=== PATIENT | female | born 1965 | race Caucasian/White ===

== ENCOUNTER 2016-09-16 13:03 | Inpatient (IN) | payer BC, OTHER ==
[~2016-09-16] VITALS: Ht 170.2 cm; Wt 108.9 kg
[~2016-09-16 13:03] MED LIST: ATV1 PO; CYCL10TA6 PO; CYM/60 PO; DIAZ2TAB PO; EVENCAP6 PO; GABA800T PO; HYOS1TAB PO; MULT-506 PO; RANI300T2 PO; RXC5 PO
[2016-09-16] MEDS ORDERED: ONDANSETRON 8 MG/54 ML D5W IV STA (13:36)
[2016-09-16] MEDS ORDERED: SODIUM CHLORIDE 0.9% 1000ML 1,000 ML IV STA (13:42)
[2016-09-16] MEDS ORDERED: HYDROmorphone INJ 1 MG/ML SYR IV PRN (13:45)
[2016-09-16 14:01] LABS: BASO % 0.4 %; BASO ABS # 0.07 K/uL (0-0.2); COMPLETE YES; HEMATOCRIT 46.2 % (37-47); IG% 0.8 %; LYMPH % 18.5 %; LYMPH ABS # 3.18 K/uL (1.2-3.4); MEAN CELL VOLUME 95.9 fL (80-100); MEAN CORPUSCULAR HEMOGLOBIN 31.5 pg (25-34); MEAN CORPUSCULAR HGB CONC 32.9 g/dl (32-36); MEAN PLATELET VOLUME 10.8 fL (7.4-10.4); MONO % 7.3 %; PLATELET COUNT 244 K/uL (130-400); RED BLOOD COUNT 4.82 M/uL (4.2-5.4); WHITE BLOOD COUNT 17.21 K/uL (4.8-10.8)
[2016-09-16] MEDS ORDERED: ASPI81TA28 PO (14:14)
[2016-09-16] MEDS ORDERED: PANT40TA PO (14:14)
[2016-09-16] MEDS ORDERED: PREG1CAP28 PO (14:14)
[2016-09-16] MEDS ORDERED: RMRS/15 PO (14:14)
[2016-09-16] MEDS ORDERED: NURSING VERBAL MED ORDER ONE (14:15)
[2016-09-16] MEDS ORDERED: LORAZEPAM 0.5 MG TAB SL STA (14:45)
[2016-09-16] MEDS ORDERED: DIAZEPAM 2MG TAB PO PRN (15:30)
[2016-09-16] MEDS ORDERED: NALOXONE HCL 0.4 MG/1 ML VIAL/CARP IV PRN (15:30)
[2016-09-16] MEDS ORDERED: RANITIDINE HCL 150 MG TAB PO PRN (15:45)
[2016-09-16 16:00] VITALS: BP 112/72; TEMP 36.6; Ht 170.2 cm; Wt 108.9 kg
[2016-09-16 16:15] VITALS: BP 126/83; PULSE 100; TEMP 36.7; O2SAT 90
[2016-09-16 17:00] LABS: CALCIUM 8.1 mg/dl (8.5-10.1); CREATININE 0.88 mg/dl (0.60-1.20); POTASSIUM 4.1 mmol/L (3.5-5.1)
[2016-09-16] MEDS: OXYCODONE HCL IR 5 MG TAB (IMMEDIATE RELEASE) PO PRN (17:05)
--- NOTE | 2016-09-16 17:15 | EMERGENCY ROOM VISIT NOTE ---
History Report prepared by Valarie: Evans Curry Under the Supervision of: Dr. Derek Crain M.D. First contact with patient: 13:21 Chief Complaint: BACK PAIN Stated Complaint: SEVERE LOW BACK PAIN History of Present Illness The patient is a 51 year old female who presents ambulatory to the Emergency Room with complaints of worsening low back pain that started around 8 days ago. She had back surgery in December of last year with Dr. Aleman of orthopedics, and had rods put in. The patient says that her back pain flared up again last week and she also has been having numbness or tingling down her front thigh. She says that she feels a bit of numbness and tingling in her foot and toes as well. However, she states that the numbness and tingling is normal for her. She says that she has been having pain down her left thigh as well, and this is not normal for her. The patient notes that her back pain is starting to wrap around her lower abdomen. She has a terrible headache when the pain flares up, and she gets nauseous. Currently, the patient feels very nauseous. The patient notes that she wakes up in the mornings sometimes and cannot move because she is in so much pain. She was seen by Dr. Aleman 2 days ago, and was put on a tapering steroid pack, and was told to come to the ED if the pain worsened. Even with taking the steroid pack, things are not getting better. The patient has left- over pain medicine from the surgery, and has been taking those for her current pain. She has been taking Hydrocodone and Roxicodone. She denies any recent injury to the back. Pt denies LOC, fevers, chills, diaphoresis, visual changes, neck pain, chest pain, breathing difficulties, vomiting, melena, hematochezia, urinary symptoms, weakness, lymphadenopathy, rash, or other complaints. Source of History: patient Onset: 8 days ago Position: back (lower) Timing: worsening Associated Symptoms: + abdominal pain (lower ), + headache, + nausea Note: Associated symptoms: Pain down left thigh. Numbness and tingling down left leg ( but normal for her). Review of Systems See HPI for pertinent positives and negatives. A total of ten systems were reviewed and were otherwise negative. Past Medical & Surgical Medical Problems: (1) Bowel wall thickening (2) GERD (gastroesophageal reflux disease) (3) Lumbar stenosis with neurogenic claudication (4) TMJ (temporomandibular joint syndrome) (5) Ulcer of abdomen wall Surgical Problems: (1) H/O: hysterectomy (2) Hx of cholecystectomy Family History Cancer Heart disease Hypertension Social History Smoking Status: Never Smoker Alcohol Use: none Marital Status: Housing Status: lives with significant other Current/Historical Medications Scheduled Aspirin (Aspirin Ec), 81 MG PO DAILY Duloxetine HCl (Cymbalta), 90 MG PO QAM Evening [place] Oil (Evening [place] Oil), 1 CAP PO BID Hyoscyamine Sulfate (Levsin), 0.125 MG PO TID Mirtazapine (Mirtazapine), 30 MG PO HS Multivitamin (Multivitamin), 1 TAB PO QAM Pantoprazole (Protonix), 40 MG PO BID Pregabalin (Lyrica), 75 MG PO BID Scheduled PRN Cyclobenzaprine Hcl (Flexeril), 10 MG PO TID PRN for Muscle Spasms Diazepam (Valium), 2 MG PO BID PRN for PRN Lorazepam (Lorazepam), 1 MG PO Q6H PRN for Anxiety Oxycodone HCl (Oxycodone HCl), 5-10 MG PO Q4H PRN for Pain Allergies Coded Allergies: Sulfamethoxazole w/Trimethoprim (Verified Adverse Reaction, Unknown, Yeast infection, 09/16/16) Physical Exam Vital Signs Date Time Temp Pulse Resp B/P Pulse Ox O2 Delivery O2 Flow Rate FiO2 09/16/16 14:03 100 18 113/76 96 Room Air 09/16/16 13:05 36.5 118 20 145/87 97 Room Air Physical Exam GENERAL: Awake, alert, uncomfortable-appearing, in mild distress HENT: Normocephalic, atraumatic. Oropharynx unremarkable. EYES: Normal conjunctiva. Sclera non-icteric. NECK: Supple. No nuchal rigidity. FROM. No JVD. RESPIRATORY: Clear to auscultation. CARDIAC: Regular rate, normal rhythm. Extremities warm and well perfused. Pulses equal. ABDOMEN: Soft, non-distended. No tenderness to palpation. No rebound or guarding. No masses. RECTAL: Deferred. MUSCULOSKELETAL: Chest examination reveals no tenderness. Tenderness over left sciatic notch and into left thigh. There is no CVA tenderness to palpation. No joint edema. LOWER EXTREMITIES: Calves are equal size bilaterally and non-tender. No edema. No discoloration. NEURO: Normal sensorium. Slightly hyperreflexive in left leg. No saddle anesthesia. SKIN: No rash or jaundice noted. Medical Decision & Procedures ER Provider Diagnostic Interpretation: MRI Pending. Laboratory Results 09/16/16 13:50 Red Blood Count 4.82, Mean Corpuscular Volume 95.9, Mean Corpuscular Hemoglobin 31.5, Mean Corpuscular Hemoglobin Concent 32.9, Mean Platelet Volume 10.8, Neutrophils (%) (Auto) 71.0, Lymphocytes (%) (Auto) 18.5, Monocytes (%) (Auto) 7.3, Eosinophils (%) (Auto) 2.0, Basophils (%) (Auto) 0.4, Neutrophils # (Auto) 12.23, Lymphocytes # (Auto) 3.18, Monocytes # (Auto) 1.25, Eosinophils # (Auto) 0.34, Basophils # (Auto) 0.07 Test 09/16/16 13:50 White Blood Count 17.21 K/uL (4.8-10.8) Red Blood Count 4.82 M/uL (4.2-5.4) Hemoglobin 15.2 g/dL (12.0-16.0) Hematocrit 46.2 % (37-47) Mean Corpuscular Volume 95.9 fL (80-100) Mean Corpuscular Hemoglobin 31.5 pg (25-34) Mean Corpuscular Hemoglobin Concent 32.9 g/dl (32-36) Platelet Count 244 K/uL (130-400) Mean Platelet Volume 10.8 fL (7.4-10.4) Neutrophils (%) (Auto) 71.0 % Lymphocytes (%) (Auto) 18.5 % Monocytes (%) (Auto) 7.3 % Eosinophils (%) (Auto) 2.0 % Basophils (%) (Auto) 0.4 % Neutrophils # (Auto) 12.23 K/uL (1.4-6.5) Lymphocytes # (Auto) 3.18 K/uL (1.2-3.4) Monocytes # (Auto) 1.25 K/uL (0.11-0.59) Eosinophils # (Auto) 0.34 K/uL (0-0.5) Basophils # (Auto) 0.07 K/uL (0-0.2) RDW Standard Deviation 44.4 fL (36.4-46.3) RDW Coefficient of Variation 12.8 % (11.5-14.5) Immature Granulocyte % (Auto) 0.8 % Immature Granulocyte # (Auto) 0.14 K/uL (0.00-0.02) Erythrocyte Sedimentation Rate 10 mm/hr (0-21) C-Reactive Protein 0.37 mg/dl (0-0.29) Laboratory results reviewed by me Medications Administered Medications (Trade) Dose Ordered Sig/Ana Laura Route Start Time Stop Time Status Last Admin Dose Admin Hydromorphone HCl (Dilaudid Inj) 1 mg Q15M PRN IV 09/16/16 13:45 09/30/16 13:44 09/16/16 13:58 1 MG Ondansetron HCl 8 mg 8 mg NOW STAT IV 09/16/16 13:36 09/16/16 13:39 DC 09/16/16 13:57 8 MG Sodium Chloride (Nss 1000ml) 1,000 ml @ 999 mls/hr Q1H1M STAT IV 09/16/16 13:42 09/16/16 14:42 DC 09/16/16 13:42 999 MLS/HR ED Course 1335: The patient was evaluated in room A10. A complete history and physical exam was performed. 1336: Ordered Zofran 8mg IV 8 mg IV. 1342: Ordered NSS 1000 ml @ 999 mls/hr IV. 1344: I discussed the patient with Dr. Aleman - [facility] - he will bring the patient into the hospital for further evaluation and treatment. 1345: Ordered Dilaudid Inj 1 mg IV PRN. 1403: Upon reexamination, the patient was lying in bed. I discussed the treatment plan with her. She verbally expressed understanding and agreement with the treatment plan. The patient will be evaluated for further management. 1445: Ordered Ativan Tab 0.5 mg SL. 1507: I reevaluated and updated the patient. Medical Decision Triage Nursing notes reviewed. The patient's presentation and history were concerning for worsening back pain despite outpatient treatment. Etiologies such as lumbago, sciatica, cauda equina, epidural abscess, osteomyelitis, fracture, aortic disease, metastatic disease, infection, renal colic, gastrointestinal, as well as others were entertained. The patient was evaluated. She was quite uncomfortable. She was given Zofran and IV Dilaudid for symptom control. She is currently taking a prednisone taper. Her blood work showed a leukocytosis of 17,000. CRP and ESR were unremarkable. Chemistry panel was unremarkable. The patient had an MRI ordered. She was given sublingual Ativan prior to MRI. Consultation was made with her spine surgeon, Dr. Aleman. He requested the MRI. Given the patient's failure of outpatient management she was brought into the hospital for pain control and further management based upon new Imaging and her response to treatment. The chart was completed utilizing [employer] voice recognition software. Grammatical errors, random word insertions, pronoun errors, and incomplete sentences are an occasional consequence of this system due to software limitations, ambient noise, and hardware issues. Any formal questions or concerns about the content, text, or information contained within the body of this dictation should be directly addressed to the physician for clarification. Consults Time Called: 1343 Consulting Physician: Dr. Aleman - [facility] Returned Call: 1342 I discussed the patient with Dr. Aleman [facility] - he will bring the patient into the hospital for further evaluation and treatment. Impression Primary Impression: Acute low back pain Scribe Attestation The scribe's documentation has been prepared under my direction and personally reviewed by me in its entirety. I confirm that the note above accurately reflects all work, treatment, procedures, and medical decision making performed by me. Departure Information Dispostion Being Evaluated By Surgeon Jonny Lambert M.D. (PCP) Patient Instructions My [facility]
--- NOTE | 2016-09-16 17:19 | DIAGNOSTIC IMAGING REPORT ---
MRI OF THE LUMBAR SPINE WITHOUT IV CONTRAST CLINICAL HISTORY: Low back pain. COMPARISON STUDY: No priors. TECHNIQUE: MRI of the lumbar spine is performed using various T1 and T2-weighted sequences in the axial and sagittal planes. IV contrast was not administered for this examination. FINDINGS: Lumbar spine: Vertebral body height and alignment are maintained throughout the lumbar spine. There are postoperative changes from laminectomy and posterior fusion at L5-S1. Susceptibility artifact from orthopedic hardware degrades evaluation at these levels. There is chronic degenerative endplate change identified at L4-L5 and L5-S1. A small hemangioma is incidentally noted in the body of L3. The remaining spinous processes and the transverse processes appear intact. No destructive bony lesion is seen. Intervertebral discs: There is degenerative disc desiccation seen throughout the lumbar spine. There is loss of height at L5-S1 with evidence of discectomy and spacer placement at this level. Spinal cord: The visualized spinal cord is normal in morphology and signal intensity. The conus medullaris terminates at the L1-L2 interspace. The nerve roots of the cauda equina are normal in morphology. L1-L2: There is minimal posterior disc bulge. The central canal and neural foramina are widely patent. L2-L3: Minimal facet arthropathy is of no consequence. The central canal and neural foramina are widely patent. L3-L4: There is broad-based posterior disc bulge eccentric to the left with annular fissure. This causes mild to moderate acquired compromise of the central canal. The minimum AP canal diameter measures 7.5 mm at this level. This causes left-sided subarticular stenosis, and this may impinge on the exiting left L3 as well as the transiting left-sided nerve roots of this level. Facet arthropathy causes minimal left-sided neural foraminal stenosis. L4-L5: There is posterior disc bulge with annular fissure. The central canal and neural foramina are patent. Facet arthropathy is of no consequence. L5-S1: The central canal and neural foramina appear patent. Sacrum: The visualized sacrum is normal in morphology and signal intensity. Soft tissues: Postoperative change is seen posteriorly at L5-S1. The paraspinous soft tissues are otherwise normal in appearance. The partially imaged retroperitoneal structures are grossly normal but incompletely assessed. A retroaortic left renal vein is incidentally noted. IMPRESSION: 1. There are postoperative changes from L5-S1 with spinal fusion. 2. Mild to moderate acquired compromise of the central canal is seen at L3-L4 secondary to posterior disc bulge. 3. No significant spinal stenosis is seen at the remaining lumbar levels. See discussion for detailed [id number] analysis. Dictated: 09/16/2016 3:45 PM Transcribed: 09/16/2016 5:19 PM [email or web address] Electronically signed by: Aristides Coombs M.D. 09/16/2016 5:26 PM Dictated Date/Time: 09/16/2016 3:45 PM
[2016-09-16] MEDS: HYDROmorphone HCL 0.5MG/ML 50 ML CASSETTE IV PRN ×2 (17:39→23:16)
[2016-09-16] MEDS: SODIUM CHLORIDE 0.9% 1000ML 1,000 ML IV SCH (17:39)
[2016-09-16] MEDS: GABAPENTIN 800 MG TAB PO SCH (20:24)
[2016-09-16] MEDS: HYOSCYAMINE SULFATE 0.125 MG SL TAB PO SCH (20:24)
[2016-09-16 23:27] VITALS: BP 89/56; PULSE 76; TEMP 36.6; O2SAT 90
[2016-09-16 23:28] VITALS: BP 112/72
[2016-09-17] VITALS (8 sets, daily range): BP systolic 94–108; BP diastolic 56–74; PULSE 71–95; TEMP 36.6–37; O2SAT 83–96
[2016-09-17 00:28] LABS: URINE APPEARANCE CLEAR (CLEAR); URINE BILIRUBIN NEG (NEG); URINE COLOR YELLOW; URINE EPITHELIAL CELL AUTO >30 /lpf (0-5); URINE NITRITE NEG (NEG); URINE PH 5.5 (4.5-7.5); URINE SPECIFIC GRAVITY 1.022 (1.000-1.030); UROBILINOGEN NEG (NEG)
[2016-09-17 00:29] LABS: MANUAL MICROSCOPIC REQUIRED? NO; REVIEW REQ? NO
[2016-09-17] MEDS: HYDROmorphone HCL 0.5MG/ML 50 ML CASSETTE IV PRN ×2 (07:13→14:51)
[2016-09-17] MEDS: DULOXETINE (CYMBALTA) 30 MG CAP PO SCH (08:31)
[2016-09-17] MEDS: GABAPENTIN 800 MG TAB PO SCH ×3 (08:31→22:09)
[2016-09-17] MEDS: HYOSCYAMINE SULFATE 0.125 MG SL TAB PO SCH ×3 (08:31→22:09)
--- NOTE | 2016-09-17 13:07 | HISTORY & PHYSICAL EXAMINATION ---
DATE OF ADMISSION: 09/16/2016 HISTORY OF PRESENT ILLNESS: This is a 51-year-old female well known to me having undergone lumbar decompression and fusion L5-S1 approximately a year ago. I was seen her in the office this past week with the acute onset of significant limiting back pain with somewhat leg symptoms. She states this began when lifting her grandson approximately a week ago. We did attempt a trial of oral steroids and narcotics on beginning of last week from the office. Unfortunately, even after 48 hours of oral steroids, her symptoms continued to decline, now with severe back and bilateral leg pain, left greater than right, markedly exacerbated with activity. She subsequently came to the Emergency Room for pain control. She was admitted. She denies any loss of bowel or bladder control. Does note a significant increase of back and leg symptoms with Valsalva maneuvers as well as activity. PAST MEDICAL HISTORY: Significant for the above-mentioned lumbar decompression and fusion L5-S1. She has a history of GERD, TMJ, stomach ulcers and a history of hysterectomy and cholecystectomy. SOCIAL HISTORY: She does not use tobacco or alcohol products. She is . MEDICATIONS: Include aspirin, Levsin, Protonix and Lyrica. PHYSICAL EXAMINATION: She is markedly uncomfortable with any motion in the bed with either sitting up or rotation. She exhibits reasonable strength bilateral plantarflexion, dorsiflexion, but weakness with quadricep activation secondary to pain. She has a well-healed midline lumbar incision. There are no significant appreciable sensory deficits to lower extremities. IMAGING DATA: MRI performed yesterday at [facility] of lumbar spine does demonstrate a massive disk herniation L3-L4, occupying the central left lateral recess of the L3-L4 region of the canal. There is a component of caudal migration. There is some disk desiccation collapse at L4-L5 level and again fusion appreciable at the L5-S1 level with decompression. ASSESSMENT: Acute disk herniation and back pain. PLAN: At this time, we discussed pain intervention versus surgical intervention. We will attempt a trial of epidural injections, hopefully we can have this performed tomorrow, will consult in-house pain management. Pending her response to this ____ able to discharge home with pain management treatment only; however, if she fails to respond, we may have to consider a lumbar decompression and fusion at L3-L4, L4-L5 level. The patient understands and agrees.
[2016-09-17] MEDS: SODIUM CHLORIDE 0.9% 1000ML 1,000 ML IV SCH (15:26)
[2016-09-17] MEDS: OXYCODONE HCL IR 5 MG TAB (IMMEDIATE RELEASE) PO PRN ×2 (15:27→19:28)
[2016-09-17] MEDS: LORAZEPAM 1 MG TAB PO PRN (15:27)
[2016-09-17] MEDS: PREGABALIN 75 MG CAP PO SCH (22:10)
[2016-09-18] VITALS (7 sets, daily range): BP systolic 105–139; BP diastolic 63–80; PULSE 73–90; TEMP 36.6–37.2; O2SAT 91–96
[2016-09-18] MEDS: LORAZEPAM 1 MG TAB PO PRN ×3 (00:14→23:56)
[2016-09-18] MEDS: HYDROmorphone HCL 0.5MG/ML 50 ML CASSETTE IV PRN ×3 (07:11→23:15)
[2016-09-18] MEDS: OXYCODONE HCL IR 5 MG TAB (IMMEDIATE RELEASE) PO PRN (07:47)
[2016-09-18] MEDS: GABAPENTIN 800 MG TAB PO SCH (08:35)
[2016-09-18] MEDS: DULOXETINE (CYMBALTA) 30 MG CAP PO SCH (08:36)
[2016-09-18] MEDS: HYOSCYAMINE SULFATE 0.125 MG SL TAB PO SCH ×3 (08:38→20:42)
[2016-09-18] MEDS: PREGABALIN 75 MG CAP PO SCH ×2 (08:42→20:42)
--- NOTE | 2016-09-18 09:16 | Pain Management Consultation ---
Pain Management Consultation Date of Consultation September 18, 2016. Reason for Consultation Evaluate patient for epidural steroid injection. History Sally Oconnell is a 51-year-old female admitted to [facility] with complaint of experiencing acute onset of low back pain and radiation to the proximal left lower extremity. She reports that approximately days ago, when she attempted to lift her grandson who weighs 13 pounds, she experienced acute onset of left-sided low back pain. Over the next several days , the pain related from the left low back into the left proximal buttock over the left hip area and independently over the posterior lateral aspect of the leg to above the knee. Pain is described as sharp, burning, stabbing, which constant achy component. Pain is present continuously and does not change with any activity. She rates the pain is 8/10 when severe and 4/10 when minimal. Since the occurrence of her symptoms, she has been treated with oral steroids, oxycodone and cyclobenzaprine. Currently as an inpatient, she is receiving IV hydromorphone. She denies any saddle anesthesia, bowel bladder incontinence, or any other neurological symptoms. This morning, although she responds to questions regarding her symptoms, she has poor recall and is unable to provide clear and specific answers. Previously, she has a history of undergoing L5/S1 decompression fusion approximately 1 year ago. She reports experiencing some persistent postoperative pain, but she is vague and is unable to clarify. She does note, however, that these symptoms are new and different from her typical chronic postoperative pain. She does note having some residual left-sided intermittent paresthesias and numbness in the distal leg chronically after her surgery. Pain Location 1 - Past Medical/Surgical History (1) TMJ (temporomandibular joint syndrome) (2) GERD (gastroesophageal reflux disease) (3) Hx of cholecystectomy (4) H/O: hysterectomy Family History Cancer Heart disease Hypertension Family Hx Review: history personally reviewed by me Social / Work History Smoking Status: Never smoker Smokeless Tobacco Use: No Drug Use: none Marital Status: Housing Status: lives with family Allergies Coded Allergies: Sulfamethoxazole w/Trimethoprim (Verified Adverse Reaction, Unknown, Yeast infection, 09/16/16) Medications Current Inpatient Medications Medications (Trade) Dose Ordered Sig/Ana Laura Route Start Time Stop Time Status Last Admin Dose Admin Naloxone HCl (Narcan Inj) 0.1 mg Q5M PRN IV 09/16/16 15:30 09/30/16 15:29 Hydromorphone HCl 25 mg 25 mg PRN PRN IV 09/16/16 15:30 09/30/16 15:29 09/18/16 07:11 25 MG Sodium Chloride (Nss 1000ml) 1,000 ml @ 15 mls/hr Q24H IV 09/16/16 15:30 10/16/16 15:29 09/17/16 15:26 15 MLS/HR Diazepam (Valium Tab) 2 mg BID PRN PO 09/16/16 15:30 10/16/16 15:29 Lorazepam (Ativan Tab) 1 mg Q6H PRN PO 09/16/16 15:30 10/16/16 15:29 09/18/16 00:14 1 MG Duloxetine HCl (Cymbalta Cap) 90 mg QAM PO 09/17/16 09:00 10/17/16 08:59 09/17/16 08:31 90 MG Gabapentin (Neurontin Tab) 800 mg TID PO 09/16/16 21:00 10/16/16 20:59 09/17/16 22:09 800 MG Hyoscyamine Sulfate (Levsin Tab) 0.125 mg TID PO 09/16/16 21:00 10/16/16 20:59 09/17/16 22:09 0.125 MG Ranitidine HCl (zANTac TAB) 300 mg TID PRN PO 09/16/16 15:45 10/16/16 15:44 09/18/16 00:03 300 MG Oxycodone HCl (Roxicodone Immediate Rel Tab) `1-2 tabs for pain 1 tab ... Q4H PRN PO 09/16/16 15:45 09/30/16 15:44 09/18/16 07:47 10 MG Pregabalin (Lyrica Cap) 75 mg BID PO 09/17/16 21:00 10/17/16 20:59 09/17/16 22:10 75 MG Review of Systems Denies any recent history of fever, night sweats, unexplained weight loss, or constitutional symptoms. Otherwise, 8 point review of system has been reported to be negative. Physical Exam Height & Weight: Height 5 feet, 7.00 inches. Weight 108.900 (Kilograms) 240 (Pounds) Last Vital Signs Documentation Date Time Temp Pulse Resp B/P Pulse Ox O2 Delivery O2 Flow Rate FiO2 09/18/16 07:23 36.8 82 19 128/80 94 Room Air 09/18/16 00:00 2.0 Exam: Sally Oconnell is alert and oriented. Mood and affect are appropriate. Her sensation is clear but she is unable to recall specific information regarding her acute pain at times. She has difficulty maintaining focus conversation. Inspection of the lumbar spine demonstrates exaggerated lumbar lordosis with healed surgical scar in the distal lumbar spine. No lesions are noted in the lumbar spine region. Provocative testing of the facet joints is remarkable for producing pain in the left distal lumbar spine that is reproductive of her pain on the left side. Provocative testing of the sacroiliac joints bilaterally including 5 provocative tests is difficult to interpret as she has low back pain with every maneuver. There is moderate myofascial tenderness or trigger points identifiable in the paraspinous musculature over the left distal lumbar spine. Neurologically, straight leg raising is negative bilaterally past 90 and no changes noted Achilles stretch. Sensation and motor strength in the lower extremity are symmetrical without deficit. No pathologic reflexes are noted in the lower extremities. Gait was not tested. Patellar Reflex L +2 R +2 Achilles Reflex L +2 R +2 Laboratory Laboratory Results (Last CBC): 09/16/16 13:50 Red Blood Count 4.82, Mean Corpuscular Volume 95.9, Mean Corpuscular Hemoglobin 31.5, Mean Corpuscular Hemoglobin Concent 32.9, Mean Platelet Volume 10.8 H, Neutrophils (%) (Auto) 71.0, Lymphocytes (%) (Auto) 18.5, Monocytes (%) (Auto) 7.3, Eosinophils (%) (Auto) 2.0, Basophils (%) (Auto) 0.4, Neutrophils # (Auto) 12.23 H, Lymphocytes # (Auto) 3.18, Monocytes # (Auto) 1.25 H, Eosinophils # ( Auto) 0.34, Basophils # (Auto) 0.07 Imaging MRI: non enhanced, reports reviewed, images reviewed MRI Findings IMPRESSION: 1. There are postoperative changes from L5-S1 with spinal fusion. 2. Mild to moderate acquired compromise of the central canal is seen at L3-L4 secondary to posterior disc bulge. 3. No significant spinal stenosis is seen at the remaining lumbar levels. See discussion for detailed [id number] analysis. Past Records Previous Records: EHR form cuurent admission reviewed. [place] Drug Monitoring Program Search Results: patient reviewed within database Drug Monitoring Findings: Patitara on chromic diazepam prescribed by PCP. Assessment 1. Intervertebral disc disorder. Lumbar radiculitis. 2. Left lumbar spine pain, possibly left distal facet joint arthropathy or possibly SI joint related pain. Recommendations 1. Evaluation of fluoroscopy today and possibly either facet joint injection, SI joint injection or lumbar transforaminal injection L3 4 left side dependent findings under fluoroscopic exam.Inherent risks the procedure, expected benefits , alternatives, as well as realistic expectations were discussed with the patient. Her questions were answered to their satisfaction. [employer] Voice Recognition This chart was completed in part utilizing [employer] Voice Recognition Software. Random word insertions, pronoun errors, and incomplete sentences are an occasional consequence of this system due to software limitations and ambient noise. Any questions or concerns about the content, text or information contained within the body of this dictation should be directly addressed to the provider for clarification.
[2016-09-18] MEDS ORDERED: RIZATRIPTAN BENZOATE 10 MG TAB PO PRN (10:30)
--- NOTE | 2016-09-18 10:33 | Discharge Instructions ---
Discharge Instructions Date of Service September 18, 2016. Admission Reason for Admission: Severe Low Back Pain Discharge Discharge Diagnosis / Problem: back pain/hnp L3-4 Discharge Goals Goal(s): Improve function Activity Recommendations Activity Limitations: per Instructions/Follow-up section Lifting Limitations: no more than 5 pounds Shower/Bathe: no limitations . Instructions / Follow-Up Instructions / Follow-Up follow up 2-3 weeks Current Hospital Diet Patient's current hospital diet: Regular Diet Discharge Diet Recommended Diet: Regular Diet Pending Studies Studies pending at discharge: no Medical Emergencies . Who to Call and When: Medical Emergencies: If at any time you feel your situation is an emergency, please call 911 immediately. . Non-Emergent Contact Non-Emergency issues call your: Primary Care Provider . "Provider Documentation" section prepared by Ayo Aleman. . VTE Core Measure Inpt VTE Proph given/why not?: Madiha Moss, [facility]
[2016-09-18] MEDS ORDERED: TRIAMCINOLONE ACET 40 MG/ML VIAL ONE (10:48)
[2016-09-18] MEDS ORDERED: BUPIVACAINE 0.5 % 5 MG/1 ML MPF 30ML VIAL ONE (10:48)
--- NOTE | 2016-09-18 11:16 | Pain Clinic Procedure Note ---
Pain Management Procedure Note Date of Procedure September 18, 2016. Procedure Description Procedure Time Out: side/site verified, patient ID confirmed, correct procedure Consent Obtained: written Performed By: Dr. Gaytan Indications: diagnostic, therapeutic Contraindications: none Pre Procedure Vital Signs Date Time Temp Pulse Resp B/P Pulse Ox O2 Delivery O2 Flow Rate FiO2 09/18/16 07:40 Room Air 09/18/16 07:23 36.8 82 19 128/80 94 Room Air 09/18/16 03:15 36.8 73 14 105/70 93 Room Air ASA Class: 3 Description: LUMBAR TRANSFORAMINAL EPIDURAL STEROID INJECTION Diagnosis: Intervertebral disk disorder. Lumbar radiculitis. Level injected: Left L3/L4. Surgeon: Dr. Gaytan Prior to starting, the Patients diagnosis and the procedure were reviewed with the patient in detail. Possible risks, complications and alternative therapies were also reviewed. Patients questions were answered. Informed consent was obtained. Allergies and medication list was reviewed. The patient was brought to the fluoroscopy room and placed in prone position on the table. Immediately prior to starting the procedure, a time out was conducted with the staff and the patient where the patient was identified, proposed procedure was verified, consent was reviewed and the proper site for the planned procedure was identified. Fluoroscopy was utilized in performing the procedure to assist the placement of the needle, to evaluate the final position of the needle prior to injection and to avoid intravascular injection. Monitors used included intermittent blood pressure with automated device, continuous pulse oximetry and level of consciousness. Patient was not given any intravenous sedation and constant verbal contact was maintained throughout the procedure. Biplanar fluoroscopy was used to assist in placement of the needle as well as to evaluate final needle position prior to the injection. On examination, no signs of skin breakdown or infection were noted at the injection site. Lumbar-sacral area was prepped with DuraPrep followed by Betadine solution. Sterile drapes were applied. The appropriate interspace and disk was identified in a true AP view. The fluoroscope was then rotated to obtain a decubitus view in such a manner so that the superior articular process of the inferior vertebra was bisecting the pars inter-articularis of the vertebra above in two or in the 6 oclock position. A 22 Gauge 3.5 inch curved (15 degrees) spinal needle was inserted through the skin and subcutaneous tissues, after local anesthetic infiltration, and advanced in a co-axial technique. Needle tip was first placed on the infero-lateral margin of the pars inter-articularis. Once the bony margin was contacted, the C-arm was rotated to obtain a lateral view. The needle was slowly walked off the bone and advanced toward the anterior and superior aspect of the foramen. Patient did not experience any pain or paresthesia. Six inch micro bore tubing was attached to the needle and aspiration did not demonstrate CSF or blood. AP view was checked to ensure the needle tip was in close proximity to the nerve root in the proximal neural foramen lateral to the inferior articular process and in the 6 oclock position. 1 cc of Isovue 300 contrast was injected via the needle under live fluoroscopy. Intravascular uptake was seen. Needle position was re-adjusted and this time, no vacular uptake was noted. Spread of the contrast was noted in the epidural space and along the nerve root. Neither subdural or subarachnoid spread nor intravascular uptake was noted on plain fluoroscopy. Approximately 10 second digital subtraction angiogram at 8 f/s rate was done in AP view with additional contrast. No vascular uptake was noted. Next 80 mg of Kenalog was injected at each site followed by 2 cc of 2% Xylocaine-MPF to flush the needle. The patient did not experience pain during the injection. Adequate hemostasis was noted. A sterile Band-Aid was applied to the injection site. Patient was monitored for 30 minutes and discharged with an accompanying adult. Discharge instructions were reviewed with the patient/caregiver. Any specific questions were answered. Patient/caregiver voiced understanding of the instructions. Follow-up appointment has been scheduled. Complications: none Patient Tolerated Procedure: well Post-Procedure Vital Signs: Vital Signs Date Time Temp Pulse Resp B/P Pulse Ox O2 Delivery O2 Flow Rate FiO2 09/18/16 07:40 Room Air 09/18/16 07:23 36.8 82 19 128/80 94 09/18/16 00:00 2.0 Discharge Instructions: reviewed & understood
[2016-09-18] MEDS: SODIUM CHLORIDE 0.9% 1000ML 1,000 ML IV SCH (16:08)
--- NOTE | 2016-09-18 16:44 | PROGRESS NOTE ---
DATE: 09/18/2016 SUBJECTIVE: She did have an epidural injection today, feels comfortable. She has been ambulating about the room relatively well. She still on a TAPE STRINGER. PHYSICAL EXAMINATION: She has good strength to testing. Does have difficulty with motion secondary to axial back pain. ASSESSMENT: Status post epidural. PLAN: At this time, will discontinue the TAPE STRINGER, try to transition her to p.o. medications and discharge tomorrow. The patient understands and agrees.
[2016-09-19 03:15] VITALS: BP 113/77; PULSE 73; TEMP 36.7; O2SAT 97
[2016-09-19] MEDS ORDERED: HYDROmorphone INJ 1 MG/ML SYR IV PRN (06:00)
[2016-09-19] MEDS ORDERED: OXYCODONE HCL IR 5 MG TAB (IMMEDIATE RELEASE) PO PRN (06:00)
[2016-09-19] MEDS ORDERED: DC PCA ONE (06:00)
[2016-09-19 07:17] VITALS: BP 115/75; PULSE 69; TEMP 36.5; O2SAT 95
[2016-09-19] MEDS: LORAZEPAM 1 MG TAB PO PRN (08:55)
[2016-09-19] MEDS: PREGABALIN 75 MG CAP PO SCH (08:56)
[2016-09-19] MEDS: HYOSCYAMINE SULFATE 0.125 MG SL TAB PO SCH (08:56)
[2016-09-19] MEDS: DULOXETINE (CYMBALTA) 30 MG CAP PO SCH (08:56)
--- NOTE | 2016-09-19 09:03 | Pain Management Progress Note ---
Pain Management Progress Note Date of Service September 19, 2016. Subjective Complains of experiencing low back pain this morning. Voices unhappiness due to discontinuation of the IV hydromorphone CSR RETAIL. Pain Location 1 - Objective Vital Signs: Last Vital Signs Documentation Date Time Temp Pulse Resp B/P Pulse Ox O2 Delivery O2 Flow Rate FiO2 09/19/16 07:17 36.5 69 17 115/75 95 Room Air 09/18/16 00:00 2.0 Physical Exam: Awake and alert. Able to easily change position without obvious pain or distress. Straight leg raising negative. Injection site unremarkable. Laboratory Laboratory Findings 09/16/16 13:50 Red Blood Count 4.82, Mean Corpuscular Volume 95.9, Mean Corpuscular Hemoglobin 31.5, Mean Corpuscular Hemoglobin Concent 32.9, Mean Platelet Volume 10.8 H, Neutrophils (%) (Auto) 71.0, Lymphocytes (%) (Auto) 18.5, Monocytes (%) (Auto) 7.3, Eosinophils (%) (Auto) 2.0, Basophils (%) (Auto) 0.4, Neutrophils # (Auto) 12.23 H, Lymphocytes # (Auto) 3.18, Monocytes # (Auto) 1.25 H, Eosinophils # ( Auto) 0.34, Basophils # (Auto) 0.07 Assessment 1. Intervertebral disc disorder. L3/L4 disc herniation. Status post left L3/ L4 transforaminal epidural steroid injection. Recommendations 1. Transition to oral analgesics for discharge. Dragon Voice Recognition This chart was completed in part utilizing [employer] Voice Recognition Software. Random word insertions, pronoun errors, and incomplete sentences are an occasional consequence of this system due to software limitations and ambient noise. Any questions or concerns about the content, text or information contained within the body of this dictation should be directly addressed to the provider for clarification.
[2016-09-19] MEDS ORDERED: RXC5 PO ×2 (10:12)
[2016-09-19 10:45] VITALS: BP 115/75; PULSE 69; TEMP 36.5; O2SAT 95
--- NOTE | 2016-09-19 12:25 | DISCHARGE SUMMARY ---
PRINCIPAL DIAGNOSIS: Herniated nucleus pulposus with incapacitating back pain. HOSPITAL COURSE FOLLOWS: On 09/16/2016 the patient was admitted from the Emergency Room secondary to severe back pain. She was placed on a ROLL TABLE OPERATOR for pain control. The following day she was able to mobilize somewhat better and we had a lengthy discussion regarding treatment options. She elected to undergo epidural injections. This occurred on 09/18/2016; tolerated this well. On 10/20/2016 she was discharged home. Discharge orders and instructions found on the chart for further review.
== END 2016-09-19 11:40 | disposition home or self-care (01) | DRG 552 ==
LOC: ENRESERVTM → ENRESERVDT → C.EDB 13:04 → C.MSW 14:18
PROVIDERS: ADMIT Orthopaedic Surgery Orthopaedic Surgery of the Spine; ATTEND Orthopaedic Surgery Orthopaedic Surgery of the Spine
PROC: 3E0S33Z Introduction of Anti-inflammatory into Epidural Space, Percutaneous Approach (ICD-10-PCS; principal; 2016-09-18)
DX: M51.26 Other intervertebral disc displacement, lumbar region (principal); G89.4 Chronic pain syndrome; Z98.1 Arthrodesis status; M26.629 Arthralgia of temporomandibular joint, unspecified side; K25.9 Gastric ulcer, unspecified as acute or chronic, without hemorrhage or perforation; Z88.2 Allergy status to sulfonamides; M54.16 Radiculopathy, lumbar region

== ENCOUNTER 2016-12-12 22:52 | Emergency (ER) | payer BC, OTHER ==
[~2016-12-12] VITALS: Ht 170.2 cm; Wt 112.3 kg
[~2016-12-12 22:52] MED LIST changes: +ASPI81TA28 PO; -GABA800T PO; +PANT40TA PO; +PREG1CAP28 PO; -RANI300T2 PO; +RMRS/15 PO
[2016-12-12 22:54] VITALS: TEMP 37.4; Ht 170.2 cm; Wt 112.3 kg
[2016-12-12] MEDS ORDERED: SODIUM CHLORIDE 0.9% 1000ML 500 ML IV STA (23:12)
[2016-12-12] MEDS ORDERED: LORAZEPAM 2 MG/ML 1 ML VIAL IV STA (23:12)
[2016-12-12] MEDS ORDERED: KETOROLAC TROMETHAMINE 30 MG/ML VIAL IV STA (23:12)
[2016-12-12] MEDS ORDERED: SODIUM CHLORIDE 0.9% 1000ML 1,000 ML IV STA (23:12)
[2016-12-12] MEDS ORDERED: ONDANSETRON INJ 2 MG/ML 2 ML VIAL IV STA (23:12)
[2016-12-12] MEDS ORDERED: MoRPHine SULFATE 4 MG/ML 1 ML CARP\\VIAL IV PRN (23:15)
--- NOTE | 2016-12-12 23:23 | EMERGENCY ROOM VISIT NOTE ---
History Report prepared by Valarie: Bran Booth Under the Supervision of: Dr. Aristides Sarmiento M.D. First contact with patient: 23:08 Chief Complaint: ABDOMINAL PAIN Stated Complaint: FEVR,VOMITING, LOWER R ABD PAIN History of Present Illness The patient is a 51 year old female who presents to the Emergency Room with complaints of burning right sided abdominal pain that began two days ago. She rates her pain a 10/10 in severity. She has a past medical history of fibromyalgia and anxiety. Initially, she was having a whole body burning sensation and general malaise. The next day, she began running and fever with some chills. She then began to feel nauseated and began to experience episodes of vomiting. She is having an increased thirst and lack of appetite. Today, she also began having diarrhea and a dry cough as well. She denies any abnormal urinary symptoms or vaginal discharge. She has been using Tylenol to control her fever. She has a past surgical history of a cholecystectomy. Source of History: patient Onset: two days ago Position: abdomen (RLQ) Symptom Intensity: 10/10 Quality: burning Timing: constant Associated Symptoms: + fevers, + chills, + cough, + nausea, + vomiting, + diarrhea, No urinary symptoms Review of Systems See HPI for pertinent positives & negatives. A total of 10 systems reviewed and were otherwise negative. Past Medical & Surgical Medical Problems: (1) Bowel wall thickening (2) GERD (gastroesophageal reflux disease) (3) Lumbar stenosis with neurogenic claudication (4) TMJ (temporomandibular joint syndrome) (5) Ulcer of abdomen wall Surgical Problems: (1) H/O: hysterectomy (2) Hx of cholecystectomy Family History Cancer Heart disease Hypertension Social History Smoking Status: Current Every Day Smoker Alcohol Use: none Drug Use: none Marital Status: Housing Status: lives with significant other Current/Historical Medications Scheduled Aspirin (Aspirin Ec), 81 MG PO QAM Duloxetine HCl (Cymbalta), 60 MG PO QAM Evening Happy Oil (Evening Happy Oil), 1 CAP PO BID Mirtazapine (Mirtazapine), 30 MG PO HS Multivitamin (Multivitamin), 1 TAB PO QAM Pantoprazole (Protonix), 40 MG PO BID Pregabalin (Lyrica), 75 MG PO BID Scheduled PRN Cyclobenzaprine Hcl (Flexeril), 10 MG PO TID PRN for Muscle Spasms Diazepam (Valium), 2 MG PO BID PRN for Anxiety Hyoscyamine Sulfate (Levsin), 0.125 MG PO TID PRN for abdominal pain Allergies Coded Allergies: Sulfamethoxazole w/Trimethoprim (Verified Adverse Reaction, Unknown, Yeast infection, 12/13/16) Physical Exam Vital Signs Date Time Temp Pulse Resp B/P (MAP) Pulse Ox O2 Delivery O2 Flow Rate FiO2 12/13/16 00:43 90 18 101/55 93 Room Air 12/12/16 22:54 37.4 102 18 108/61 97 Room Air Physical Exam GENERAL: Patient is in no acute distress. HEENT: No acute trauma, normocephalic atraumatic, mucous membranes moist, no nasal congestion, no scleral icterus. NECK: No stridor, no adenopathy, no meningismus, trachea is midline. LUNGS: Clear to auscultation bilaterally, no wheeze, no rhonchi, breath sounds equal. HEART: Mildly tachycardic with a regular rhythm. No murmurs. ABDOMEN: Soft, moderately tender in the RLQ, bowel sounds positive, no hernias, no peritonitis. EXTREMITIES: No cyanosis or edema, full range of motion of all the joints without pain or difficulty, no signs for acute trauma. NEUROLOGIC: Oriented x 3, no acute motor or sensory deficits, no focal weakness. SKIN: No rash, no jaundice, no diaphoresis. Medical Decision & Procedures ER Provider Diagnostic Interpretation: Radiology results as stated below per my review and radiologist interpretation: CHEST X-RAY 1 VIEW: No mediastinal widening, pneumonia, or pneumothorax. Per me CT ABDOMEN & PELVIS: Impression: Patchy attenuation within the left greater than right kidney which may be phase of contrast; however, pyelonephritis is not excluded. Correlation with urinalysis is advised. The appendix is unremarkable. Cyst within left ovary measured 4.3 cm. Trace free fluid in the pelvis. Additional findings: Dependent atelectasis within the lung bases. The gallbladder is surgically absent. Increased attenuation of the liver suggesting hepatic steatosis. Mild splenomegaly. The pancreas and adrenal glands are unremarkable. The uterus is surgically absent. Stomach, small bowel, and colon are unremarkable. Surgical changes within the spine. Radiologist: Franco Cotter MD Laboratory Results 12/12/16 23:25 Red Blood Count 4.23, Mean Corpuscular Volume 95.5, Mean Corpuscular Hemoglobin 31.2, Mean Corpuscular Hemoglobin Concent 32.7, Mean Platelet Volume 10.5 12/12/16 23:25 Test 12/12/16 23:20 12/12/16 23:25 Urine Color YELLOW Urine Appearance CLEAR (CLEAR) Urine pH 5.5 (4.5-7.5) Urine Specific [place]berry 1.016 (1.000-1.030) Urine Protein TRACE (NEG) Urine Glucose (UA) NEG (NEG) Urine Ketones NEG (NEG) Urine Occult Blood 1+ (NEG) Urine Nitrite NEG (NEG) Urine Bilirubin NEG (NEG) Urine Urobilinogen NEG (NEG) Urine Leukocyte Esterase NEG (NEG) Urine WBC (Auto) 1-5 /hpf (0-5) Urine RBC (Auto) 0-4 /hpf (0-4) Urine Hyaline Casts (Auto) 5-10 /lpf (0-5) Urine Epithelial Cells (Auto) 20-30 /lpf (0-5) Urine Bacteria (Auto) NEG (NEG) White Blood Count 8.33 K/uL (4.8-10.8) Red Blood Count 4.23 M/uL (4.2-5.4) Hemoglobin 13.2 g/dL (12.0-16.0) Hematocrit 40.4 % (37-47) Mean Corpuscular Volume 95.5 fL (80-100) Mean Corpuscular Hemoglobin 31.2 pg (25-34) Mean Corpuscular Hemoglobin Concent 32.7 g/dl (32-36) Platelet Count 167 K/uL (130-400) Mean Platelet Volume 10.5 fL (7.4-10.4) RDW Standard Deviation 49.4 fL (36.4-46.3) RDW Coefficient of Variation 14.3 % (11.5-14.5) Neutrophils % (Manual) 43.0 % Lymphocytes % (Manual) 14.9 % Variant Lymphocytes % (manual) 33.3 % Monocytes % (Manual) 6.1 % Basophils % (Manual) 1.8 % Metamyelocytes % 0.9 % Neutrophils # (Manual) 3.58 K/uL (1.4-6.5) Total Absolute Neutrophils 3.58 K/uL (1.4-6.5) Lymphocytes # (Manual) 1.24 K/uL (1.2-3.4) Absolute Variant Lymphocytes 2.77 K/uL Total Absolute Lymphocytes 4.02 K/uL (1.2-3.4) Monocytes # (Manual) 0.51 K/uL (0.11-0.59) Basophils # (Manual) 0.15 K/uL (0-0.2) Metamyelocytes # 0.07 K/uL (0-0) Large Platelets 1+ Anion Gap 6.0 mmol/L (3-11) Est Creatinine Clear Calc Drug Dose 66.9 ml/min Estimated GFR () 55.4 Estimated GFR (Non- 47.8 BUN/Creatinine Ratio 8.5 (10-20) Calcium Level 8.0 mg/dl (8.5-10.1) Total Bilirubin 0.4 mg/dl (0.2-1) Aspartate Amino Transf (AST/SGOT) 44 U/L (15-37) Alanine Aminotransferase (ALT/SGPT) 48 U/L (12-78) Alkaline Phosphatase 103 U/L (45-117) Total Protein 6.3 gm/dl (6.4-8.2) Albumin 2.7 gm/dl (3.4-5.0) Globulin 3.6 gm/dl (2.5-4.0) Albumin/Globulin Ratio 0.8 (0.9-2) Lipase 159 U/L (73-393) Laboratory results reviewed by me. Medications Administered Medications (Trade) Dose Ordered Sig/Ana Laura Route Start Time Stop Time Status Last Admin Dose Admin Sodium Chloride 500 ml @ 999 mls/hr Q31M STAT IV 12/12/16 23:12 12/12/16 23:42 DC 12/12/16 23:44 999 MLS/HR Ondansetron HCl (Zofran Inj) 4 mg NOW STAT IV 12/12/16 23:12 12/12/16 23:17 DC 12/12/16 23:44 4 MG Sodium Chloride 1,000 ml @ 200 mls/hr Q5H STAT IV 12/12/16 23:12 12/13/16 04:11 12/12/16 23:43 200 MLS/HR Morphine Sulfate (MoRPHine SULFATE INJ) 4 mg Q30M PRN IV 12/12/16 23:15 8/22/17 23:14 12/12/16 23:45 4 MG Ketorolac Tromethamine (Toradol Inj) 30 mg NOW STAT IV 12/12/16 23:12 12/12/16 23:17 DC 12/12/16 23:45 30 MG Lorazepam (Ativan Inj) 0.5 mg NOW STAT IV 12/12/16 23:12 12/12/16 23:17 DC 12/12/16 23:44 0.5 MG ED Course 230: The patient was evaluated in room A12. A complete history and physical exam was performed. 2312: Ordered Ativan Inj 0.5 mg IV, Toradol Inj 30 mg IV, Sodium Chloride 1000 ml @ 200 mls/hr IV, Zofran Inj 4 mg IV, Sodium Chloride 500 ml @ 999 mls/hr IV 2315: Ordered Morphine Sulfate 4 mg IV 0115: Ordered Ondansetron HCl 1 homepack PO, Oxycodone HCl 1 homepack PO 0120: Reevaluated the patient. Discussed results and discharge instructions: She verbalized understanding and agreement. The patient is ready for discharge. Medical Decision Differential diagnosis includes but is not limited to appendicitis, diverticulitis, musculoskeletal pain, UTI, ovarian cyst, hernia, pneumonia, viral illness, dehydration, and electrolyte imbalance. There is no leukocytosis or concerning anemia. No significant electrolyte abnormality, kidney failure, hepatitis or pancreatitis. Urinalysis does not show infection or significant hematuria. Chest film shows no pneumonia, mediastinal widening or free air. Abdominal and pelvis CT does not show appendicitis or diverticulitis. There was some possible contrast issue versus pyelonephritis noted, as above, urinalysis does not suggest infection-I suspect the kidney changes were from the contrast. The patient received IV saline, IV Ativan, IV Zofran and IV morphine. She received IV Toradol, she feels improved. The patient presents with lower abdominal pain, vomiting and some diarrhea. This illness may be viral. She may be suffering from a flare of fibromyalgia. I did discuss the possibility of a missed appendicitis with her. She does feel comfortable with discharge home. She was discharged with a home pack of oxycodone and also of Zofran. She was told to return for worsening symptoms or if not improving. Outpatient family doctor follow-up was suggested. Medication Reconcilliation Current Medication List: was personally reviewed by me Blood Pressure Screening Patient's blood pressure: Normal blood pressure Blood pressure disposition: Did not require urgent referral Impression Primary Impression: Right sided abdominal pain Scribe Attestation The scribe's documentation has been prepared under my direction and personally reviewed by me in its entirety. I confirm that the note above accurately reflects all work, treatment, procedures, and medical decision making performed by me. Departure Information Dispostion Home / Self-Care Referrals Jonny Andino M.D. (PCP) Forms Call Back Authorization, HOME CARE DOCUMENTATION FORM, IMPORTANT VISIT INFORMATION Patient Instructions My [facility] Additional Instructions bland diet--crackers, soup, toast, gatorade heat to the area may help oxy ir 1 tab every 4 hours if needed for severe pain zofran 1 tab every 6 hours for nausea rest return for worsening symptoms, vomiting or lack of improvement as appendicitis is still a possibility as discussed
[2016-12-12] MEDS ORDERED: OPTIRAY 320 IV PRN (23:30)
[2016-12-12 23:37] LABS: HEMATOCRIT 40.4 % (37-47); MEAN CELL VOLUME 95.5 fL (80-100); MEAN CORPUSCULAR HEMOGLOBIN 31.2 pg (25-34); MEAN CORPUSCULAR HGB CONC 32.7 g/dl (32-36); MEAN PLATELET VOLUME 10.5 fL (7.4-10.4); PLATELET COUNT 167 K/uL (130-400); RED BLOOD COUNT 4.23 M/uL (4.2-5.4); WHITE BLOOD COUNT 8.33 K/uL (4.8-10.8)
[2016-12-12 23:45] LABS: URINE APPEARANCE CLEAR (CLEAR); URINE BILIRUBIN NEG (NEG); URINE COLOR YELLOW; URINE EPITHELIAL CELL AUTO 20-30 /lpf (0-5); URINE NITRITE NEG (NEG); URINE PH 5.5 (4.5-7.5); URINE SPECIFIC GRAVITY 1.016 (1.000-1.030); UROBILINOGEN NEG (NEG); ZZUR CULT IF INDIC CLEAN CATCH NO
[2016-12-12 23:46] LABS: MANUAL MICROSCOPIC REQUIRED? NO; REVIEW REQ? NO
[2016-12-12 23:57] LABS: BUN/CREATININE RATIO 8.5 (10-20); CREATININE 1.3 mg/dl (0.60-1.20); POTASSIUM 3.5 mmol/L (3.5-5.1)
[2016-12-13] LABS: ALB/GLOB RATIO 0.8 (0.9-2)
[2016-12-13 00:31] LABS: BASO ABS # 0.15 K/uL (0-0.2); BASOPHIL % 1.8 %; COMPLETE YES; LARGE PLATELETS 1+; LYMPH ABS # 1.24 K/uL (1.2-3.4); LYMPHOCYTE % 14.9 %; META ABS # 0.07 K/uL (0-0); METAMYELOCYTE % 0.9 %; VARIANT LYM ABS # 2.77 K/uL; VARIANT LYMPHOCYTE % 33.3 %
[2016-12-13] MEDS ORDERED: OXYCODONE IR HOME PACK PO ONE (01:15)
[2016-12-13] MEDS ORDERED: ONDANSETRON HOME PACK 4MG OD TAB PO ONE (01:15)
[2016-12-13 01:20] VITALS: BP 99/55; PULSE 91; O2SAT 97
--- NOTE | 2016-12-13 07:03 | DIAGNOSTIC IMAGING REPORT ---
CHEST ONE VIEW PORTABLE CLINICAL HISTORY: Abdominal pain. COMPARISON STUDY: Chest radiograph November 03, 2015. FINDINGS: Lung volumes are normal. No pneumothorax or pleural effusion is present. There is no evidence of pulmonary edema. Minimal bibasilar opacities suggest atelectasis. Cardiomediastinal silhouette is normal. IMPRESSION: No acute cardiopulmonary findings. Electronically signed by: Lorenzo Reagan M.D. 12/13/2016 7:02 AM Dictated Date/Time: 12/13/2016 7:01 AM
--- NOTE | 2016-12-13 07:22 | DIAGNOSTIC IMAGING REPORT ---
ABDOMEN AND PELVIS CT WITH IV CONTRAST CT DOSE: 1256.38 mGy.cm HISTORY: Generalized abdominal PAIN, POSS APPY, IV CONTRAST ONLY TECHNIQUE: Multiaxial CT images of the abdomen and pelvis were performed following the use of intravenous contrast. A dose lowering technique was utilized adhering to the principles of ALARA. COMPARISON STUDY: Chest abdomen and pelvis CT 09/08/2014. FINDINGS: Patchy densities within the lung bases posteriorly favor subsegmental atelectasis. No pneumoperitoneum. No pneumatosis. Posterior decompression and fusion within the lower lumbar spine. Cholecystectomy. Hepatic steatosis. The pancreas and adrenal glands are unremarkable. The spleen is enlarged measuring 16 cm in length. Patchy areas of heterogeneous enhancement seen within the bilateral kidneys. This is new from the prior study concerning for pyelonephritis. No renal stones or hydronephrosis. Left circumaortic renal vein. No retroperitoneal lymphadenopathy. Normal bladder. Hysterectomy. Trace pelvic free fluid. A 4.1 cm cyst within the left ovarian cyst. No bowel wall thickening or obstruction. A few colonic diverticula. Normal appendix. IMPRESSION: 1. Heterogeneous enhancement within the bilateral kidneys. This is nonspecific but favors a pyelonephritis. Recommend correlation with urinalysis. 2. Splenomegaly measuring 16 cm in length. 3. Hepatic steatosis. 4. Cholecystectomy and hysterectomy. 5. A 5.1 cm left ovarian cyst. 6. Trace pelvic free fluid. This is likely physiologic. 7. No bowel wall thickening or obstruction. 8. Normal appendix. Electronically signed by: Kenyon Rogers M.D. 12/13/2016 7:21 AM Dictated Date/Time: 12/13/2016 7:14 AM
== END 2016-12-13 01:20 | disposition home or self-care (01) ==
LOC: C.EDB 22:52 → C.EDA 12-13 01:20
DX: R10.31 Right lower quadrant pain (principal); K21.9 Gastro-esophageal reflux disease without esophagitis; M26.629 Arthralgia of temporomandibular joint, unspecified side; Z82.49 Family history of ischemic heart disease and other diseases of the circulatory system; F17.200 Nicotine dependence, unspecified, uncomplicated; Z79.82 Long term (current) use of aspirin

== ENCOUNTER 2019-10-31 13:37 | Inpatient (IN) ==
[2019-10-31] MEDS ORDERED: SODIUM CHLORIDE 0.9% 1000ML 1,000 ML IV ONE ×2 (14:28→14:29)
--- NOTE | 2019-10-31 14:41 | Emergency Department Note ---
History of Present Illness General Chief complaint: Abdominal Pain Stated complaint: ABD PAIN, REF'D BY Time Seen by Provider: 10/31/19 14:18 Source: patient Mode of arrival: ambulatory Limitations: no limitations History of Present Illness Maximum Pain Intensity: 7 This patient comes in with complaints of fever and a right-sided abdominal pain. She called her doctor who recommend she go to urgent care and at urgent care they sent her here. She says she has had abdominal pain for couple days off and on is most of the right mid to lower abdomen. She still has her appendix her gallbladder has been previously removed. She has had a hysterectomy. She has had no trauma. She is had a temperature off and on up to 101. She has had some dysuria but no hematuria. Mild back pain bilaterally. No headache neck pain or stiffness. No cough or respiratory symptoms. No flulike symptoms. No known exposure to COVID. No vaginal bleeding. No headache. Home Medications Home Medications Medication Instructions Recorded Confirmed Type Depade 3 mg PO DAILY 10/31/19 10/31/19 History aspirin 81 mg PO DAILY 10/31/19 10/31/19 History buspirone 5 mg PO BID 10/31/19 10/31/19 History cyclobenzaprine 10 mg PO TID PRN 10/31/19 10/31/19 History diazepam 2 mg PO HS PRN 10/31/19 10/31/19 History evening primrose oil 500 mg PO BID 10/31/19 10/31/19 History hyoscyamine sulfate 0.125 mg PO TID PRN 10/31/19 10/31/19 History mirtazapine 30 mg PO HS 10/31/19 10/31/19 History multivitamin 1 tab PO DAILY 10/31/19 10/31/19 History pantoprazole 40 mg PO BID 10/31/19 10/31/19 History pregabalin 75 mg PO BID 10/31/19 10/31/19 History Allergies Allergy/AdvReac Type Severity Reaction Status Date / Time Bactrim AdvReac Unknown Yeast Verified 12/13/16 00:18 infection sulfamethoxazole AdvReac Unknown Yeast Verified 10/31/19 14:57 infection trimethoprim AdvReac Unknown Yeast Verified 10/31/19 14:57 infection Past Med/Surg History Social History Preferred Language: Salvadorean Feels Safe at Home: Yes Smoking Status: Former smoker Immunizations: Medical history: Hysterectomy, cholecystectomy. Still has her gallbladder. Fibromyalgia. Denies history of kidney stones. She is not on blood thinners. Social history: She lives locally. She is presently unemployed. She has been staying at home and has not had any COVID exposures that she knows of. She is followed locally by Dr. Duarte Review of Systems A total of 10 systems reviewed and were otherwise negative Physical Exam Vital Signs Vital Signs - 24 hr 10/31/19 13:41 10/31/19 14:45 10/31/19 16:00 Temperature 36.9 C Temperature Source Oral Pulse Rate 87 Pulse Rate [Apical] 85 80 Pulse Rhythm [Apical] Regular Regular Pulse Strength [Apical] Normal Respiratory Rate 16 24 20 Respiratory Effort / Characteristics Non-Labored Non-Labored Spontaneous Respiratory Depth Normal Normal Respiratory Pattern Regular Blood Pressure 106/67 Blood Pressure [Left Arm] 91/62 L 94/62 L Blood Pressure Mean 80 Blood Pressure Mean [Left Arm] 71 72 Blood Pressure Position [Left Arm] Sitting Lying Pulse Oximetry 99 94 93 Oxygen Delivery Method Room Air Room Air Room Air Sepsis Recent Fever Within 48 Hours Yes Sepsis New/Unexplained Change in Mental Status No Sepsis Action Taken by Nursing No Action Required General: Well developed well nourished in no acute distress, breathing comfortably on room air. Normal speech HEENT: Normal cephalic atraumatic. Pupils are equal round and reactive to light. Extraocular movements are intact. Oropharynx is pink with moist mucous membranes. No swelling of the mouth lips or tongue. Neck: Supple with a midline trachea. No meningeal signs or stiffness, no JVD or bruits. No Stridor. Chest: Clear to auscultation bilaterally. No wheezes or rhonchi. No increased work of breathing. Heart: Regular rate and rhythm without murmurs or gallops. Abdomen: Soft, moderately tender in the right mid to lower abdomen., nondistended without rebound guarding or rigidity. Extremities: No cyanosis clubbing or edema. No calf tenderness or assymetry Spine/Back. Non tender to palpation. No CVA tenderness Skin: Good turgor without rashes. Neurologic exam: Cranial nerves two through 12 are intact. Motor and sensation are intact and symmetrical throughout. Course Administered Medications Ioversol (Optiray 320 100ml) 92 ml IV ONCE PRN PRN Reason: Interaction Checking Stop: 11/04/19 15:18 Last Admin: 10/31/19 15:21 Dose: 92 ml Documented by: [id number] Discontinued Medications Sodium Chloride (Nss 1000ml) 1,000 mls @ 999 mls/hr IV .Q1H1M ONE Stop: 10/31/19 15:28 Last Infusion: 10/31/19 17:01 Dose: 0 mls/hr Documented by: [id number] Admin: 10/31/19 14:45 Dose: 999 mls/hr Documented by: [id number] Sodium Chloride (Nss 1000ml) 1,000 mls @ 999 mls/hr IV .Q1H1M ONE Stop: 10/31/19 15:29 Last Infusion: 10/31/19 15:53 Dose: 0 mls/hr Documented by: [id number] Admin: 10/31/19 14:45 Dose: 999 mls/hr Documented by: [id number] Ceftriaxone Sodium (Rocephin) 2,000 mg in 70 mls @ 140 mls/hr IV NOW STA Stop: 10/31/19 16:16 Last Infusion: 10/31/19 17:01 Dose: 0 mls/hr Documented by: [id number] Admin: 10/31/19 16:20 Dose: 140 mls/hr Documented by: [id number] Medical Decision Making Differential Diagnosis Appendicitis, UTI, kidney stone, diverticulitis, colitis, electrolyte or metabolic abnormality, sepsis, trauma Medical Records Attestation: I reviewed the patient's medical records. Laboratory Data Attestation: I reviewed the patient's lab results. Result diagrams: 10/31/19 14:30 10/31/19 14:30 Lab Results 10/31/19 10/31/19 10/31/19 Range/Units 14:20 14:30 14:30 WBC 4.71 L (4.8-10.8) K/uL RBC 5.08 (4.2-5.4) M/uL Hgb 15.7 (12.0-16.0) g/dL Hct 46.8 (37-47) % MCV 92.1 (80-100) fL MCH 30.9 (25-34) pg MCHC 33.5 (32-36) g/dL RDW Std Deviation 42.8 (36.4-46.3) fL RDW Coeff of Randee 12.7 (11.5-14.5) % Plt Count 96 L (130-400) K/uL MPV 11.3 H (7.4-10.4) fL Neutrophils % (Manual) 48.2 % Lymphocytes % (Manual) 23.7 % Reactive Lymphs % (Man) 17.5 % Monocytes % (Manual) 7.9 % Basophils % (Manual) 0.9 % Myelocytes % (Man) 1.8 % Neutrophils # (Manual) 2.27 (1.4-6.5) K/uL Total Absolute Neuts 2.27 (1.4-6.5) K/uL Lymphocytes # (Manual) 1.12 L (1.2-3.4) K/uL Reactive Lymphs # 0.82 K/uL Total Abs Lymphocytes 1.94 (1.2-3.4) K/uL Monocytes # (Manual) 0.37 (0.11-0.59) K/uL Basophils # (Manual) 0.04 (0-0.2) K/uL Myelocytes # (Manual) 0.08 H (0-0) K/uL Giant Platelets 1+ Sodium 134 L (136-145) mmol/L Potassium 3.4 L (3.5-5.1) mmol/L Chloride 101 (98-107) mmol/L Carbon Dioxide 24 (21-32) mmol/L Anion Gap 9.0 (3-11) BUN 15 (7-18) mg/dl Creatinine 1.60 H (0.6-1.2) mg/dl Est Cr Clr Drug Dosing 49.0 ml/min Est GFR ( Amer) 42.2 Est GFR (Non-Af Amer) 36.4 BUN/Creatinine Ratio 9.3 L (10-20) Glucose 104 H (70-99) mg/dl Calcium 8.9 (8.5-10.1) mg/dl Total Bilirubin 0.8 (0.2-1) mg/dl AST 60 H (15-37) U/L ALT 80 H (12-78) U/L Alkaline Phosphatase 112 (45-117) U/L Total Protein 8.5 H (6.4-8.2) gm/dl Albumin 4.0 (3.4-5.0) gm/dl Globulin 4.5 H (2.5-4.0) gm/dl Albumin/Globulin Ratio 0.9 (0.9-2) Lipase 169 (73-393) U/L Urine Color Dark Yellow Urine Appearance Turbid A (Clear) Urine pH 5.0 (4.5-7.5) Ur Specific [place] 1.018 (1.000-1.030) Urine Protein 1+ H (Negative) Urine Glucose (UA) Negative (Negative) Urine Ketones Trace H (Negative) Urine Blood 2+ H (Negative) Urine Nitrite Negative (Negative) Urine Bilirubin Negative (Negative) Urine Urobilinogen Negative (Negative) Ur Leukocyte Esterase 2+ H (Negative) Urine WBC (Auto) >30 H (0-5) /hpf Urine RBC (Auto) 0-4 (0-4) /hpf U Hyaline Cast (Auto) 1-5 (0-5) /lpf U Epithel Cells (Auto) >30 H (0-5) /lpf Urine Bacteria (Auto) 2+ H (Negative) Urine Yeast Not Reportable Imaging Data Radiologist's Impression: CT abd pelvis IV con only CLINICAL HISTORY: Right lower quadrant abdominal pain COMPARISON STUDY: December 2016 TECHNIQUE: Patient was scanned in a dynamic helical fashion during intravenous administration of 92 cc of Optiray 320 A dose lowering technique was utilized adhering to the principles of ALARA. CT DOSE: 1044.36 mGy.cm FINDINGS: Lower chest: There are basilar atelectatic changes. Liver: The contrast-enhanced liver is normal in size, contour, and attenuation. There is no intrahepatic biliary ductal dilatation. The hepatic veins and portal veins are patent. Gallbladder: Surgically absent Spleen: The spleen is enlarged measuring 16.2 cm. Pancreas: Unremarkable. Adrenal glands: Unremarkable. Kidneys: There is symmetric renal cortical enhancement. The kidneys are normal in size without hydronephrosis. Bowel: There are no transition zones indicate bowel obstruction. There is no evidence of acute diverticulitis. The appendix is normal. Peritoneum: There is trace free pelvic fluid. Vasculature: The abdominal aorta is normal in course and caliber. Adenopathy: None. Pelvic viscera: There is a 4.5 cm cystic left ovarian lesion. This remains essentially unchanged from the 2017 study. The uterus is surgically absent. Skeletal structures: Postsurgical changes are present within the lumbar spine IMPRESSION: 1. No acute intra-abdominal or pelvic findings 2. No evidence of bowel obstruction. No evidence of free air 3. Normal appendix. No evidence of acute diverticulitis 4. Stable 4.5 cm cystic left ovarian lesion 5. Splenomegaly Blood Pressure Blood Pressure Findings: Normal blood pressure Blood Pressure Disposition: elevated BP felt to be situational MDM Narrative This patient comes in as described above she is has right lower quad abdominal pain she has had intermittent fevers. Her doctor was worried about appendicitis and sent her here. She has had a previous hysterectomy. IV access was established and she was hydrated with 2 L of IV normal saline normal saline. Multiple blood testing was obtained as well as urinalysis and culture. I did order a CAT scan of the abdomen as well. She was reassessed frequently. He has a normal white count and she is afebrile here. She has no sick of electrolyte or metabolic abnormalities with exception of mildly elevated creatinine of 1.6. I did a CAT scan of the abdomen with IV contrast there is no acute appendicitis or any other acute intra-abdominal process. Her urinalysis does suggest infection. Clinically when I tap on her back she has nothing she has pyelonephritis. She was given Rocephin 2 g IV. She was reassessed. When I go to back to check her she is states she is cold and shaking and a little bit rigorous. She says she has been like this for last couple days. She feels like she is getting fever again. I did recheck her blood pressure was 115 systolic and she looks well otherwise. I am concerned that she does have Reiger's. Her white count is not elevated. Urinalysis does suggest a UTI and she is had urinary symptoms and it may be that she does have a pyleonephritis. She says that she has had no exposure to COVID has been at home and has had no respiratory symptoms or cough. She has had a couple blood pressures that are been low in the 90s at times and with her rigors, I do think would benefit from IV antibiotics and observation. I did add blood cultures as well as lactic acid [facility]. Upon further review the labs with a low platelets and minimally elevated LFTs and flulike symptoms is possible she does have anaplasmosis or Lyme and I did give her doxycycline 100 mg p.o. and order anaplasmosis and Lyme studies as well. Impression & Plan Pyelonephritis, H/O: hysterectomy, Abdominal pain, Anaplasmosis Discharge Plan Visit Data Chief Complaint: Abdominal Pain Stated Complaint: ABD PAIN, REF'D BY ED Provider: Vinnie Pace Discharge Problem: Pyelonephritis, H/O: hysterectomy, Abdominal pain, Anaplasmosis Forms Stand Alone Forms: [facility] Prescriptions Prescriptions: No Action buspirone 5 mg tablet 5 mg PO BID RF: 0 diazepam 2 mg tablet 2 mg PO HS PRN (Reason: Sleep) RF: 0 hyoscyamine sulfate 0.125 mg tablet 0.125 mg PO TID PRN (Reason: Abdominal Discomfort) RF: 0 multivitamin Tablet 1 tab PO DAILY RF: 0 cyclobenzaprine 10 mg tablet 10 mg PO TID PRN (Reason: Muscle Spasm) RF: 0 evening primrose oil 500 mg Capsule 500 mg PO BID RF: 0 aspirin 81 mg Tablet,Delayed Release (Dr/Ec) 81 mg PO DAILY RF: 0 pantoprazole 40 mg tablet,delayed release (DR/EC) 40 mg PO BID RF: 0 mirtazapine 15 mg tablet 30 mg PO HS RF: 0 pregabalin 75 mg capsule 75 mg PO BID RF: 0 Depade 3 mg PO DAILY RF: 0 Discharge Problem: Abdominal pain Qualifiers: Abdominal location: right lower quadrant Qualified Code(s): R10.31 - Right lower quadrant pain
[2019-10-31 14:59] LABS: Appearance Urine Turbid (Clear); Bacteria Urine Automated 2+ (Negative); Blood Urine 2+ (Negative); Color Urine Dark Yellow; Epithelial Cell Urine Auto >30 /lpf (0-5); Glucose Urine UA Negative (Negative); Ketones Urine Trace (Negative); Leukocyte Esterase Urine 2+ (Negative); Nitrite Urine Negative (Negative); Protein Urine 1+ (Negative); Specific Gravity Urine 1.018 (1.000-1.030); Urobilinogen Urine Negative (Negative); WBC Urine Automated >30 /hpf (0-5)
[2019-10-31 14:59] LABS: BUN Creatinine Ratio 9.3 (10-20); Calcium 8.9 mg/dl (8.5-10.1); Est GFR (African American) 42.2; Est GFR (Non-African American) 36.4; Potassium 3.4 mmol/L (3.5-5.1)
[2019-10-31 15:02] LABS: Albumin Globulin Ratio 0.9 (0.9-2); Bilirubin,Total 0.8 mg/dl (0.2-1); Globulin 4.5 gm/dl (2.5-4.0); Total Protein 8.5 gm/dl (6.4-8.2)
[2019-10-31 15:15] LABS: Bilirubin Urine Negative (Negative); Ictotest Urine Negative (Negative)
[2019-10-31] MEDS ORDERED: IOVERSOL 100ml IV PRN (15:19)
--- NOTE | 2019-10-31 15:32 | CT Scan Report ---
CT abd pelvis IV con only CLINICAL HISTORY: Right lower quadrant abdominal pain COMPARISON STUDY: December 2016 TECHNIQUE: Patient was scanned in a dynamic helical fashion during intravenous administration of 92 c c of Optiray 320 A dose lowering technique was utilized adhering to the principles of ALARA. CT DOSE: 1044.36 mGy.cm FINDINGS: Lower chest: There are basilar atelectatic changes. Liver: The contrast-enhanced liver is normal in size, contour, and attenuation. There is no intrahepa tic biliary ductal dilatation. The hepatic veins and portal veins are patent. Gallbladder: Surgically absent Spleen: The spleen is enlarged measuring 16.2 cm. Pancreas: Unremarkable. Adrenal glands: Unremarkable. Kidneys: There is symmetric renal cortical enhancement. The kidneys are normal in size without hydron ephrosis. Bowel: There are no transition zones indicate bowel obstruction. There is no evidence of acute divert iculitis. The appendix is normal. Peritoneum: There is trace free pelvic fluid. Vasculature: The abdominal aorta is normal in course and caliber. Adenopathy: None. Pelvic viscera: There is a 4.5 cm cystic left ovarian lesion. This remains essentially unchanged from the 2017 study. The uterus is surgically absent. Skeletal structures: Postsurgical changes are present within the lumbar spine IMPRESSION: 1. No acute intra-abdominal or pelvic findings 2. No evidence of bowel obstruction. No evidence of free air 3. Normal appendix. No evidence of acute diverticulitis 4. Stable 4.5 cm cystic left ovarian lesion 5. Splenomegaly ACT 112: Negative or not required by law. Electronically signed by: Charles Escobedo M.D. 10/31/2019 3:31 PM
[2019-10-31] MEDS ORDERED: cefTRIAXone SODIUM 2,000 MG/70 ML BAG IV STA (15:47)
[2019-10-31 15:48] LABS: Hematocrit (blood only) 46.8 % (37-47); Hemoglobin 15.7 g/dL (12.0-16.0); Mean Corpuscular Hemoglobin 30.9 pg (25-34); Mean Corpuscular Hgb Conc 33.5 g/dL (32-36); Mean Corpuscular Volume 92.1 fL (80-100); Mean Platelet Volume 11.3 fL (7.4-10.4); Platelet Count 96 K/uL (130-400); RDW Coefficient of Variation 12.7 % (11.5-14.5); RDW Standard Deviation 42.8 fL (36.4-46.3); Red Blood Count 5.08 M/uL (4.2-5.4); White Blood Count 4.71 K/uL (4.8-10.8)
[2019-10-31 15:50] LABS: RBC Urine Automated 0-4 /hpf (0-4)
[2019-10-31 16:19] LABS: ALC (manual) 1.94 K/uL (1.2-3.4); ANC (manual) 2.27 K/uL (1.4-6.5); Basophils # (manual) 0.04 K/uL (0-0.2); Basophils % (manual) 0.9 %; Giant Platelets 1+; Lymphocytes # (manual) 1.12 K/uL (1.2-3.4); Lymphocytes % (manual) 23.7 %; Monocytes # (manual) 0.37 K/uL (0.11-0.59); Monocytes % (manual) 7.9 %; Myelocytes # (manual) 0.08 K/uL (0-0); Myelocytes % (manual) 1.8 %; Neutrophils # (manual) 2.27 K/uL (1.4-6.5); Neutrophils % (manual) 48.2 %; Reactive Lymphocytes # (manual) 0.82 K/uL; Reactive Lymphocytes % (manual) 17.5 %
[2019-10-31] MEDS ORDERED: ACETAMINOPHEN 500 MG TAB PO STA (17:37)
[2019-10-31] MEDS ORDERED: DOXYCYCLINE HYCLATE 100 MG CAP PO STA (18:11)
[2019-10-31] MEDS ORDERED: ONDANSETRON INJ 2 MG/ML 2 ML VIAL IV PRN (18:30)
[2019-10-31] MEDS ORDERED: POLYETHYLENE (MIRALAX) 17 GM PACK PO PRN (18:30)
[2019-10-31] MEDS ORDERED: ACETAMINOPHEN 325 MG TAB PO PRN (18:30)
[2019-10-31] MEDS ORDERED: POTASSIUM CHLORIDE 20 MEQ TABCR PO STA (18:36)
[2019-10-31] MEDS ORDERED: SODIUM CHLORIDE 0.9% 500 ML IV ONE (18:37)
[2019-10-31 18:53] LABS: Magnesium 2.3 mg/dl (1.8-2.4)
--- NOTE | 2019-10-31 18:59 | History & Physical Report ---
Date of Service October 31, 2019 Assessment & Plan (1) Fever: DDX: anaplasmosis, UTI, pyelonephritis, lyme disease Pt is 54 y/o F with PMH fibromyalgia, DDD, IBS, anxiety, obesity presented to ER with c/o fever x 3 days. Fever up to 101.1F. C/O chills, rigors, arthralgias, right sided abdominal pain. No cough, SOB, vomiting or diarrhea In ER pt afebrile, P: 87, R: 16, BP: 106/67, 94/62, 99% on RA. No leukocytosis. Plt: 96, K: 3.4, AST: 60, ALT: 80, T bili and Alk phos WNL (Outpatient records reviewed any pt without h/o thrombocytopenia or elevated LFTs) UA: 2+ blood, 2+ leuk esterase, >30 WBC, >30 epithelial, 2+bacteria CT ABD/PELVIS: 1. No acute intra-abdominal or pelvic findings. 2. No evidence of bowel obstruction. No evidence of free air. 3. Normal appendix. No evidence of acute diverticulitis. 4. Stable 4.5 cm cystic left ovarian lesion. 5. Splenomegaly -Lactate, procalcitonin pending -Urine culture, blood cultures pending -Initial smear without inclusions to suggest anaplasmosis however Anaplasmosis PCR pending. Lyme pending -In ER given 2L NSS, Rocephin 2GM IV, Tylenol 1000mg po -IVF -Rocephin, Doxycycline -CBC, CMP in am (2) IRA (acute kidney injury): BUN: 15, Cr: 1.6, GFR: 36 -IVF -Monitor renal functions -Avoid nephrotoxic agents when possible (3) Anxiety: -Continue buspirone, trazodone (4) Fibromyalgia: -Continue Lyrica, muscle relaxer prn DVT Prophylaxis -SCDs Full Code Follows with Dr Andino for routine care Pt was seen and care coordinated with Dr Barrett. See addendum History of Present Illness Chief Complaint: Fever Primary Care Provider: Jonny Andino MD Pt is 54 y/o F with PMH fibromyalgia, DDD, IBS, anxiety, obesity presented to ER with c/o fever x 3 days. Fever up to 101.1F. C/O chills, rigors. Pt reports joint pains but reports has fibromyalgia so its hard for her to determine. States drinking fluids but urine has been dark and having some dysuria. Today right sided abdominal discomfort. Has chronic back pain and denies any other new back pain. Pt states h/o chronic constipation and uses laxative and sometimes needs to use cleanse and did that 3 days ago. Denies other diarrhea, vomiting. Denies cough, SOB, CP, MILLER. [place] No known personal tick bite, states spouse did have tick bite. Denies dizziness, syncope, vision changes, neck pain, orthopnea, palpitations, sore throat, choking, otalgia, rhinorrhea, paresthesias, weakness, extremity weakness, extremity edema, rashes, hematuria, urinary frequency. Allergies Allergy/AdvReac Type Severity Reaction Status Date / Time Bactrim AdvReac Unknown Yeast Verified 12/13/16 00:18 infection sulfamethoxazole AdvReac Unknown Yeast Verified 10/31/19 14:57 infection trimethoprim AdvReac Unknown Yeast Verified 10/31/19 14:57 infection Home Medications Home Medications Medication Instructions Recorded Confirmed Type Depade 3 mg PO DAILY 10/31/19 10/31/19 History aspirin 81 mg PO DAILY 10/31/19 10/31/19 History baclofen 10 mg PO BID PRN 10/31/19 10/31/19 History buspirone 5 mg PO BID 10/31/19 10/31/19 History diazepam 2 mg PO HS PRN 10/31/19 10/31/19 History evening primrose oil 500 mg PO BID 10/31/19 10/31/19 History hyoscyamine sulfate 0.125 mg PO TID PRN 10/31/19 10/31/19 History multivitamin 1 tab PO DAILY 10/31/19 10/31/19 History pantoprazole 40 mg PO BID 10/31/19 10/31/19 History pregabalin 75 mg PO BID 10/31/19 10/31/19 History trazodone 100 mg PO HS PRN 10/31/19 10/31/19 History Past Med/Surg History Medical History Anxiety DDD (degenerative disc disease) Fibromyalgia IBS (irritable bowel syndrome) Obesity Surgical History H/O: hysterectomy (Resolved) Hx of cholecystectomy (Resolved) Family History Other Cancer Diabetes Stroke Social History Preferred Language: Malay Feels Safe at Home: Yes Smoking Status: Former smoker Hx Alcohol Use: No Hx Substance Use: No Review of Systems Review of Systems: All systems reviewed & are unremarkable except as noted in HPI & below Physical Exam Physical Exam: General: +mild distress with chills, rigors, obese Head: normocephalic, atraumatic Eyes: PERRL, EOM's intact, conjunctiva non-injected, anicteric ENT: normal inspection external ears, nose, mucous membranes dry Neck: supple, trachea midline Lungs: clear, no respiratory distress, no wheezing/rhonchi/rales CV: RRR, no murmur, no pretibial edema Abd: normal BS, soft, mild tenderness to palpation right lower abdomen; no CVA tenderness Ext: no cyanosis, no calf tenderness Neuro: A&O x 3, no focal deficits noted, normal affect Skin: warm, dry, +tanned skin face, neck chest and back Results & Data Results & Data ([facility]) Vital Signs (Past 12 Hours) Vital Signs Temp Pulse Pulse Resp BP BP Pulse Ox 10/31/19 18:39 94 H 20 106/72 98 10/31/19 16:00 80 20 94/62 L 93 10/31/19 14:45 85 24 91/62 L 94 10/31/19 13:41 36.9 C 87 16 106/67 99 Laboratory Results Short CBC 10/31/19 Range/Units 14:30 WBC 4.71 L (4.8-10.8) K/uL Hgb 15.7 (12.0-16.0) g/dL Hct 46.8 (37-47) % Plt Count 96 L (130-400) K/uL BMP 10/31/19 14:30 Sodium 134 L Potassium 3.4 L Chloride 101 Carbon Dioxide 24 BUN 15 Creatinine 1.60 H Glucose 104 H Calcium 8.9 Liver Function 10/31/19 Range/Units 14:30 Total Bilirubin 0.8 (0.2-1) mg/dl AST 60 H (15-37) U/L ALT 80 H (12-78) U/L Alkaline Phosphatase 112 (45-117) U/L Albumin 4.0 (3.4-5.0) gm/dl Urine 10/31/19 Range/Units 14:20 Urine Color Dark Yellow Urine Appearance Turbid A (Clear) Urine pH 5.0 (4.5-7.5) Ur Specific [place] 1.018 (1.000-1.030) Urine Protein 1+ H (Negative) Urine Glucose (UA) Negative (Negative) Diagnostic Findings CT ABD/PELVIS: IMPRESSION: 1. No acute intra-abdominal or pelvic findings 2. No evidence of bowel obstruction. No evidence of free air 3. Normal appendix. No evidence of acute diverticulitis 4. Stable 4.5 cm cystic left ovarian lesion 5. Splenomegaly Code Status & VTE Plan VTE Prophylaxis Plan VTE Prophylaxis will be ordered: Yes Supervising Physician Co-Signing Physician Notes ATTENDING ADDENDUM : Patient seen and examined, care coordinated with Elizabeth Russ PA-C This is a 54-year-old female presents to ER with complaint of fever chills rigor , generalized body ache joint pain for past 3 days Patient reports working in the yard a lot not aware of tick bite , her had several tick bites -does not have any symptoms Patient was initially hypotensive in ER blood pressure improved after IV fluid bolus, borderline , leukopenia, thrombocytopenia, mild elevation of LFTs noted, Sepsis: Patient meets criteria for sepsis, admitted with fever, hypotension, tachycardia, lactic acid elevated more than 2 Possible tick bite borne disease/anaplasmosis/Lyme disease: Anaplasmosis smear, negative for intra-cytoplasmic inclusion, Serology for Anaplasma pending, Lyme titer pending Patient started empirically with IV Rocephin, added doxycycline/IV fluids , repeat lactic acid level in 4 hrs hypotension : due to above given IV fluid 2.5 L bolus in ER will cont IVF @ 150 ml /hr low Na/low K : due to dehydration no report of vomiting or diarrhea iv fluid replacement with NSS , and IV k follow labs Acute renal failure /ATN : due to sepsis , dehydration , hypotension cont IV fluids repeat labs avoid NSAID' / pt received contrast for CT abdoemn /pelvis if cr continued to increase may need Nephrology eval Please refer to further documentation by Elizabeth Russ PA-C for discussion of other chronic issues Gloria Barrett MD
[2019-10-31 19:15] LABS: Lyme Ab IgG w/WB Rflx Negative (Negative); Lyme Ab IgM w/WB Rflx Negative (Negative)
[2019-10-31 19:29] LABS: Procalcitonin 0.31 ng/ml (0-0.5)
[2019-10-31] MEDS ORDERED: HYOSCYAMINE SULFATE 0.125 MG TAB PO PRN (19:49)
[2019-10-31] MEDS ORDERED: TRAZODONE HCL 50 MG TAB PO PRN (19:59)
[2019-10-31] MEDS: NSS + 20MEQ KCL 20 MEQ/1,000 ML BAG IV SCH (20:44)
[2019-10-31] MEDS ORDERED: EVENING PRIMROSE OIL 500 MG PO SCH (21:00)
[2019-10-31] MEDS: PANTOprazole 40 MG TAB PO SCH (21:22)
[2019-10-31] MEDS: PREGABALIN 75 MG CAP PO SCH (21:22)
[2019-10-31] MEDS: diazePAM 2 MG TABLET PO PRN (21:30)
[2019-10-31] MEDS: DOXYCYCLINE HYCLATE 100 MG CAP PO SCH (21:30)
[2019-11-01] MEDS: NSS + 20MEQ KCL 20 MEQ/1,000 ML BAG IV SCH ×2 (04:38→12:07)
[2019-11-01 06:14] LABS: Hemoglobin 12.7 g/dL (12.0-16.0); Mean Corpuscular Hemoglobin 30.5 pg (25-34); Mean Corpuscular Hgb Conc 33.4 g/dL (32-36); Mean Corpuscular Volume 91.3 fL (80-100); Mean Platelet Volume 11.4 fL (7.4-10.4); Platelet Count 73 K/uL (130-400); RDW Coefficient of Variation 12.8 % (11.5-14.5); RDW Standard Deviation 42.9 fL (36.4-46.3); Red Blood Count 4.16 M/uL (4.2-5.4); White Blood Count 3.26 K/uL (4.8-10.8)
[2019-11-01 06:54] LABS: Albumin Globulin Ratio 0.8 (0.9-2); Albumin Level 2.9 gm/dl (3.4-5.0); BUN Creatinine Ratio 13.3 (10-20); Bilirubin,Total 0.6 mg/dl (0.2-1); Calcium 8.2 mg/dl (8.5-10.1); Creatinine Clr Calc Pharmacy 92.8 ml/min; Est GFR (African American) 90.7; Est GFR (Non-African American) 78.2; Globulin 3.6 gm/dl (2.5-4.0); Magnesium 1.9 mg/dl (1.8-2.4); Potassium 4.6 mmol/L (3.5-5.1); Total Protein 6.5 gm/dl (6.4-8.2)
[2019-11-01 07:27] LABS: ALC (manual) 2.01 K/uL (1.2-3.4); Basophils % (manual) 0.9 %; Monocytes % (manual) 7.8 %; Neutrophils # (manual) 0.96 K/uL (1.4-6.5); Neutrophils % (manual) 29.6 %; Reactive Lymphocytes % (manual) 21.7 %
[2019-11-01 07:28] LABS: Basophils # (manual) 0.03 K/uL (0-0.2); Monocytes # (manual) 0.26 K/uL (0.11-0.59); Reactive Lymphocytes # (manual) 0.71 K/uL
[2019-11-01 07:30] LABS: ANC (manual) 0.96 K/uL (1.4-6.5)
[2019-11-01] MEDS: PREGABALIN 75 MG CAP PO SCH ×2 (09:16→20:15)
[2019-11-01] MEDS: PANTOprazole 40 MG TAB PO SCH ×2 (09:16→20:15)
[2019-11-01] MEDS: DOXYCYCLINE HYCLATE 100 MG CAP PO SCH ×2 (09:16→20:15)
[2019-11-01] MEDS: MULTIVITAMIN TAB PO SCH (09:17)
--- NOTE | 2019-11-01 10:58 | Electrocardiogram Report ---
Test Reason : Blood Pressure : / mmHG Vent. Rate : 096 BPM Atrial Rate : 096 BPM P-R Int : 132 ms QRS Dur : 078 ms QT Int : 326 ms P-R-T Axes : -01 000 018 degrees QTc Int : 411 ms Normal sinus rhythm When compared with ECG of 03-NOV-2015 14:08, Borderline criteria for Inferior infarct are now Present Confirmed by Rusty Moss ([id number]) on 11/01/2019 10:58:03 AM Referred By: Jonny Andino Confirmed By:Carlos Alberto oMss
--- NOTE | 2019-11-01 10:59 | Electrocardiogram Report ---
Test Reason : Blood Pressure : / mmHG Vent. Rate : 076 BPM Atrial Rate : 076 BPM P-R Int : 140 ms QRS Dur : 080 ms QT Int : 356 ms P-R-T Axes : -04 029 044 degrees QTc Int : 400 ms Normal sinus rhythm Normal ECG When compared with ECG of 31-OCT-2019 19:01, (unconfirmed) Borderline criteria for Inferior infarct are no longer Present Confirmed by Rusty Moss ([id number] on 11/01/2019 10:58:19 AM Referred By: Jonny Andino Confirmed By:Carlos Alberto Moss
[2019-11-01] MEDS ORDERED: PIPERACILL/TAZOBAC CONSULT ACTIVE PRN (12:06)
--- NOTE | 2019-11-01 12:08 | Hospitalist Progress Note ---
Date of Service November 01, 2019 Assessment & Plan (1) Fever: Sepsis with hypotension on admission Neutropenia -54 y/o F with PMH fibromyalgia, DDD, IBS, anxiety, obesity presented to ER with c/o fever x 3 days and reportedly the Fever up to 101.1F at home. afebrile on arrival but with elevated lactic acid level and hypotension, tachycardia and admitting physician concerning for sepsis -admission CT abdomen 1. No acute intra-abdominal or pelvic findings 2. No evidence of bowel obstruction. No evidence of free air 3. Normal appendix. No evidence of acute diverticulitis 4. Stable 4.5 cm cystic left ovarian lesion 5. Splenomegaly -patient had right sided abdomen pain at home but no imaging evidence of pyelonephritis -was started on ceftriaxone and Doxycycline for possible tick borne infection [place] dogs -11/01/2019: No fevers recorded during hospital stay to date. The blood counts did return with Neutropenia with total neutrophils. patient placed on contact precautions. antibiotics switch from ceftriaxone to Zosyn for expanded antibiotic coverage. Continue the Doxycycline . Follow the admission blood cultures (2) IRA (acute kidney injury): -admission creatinine 1.6 -renal function returned to baseline by 11/01/2019 after IV fluids Mild Hypokalemia -serum potassium 3.4 on admission and patient given potassium supplements with IV fluids -11/01/2019: serum potassium 4.6. no further needs for IV fluids with potassium (3) Anxiety: on buspirone, trazodone benzodiazepine prn for anxiety (4) Fibromyalgia: -on pregabalin, prn baclofen Admission and Anticipated Discharge Date Admission Date: October 31, 2019 Subjective No fevers recorded during hospital stay to date. The blood counts did return with Neutropenia with total neutrophils. patient placed on contact precautions. antibiotics switch from ceftriaxone to Zosyn for expanded antibiotic coverage. Continue the Doxycycline no shortness of breath. on room air. no abdomen pain. no dizziness. no vomiting. no chest pain. no palpitations. Review of Systems Review of Systems: All systems reviewed & are unremarkable except as noted in Subjective Physical Exam Constitutional: WD/WN, vitals as above Eyes: PERRL, conjunctivae normal, anicteric sclerae EOM intact bilaterally ENMT: external ear and nose normal, oropharynx normal Neck: trachea midline, no thyromegaly normal visual inspection Respiratory: normal respiratory effort, lungs clear to auscultation normal respiratory effort Cardiovascular: Rate/Rhythm: regular rate Gastrointestinal (Abdomen): normal bowel sounds, soft, nontender, no hepatosplenomegaly Musculoskeletal: no cyanosis or clubbing, extremities motor strength 5/5 Neurologic: PERRL, EOMI, accommodation nl, no face palsy, no dysarthria CN's II-XI intact bilaterally Results & Data Results & Data ([facility]) Vital Signs (Past 12 Hours) Vital Signs Temp Pulse Pulse Resp BP Pulse Ox 11/01/19 11:51 36.5 C 74 18 108/74 94 11/01/19 09:05 85 11/01/19 07:37 74 11/01/19 07:19 37 C 68 18 105/72 93 11/01/19 03:40 36.7 C 80 15 110/69 93
[2019-11-01] MEDS ORDERED: PIPERACILLIN/TAZOBACTAM 3.375 GM in DEXTROSE 5% 100 ML IV ONE (12:15)
[2019-11-01] MEDS ORDERED: PIPERACILLIN/TAZOBACTAM 3.375 GM in DEXTROSE 5% 100 ML IV SCH (12:15)
[2019-11-01] MEDS ORDERED: cefTRIAXone SODIUM 2,000 MG in DEXTROSE 5% 50 ML IV SCH (16:00)
[2019-11-01] MEDS: PIPERACILLIN/TAZOBACTAM 3.375 GM in DEXTROSE 5% 100 ML IV SCH (19:29)
[2019-11-01] MEDS: diazePAM 2 MG TABLET PO PRN (20:15)
[2019-11-01] MEDS: BACLOFEN 10 MG TAB PO PRN (20:15)
[2019-11-02] MEDS: PIPERACILLIN/TAZOBACTAM 3.375 GM in DEXTROSE 5% 100 ML IV SCH ×3 (02:44→18:44)
[2019-11-02 08:08] LABS: Hematocrit (blood only) 41.6 % (37-47); Hemoglobin 13.6 g/dL (12.0-16.0); Mean Corpuscular Hemoglobin 30.2 pg (25-34); Mean Corpuscular Hgb Conc 32.7 g/dL (32-36); Mean Corpuscular Volume 92.4 fL (80-100); Mean Platelet Volume 11.6 fL (7.4-10.4); Platelet Count 106 K/uL (130-400); RDW Coefficient of Variation 12.7 % (11.5-14.5); RDW Standard Deviation 42.8 fL (36.4-46.3); White Blood Count 5.66 K/uL (4.8-10.8)
[2019-11-02 08:25] LABS: Albumin Level 3.1 gm/dl (3.4-5.0); Basophils # (auto) 0.11 K/uL (0-0.2); Basophils % (auto) 1.9 %; Creatinine Clr Calc Pharmacy 81.3 ml/min; Eosinophils # (auto) 0.06 K/uL (0-0.5); Eosinophils % (auto) 1.1 %; Est GFR (African American) 78.3; Est GFR (Non-African American) 67.5; Immature Granulocytes # (auto) 0.01 K/uL (0.00-0.02); Immature Granulocytes % (auto) 0.2 %; Lymphocytes # (auto) 3.17 K/uL (1.2-3.4); Monocytes # (auto) 0.98 K/uL (0.11-0.59); Monocytes % (auto) 17.3 %; Neutrophils # (auto) 1.33 K/uL (1.4-6.5); Neutrophils % (auto) 23.5 %; Potassium 4.2 mmol/L (3.5-5.1); RBC Morphology Unremarkable
[2019-11-02 08:28] LABS: Albumin Globulin Ratio 0.7 (0.9-2); Bilirubin,Total 0.7 mg/dl (0.2-1); Globulin 4.2 gm/dl (2.5-4.0); Total Protein 7.3 gm/dl (6.4-8.2)
[2019-11-02] MEDS: PANTOprazole 40 MG TAB PO SCH ×2 (08:39→20:55)
[2019-11-02] MEDS: DOXYCYCLINE HYCLATE 100 MG CAP PO SCH ×2 (08:39→20:58)
[2019-11-02] MEDS: MULTIVITAMIN TAB PO SCH (08:40)
--- NOTE | 2019-11-02 08:41 | Hospitalist Progress Note ---
Date of Service November 02, 2019 Assessment & Plan (1) Fever: Sepsis with hypotension on admission Neutropenia -54 y/o F with PMH fibromyalgia, DDD, IBS, anxiety, obesity presented to ER with c/o fever x 3 days and reportedly the Fever up to 101.1F at home. afebrile on arrival but with elevated lactic acid level and hypotension, tachycardia and admitting physician concerning for sepsis -admission CT abdomen 1. No acute intra-abdominal or pelvic findings 2. No evidence of bowel obstruction. No evidence of free air 3. Normal appendix. No evidence of acute diverticulitis 4. Stable 4.5 cm cystic left ovarian lesion 5. Splenomegaly -patient had right sided abdomen pain at home but no imaging evidence of pyelonephritis -was started on ceftriaxone and Doxycycline for possible tick borne infection as [place] and sle[place] with the dogs -11/01/2019: No fevers recorded during hospital stay to date. The blood counts did return with Neutropenia with total neutrophils. patient placed on contact precautions. antibiotics switch from ceftriaxone to Zosyn for expanded antibiotic coverage. Continue the Doxycycline . Follow the admission blood cultures -11/02/2019: no fevers inpatient date, admission blood cultures not yet finalized, anaplasmosis DNA labs still pending (2) IRA (acute kidney injury): -admission creatinine 1.6 -renal function returned to baseline by 11/01/2019 after IV fluids Mild Hypokalemia -serum potassium 3.4 on admission and patient given potassium supplements with IV fluids -11/01/2019: serum potassium 4.6. no further needs for IV fluids with potassium -11/02/2019: serum potassium 4.2 (3) Anxiety: -on buspirone, trazodone benzodiazepine prn for anxiety (4) Fibromyalgia: -on pregabalin, prn baclofen Admission and Anticipated Discharge Date Admission Date: October 31, 2019 Subjective no fevers inpatient date, admission blood cultures not yet finalized, anaplasmosis DNA labs still pending. no chest pain. no shortness of breath. no chest pain. no headache. no dizziness. no nausea. no vomiting Review of Systems Review of Systems: All systems reviewed & are unremarkable except as noted in Subjective Physical Exam Constitutional: WD/WN, vitals as above Eyes: PERRL, conjunctivae normal, anicteric sclerae EOM intact bilaterally ENMT: external ear and nose normal, oropharynx normal Neck: trachea midline, no thyromegaly normal visual inspection Respiratory: normal respiratory effort, lungs clear to auscultation normal respiratory effort Cardiovascular: Rate/Rhythm: regular rate Gastrointestinal (Abdomen): normal bowel sounds, soft, nontender, no hepatosplenomegaly Musculoskeletal: no cyanosis or clubbing, extremities motor strength 5/5 Neurologic: PERRL, EOMI, accommodation nl, no face palsy, no dysarthria CN's II-XI intact bilaterally Results & Data Results & Data ([facility]) Vital Signs (Past 12 Hours) Vital Signs Temp Pulse Pulse Resp BP BP Pulse Ox 11/02/19 07:53 36.5 C 63 18 109/72 95 11/02/19 07:19 66 11/02/19 03:12 36.5 C 71 18 107/73 93 11/01/19 23:04 75 11/01/19 22:49 36.9 C 73 20 115/79 95
[2019-11-02] MEDS: BACLOFEN 10 MG TAB PO PRN (08:47)
[2019-11-02] MEDS: PREGABALIN 75 MG CAP PO SCH ×2 (08:47→20:55)
[2019-11-03] MEDS ORDERED: FLUCONAZOLE 50 MG TAB PO ONE (00:04)
[2019-11-03] MEDS: PIPERACILLIN/TAZOBACTAM 3.375 GM in DEXTROSE 5% 100 ML IV SCH (02:06)
[2019-11-03 06:55] LABS: Hematocrit (blood only) 40.4 % (37-47); Hemoglobin 13.4 g/dL (12.0-16.0); Mean Corpuscular Hemoglobin 30.2 pg (25-34); Mean Corpuscular Hgb Conc 33.2 g/dL (32-36); Mean Corpuscular Volume 91.2 fL (80-100); Mean Platelet Volume 11.3 fL (7.4-10.4); Platelet Count 127 K/uL (130-400); RDW Coefficient of Variation 12.7 % (11.5-14.5); RDW Standard Deviation 42.9 fL (36.4-46.3); Red Blood Count 4.43 M/uL (4.2-5.4); White Blood Count 7.25 K/uL (4.8-10.8)
[2019-11-03 07:31] LABS: ALC (manual) 4.67 K/uL (1.2-3.4); ANC (manual) 2.27 K/uL (1.4-6.5); Lymphocytes # (manual) 3.03 K/uL (1.2-3.4); Lymphocytes % (manual) 41.8 %; Monocytes # (manual) 0.31 K/uL (0.11-0.59); Monocytes % (manual) 4.3 %; Neutrophils # (manual) 2.27 K/uL (1.4-6.5); Neutrophils % (manual) 31.3 %; Reactive Lymphocytes # (manual) 1.64 K/uL; Reactive Lymphocytes % (manual) 22.6 %
[2019-11-03 07:35] LABS: Albumin Level 3.1 gm/dl (3.4-5.0); BUN Creatinine Ratio 14.8 (10-20); Calcium 8.7 mg/dl (8.5-10.1); Creatinine Clr Calc Pharmacy 82.8 ml/min; Est GFR (African American) 80.3; Est GFR (Non-African American) 69.3; Potassium 4.6 mmol/L (3.5-5.1)
[2019-11-03 07:38] LABS: Albumin Globulin Ratio 0.8 (0.9-2); Bilirubin,Total 0.7 mg/dl (0.2-1); Globulin 4.1 gm/dl (2.5-4.0); Total Protein 7.2 gm/dl (6.4-8.2)
[2019-11-03] MEDS: DOXYCYCLINE HYCLATE 100 MG CAP PO SCH (08:40)
[2019-11-03] MEDS: MULTIVITAMIN TAB PO SCH (08:40)
[2019-11-03] MEDS: PANTOprazole 40 MG TAB PO SCH (08:40)
[2019-11-03] MEDS: PREGABALIN 75 MG CAP PO SCH (08:44)
--- NOTE | 2019-11-03 11:42 | Hospitalist Progress Note ---
Date of Service November 03, 2019 Assessment & Plan (1) Fever: Fever as outpatient with concern for Sepsis with hypotension on admission on admission and possible tickborne infection (normal peripheral blood smear on 10/31/2019, Lyme disease ruled out, anaplasmosis DNA test from 10/31/2019 pending) subsequent Neutropenia (resolved) -54 y/o F with PMH fibromyalgia, DDD, IBS, anxiety, obesity presented to ER with c/o fever x 3 days and reportedly the Fever up to 101.1F at home. afebrile on arrival but with elevated lactic acid level and hypotension, tachycardia and admitting physician concerning for sepsis -admission CT abdomen 1. No acute intra-abdominal or pelvic findings 2. No evidence of bowel obstruction. No evidence of free air 3. Normal appendix. No evidence of acute diverticulitis 4. Stable 4.5 cm cystic left ovarian lesion 5. Splenomegaly -patient had right sided abdomen pain at home but no imaging evidence of pyelonephritis -was started on ceftriaxone and Doxycycline for possible tick borne infection as [place] and sle[place] with the dogs -11/01/2019: No fevers recorded during hospital stay to date. The blood counts did return with Neutropenia with total neutrophils. patient placed on contact precautions. antibiotics switch from ceftriaxone to Zosyn for expanded antibiotic coverage. Continue the Doxycycline . Follow the admission blood cultures -11/02/2019: no fevers inpatient date, admission blood cultures not yet finalized, anaplasmosis DNA labs still pending 11/03/2019: continues to have no fevers to date and finalized admission blood cultures as negative and so IV Zosyn is stopped; patient wants to be discharged from [facility] without awaiting anaplasmosis DNA labs to return, discussed of empirically continuing her doxycycline for next 11 days and have primary care appointments follow ups - we also discussed that patient's appears wanting to take her to [facility] in [place] either for further hospital evaluation versus second opinion. hospitalist discussed with patient that further hospitalization may not be needed but it is patient's right to seek second opinion if she chooses. she does have outpatient clinic follow ups discharge doxycycline 100 mg twice a day medication for 11 days sent electronically pharmacy [facility] [address] [place] [address] to complete a total 14 day course for possible tick born infection upcoming appointments 11/06/2019 9:00 AM Provider Jonny Andino MD Department [facility] 11/20/2019 10:40 AM Provider Suni Sanders PA-C Department [facility] 12/17/2019 9:10 AM Provider [address] [place] [address] [facility] 1st Floor, [place] 01/21/2020 2:40 PM Provider Jonny Andino MD Department [facility] (2) IRA (acute kidney injury): -admission creatinine 1.6 -renal function returned to baseline by 11/01/2019 after IV fluids Mild Hypokalemia -serum potassium 3.4 on admission and patient given potassium supplements with IV fluids -11/01/2019: serum potassium 4.6. no further needs for IV fluids with potassium -11/02/2019: serum potassium 4.2 (3) Anxiety: -on buspirone, trazodone benzodiazepine prn for anxiety (4) Fibromyalgia: -on pregabalin, prn baclofen Admission and Anticipated Discharge Date Admission Date: October 31, 2019 Subjective continues to have no fevers to date and finalized admission blood cultures as negative and so IV Zosyn is stopped; patient wants to be discharged from [facility] without awaiting anaplasmosis DNA labs to return, discussed of empirically continuing her doxycycline for next 11 days and have primary care appointments follow ups - we also discussed that patient's appears wanting to take her to [facility] in [place] either for further hospital evaluation versus second opinion. hospitalist discussed with patient that further hospitalization may not be needed but it is patient's right to seek second opinion if she chooses. no chest pain, breathing on room air, no shortness of breath, no vomiting, no dizziness, no headache, no distress, no fevers Review of Systems Review of Systems: All systems reviewed & are unremarkable except as noted in Subjective Physical Exam Constitutional: comfortable Eyes: PERRL, conjunctivae normal, anicteric sclerae EOM intact bilaterally ENMT: external ear and nose normal, oropharynx normal Neck: trachea midline, no thyromegaly normal visual inspection Respiratory: normal respiratory effort, lungs clear to auscultation normal respiratory effort Cardiovascular: Rate/Rhythm: regular rate Gastrointestinal (Abdomen): normal bowel sounds, soft, nontender, no hepatosplenomegaly Musculoskeletal: no cyanosis or clubbing, extremities motor strength 5/5 Neurologic: PERRL, EOMI, accommodation nl, no face palsy, no dysarthria CN's II-XI intact bilaterally Results & Data Results & Data ([facility]) Vital Signs (Past 12 Hours) Vital Signs Temp Pulse Pulse Resp BP BP Pulse Ox 11/03/19 07:42 36.6 C 66 18 94/61 L 94 11/03/19 07:08 64 11/03/19 04:10 36.7 C 74 18 94/57 L 96 11/03/19 00:27 74
--- NOTE | 2019-11-03 11:44 | Discharge Summary ---
Date of Service November 03, 2019 Admission HPI Per Admitting Provider Pt is 54 y/o F with PMH fibromyalgia, DDD, IBS, anxiety, obesity presented to ER with c/o fever x 3 days. Fever up to 101.1F. C/O chills, rigors. Pt reports joint pains but reports has fibromyalgia so its hard for her to determine. States drinking fluids but urine has been dark and having some dysuria. Today right sided abdominal discomfort. Has chronic back pain and denies any other new back pain. Pt states h/o chronic constipation and uses laxative and sometimes needs to use cleanse and did that 3 days ago. Denies other diarrhea, vomiting. Denies cough, SOB, CP, MILLER. [place] No known personal tick bite, states spouse did have tick bite. Denies dizziness, syncope, vision changes, neck pain, orthopnea, palpitations, sore throat, choking, otalgia, rhinorrhea, paresthesias, weakness, extremity weakness, extremity edema, rashes, hematuria, urinary frequency. Principal Diagnosis Fever as outpatient with concern for Sepsis on admission and possible tickborne infection (normal peripheral blood smear on 10/31/2019, Lyme disease ruled out, anaplasmosis DNA test from 10/31/2019 pending) ; Neutropenia (resolved), acute kidney injury (resolved), anxiety, Fibromyalgia Discharge Exam Constitutional WD/WN, vitals as above comfortable Eyes PERRL, conjunctivae normal, anicteric sclerae EOM intact bilaterally ENMT external ear and nose normal, oropharynx normal Neck trachea midline, no thyromegaly normal visual inspection Respiratory normal respiratory effort, lungs clear to auscultation normal respiratory effort Cardiovascular Rate/Rhythm: regular rate Gastrointestinal (Abdomen) normal bowel sounds, soft, nontender, no hepatosplenomegaly Musculoskeletal no cyanosis or clubbing, extremities motor strength 5/5 Neurologic PERRL, EOMI, accommodation nl, no face palsy, no dysarthria CN's II-XI intact bilaterally Discharge Data Allergies Allergy/AdvReac Type Severity Reaction Status Date / Time Bactrim AdvReac Unknown Yeast Verified 12/13/16 00:18 infection sulfamethoxazole AdvReac Unknown Yeast Verified 10/31/19 14:57 infection trimethoprim AdvReac Unknown Yeast Verified 10/31/19 14:57 infection Consultations 10/31/19 17:52 ED Decision to Admit Stat 10/31/19 18:31 Consult Case Management - Discharge Planning Routine Ordered Studies 10/31/19 14:28 CT abd pelvis IV con only Stat Hospital Course (1) Fever: Fever as outpatient with concern for Sepsis with hypotension on admission on admission and possible tickborne infection (normal peripheral blood smear on 10/31/2019, Lyme disease ruled out, anaplasmosis DNA test from 10/31/2019 pending) subsequent Neutropenia (resolved) -54 y/o F with PMH fibromyalgia, DDD, IBS, anxiety, obesity presented to ER with c/o fever x 3 days and reportedly the Fever up to 101.1F at home. afebrile on arrival but with elevated lactic acid level and hypotension, tachycardia and admitting physician concerning for sepsis -admission CT abdomen 1. No acute intra-abdominal or pelvic findings 2. No evidence of bowel obstruction. No evidence of free air 3. Normal appendix. No evidence of acute diverticulitis 4. Stable 4.5 cm cystic left ovarian lesion 5. Splenomegaly -patient had right sided abdomen pain at home but no imaging evidence of pyelonephritis -was started on ceftriaxone and Doxycycline for possible tick borne infection [place] and sle[place] with [place] dogs -11/01/2019: No fevers recorded during hospital stay to date. The blood counts did return with Neutropenia with total neutrophils. patient placed on contact precautions. antibiotics switch from ceftriaxone to Zosyn for expanded antibiotic coverage. Continue the Doxycycline . Follow the admission blood cultures -11/02/2019: no fevers inpatient date, admission blood cultures not yet finalized, anaplasmosis DNA labs still pending 11/03/2019: continues to have no fevers to date and finalized admission blood cultures as negative and so IV Zosyn is stopped; patient wants to be discharged from [facility] without awaiting anaplasmosis DNA labs to return, discussed of empirically continuing her doxycycline for next 11 days and have primary care appointments follow ups - we also discussed that patient's appears wanting to take her to [facility] [address] in [place] either for further hospital evaluation versus second opinion. hospitalist discussed with patient that further hospitalization may not be needed but it is patient's right to seek second opinion if she chooses. she does have outpatient clinic follow ups discharge doxycycline 100 mg twice a day medication for 11 days sent electronically pharmacy [facility] [employer] [address] [place] [address] to complete a total 14 day course for possible tick born infection upcoming appointments 11/06/2019 9:00 AM Provider Jonny Andino MD [facility] 11/20/2019 10:40 AM Provider Suni Sanders PA-C Department [facility] 12/17/2019 9:10 AM Provider [address] Department Radiology [address] 01/21/2020 2:40 PM Provider Jonny Andino MD [facility] (2) IRA (acute kidney injury): -admission creatinine 1.6 -renal function returned to baseline by 11/01/2019 after IV fluids Mild Hypokalemia -serum potassium 3.4 on admission and patient given potassium supplements with IV fluids -11/01/2019: serum potassium 4.6. no further needs for IV fluids with potassium -11/02/2019: serum potassium 4.2 (3) Anxiety: -on buspirone, trazodone benzodiazepine prn for anxiety (4) Fibromyalgia: -on pregabalin, prn baclofen Total Time Total Time Spent Total Time Spent (In Minutes): 40 minutes Total Time Includes: Examination of the Patient, Discharge Planning, Medication Reconciliation and Communication With Other Providers Discharge Plan Discharge Items Patient Disposition: Home - Self-Care Reason For Visit: FEVER,CHILLS Discharge Diagnosis: Fever as outpatient with concern for Sepsis on admission and possible tickborne infection (normal peripheral blood smear on 10/31/2019, Lyme disease ruled out, anaplasmosis DNA test from 10/31/2019 pending) ; Neutropenia (resolved), acute kidney injury (resolved), anxiety, Fibromyalgia Activity: Resume your previous activity Non-emergency contact: Primary Care Provider Call non-emergency contact if: you have any medication questions Follow-up/Referrals: Jonny Andino MD [Primary Care Provider] - Diet: Regular Addtl Attending Provider Instructions: discharge doxycycline 100 mg twice a day medication for 11 days sent electronically pharmacy [facility] [address] [place] [address] to complete a total 14 day course for possible tick born infection upcoming appointments 11/06/2019 9:00 AM Provider Jonny Andino MD Department [facility] 11/20/2019 10:40 AM Provider Suni Sanders PA-C Department [facility] 12/17/2019 9:10 AM [address] [id number] Department Radiology [address] 01/21/2020 2:40 PM Provider Jonny Andino MD Department [facility] Pending Studies at Discharge: Yes Stand-Alone Forms: My [facility], Smoking Cessation Medications and DC Order Prescriptions: New doxycycline hyclate 100 mg Capsule 100 mg PO BID 11 Days Qty: 22 RF: 0 Continued buspirone 5 mg tablet 5 mg PO BID RF: 0 diazepam 2 mg tablet 2 mg PO HS PRN (Reason: Sleep) RF: 0 hyoscyamine sulfate 0.125 mg tablet 0.125 mg PO TID PRN (Reason: Abdominal Discomfort) RF: 0 multivitamin Tablet 1 tab PO DAILY RF: 0 evening primrose oil 500 mg Capsule 500 mg PO BID RF: 0 aspirin 81 mg Tablet,Delayed Release (Dr/Ec) 81 mg PO DAILY RF: 0 pantoprazole 40 mg tablet,delayed release (DR/EC) 40 mg PO BID RF: 0 pregabalin 75 mg capsule 75 mg PO BID RF: 0 Depade 3 mg PO DAILY RF: 0 baclofen 10 mg tablet 10 mg PO BID PRN (Reason: Muscle Spasm) RF: 0 trazodone 50 mg tablet 100 mg PO HS PRN (Reason: Insomnia) RF: 0 Discharge Orders: Discharge Order (Routine); Ordered 11/03/19 Ordered By: Roverto Martel Admission Data Admit Date/Time: 10/31/19 18:30 Attending Provider: Roverto Martel Admit Provider: Gloria Barrett Primary Care Provider: Jonny Andino Other Providers: Gloria Barrett Other Interventions: Discharge Summary Assessment (RN) Last Done: 11/03/19 11:38 Supervising Physician Co-Signing Physician Notes ATTENDING ADDENDUM : Patient seen and examined, care coordinated with Elizabeth Russ PA-C This is a 54-year-old female presents to ER with complaint of fever chills rigor , generalized body ache joint pain for past 3 days Patient reports working in the yard a lot not aware of tick bite , her had several tick bites -does not have any symptoms Patient was initially hypotensive in ER blood pressure improved after IV fluid bolus, borderline , leukopenia, thrombocytopenia, mild elevation of LFTs noted, Sepsis: Patient meets criteria for sepsis, admitted with fever, hypotension, tachycardia, lactic acid elevated more than 2 Possible tick bite borne disease/anaplasmosis/Lyme disease: Anaplasmosis smear, negative for intra-cytoplasmic inclusion, Serology for Anaplasma pending, Lyme titer pending Patient started empirically with IV Rocephin, added doxycycline/IV fluids , repeat lactic acid level in 4 hrs hypotension : due to above given IV fluid 2.5 L bolus in ER will cont IVF @ 150 ml /hr low Na/low K : due to dehydration no report of vomiting or diarrhea iv fluid replacement with NSS , and IV k follow labs Acute renal failure /ATN : due to sepsis , dehydration , hypotension cont IV fluids repeat labs avoid NSAID' / pt received contrast for CT abdoemn /pelvis if cr continued to increase may need Nephrology eval Please refer to further documentation by Elizabeth Russ PA-C for discussion of other chronic issues Gloria Barrett MD
== END 2019-11-03 13:17 | disposition home or self-care (01) | DRG 872 ==
LOC: ED 13:37 → 2N 18:30 → SUATTDRO 18:30 → 2N 19:26 → 2W 11-01 08:02

== ENCOUNTER 2020-02-06 07:16 | Observation (INO) ==
--- NOTE | 2020-01-27 15:57 | PAT Medication Instructions ---
Medication Instructions Date of Service January 27, 2020 Home Medications baclofen 10 mg PO BID PRN buspirone 5 mg PO BID diazepam 2 mg PO HS PRN evening primrose oil 500 mg PO BID hyoscyamine sulfate 0.125 mg PO TID multivitamin 1 tab PO QAM pantoprazole 40 mg PO BID pregabalin 75 mg PO BID trazodone 100 mg PO HS PRN Estroven 1 mg PO QAM Naltrexone 3 mg PO QAM lactobacillus combination no.4 [Probiotic] 3,000 mmu cells PO BID methocarbamol 750 mg PO QID STOP taking 2 weeks before surgery evening primrose oil 500 mg PO BID Estroven 1 mg PO QAM DO NOT take the morning of surgery baclofen 10 mg PO BID PRN multivitamin 1 tab PO QAM lactobacillus combination no.4 [Probiotic] 3,000 mmu cells PO BID methocarbamol 750 mg PO QID hyoscyamine sulfate 0.125 mg PO TID Take morning of surgery With a small sip of water, OTHERWISE NOTHING TO EAT OR DRINK AFTER MIDNIGHT: buspirone 5 mg PO BID pantoprazole 40 mg PO BID pregabalin 75 mg PO BID Naltrexone 3 mg PO QAM Take evening before surgery baclofen 10 mg PO BID PRN (if needed) buspirone 5 mg PO BID diazepam 2 mg PO HS PRN (if needed) hyoscyamine sulfate 0.125 mg PO TID pantoprazole 40 mg PO BID pregabalin 75 mg PO BID trazodone 100 mg PO HS PRN (if needed) lactobacillus combination no.4 [Probiotic] 3,000 mmu cells PO BID methocarbamol 750 mg PO QID Other Notes If you have any questions please call us at [phone] or [phone] or [phone] or [phone]
--- NOTE | 2020-01-28 12:55 | Anesthesiology Consultation ---
Date of Service January 28, 2020 Assessment & Plan (1) Encounter for pre-operative examination: COVID Status: As of 01/27 assessment, patient denies travel to endemic area, known exposure/sick contacts, or symptoms of COVID19. Patient instructed that they and their household members must follow strict social distancing guidelines, wear a mask in public and avoid travel for 14 days prior to surgery. Preoperative COVID19 testing to be completed prior to surgery per surgeon's a rrangements. Patient made aware to self-isolate as much as possible between COVID testing and surgery. Patient is going to [facility] on 01/30 for grandson's birthday green party; will be ~ 10 people present. Patient advised to wear a mask at all times and be extra conscientious about hand hygiene. To have COVID testing on Friday 02/02 (three days after returning). As she will be < 5 days out from travel, consider rule AM DOS. Currently, [facility] is more concerning for COVID exposure than [place]. Chart Review Chart Review: Acceptable Risk for Surgery and Patient seen in Pre Admission Testing Teaching & Discussion Instructed NPO after midnight before surgery, except medications with 15 cc of water. Medication instructions provided according to the PAT guidelines. History Surgery Operation Date: 02/06/20 08:40 Proposed Procedures p Laparoscopic Bilateral Salpingo-Oophorectomy - Delia Omer Height/Weight Height: 5 ft 7 in Weight: 100.9 kg Allergies Allergy/AdvReac Type Severity Reaction Status Date / Time Bactrim AdvReac Unknown Yeast Verified 12/13/16 00:18 infection sulfamethoxazole AdvReac Unknown Yeast Verified 01/14/20 15:50 infection trimethoprim AdvReac Unknown Yeast Verified 01/14/20 15:50 infection Medications Home Medications Medication Instructions Recorded Confirmed Last Taken baclofen 10 mg PO BID PRN 10/31/19 01/14/20 Unknown buspirone 5 mg PO BID 10/31/19 01/14/20 10/31/19 09:00 diazepam 2 mg PO HS PRN 10/31/19 01/14/20 Unknown evening primrose oil 500 mg PO BID 10/31/19 01/14/20 10/31/19 09:00 hyoscyamine sulfate 0.125 mg PO TID 10/31/19 01/14/20 Unknown multivitamin 1 tab PO QAM 10/31/19 01/14/20 10/31/19 pantoprazole 40 mg PO BID 10/31/19 01/14/20 10/31/19 09:00 pregabalin 75 mg PO BID 10/31/19 01/14/20 10/31/19 09:00 trazodone 100 mg PO HS PRN 10/31/19 01/14/20 Unknown Estroven 1 mg PO QAM 01/14/20 01/14/20 Unknown Naltrexone 3 mg PO QAM 01/14/20 01/14/20 Unknown lactobacillus combination no.4 3,000 mmu cells PO BID 01/14/20 01/14/20 Unknown [Probiotic] methocarbamol 750 mg PO QID 01/14/20 01/14/20 Unknown Past Medical History Medical History (Updated 01/28/20 @ 16:34 by Alex Maier) Anaplasmosis [facility] ADMISSION 10/2019. Has had persistent fatigue since discharge and is seeing a specialist in [place]. Anxiety DDD (degenerative disc disease) LOWER BACK Fibromyalgia On Naltrexone for this GERD (gastroesophageal reflux disease) IBS (irritable bowel syndrome) Migraine UNDER CONTROL Obesity Peptic ulcer 2019 Urinary tract infection FREQUENT Exercise / Class Metabolic Activity II 4-5 Yardwork/Stairs/Walk up hill (+SOB with 1 FOS, denies chest pain) Past Family History Family History Other Cancer Diabetes Stroke Past Surgical History Surgical History (Updated 01/14/20 @ 16:04 by Dianne Wade RN) H/O: hysterectomy History of colonoscopy MULTIPLE History of esophagogastroduodenoscopy (EGD) History of TMJ disorder S/P X 2 SURGERIES Hx of cholecystectomy Past Anesthesia History No Hx of Anesthesia Complications and No Family Hx of Anesthesia Complications History of PONV No Hx of PONV and Hx of Motion Sickness Social History Smoking Status: Former smoker Do You Dip or Chew Tobacco: No Smoking End Date: QUIT 2017 Hx Alcohol Use: No Hx Substance Use: No Review of Systems +fatigue, persistent since 10/2019. Pt denies any recent chest pain, shortness of breath, palpitations, cough, fever , URI, or uncontrolled acid reflux. Physical Exam Vital Signs BP: 124/85 P: 81bpm SPO2: 96% RA T: 98.7 F R: 16 ENMT Mouth: no dental restorations, no chipped teeth and no loose teeth Thyromental Distance: > or= 3.5 Finger Breadths Mallampati Class: II Neck normal visual inspection; neck extension not limited Respiratory normal respiratory effort Auscultation: lungs clear to auscultation bilaterally Cardiovascular Rate/Rhythm: regular rate and regular rhythm Heart Sounds: no murmur Extremities: no edema Testing Laboratory Results 01/28/20 12:45 01/28/20 12:45 Blood Type O Positive 01/28/20 12:45 Antibody Screen NEGATIVE 01/28/20 12:45 Electrocardiogram Date: 11/01/19 Findings: + NSR @ (76bpm)
[2020-01-28 14:06] LABS: Basophils # (auto) 0.05 K/uL (0-0.2); Basophils % (auto) 0.6 %; Eosinophils # (auto) 0.09 K/uL (0-0.5); Eosinophils % (auto) 1.2 %; Hematocrit (blood only) 43.8 % (37-47); Hemoglobin 14.4 g/dL (12.0-16.0); Immature Granulocytes # (auto) 0.01 K/uL (0.00-0.02); Immature Granulocytes % (auto) 0.1 %; Lymphocytes # (auto) 3.18 K/uL (1.2-3.4); Lymphocytes % (auto) 40.8 %; Mean Corpuscular Hemoglobin 30.3 pg (25-34); Mean Corpuscular Hgb Conc 32.9 g/dL (32-36); Mean Platelet Volume 10.7 fL (7.4-10.4); Monocytes # (auto) 0.73 K/uL (0.11-0.59); Monocytes % (auto) 9.4 %; Neutrophils # (auto) 3.74 K/uL (1.4-6.5); Neutrophils % (auto) 47.9 %; Platelet Count 210 K/uL (130-400); RDW Coefficient of Variation 12.4 % (11.5-14.5); RDW Standard Deviation 41.8 fL (36.4-46.3); Red Blood Count 4.76 M/uL (4.2-5.4)
[2020-01-28 14:15] LABS: BUN Creatinine Ratio 14.4 (10-20); Creatinine Clr Calc Pharmacy 74.2 ml/min; Est GFR (African American) 68.6; Est GFR (Non-African American) 59.2; Potassium 4.2 mmol/L (3.5-5.1)
[~2020-02-06 07:16] MED LIST changes: +ACETAMINOPHEN 1000 MG/100 ML IV IV ONE; -ASPI81TA28 PO; -ATV1 PO; -CYCL10TA6 PO; -CYM/60 PO; -DIAZ2TAB PO; -EVENCAP6 PO; -HYOS1TAB PO; +LACTATED RINGER'S 1,000 ML IV SCH; +LR 15ML/HR IV SCH; -MULT-506 PO; -PANT40TA PO; -PREG1CAP28 PO; -RMRS/15 PO; -RXC5 PO
[2020-02-06] MEDS ORDERED: DEXAMETHASONE SOD INJ 4 MG/ML VIAL ONE (08:00)
[2020-02-06] MEDS ORDERED: LARYING-O-JET KIT (LTA) ONE (08:00)
[2020-02-06] MEDS ORDERED: PROPOFOL IV EMULSION 10 MG/ML 20 ML VIAL IV ONE (08:00)
[2020-02-06] MEDS ORDERED: MIDAZOLAM HCL 1 MG/ML 2ML VIAL ONE (08:00)
[2020-02-06] MEDS ORDERED: LIDOCAINE HCL 2% 2 ML VIAL/AMP(20MG/ML) INFIL ONE (08:00)
[2020-02-06] MEDS ORDERED: ONDANSETRON INJ 2 MG/ML 2 ML VIAL ONE (08:00)
[2020-02-06] MEDS ORDERED: fentaNYL citrate 100 MCG/2 ML VIAL ONE ×3 (08:00→12:44)
--- NOTE | 2020-02-06 10:30 | History & Physical Bridge Note ---
Date of Service February 06, 2020 History & Physical Bridge Note I have examined the patient, reviewed the History & Physical and in the interval since the performance of the History & Physical I have noted the following changes of clinical significance: no changes noted
[2020-02-06] MEDS ORDERED: BUPIVACAINE 0.5 % 5 MG/1 ML MPF 30ML VIAL ONE (10:33)
[2020-02-06] MEDS ORDERED: PROMETHAZINE HCL 12.5 MG in SODIUM CHLORIDE 0.9% 50 ML IV PRN (11:04)
[2020-02-06] MEDS ORDERED: ePHEDrine sulfate 50 MG/ML AMP IV PRN (11:04)
[2020-02-06] MEDS ORDERED: ONDANSETRON INJ 2 MG/ML 2 ML VIAL IV PRN (11:04)
[2020-02-06] MEDS ORDERED: METOCLOPRAMIDE HCL INJ 5 MG/ML 2 ML VIAL IV PRN (11:04)
[2020-02-06] MEDS ORDERED: fentaNYL citrate 100 MCG/2 ML VIAL IV PRN (11:04)
[2020-02-06] MEDS ORDERED: HYDROmorphone INJ 2 MG/ML SYR/VIAL IV PRN (11:04)
[2020-02-06] MEDS ORDERED: ATROPINE SULFATE 0.1 MG/ML 10ML SYR IV PRN (11:04)
[2020-02-06] MEDS ORDERED: TISSEEL FIBRIN SEALANT 4ML TOP ONE (11:52)
[2020-02-06] MEDS ORDERED: FLOSEAL HEMOSTATIC MATRIX 10ML TOP ONE (12:00)
[2020-02-06] MEDS ORDERED: ROCURONIUM BROMIDE 10 MG/ML 5 ML VIAL IV ONE ×6 (12:53→13:48)
[2020-02-06] MEDS ORDERED: CEFAZOLIN 250 MG/ML 1 GM VIAL ONE (12:53)
[2020-02-06] MEDS ORDERED: HYDROmorphone INJ 2 MG/ML SYR/VIAL ONE (12:57)
[2020-02-06] MEDS ORDERED: CEFAZOLIN 2000MG 2,000 MG/15 ML SYR IV STA (12:57)
[2020-02-06] MEDS ORDERED: BUPIVACAINE LIPOSOME 1.3% 266 MG/20 ML VIAL ONE (13:21)
[2020-02-06] MEDS ORDERED: GLYCOPYRROLATE 0.2 MG/ML VIAL ONE (13:48)
[2020-02-06] MEDS ORDERED: NEOSTIGMINE METHYLSULFATE 5 MG/5 ML SYR ONE (13:48)
--- NOTE | 2020-02-06 14:47 | Post Operative Brief Note ---
Immediate Post Op Note v1 Date of Surgery February 06, 2020 Pre & Post Diagnosis Operation Date: 02/06/20 08:40 Pre-Op Diagnosis: Left Ovarian Cyst Post-Op Diagnosis: Left Ovarian Cyst I identified the patient and participated in the time-out.: Yes Procedure Operation Date: 02/06/20 08:40 Actual Procedures p Laparoscopic Bilateral Oophorectomy, Lysis of Extensive Adhesions, Appendectomy, Mini Abdominal Laparotomy(Bilateral) - Delia Omer Surgeon Delia Omer Public Health Inspector Juhi Quintana PA-C Estimated Blood Loss 100 Findings Consistent with Post-Op Diagnosis Drains Sidhu Catheter
--- NOTE | 2020-02-06 15:07 | Operative Report ---
Post Operative Report Pre & Post Diagnosis Operation Date: 02/06/20 08:40 Pre-Op Diagnosis: Left Ovarian Cyst Post-Op Diagnosis: Left Ovarian Cyst I identified the patient and participated in the time-out.: Yes Procedure Operation Date: 02/06/20 08:40 Actual Procedures p Laparoscopic Bilateral Oophorectomy, Lysis of Extensive Adhesions, Appendectomy, Mini Abdominal Laparotomy(Bilateral) - Delai Omer Surgeon Delia Omer Diet Clerk Juhi Quintana PA-C Estimated Blood Loss 100 Findings See Below 1. Uterus surgically absent 2. Colon adhered to the left pelvic sidewall and vaginal cuff. 3. Left ovary was not initially visualized secondary to bowel adhesions. After lysis of adhesions the left ovary was visualized and noted to be adhered to the left pelvic sidewall and contained a cyst 4. Left fallopian tube not visualized 5. Right ovary was adhered to the small bowel and the appendix 6. Right fallopian tube not visualized 7. Obliterated anterior and posterior cul-de-sacs 8. Normal appearing liver edge Fluids See Anesthesia Report Specimens Bilateral ovaries, suspected bilateral fallopian tubes, and appendix Drains Berry catheter: 300 ml Anesthesia Type General Complications none Indications 54 yo with a left complex ovarian cyst desiring surgical management. Description of Procedure Under GA in the dorsal lithotomy position, the patient was prepped and draped in the usual sterile fashion. Beginning at the vagina, a berry catheter was inserted under sterile conditions and left in situ for the remainder of the case. A sponge stick was inserted into the vagina. Attention was then turned to the abdomen. 0.5% marcaine solution was used for infiltration of all port sites. Beginning in the subumbilical area, the skin was first infiltrated with ~ 2 cc of the marcaine solution, then a 5 mm incision was made through the skin with a #11 blade. Direct entry with a 5 mm trocar, sleeve, and laparoscope was made into the peritoneal cavity. The opening pressure was < 8 mmHg. The peritoneal cavity was insufflated with CO2 gas to a maximum pressure of 20 mmHg. Examination of the peritoneal cavity revealed no signs of injury from entry and the above noted anatomical structures. The patient was then placed in steep Trendelenburg and three more 5 mm trocars were placed, one on the right and two on the left, in the standard technique, taking care to avoid the epigastric vessels. All trocars were placed under direct visualization with no inadvertent damage to underlying structures. The uterus was surgically absent. The colon was adhered to the left pelvic sidewall and vaginal cuff. The left ovary was not initially visualized secondary to bowel adhesions. After lysis of adhesions the left ovary was visualized and noted to be adhered to the left pelvic sidewall and contained a cyst. Left fallopian tube not visualized. Right ovary was adhered to the small bowel and the appendix. Right fallopian tube not visualized. Obliterated anterior and posterior cul-de-sacs. Normal appearing liver edge. Due to severe bowel adhesions throughout the entire pelvic cavity, an intraoperative General Surgery consult was made. Attention was turned to the left side, and the filmy adhesions of the colon to the left pelvic sidewall was cut with laparoscopic scissors which allowed the large bowel to free from the sidewall however, the left ovary was still not visualized. Attention was turned to the right adnexal region and the right ovary was noted to be adhered to the small bowel and the appendix. Filmy adhesions were excised from the right ovary with laparoscopic scissors. After careful dissection, Dr. Carvalho scrubbed into the case and continued lysis of adhesions. He was able to dissect the large bowel completely from the left pelvic side wall allowing visualization of the left ovary. Dr. Carvalho then turned to the right side and was able to dissect the small bowel and appendix from the right ovary (please see Dr. Carvalho's operative report). Attention was returned to the left side, the left infundibular ligament was identified by lifting the tube towards the anterior wall of the abdomen. The ureter was confirmed along the pelvic side wall and peristalsis was noted. The BALAJI Harmonic device was then used to clamp and ligate the IP ligament in three sequential bites with ligation. The IP was then cut mid-distance, again being sure to be clear of the ureter. The remaining portion of the left ovary adhered to the left pelvic sidewall was excised with the BALAJI Harmonic and placed posteriorly. The same procedure was performed on the contralateral side. Hemostasis was noted. After removal of both ovaries, decision was made to perform a mini-laparotomy to remove the appendix and ensure bowel integrity following extensive dissection. All laparoscopic trocars were removed under direct visualization. A Pfannenstiel skin incision was made with the scalpel and carried through to the underlying layer of fascia using the Bovie. The fascia was incised in the midline and extended laterally using Felton scissors. Isa clamps were used to elevate the superior aspect of the fascial incision, which was elevated, and the underlying rectus muscles were dissected off bluntly and using Felton scissors. Attention was then turned to the inferior aspect of the fascial incision, which in similar fashion was grasped with Isa clamps, elevated, and the underlying rectus muscles were dissected off bluntly and using Felton scissors. The rectus muscles were dissected in the midline. The peritoneum was bluntly dissected, entered, and extended superiorly and inferiorly with good visualization of the bladder. The vesicouterine peritoneum was identified with pickups and entered sharply using Metzenbaum scissors. This incision was extended laterally and the bladder flap was created digitally. The ovaries were removed and sent for pathological evaluation. The appendectomy and oversewing of small bowel mucosa was then performed by Dr. Carvalho (please see General surgery operative report). After completion of the General surgery portion of the procedure, the pelvis was evaluated. Oozing was noted along the right infundibular ligament. Hemostasis achieved with 2-0 Vicryl in a running fashion. Floseal was then applied to the adnexal regions. Hemostasis was again appreciated. The fascia was closed with 0 Vicryl, the subcutaneous layer was closed with 2-0 Vicryl, exaperal was injected into the subcanteous tissue, and the skin was closed with 4-0 monocryl in a subscuticular fashion and dermabond. All laparoscopic incision sites were then closed with 4-0 monocryl sutures in a subcuticular fashion and dermabond. The berry catheter was left in situ. At the end of the procedure, all sponges, instruments, and sharps were counted and correct. Estimated blood loss was 100 ml. The patient was taken to recovery in stable condition. My Diet Clerk was necessary throughout the procedure for uterine manipulation, retraction, handling of the laparoscope and laparoscopic instruments to ensure adequate visualization, gentle tissue manipulation, and hemostasis. I attest to the content of the Intraoperative Record and any orders documented therein. Any exceptions are noted below.
--- NOTE | 2020-02-06 15:57 | Anesthesiology Progress Note ---
Date of Service February 06, 2020 Anesthesia Post Procedure Vital Signs Vital Signs: Temp Pulse Pulse Resp BP BP Pulse Ox 02/06/20 15:45 36.5 C 75 14 110/75 96 02/06/20 15:35 82 14 115/78 95 02/06/20 15:25 83 14 126/81 95 02/06/20 15:15 76 12 119/81 93 02/06/20 15:05 74 16 115/77 93 02/06/20 14:55 78 12 107/72 95 02/06/20 14:46 36.7 C 86 16 119/76 96 02/06/20 08:00 36.8 C 78 20 117/83 96 Pain Intensity Abdomen: Pain Intensity: 3 Transfer of Care Handoff Completed per policy Notes Mental Status: alert / awake / arousable and participated in evaluation Patient Amnestic to Procedure: Yes Nausea / Vomiting: adequately controlled Pain: adequately controlled Airway Patency, RR, SpO2: stable & adequate BP & HR: stable & adequate Hydration State: stable & adequate Anesthetic Complications: no major complications apparent
[2020-02-06] MEDS ORDERED: PROMETHAZINE HCL 25 MG in SODIUM CHLORIDE 0.9% 50 ML IV ONE (17:30)
[2020-02-06] MEDS: LACTATED RINGER'S 1,000 ML IV SCH (17:50)
[2020-02-06] MEDS: OXYCODONE HCL IR 5 MG TAB (IMMEDIATE RELEASE) PO PRN (18:14)
[2020-02-06] MEDS: METHOCARBAMOL 750 MG TABLET PO SCH ×2 (18:14→21:31)
[2020-02-06] MEDS: IBUPROFEN 600 MG TAB PO SCH ×2 (18:14→23:43)
[2020-02-06] MEDS: ONDANSETRON INJ 2 MG/ML 2 ML VIAL IV PRN (19:43)
[2020-02-06] MEDS: HYDROmorphone INJ 1 MG/ML SYRINGE IV PRN ×2 (19:43→23:44)
[2020-02-06] MEDS: PANTOprazole 40 MG TAB PO SCH (21:30)
[2020-02-06] MEDS: DOCUSATE SODIUM 100 MG CAP PO SCH (21:30)
[2020-02-06] MEDS: PREGABALIN 75 MG CAP PO SCH (21:31)
[2020-02-06] MEDS: ACETAMINOPHEN 500 MG TAB PO SCH (21:31)
[2020-02-06] MEDS: HYOSCYAMINE SULFATE 0.125 MG TAB PO SCH (21:31)
[2020-02-06] MEDS: SIMETHICONE 80 MG CHEW PO SCH ×2 (21:32→23:43)
--- NOTE | 2020-02-07 00:15 | Operative Report (OR) ---
DATE OF OPERATION: 02/06/2020 PREOPERATIVE DIAGNOSIS: Intra-abdominal adhesions. POSTOPERATIVE DIAGNOSIS: Intra-abdominal adhesions. PROCEDURE: Lysis of adhesions. SURGEON: Chidi Carvalho MD. MOBILE SERVICE RV TECHNICIAN: Dr. Omer. FINDINGS: The patient was to have a bilateral oophorectomy and was found to have multiple adhesions within the pelvis to the ovaries. I was asked to attend the case for lysis of adhesions. There were multiple adhesions mostly of the mesentery of the colon to the left ovary. There was dense adhesion of the portion of the terminal ileum to the right ovary. The appendix was also densely adherent to the right ovary. TECHNIQUE: The entrance to the abdomen, insufflation and placement of the ports was performed by Dr. Omer and she will dictate that portion of the case and was asked to attend the case. I began on the left side first. There were some flimsy adhesions of the sigmoid colon to the anterior abdominal wall that were taken down with ease. I then identified the wall of the left ovary. I was able to bluntly dissect adhesions of the mesentery of the sigmoid colon away and then establish a plane posteriorly that was free. The additional adhesions were then taken down using blunt cautery and sharp dissection where appropriate until the sigmoid colon and the mesentery of the sigmoid colon were completely freed. I then mobilized the proximal sigmoid colon away from the lateral abdominal wall to allow for better visualization of the pelvic vascular structures. I then attended the right side. There was adhesion of the small bowel. These adhesions were dense and I was able to establish a plane using cautery and hydrodissection as well as mostly sharp dissection. I then was able to completely free the small bowel; however, a length of approximately 3 cm of the serosa was opened. The mucosa was never penetrated. I then worked to free the appendix away from the ovary. That was done using mostly blunt dissection and was able to be accomplished without difficulty. I also mobilized the appendix away from the posterolateral abdominal wall. Because of her adhesion burden, we decided to perform an appendectomy to avoid a future need for appendectomy should appendicitis arise. We needed to perform a mini laparotomy in order to repair the serosal opening and remove the appendix. Dr. Omer then did an ovarian removal and she performed the minilaparotomy using a low transverse incision. The abdomen was entered. I extended the ___ peritoneal opening. That allowed me to identify the cecum and bringing it out through the incision. That allowed me to identify the appendix. The mesoappendix was sequentially doubly clamped, divided and ligated using 2-0 silk ties until I got down to the base of the appendix, which was freed. The base of the appendix was clamped and then ligated with 2 separate 2-0 silk suture ligatures and then amputated. The exposed mucosa was cauterized. That was placed back into its anatomic position. The terminal ileum was followed and we were able to identify the serosal opening. This was closed with 3-0 silk Lembert interrupted sutures. The entire serosal opening was closed. There were no other serosal areas identified. The remainder of the procedure will be dictated by Dr. Omer. I attest to the content of the Intraoperative Record and any orders documented therein. Any exception s are noted below.
[2020-02-07] MEDS: LACTATED RINGER'S 1,000 ML IV SCH ×2 (03:03→11:00)
[2020-02-07] MEDS: ACETAMINOPHEN 500 MG TAB PO SCH ×3 (05:50→22:05)
[2020-02-07] MEDS: SIMETHICONE 80 MG CHEW PO SCH ×4 (05:50→23:49)
[2020-02-07] MEDS: IBUPROFEN 600 MG TAB PO SCH ×4 (05:50→23:49)
[2020-02-07 06:44] LABS: Basophils # (auto) 0.02 K/uL (0-0.2); Basophils % (auto) 0.1 %; Hematocrit (blood only) 38.1 % (37-47); Hemoglobin 11.8 g/dL (12.0-16.0); Immature Granulocytes # (auto) 0.04 K/uL (0.00-0.02); Immature Granulocytes % (auto) 0.3 %; Lymphocytes # (auto) 3.08 K/uL (1.2-3.4); Lymphocytes % (auto) 19.5 %; Mean Corpuscular Hemoglobin 28.9 pg (25-34); Mean Corpuscular Volume 93.2 fL (80-100); Mean Platelet Volume 10.5 fL (7.4-10.4); Monocytes % (auto) 13.3 %; Neutrophils # (auto) 10.58 K/uL (1.4-6.5); Neutrophils % (auto) 66.8 %; Platelet Count 177 K/uL (130-400); RDW Coefficient of Variation 12.5 % (11.5-14.5); RDW Standard Deviation 42.5 fL (36.4-46.3); Red Blood Count 4.09 M/uL (4.2-5.4); White Blood Count 15.82 K/uL (4.8-10.8)
[2020-02-07 07:13] LABS: Albumin Level 2.9 gm/dl (3.4-5.0); BUN Creatinine Ratio 15.1 (10-20); Calcium 8.5 mg/dl (8.5-10.1); Creatinine Clr Calc Pharmacy 86.3 ml/min; Est GFR (African American) 81.3; Est GFR (Non-African American) 70.2; Potassium 4.1 mmol/L (3.5-5.1)
[2020-02-07 07:16] LABS: Albumin Globulin Ratio 0.9 (0.9-2); Bilirubin,Total 0.4 mg/dl (0.2-1); Globulin 3.3 gm/dl (2.5-4.0); Total Protein 6.2 gm/dl (6.4-8.2)
[2020-02-07] MEDS: PREGABALIN 75 MG CAP PO SCH ×2 (08:19→20:42)
[2020-02-07] MEDS: HYOSCYAMINE SULFATE 0.125 MG TAB PO SCH ×3 (08:19→20:41)
[2020-02-07] MEDS: METHOCARBAMOL 750 MG TABLET PO SCH ×4 (08:19→20:41)
[2020-02-07] MEDS: PANTOprazole 40 MG TAB PO SCH ×2 (08:20→20:41)
[2020-02-07] MEDS: OXYCODONE HCL IR 5 MG TAB (IMMEDIATE RELEASE) PO PRN ×4 (08:20→22:06)
[2020-02-07] MEDS: DOCUSATE SODIUM 100 MG CAP PO SCH ×2 (09:22→20:41)
--- NOTE | 2020-02-07 10:41 | Surgery Progress Note ---
Date of Service February 07, 2020 Assessment & Plan Admission and Anticipated Discharge Date Admission Date: February 06, 2020 Subjective not ambulating well POD#1 Exploratory lap with lysis of adhesions oophorectomy, appendectomy and bowel repair. still has pain rating it 8/10 passing gas minimal urine output having some nausea no vomiting tolerating small amount of her diet Physical Exam Constitutional: WD/WN, vitals as above comfortable abdomen soft non- tender incisions are clean, dry and intact no edema neg Yakov's will continue observation discharge if OK with Dr. Carvalho and patient ambulating and voiding better Results & Data ([facility]) Vital Signs (Past 12 Hours) Vital Signs Temp Pulse Resp BP Pulse Ox 02/07/20 08:00 36.7 C 74 18 118/74 96 02/07/20 03:05 36.4 C L 87 14 94/62 L 94 02/07/20 00:00 36.9 C 76 16 119/76 95
[2020-02-07] MEDS: ONDANSETRON INJ 2 MG/ML 2 ML VIAL IV PRN (12:07)
--- NOTE | 2020-02-07 15:01 | Surgery Progress Note ---
Date of Service February 07, 2020 Assessment & Plan (1) History of appendectomy: Dr. Carvalho performed appendectomy and also pelvic lysis of adhesions Patient does have a transverse lower abdominal incision which is continue to be somewhat sore She said when she got up to walk the bunch she was a little bit lightheaded Her incisions look very good her abdomen is soft I do feel she would benefit from 1 more night in the hospital for observation and supportive care Admission and Anticipated Discharge Date Admission Date: February 06, 2020 Results & Data ([facility]) Vital Signs (Past 12 Hours) Vital Signs Temp Pulse Resp BP Pulse Ox 02/07/20 12:05 37 C 77 20 111/71 96 02/07/20 08:00 36.7 C 74 18 118/74 96 02/07/20 03:05 36.4 C L 87 14 94/62 L 94 PG Care Time/CCT Total # of Minutes Spent Total Time Spent with Patient: Total time spent is greater than 50% in coordination of care (as documented) at patient's floor/unit and/or counseling patient: Coding Level of Care Code None Diagnoses History of appendectomy Z90.49
[2020-02-08] MEDS: ACETAMINOPHEN 500 MG TAB PO SCH (05:57)
[2020-02-08] MEDS: SIMETHICONE 80 MG CHEW PO SCH (05:57)
[2020-02-08] MEDS: IBUPROFEN 600 MG TAB PO SCH (05:57)
[2020-02-08 06:29] LABS: Basophils # (auto) 0.02 K/uL (0-0.2); Basophils % (auto) 0.2 %; Eosinophils # (auto) 0.19 K/uL (0-0.5); Eosinophils % (auto) 2.1 %; Immature Granulocytes # (auto) 0.03 K/uL (0.00-0.02); Immature Granulocytes % (auto) 0.3 %; Lymphocytes # (auto) 3.28 K/uL (1.2-3.4); Lymphocytes % (auto) 36.6 %; Mean Corpuscular Hemoglobin 30.6 pg (25-34); Mean Corpuscular Hgb Conc 32.4 g/dL (32-36); Mean Corpuscular Volume 94.7 fL (80-100); Mean Platelet Volume 10.4 fL (7.4-10.4); Monocytes # (auto) 1.35 K/uL (0.11-0.59); Monocytes % (auto) 15.1 %; Neutrophils # (auto) 4.09 K/uL (1.4-6.5); Neutrophils % (auto) 45.7 %; Platelet Count 129 K/uL (130-400); RDW Coefficient of Variation 12.8 % (11.5-14.5); RDW Standard Deviation 44.6 fL (36.4-46.3); Red Blood Count 3.59 M/uL (4.2-5.4); White Blood Count 8.96 K/uL (4.8-10.8)
[2020-02-08] MEDS: ONDANSETRON INJ 2 MG/ML 2 ML VIAL IV PRN (06:31)
--- NOTE | 2020-02-08 06:45 | Surgery Progress Note ---
Date of Service February 08, 2020 Assessment & Plan (1) History of appendectomy: Also lysis of adhesions Patient doing much better, tolerating her liquids Pain better controlled She wishes to go home-okay from surgical standpoint We will give her Dr. Carvalho's phone number in case she has questions Follow-up with him as needed Admission and Anticipated Discharge Date Admission Date: February 06, 2020 Results & Data ([facility]) Vital Signs (Past 12 Hours) Vital Signs Temp Pulse Resp BP Pulse Ox 02/07/20 23:50 36.9 C 85 16 117/72 92 02/07/20 19:30 37.2 C 76 18 112/75 94 PG Care Time/CCT Total # of Minutes Spent Total Time Spent with Patient: Total time spent is greater than 50% in coordination of care (as documented) at patient's floor/unit and/or counseling patient: Coding Level of Care Code None Diagnoses History of appendectomy Z90.49
--- NOTE | 2020-02-08 07:48 | Surgery Progress Note ---
Date of Service February 08, 2020 Assessment & Plan Admission and Anticipated Discharge Date Admission Date: February 06, 2020 Subjective POD#2 stable passing gas ambulating better tolerating diet Physical Exam Constitutional: WD/WN, vitals as above comfortable abdomen much improved today soft non-tender incisions c/d/i no edema neg Yakov's for d/c today follow up next week in office Results & Data ([facility]) Vital Signs (Past 12 Hours) Vital Signs Temp Pulse Resp BP Pulse Ox 02/07/20 23:50 36.9 C 85 16 117/72 92 Laboratory Results 01/28/20 01/28/20 01/28/20 12:45 12:45 12:45 WBC 7.80 RBC 4.76 Hgb 14.4 Hct 43.8 MCV 92.0 MCH 30.3 MCHC 32.9 RDW Std Deviation 41.8 RDW Coeff of Randee 12.4 Plt Count 210 MPV 10.7 H Immature Gran % (Auto) 0.1 Neut % (Auto) 47.9 Lymph % (Auto) 40.8 [place] % (Auto) 9.4 Eos % (Auto) 1.2 Baso % (Auto) 0.6 Neut # (Auto) 3.74 Lymph # (Auto) 3.18 [place] # (Auto) 0.73 H Eos # (Auto) 0.09 Baso # (Auto) 0.05 Immature Gran # (Auto) 0.01 Sodium 144 Potassium 4.2 Chloride 110 H Carbon Dioxide 28 Anion Gap 6.0 BUN 15 Creatinine 1.07 Est Cr Clr Drug Dosing 74.2 Est GFR ( Amer) 68.6 Est GFR (Non-Af Amer) 59.2 BUN/Creatinine Ratio 14.4 Glucose 87 Calcium 9.0 Total Bilirubin AST ALT Alkaline Phosphatase Total Protein Albumin Globulin Albumin/Globulin Ratio CA 125 Antigen 12 Blood Type Antibody Screen 01/28/20 02/07/20 02/07/20 12:45 06:26 06:26 WBC 15.82 H RBC 4.09 L Hgb 11.8 L Hct 38.1 MCV 93.2 MCH 28.9 MCHC 31.0 L RDW Std Deviation 42.5 RDW Coeff of [place] 12.5 Plt Count 177 MPV 10.5 H Immature Gran % (Auto) 0.3 Neut % (Auto) 66.8 Lymph % (Auto) 19.5 [place] % (Auto) 13.3 Eos % (Auto) 0.0 Baso % (Auto) 0.1 Neut # (Auto) 10.58 H Lymph # (Auto) 3.08 [place] # (Auto) 2.10 H Eos # (Auto) 0.00 Baso # (Auto) 0.02 Immature Gran # (Auto) 0.04 H Sodium 140 Potassium 4.1 Chloride 105 Carbon Dioxide 29 Anion Gap 6.0 BUN 14 Creatinine 0.93 Est Cr Clr Drug Dosing 86.3 Est GFR ( Amer) 81.3 Est GFR (Non-Af Amer) 70.2 BUN/Creatinine Ratio 15.1 Glucose 111 H Calcium 8.5 Total Bilirubin 0.4 AST 64 H ALT 87 H Alkaline Phosphatase 59 Total Protein 6.2 L Albumin 2.9 L Globulin 3.3 Albumin/Globulin Ratio 0.9 CA 125 Antigen Blood Type O Positive Antibody Screen NEGATIVE 02/08/20 06:18 WBC 8.96 RBC 3.59 L Hgb 11.0 L Hct 34.0 L MCV 94.7 MCH 30.6 MCHC 32.4 RDW Std Deviation 44.6 RDW Coeff of [place] 12.8 Plt Count 129 L MPV 10.4 Immature Gran % (Auto) 0.3 Neut % (Auto) 45.7 Lymph % (Auto) 36.6 [place] % (Auto) 15.1 Eos % (Auto) 2.1 Baso % (Auto) 0.2 Neut # (Auto) 4.09 Lymph # (Auto) 3.28 [place] # (Auto) 1.35 H Eos # (Auto) 0.19 Baso # (Auto) 0.02 Immature Gran # (Auto) 0.03 H Sodium Potassium Chloride Carbon Dioxide Anion Gap BUN Creatinine Est Cr Clr Drug Dosing Est GFR ( Amer) Est GFR (Non-Af Amer) BUN/Creatinine Ratio Glucose Calcium Total Bilirubin AST ALT Alkaline Phosphatase Total Protein Albumin Globulin Albumin/Globulin Ratio CA 125 Antigen Blood Type Antibody Screen
[2020-02-08] MEDS: METHOCARBAMOL 750 MG TABLET PO SCH (08:45)
[2020-02-08] MEDS: HYOSCYAMINE SULFATE 0.125 MG TAB PO SCH (08:45)
[2020-02-08] MEDS: PANTOprazole 40 MG TAB PO SCH (08:45)
[2020-02-08] MEDS: PREGABALIN 75 MG CAP PO SCH (08:46)
[2020-02-08] MEDS: OXYCODONE HCL IR 5 MG TAB (IMMEDIATE RELEASE) PO PRN (08:46)
[2020-02-08] MEDS: DOCUSATE SODIUM 100 MG CAP PO SCH (08:49)
--- NOTE | 2020-02-13 07:06 | Discharge Summary ---
Date of Service February 13, 2020 Admission HPI Per Admitting Provider 54 year oldPMP with left ovarian cyst. Patient presented to [facility] ED on 10/31/2019 with c/o fever and abdominal pain. CT abd/pelvis did not reveal any etiology for Patient's pain. There was noted a 4.5 cm stable left ovarian cyst when compared to a prior study in 2017. Pelvic pain did subside. Repeat TVUS in Dec 2019 revealed a 3.7 x 3.5 x 3.2 cm complex left ovarian cystic lesion, new since ultrasound 05/11/2017. Hemorrhagic ovarian cyst is a consideration. Patient with a hysterectomy in 2010 for precancerous cells, ovaries remain in place. Denies post-menopausal bleeding or abnormal vaginal discharge. Denies urinary or bowel symptoms. Patient desired surgical removal of both ovaries. Admission Exam (Per Admitting) Constitutional WD/WN, vitals as above Respiratory normal respiratory effort, lungs clear to auscultation Cardiovascular RRR, no murmur, no edema Gastrointestinal (Abdomen) normal bowel sounds, soft, nontender, no hepatosplenomegaly Discharge Data Procedures Performed Operation Date: 02/06/20 08:40 Actual Procedures p Laparoscopic Bilateral Oophorectomy, Lysis of Extensive Adhesions, Appendectomy, Mini Abdominal Laparotomy(Bilateral) - [facility] Course (1) Left ovarian cyst: s/p Diagnostic laparoscopy, Lysis of adhesions, bilateral salpingo-oophorectomy, mini-laparotomy, appendectomy, and over sew of small bowel mucosa on 02/06/2020. Uncomplicated post-operative course. Patient was discharged on POD#2. Discharge Instructions POST OPERATIVE: BOWEL FUNCTION/MEDICATIONS: 1. Constipation pain and discomfort are the most common complaints 5-7 days after surgery. Points 2-6 address the things that can help. 2. Chewing gum can help stimulate the gut and help improve digestion and motility. 3. Milk of Magnesia 1-2 times per day until return of bowel function. 4. Colace is a stool softener that helps. Taking this 2-3 times per day until bowel function returns to normal is highly recommended. 5. Dulcolax is a laxative that may be used if several days have passed without a bowel movement. Alternatively Miralax may be used daily instead. 6. Drink plenty of fluids as this will also reduce constipation. 7. Narcotic pain medications will be prescribed by your physician. They are safe to use and we encourage you to use them. If you are not allergic, ibuprofen will also be prescribed. Many patients will be able to transition off of the narcotic medications to ibuprofen by postoperative day 3. ACTIVITY RECOMMENDATIONS: 1. Get plenty of rest and listen to your body. If you are tired, take a nap. 2. You may shower, but do not take a tub bath until you see your doctor at the 2 week post operative visit. 3. Absolutely NO intercourse and nothing in the vagina until you are examined by your doctor at the 6 week visit. At that visit it will be determined when such activities can be resumed. This can range from 6-12 weeks after your hines rgery depending on healing time. 4. The main physical activity in the first week should be walking. By the second week you can slowly increase activity. There are no limits on walking up and down stairs. 5. Do not lift more than 5-10 lbs for 4 weeks. Remember the "one-handed rule", i.e. if you can lift something with only one hand it's likely okay. 6. 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 "Overdoing it" can lead to incisions not healing, pain and vaginal bleeding, so again, listen to your body. 7. Driving can be resumed when you feel able. Do not drive within 24 hours of taking a narcotic medication. EXPECTATIONS: 1. Vaginal spotting, bleeding and discharge are common after surgery. There may even be an odor to the discharge which is often related to sutures used in the vagina. If you experience heavy vaginal bleeding, call the office number day or night [phone] 2. Bladder discomfort is common after surgery from the catheter. This usually resolves in 1-2 weeks. 3. By the end of the 3rd or 4th week you should be feeling much better. It may take up to 6 weeks for your energy levels to return to normal. 4. Narcotic medications have side effects such as: dizziness, headache, nausea and/or vomiting. If you suspect your pain medication is causing problems, call our office and we may be able to prescribe an alternate medication. 5. The skin incisions are often covered with a liquid bandage. This will gradually peel off over time. CALL THE OFFICE IF YOU HAVE ANY OF THE FOLLOWIN. Temperature of 101 degrees or higher. 2. Severe abdominal or pelvic pain not relieved by pain medication. 3. Persistent nausea or vomiting. 4. Increased pain with urination or difficulty urinating. 5. Bright red bleeding that soaks more than 1 pad per hour. CONTACT PHONE NUMBERS: Main Office: [phone] Avoid all tobacco products. If you need help to stop smoking, call [place]'s FREE QUITLINE at . This is a free call.
== END 2020-02-08 11:10 | disposition home or self-care (01) ==
LOC: 4N 07:16 → ASU 07:16 → 4S2 02-07 18:11

== ENCOUNTER 2020-08-27 10:02 | Inpatient (IN) ==
--- NOTE | 2020-08-09 14:51 | PAT Medication Instructions ---
Medication Instructions Date of Service August 09, 2020 Home Medications Medication Instructions Recorded docusate sodium 100 mg PO BID #100 cap 02/06/20 baclofen 10 mg PO BID PRN diazepam 2 mg PO HS PRN evening primrose oil 500 mg PO BID hyoscyamine sulfate 0.125 mg PO BID multivitamin 1 tab PO QAM pantoprazole 40 mg PO BID pregabalin 75 mg PO BID trazodone 100 mg PO HS Estroven 1 mg PO QAM Probiotic 3,000 mmu cells PO BID methocarbamol 750 mg PO QID docusate sodium 100 mg PO BID citalopram 20 mg PO QAM Continue as directed Estroven 1 mg PO QAM (unless surgeon directs otherwise) STOP taking 2 weeks before surgery evening primrose oil 500 mg PO BID DO NOT take the morning of surgery baclofen 10 mg PO BID PRN multivitamin 1 tab PO QAM Probiotic 3,000 mmu cells PO BID methocarbamol 750 mg PO QID docusate sodium 100 mg PO BID hyoscyamine sulfate 0.125 mg PO BID Take morning of surgery With a small sip of water, OTHERWISE NOTHING TO EAT OR DRINK AFTER MIDNIGHT: pantoprazole 40 mg PO BID pregabalin 75 mg PO BID citalopram 20 mg PO QAM Take evening before surgery baclofen 10 mg PO BID PRN (if needed) diazepam 2 mg PO HS PRN (if needed) hyoscyamine sulfate 0.125 mg PO BID pantoprazole 40 mg PO BID pregabalin 75 mg PO BID trazodone 100 mg PO HS Probiotic 3,000 mmu cells PO BID methocarbamol 750 mg PO QID docusate sodium 100 mg PO BID Other Notes If you have any questions please call us at [phone] or [phone] or [phone] or [phone]
--- NOTE | 2020-08-12 12:00 | Anesthesiology Consultation ---
Date of Service August 12, 2020 Assessment & Plan (1) Encounter for pre-operative examination: - Chronic urticarial rash: Unclear etiology. Planning allergy testing. Regular antihistamine suppression therapy recommended. 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 Awaiting office visit note. - PCP office visit (07/26/20): "good MET tolerance limited by back pain. Medically optimized for surgery." - COVID screening: Per assessment on 08/12: Travel screen negative, no known COVID-19 positive contacts or current COVID-19 related symptoms. Patient scheduled to have second vaccine 08/12. Surgeon arranging preop COVID testing (scheduled 08/20; [facility]). Awaiting results. - S/P B/L salpingectomy, oophorectomy with convert to mini laparotomy, IVELISSE, appendectomy (02/06/20): Grade 2 view, MAC#3, ETT 7.0 at [facility] Chart Review Chart Review: Patient seen in Pre Admission Testing History Surgery Operation Date: 08/27/20 07:45 Proposed Procedures p L4-L5 Decompression Fusion, L5-S1 Hardware Removal, Spinal Cord Monitoring - Jennifer Aleman, Height/Weight Height: 5 ft 7 in Weight: 102.4 kg Allergies Allergy/AdvReac Type Severity Reaction Status Date / Time Bactrim AdvReac Unknown Yeast Verified 12/13/16 00:18 infection sulfamethoxazole AdvReac Unknown Yeast Verified 07/30/20 09:50 infection trimethoprim AdvReac Unknown Yeast Verified 07/30/20 09:50 infection Medications Home Medications Medication Instructions Recorded Confirmed Last Taken baclofen 10 mg PO BID PRN 10/31/19 07/30/20 02/05/20 20:00 diazepam 2 mg PO HS PRN 10/31/19 07/30/20 Unknown evening primrose oil 500 mg PO BID 10/31/19 07/30/20 3 Days Ago ~02/03/20 hyoscyamine sulfate 0.125 mg PO BID 10/31/19 07/30/20 02/06/20 06:30 multivitamin 1 tab PO QAM 10/31/19 07/30/20 1 Week Ago ~01/30/20 pantoprazole 40 mg PO BID 10/31/19 07/30/20 02/05/20 22:00 pregabalin 75 mg PO BID 06/07/30/20 02/05/20 22:00 trazodone 100 mg PO HS 10/31/19 07/30/20 1 Week Ago ~01/30/20 Estroven 1 mg PO QAM 01/14/20 07/30/20 3 Days Ago ~02/03/20 Probiotic 3,000 mmu cells PO BID 01/14/20 07/30/20 1 Week Ago ~01/30/20 methocarbamol 750 mg PO QID 01/14/20 07/30/20 02/05/20 22:00 docusate sodium 100 mg PO BID #100 cap 02/06/20 07/30/20 Unknown citalopram 20 mg PO QAM 07/30/20 07/30/20 Unknown cetirizine 10 mg PO BID 08/12/20 08/12/20 Unknown hydroxyzine HCl 25 mg PO QID PRN 08/12/20 08/12/20 Unknown Past Medical History Medical History Anaplasmosis [facility] admission 10/2019 > discharged from [place] specialist care, chronic fatigue Anxiety DDD (degenerative disc disease) Lower back Diverticular disease Fibromyalgia On Naltrexone for this GERD (gastroesophageal reflux disease) controlled Hiatal hernia IBS (irritable bowel syndrome) Migraine controlled Obesity Peptic ulcer 2018 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 01/2020 > per patient, not found on f/u imaging Urinary tract infection Frequent Exercise / Class Metabolic Activity III < 4 Walking/Shop/Light housework Past Family History Family History Other Cancer Diabetes Stroke Past Surgical History Surgical History H/O: hysterectomy Partial (2003) History of back surgery 2016 History of cardiac cath 2014 ([facility]) > normal coronary anatomy History of colonoscopy Multiple History of esophagogastroduodenoscopy (EGD) History of TMJ disorder x2 Hx of cholecystectomy Hx of oophorectomy B/L salpingectomy, oophorectomy with convert to mini laparotomy, IVELISSE, appendectomy (02/06/20): Grade 2 view, MAC#3, ETT 7.0 at [facility] Past Anesthesia History No Family Hx of Anesthesia Complications and Other (post-op itchiness x1 episode) History of PONV No Hx of PONV and Hx of Motion Sickness Social History Smoking Status: Former smoker Do You Dip or Chew Tobacco: No Smoking End Date: Quit age 51 Hx Alcohol Use: No Hx Substance Use: No Review of Systems Patient has chronic issues with allergies (1+ years) resulting in chronic headaches, congestion > no recent changes. Chronic, diffuse hives > prescribed hydroxyzine. Patient denies chest pain, shortness of breath, dyspnea on exertion, fever, chills, cough, wheezing, palpitations. Physical Exam Vital Signs VITALS BP 112/64 P 60 TEMP 98.0 SP02 96%RA RESP 16 PHYSICAL Full cervical extension range of motion. Full TMJ range of motion. TMD 3 finger breaths Mallampati Score 2 Dentition: missing molars Lungs: clear throughout to auscultation Cardiac: regular rate and rhythm, no murmurs noted Spine: normal Carotid arteries: negative bruit Extremities: no edema Testing Laboratory Results 08/12/20 12:18 08/12/20 12:37 PT 10.2 Seconds (9.0-12.0) 08/12/20 12:18 INR 1.0 (0.9-1.1) 08/12/20 12:18 APTT 25.0 Seconds (21.0-31.0) 08/12/20 12:18 Urine Color Dark Yellow 08/12/20 12:18 Urine Appearance Cloudy (Clear) A 08/12/20 12:18 Urine pH 5.0 (4.5-7.5) 08/12/20 12:18 Ur Specific Cope 1.028 (1.000-1.030) 08/12/20 12:18 Urine Protein Negative (Negative) 08/12/20 12:18 Urine Glucose (UA) Negative (Negative) 08/12/20 12:18 Urine Ketones Trace (Negative) H 08/12/20 12:18 Urine Nitrite Negative (Negative) 08/12/20 12:18 Ur Leukocyte Esterase 2+ (Negative) H 08/12/20 12:18 Urine WBC (Auto) >30 /hpf (0-5) H 08/12/20 12:18 Urine RBC (Auto) 5-10 /hpf (0-4) H 08/12/20 12:18 U Hyaline Cast (Auto) 1-5 /lpf (0-5) 08/12/20 12:18 U Epithel Cells (Auto) >30 /lpf (0-5) H 08/12/20 12:18 Urine Bacteria (Auto) 1+ (Negative) H 08/12/20 12:18 Blood Type O Positive 08/12/20 12:18 Antibody Screen NEGATIVE 08/12/20 12:18 Surgeon's office made aware of abnormal UA* Electrocardiogram Date: 11/01/19 Findings: + NSR @ (76) Chest X-Ray Date: 08/12/20 FINDINGS: Cardiac mediastinal and hilar silhouettes are within normal limits. There is no pneumothorax, pleural effusion, airspace consolidation or overt pulmonary edema. Mild right hemidiaphragmatic elevation. Cholecystectomy. IMPRESSION: No acute process. Stress Test Date: 02/19/19 Type: DSE Stress echo was negative for inducible ischemia. LVEF 55 to 59%. Grade 1 diastolic dysfunction. No significant valvular disease. 101% MPHR. Cardiac Catheterization Date: 09/08/14 Normal coronary anatomy.
--- NOTE | 2020-08-12 12:57 | XRay Report ---
XR chest Pre-admission PA/Lat HISTORY: 55 years-old Female pat preoperative exam. No acute chest complaints. Chronic back pain COMPARISON: Chest radiograph 12/12/2016 TECHNIQUE: PA and lateral views of the chest FINDINGS: Cardiac mediastinal and hilar silhouettes are within normal limits. There is no pneumothorax, pleural effusion, airspace consolidation or overt pulmonary edema. Mild right hemidiaphragmatic elevation. C holecystectomy. IMPRESSION: No acute process. ACT 112: Negative or not required by law. The above report was generated using voice recognition software. It may contain grammatical, syntax o r spelling errors. Electronically signed by: Mik Romero M.D. 08/12/2020 12:56 PM
[2020-08-12 13:05] LABS: Basophils # (auto) 0.04 K/uL (0-0.2); Basophils % (auto) 0.5 %; Eosinophils # (auto) 0.09 K/uL (0-0.5); Hematocrit (blood only) 44.4 % (37-47); Hemoglobin 15.1 g/dL (12.0-16.0); Immature Granulocytes # (auto) 0.01 K/uL (0.00-0.02); Immature Granulocytes % (auto) 0.1 %; Lymphocytes # (auto) 3.15 K/uL (1.2-3.4); Lymphocytes % (auto) 36.5 %; Mean Corpuscular Hemoglobin 31.6 pg (25-34); Mean Corpuscular Volume 92.9 fL (80-100); Monocytes # (auto) 0.66 K/uL (0.11-0.59); Monocytes % (auto) 7.7 %; Neutrophils # (auto) 4.67 K/uL (1.4-6.5); Neutrophils % (auto) 54.2 %; Platelet Count 208 K/uL (130-400); RDW Coefficient of Variation 12.6 % (11.5-14.5); RDW Standard Deviation 43.1 fL (36.4-46.3); Red Blood Count 4.78 M/uL (4.2-5.4); White Blood Count 8.62 K/uL (4.8-10.8)
[2020-08-12 13:12] LABS: Appearance Urine Cloudy (Clear); Bacteria Urine Automated 1+ (Negative); Bilirubin Urine Negative (Negative); Blood Urine Negative (Negative); Color Urine Dark Yellow; Epithelial Cell Urine Auto >30 /lpf (0-5); Glucose Urine UA Negative (Negative); Ketones Urine Trace (Negative); Leukocyte Esterase Urine 2+ (Negative); Nitrite Urine Negative (Negative); Protein Urine Negative (Negative); Specific Gravity Urine 1.028 (1.000-1.030); Urobilinogen Urine Negative (Negative); WBC Urine Automated >30 /hpf (0-5)
[2020-08-12 13:21] LABS: BUN Creatinine Ratio 21.5 (10-20); Calcium 8.8 mg/dl (8.5-10.1); Creatinine Clr Calc Pharmacy 77.6 ml/min; Est GFR (African American) 72.2; Est GFR (Non-African American) 62.3; Potassium 4.3 mmol/L (3.5-5.1)
[2020-08-12 13:25] LABS: Prothrombin Time 10.2 Seconds (9.0-12.0)
[~2020-08-27 10:02] MED LIST changes: -ACETAMINOPHEN 1000 MG/100 ML IV IV ONE; +ACETAMINOPHEN 500 MG TAB PO SCH; +CeleBREX 200 MG CAP PO SCH; +DEXAMETHASONE SOD INJ 4 MG/ML VIAL ONE; +GABAPENTIN 900 MG DOSE PO SCH; +GLYCOPYRROLATE 0.2 MG/ML VIAL ONE; +HYDROmorphone INJ 2 MG/ML SYR/VIAL ONE; -LACTATED RINGER'S 1,000 ML IV SCH; +LARYING-O-JET KIT (LTA) ONE; +LIDOCAINE HCL 2% 2 ML VIAL/AMP(20MG/ML) INFIL ONE; +MIDAZOLAM HCL 1 MG/ML 2ML VIAL ONE; +NEOSTIGMINE METHYLSULFATE 1 MG/ML 10ML VIAL ONE; +ONDANSETRON INJ 2 MG/ML 2 ML VIAL ONE; +PROPOFOL IV EMULSION 10 MG/ML 20 ML VIAL IV ONE; +ROCURONIUM BROMIDE 10 MG/ML 5 ML VIAL IV ONE; +SODIUM CHLORIDE 0.9% INJ 10 ML VIAL ONE; +ceFAZolin 2000MG 2,000 MG/15 ML SYR IV SCH; +fentaNYL citrate 100 MCG/2 ML VIAL ONE
--- NOTE | 2020-08-27 11:25 | History & Physical Bridge Note ---
Date of Service August 27, 2020 History & Physical Bridge Note I have examined the patient, reviewed the History & Physical and in the interval since the performance of the History & Physical I have noted the following changes of clinical significance: no changes noted
--- NOTE | 2020-08-27 11:26 | History & Physical Report ---
Date of Service August 27, 2020 Assessment & Plan (1) Lumbar stenosis with neurogenic claudication: Admission and Anticipated Discharge Date Admission Date: L4-L5 decompression fusion, hardware removal L5-S1 History of Present Illness Chief Complaint: Back and left leg pain Primary Care Provider: Jonny Andino MD This is a 55-year-old female well-known to me the presents with worsening back and left leg pain. After failing course of nonoperative care she is here for surgical invention. Allergies Allergy/AdvReac Type Severity Reaction Status Date / Time Bactrim AdvReac Unknown Yeast Verified 12/13/16 00:18 infection sulfamethoxazole AdvReac Unknown Yeast Verified 08/27/20 10:26 infection trimethoprim AdvReac Unknown Yeast Verified 08/27/20 10:26 infection Home Medications Medication Instructions Recorded Confirmed Type baclofen 10 mg PO BID PRN 10/31/19 08/27/20 History diazepam 2 mg PO HS PRN 10/31/19 08/27/20 History evening primrose oil 500 mg PO BID 10/31/19 08/27/20 History hyoscyamine sulfate 0.125 mg PO BID 10/31/19 08/27/20 History multivitamin 1 tab PO QAM 10/31/19 08/27/20 History pantoprazole 40 mg PO BID 10/31/19 08/27/20 History pregabalin 75 mg PO BID 10/31/19 08/27/20 History trazodone 100 mg PO HS 10/31/19 08/27/20 History Estroven 1 mg PO QAM 01/14/20 08/27/20 History Probiotic 3,000 mmu cells PO BID 01/14/20 08/27/20 History methocarbamol 750 mg PO QID 01/14/20 08/27/20 History docusate sodium 100 mg PO BID #100 cap 02/06/20 08/27/20 Rx citalopram 20 mg PO QAM 07/30/20 08/27/20 History cetirizine 10 mg PO BID 08/12/20 08/27/20 History hydroxyzine HCl 25 mg PO QID PRN 08/12/20 08/27/20 History Past Med/Surg History Medical History Anaplasmosis [facility] admission 10/2019 > discharged from [place] specialist care, chronic fatigue Anxiety DDD (degenerative disc disease) Lower back Diverticular disease Fibromyalgia On Naltrexone for this GERD (gastroesophageal reflux disease) controlled Hiatal hernia IBS (irritable bowel syndrome) Migraine controlled Obesity Peptic ulcer 2018 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 01/2020 > per patient, not found on f/u imaging Urinary tract infection Frequent Surgical History H/O: hysterectomy Partial (2003) History of back surgery 2016 History of cardiac cath 2014 ([facility]) > normal coronary anatomy History of colonoscopy Multiple History of esophagogastroduodenoscopy (EGD) History of TMJ disorder x2 Hx of cholecystectomy Hx of oophorectomy B/L salpingectomy, oophorectomy with convert to mini laparotomy, IVELISSE, appendectomy (02/06/20): Grade 2 view, MAC#3, ETT 7.0 at [facility] Family History Other Cancer Diabetes Stroke Social History Smoking Status: Former smoker Smoking End Date: Quit age 51; Second Hand Exposure: Yes (FATHER SMOKED); Do You Dip or Chew Tobacco: No; Hx Alcohol Use: No Hx Substance Use: No Preferred Language: Turkish Communication Ability: Effective 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
[2020-08-27 11:27] LABS: Appearance Urine Clear (Clear); Bilirubin Urine Negative (Negative); Blood Urine Negative (Negative); Color Urine Yellow; Glucose Urine UA Negative (Negative); Ketones Urine Negative (Negative); Leukocyte Esterase Urine Negative (Negative); Nitrite Urine Negative (Negative); Protein Urine Negative (Negative); Specific Gravity Urine 1.012 (1.000-1.030); Urobilinogen Urine Negative (Negative)
[2020-08-27] MEDS ORDERED: BUPIVACAINE/EPINEPHRINE 0.5% MPF 1:200,000 30 ML VIAL ONE (11:43)
[2020-08-27] MEDS ORDERED: BACITRACIN INJ 50,000 UNIT VIAL ONE (11:43)
[2020-08-27] MEDS ORDERED: HYDROmorphone INJ 2 MG/ML SYR/VIAL IV PRN (11:47)
[2020-08-27] MEDS ORDERED: ATROPINE SULFATE 0.1 MG/ML 10ML SYR IV PRN (11:47)
[2020-08-27] MEDS ORDERED: PROMETHAZINE HCL 6.25 MG in SODIUM CHLORIDE 0.9% 50 ML IV PRN (11:47)
[2020-08-27] MEDS ORDERED: ePHEDrine sulfate 50 MG/ML AMP IV PRN (11:47)
[2020-08-27] MEDS ORDERED: ONDANSETRON INJ 2 MG/ML 2 ML VIAL IV PRN ×2 (11:47→15:14)
[2020-08-27] MEDS ORDERED: ePHEDrine sulfate 50 MG/ML SYR ONE (12:21)
[2020-08-27] MEDS ORDERED: ONDANSETRON INJ 2 MG/ML 2 ML VIAL ONE (12:24)
[2020-08-27] MEDS ORDERED: GLYCOPYRROLATE 0.2 MG/ML VIAL ONE (12:24)
[2020-08-27] MEDS ORDERED: FLOSEAL HEMOSTATIC MATRIX 10ML TOP ONE (12:38)
[2020-08-27] MEDS ORDERED: SUGAMMADEX SODIUM 200 MG/2 ML VIAL IV ONE (13:12)
[2020-08-27] MEDS ORDERED: ALBUMIN HUMAN 5% 12.5 GM/250 ML VIAL IV ONE (13:13)
--- NOTE | 2020-08-27 13:43 | Operative Report ---
Post Operative Report Pre & Post Diagnosis Operation Date: 08/27/20 11:25 Pre-Op Diagnosis: Lumbar stenosis with neurogenic claudication Post-Op Diagnosis: Lumbar stenosis with neurogenic claudication I identified the patient and participated in the time-out.: Yes Procedure Operation Date: 08/27/20 11:25 Actual Procedures #1 Removal of posterior instrumentation L5-S1. #2 exploration of fusion L5-S1. #3 lumbar decompression with bilateral medial facetectomies and foraminotomies L4-L5. #4 posterior spinal fusion L4-5. #5 placement of posterior instrumentation L for L5. #6 interbody fusion L4-5. #7 placement peek cage 12 x 22 mm at L4-5. #8 placement locally harvested morselized autograft in the posterior gutters. #9 placement of I factor interbody space and posterior gutters. Surgeon Ayo Aleman, DO Electric Motor Repairing Supervisor Randal Cuello Estimated Blood Loss 250 Findings See Below The patient is 5 foot 7 weighing over 105 kg with a BMI in excess of 36. The patient's body habitus did contribute to significant technical difficulty requiring her deepest retractors and longest instruments in order to perform her procedure. This had at least 50% increase to the operative time. Specimens None Indications This is a 55-year-old female who presents with above-mentioned diagnosis after failing course of nonoperative care she is here for the above-mentioned seizure. Description of Procedure Patient was met with identified informed consent obtained. Patient was then taken to the operative suite underwent a patient placed in a prone position the [place] table top Rick frame. All bony prominences well-padded eyes inspected to ensure no external pressure placed upon the. This point the lumbar spine was prepped and draped in a sterile fashion. Sharp dissection with the assistance of Bovie cautery performed down to and exposing the lamina and transverse processes of L4 and instrumentation at L5 and S1 levels bilaterally. Then proceeded move the hardware at L5 and S1 bilaterally explored the fusion mass noting it to be in mature and intact. Then performed a complete laminectomy of L4 including bilateral medial facetectomies and foraminotomies addressing severe spinal stenosis. Pedicle screws were then placed in L4 and L5 bilaterally with assistance of fluoroscopy the purposes briseyda placed. By way of a transforaminal approach and left complete discectomy of L4-L5 was performed endplates curetted to subcortical being bone and a 12 x 22 mm peek cage filled with I factor bone tapped in position. The rods were then locked in final position bilaterally. The transverse processes of L4 and L5 burred to subcortical bleeding bone. I factor with locally harvested morselized autograft was then placed in the posterior gutters. 15 round WILI drain inserted. The incision was then closed with 1 Vicryl in the fascia 2-0 Vicryl subcutaneously and 4 Monocryl for final skin closure. Steri-Strip sterile dressings placed. Patient will continue PACU stable condition. Please note spinal cord monitoring was utilized throughout t he procedure no changes noted. Lastly Randal Cuello was present at the entire surgery and while the patient positioning complex portions of the surgery and final skin closure. I attest to the content of the Intraoperative Record and any orders documented therein. Any exceptions are noted below.
--- NOTE | 2020-08-27 14:07 | Fluoroscopy Report ---
FL lumbar spine 2-3V CLINICAL HISTORY: L4-L5 DECOMP/FUSION, L5-S1 HARDWARE REMOVAL COMPARISON STUDY: Lumbar spine by MRI September 16, 2016. FLUOROSCOPY TIME: 8 seconds. FLUOROSCOPIC IMAGES: 2 FINDINGS: Fluoroscopy was provided during removal of the L5 and S1 pedicle screws. Previous L5-S1 dis cectomy is noted. Interval L4-L5 discectomy with interbody spacer placement is noted. L4-L5 posterior decompression and bilateral pedicle screw fusion is noted. IMPRESSION: Fluoroscopy provided during hardware removal and L4-L5 discectomy, posterior decompressi on and bilateral pedicle screw fusion. ACT 112: Negative or not required by law. Electronically signed by: Lorenzo Reagan M.D. 08/27/2020 2:06 PM
[2020-08-27] MEDS: fentaNYL citrate 100 MCG/2 ML VIAL IV PRN ×2 (14:15→14:25)
--- NOTE | 2020-08-27 14:38 | Anesthesiology Progress Note ---
Date of Service August 27, 2020 Anesthesia Post Procedure Vital Signs Vital Signs: Temp Pulse Pulse Resp BP Pulse Ox 08/27/20 14:30 93 H 12 122/92 98 08/27/20 14:20 85 14 119/60 96 08/27/20 14:10 87 12 105/52 L 93 08/27/20 14:03 36.5 C 105 H 17 102/85 96 08/27/20 10:32 37.1 C 76 18 101/71 95 Pain Intensity Medial Back: Pain Intensity: 10 Back: Pain Intensity: 8 Transfer of Care Handoff Completed per policy Notes Mental Status: alert / awake / arousable Patient Amnestic to Procedure: Yes Nausea / Vomiting: adequately controlled Pain: adequately controlled Airway Patency, RR, SpO2: stable & adequate BP & HR: stable & adequate Hydration State: stable & adequate Anesthetic Complications: no major complications apparent
[2020-08-27] MEDS ORDERED: HYDROmorphone INJ 1 MG/ML SYRINGE IV PRN (15:14)
[2020-08-27] MEDS ORDERED: METOCLOPRAMIDE HCL INJ 5 MG/ML 2 ML VIAL IV PRN (15:14)
[2020-08-27] MEDS ORDERED: NALOXONE HCL 0.4 MG/1 ML VIAL/CARP IV PRN (15:14)
[2020-08-27] MEDS ORDERED: DO NOT ADMINISTER FLU VACCINE PRN (15:14)
[2020-08-27] MEDS ORDERED: FAMOTIDINE 20 MG TAB PO PRN (15:14)
[2020-08-27] MEDS ORDERED: diazePAM 2 MG TABLET PO PRN (15:14)
[2020-08-27] MEDS ORDERED: BACLOFEN 10 MG TAB PO PRN (15:14)
[2020-08-27] MEDS ORDERED: LORazepam 0.5 MG TAB PO PRN (15:14)
[2020-08-27] MEDS ORDERED: MAGNESIUM HYDROXIDE SUSP 30 ML UDC PO PRN (15:14)
[2020-08-27] MEDS ORDERED: ALUMINUM/MAGNESIUM SUSP 30 ML UDC PO PRN (15:14)
[2020-08-27] MEDS ORDERED: SOD PHOSPHATE/SOD BIPHOSPHATE ENEMA 132 ML BTL PR PRN (15:14)
[2020-08-27] MEDS ORDERED: PROMETHAZINE HCL 12.5 MG in SODIUM CHLORIDE 0.9% 50 ML IV PRN (15:14)
[2020-08-27] MEDS ORDERED: LORazepam 0.5 MG/1 ML VIAL IV PRN (15:14)
[2020-08-27] MEDS ORDERED: DO NOT ADMINISTER PNEUMOCOCCAL VACCINE PRN (15:14)
[2020-08-27] MEDS ORDERED: diphenhydrAMINE Capsule 25 MG CAP PO PRN (15:14)
[2020-08-27] MEDS ORDERED: ACETAMINOPHEN 1,000 MG/100 ML VIAL IV PRN (15:14)
[2020-08-27] MEDS ORDERED: bisacodyL 10 MG SUPP PR PRN (15:14)
[2020-08-27] MEDS ORDERED: hydrOXYzine HCl 25 MG TAB PO PRN ×2 (15:14)
[2020-08-27] MEDS ORDERED: ONDANSETRON 4 MG OD TAB PO PRN (15:14)
[2020-08-27] MEDS: LACTATED RINGER'S 1,000 ML IV SCH (15:48)
[2020-08-27] MEDS: KETOROLAC TROMETHAMINE 15 MG/ML VIAL IV SCH ×2 (15:49→21:08)
[2020-08-27] MEDS: HYDROmorphone INJ 0.5 MG/0.5 ML SYR IV PRN ×2 (15:53→22:51)
--- NOTE | 2020-08-27 15:54 | Consultation ---
Date of Consultation August 27, 2020 Assessment & Plan (1) S/P spinal surgery: Post op day# 0 S/P instrument removal, decompression and fusion L4-L5 by Dr Aleman EBL#250ml -pain management per ortho -wound management per ortho -PT/OT as appropriate -DVT prophylaxis per ortho -incentive spirometry -monitor H&H for acute blood loss anemia; pre-op Hgb: 15 (2) Anxiety: Depression -Continue citalopram (3) Chronic idiopathic urticaria: Follows with Bicycle Messenger -Continue cetirizine (4) IBS (irritable bowel syndrome): IBS-C -Continue bowel regimen, Levsin (5) GERD (gastroesophageal reflux disease): -Continue PPI DVT Prophylaxis -SCDs per ortho Disposition per primary service Follows with Dr Andino for routine care Pt was seen and care coordinated with Dr De La Cruz. See addendum Thank you for this consultation. We will follow the patient with you during their hospital stay. You can reach a [facility] via [place] text Supervising Physician Co-Signing Physician Notes Care coordinated with Siomara Russ PA-C. Agree with above note. Patient seen and examined. Please refer to her notes for full details. Vital signs reviewed. Physical exam: General exam: Alert and oriented. Not in acute distress. CVS: S1 and S2 heard, regular rate and rhythm, no murmurs. RS: Clear to auscultation, no wheezing or crackles. ABD: Soft, bowel sounds present, nontender, no distention. PROCESS DESIGNER: Nonfocal. Musculoskeletal s/p back surgery Dressing and drain intact EXT: No edema, no erythema. Labs: Reviewed. Assessment and plan: s/p back surgery tolerated procedure fine further management as per ortho Anxiety depression fibromyalgia citalopram diazepam prn Other diagnosis and plan of care as per GREGG Raymundo MD. History of Present Illness Requesting Physician: Dr Aleman Reason for Consultation: Post op consult Attending Physician: Ayo Aleman DO History of Present Illness Pt is 55 y/o F with PMH anxiety, depression, prediabetes, obesity, IBS, fibromyalgia, chronic pruritus, chronic hives seen in medical consultation s/p Removal of instrumentation and decompression and fusion L4-L5 today by Dr Aleman. Post op pt reports low back pain. Surgery: Had chronic left lower extremity paresthesias and feels those have decreased postop. Complains of dry scratchy throat. Denies headache, dizziness, shortness of breath, chest pain, extremity pain. Reports had BM this morning. Has chronic constipation and uses Miralax and Colace daily. Denies fever/chills,choking, abdominal pain, extremity edema, urinary symptoms. Allergies Allergy/AdvReac Type Severity Reaction Status Date / Time Bactrim AdvReac Unknown Yeast Verified 12/13/16 00:18 infection sulfamethoxazole AdvReac Unknown Yeast Verified 08/27/20 10:26 infection trimethoprim AdvReac Unknown Yeast Verified 08/27/20 10:26 infection Home Medications Medication Instructions Recorded Confirmed Type baclofen 10 mg PO BID PRN 10/31/19 08/27/20 History diazepam 2 mg PO HS PRN 10/31/19 08/27/20 History evening primrose oil 500 mg PO BID 10/31/19 08/27/20 History hyoscyamine sulfate 0.125 mg PO BID 10/31/19 08/27/20 History multivitamin 1 tab PO QAM 10/31/19 08/27/20 History pantoprazole 40 mg PO BID 10/31/19 08/27/20 History pregabalin 75 mg PO BID 10/31/19 08/27/20 History trazodone 100 mg PO HS 10/31/19 08/27/20 History Estroven 1 mg PO QAM 01/14/20 08/27/20 History Probiotic 3,000 mmu cells PO BID 01/14/20 08/27/20 History methocarbamol 750 mg PO QID 01/14/20 08/27/20 History docusate sodium 100 mg PO BID #100 cap 02/06/20 08/27/20 Rx citalopram 20 mg PO QAM 07/30/20 08/27/20 History cetirizine 10 mg PO BID 08/12/20 08/27/20 History hydroxyzine HCl 25 mg PO QID PRN 08/12/20 08/27/20 History polyethylene glycol 3350 [Miralax] 17 g PO BID 08/27/20 08/27/20 History Patient History Medical History (Updated 08/27/20 @ 16:01 by Siomara Russ PA-C) Anaplasmosis [facility] admission 10/2019 > discharged from [facility] care, chronic fatigue Anxiety Chronic idiopathic urticaria DDD (degenerative disc disease) Lower back Diverticular disease Fibromyalgia On Naltrexone for this GERD (gastroesophageal reflux disease) controlled Hiatal hernia IBS (irritable bowel syndrome) Migraine controlled Obesity Peptic ulcer 2019 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 01/2020 > per patient, not found on f/u imaging Urinary tract infection Frequent Surgical History (Updated 08/27/20 @ 16:01 by Siomara Russ PA-C) H/O: hysterectomy Partial (2003) History of back surgery 2016 History of cardiac cath 2014 ([facility]) > normal coronary anatomy History of colonoscopy Multiple History of esophagogastroduodenoscopy (EGD) History of TMJ disorder x2 Hx of cholecystectomy Hx of oophorectomy B/L salpingectomy, oophorectomy with convert to mini laparotomy, IVELISSE, appendectomy (02/06/20): Grade 2 view, MAC#3, ETT 7.0 at [facility] Family History Other Cancer Diabetes Stroke Social History Smoking Status: Former smoker Smoking End Date: Quit age 51; Second Hand Exposure: Yes (FATHER SMOKED); Do You Dip or Chew Tobacco: No; Hx Alcohol Use: No Hx Substance Use: No Preferred Language: New Zealander Communication Ability: Effective Hand Miter Operator Required: No Beliefs That Will Affect Care: None marital status: Current Living Situation: Spouse and Parent Other Information That Helps Us Care for You: No Feels Safe at Home: Yes Safety Concerns: Feels Safe At This Time Assistive Devices: Glasses Review of Systems Review of Systems: All systems reviewed & are unremarkable except as noted in HPI & below Physical Exam Physical Exam: General: no distress, obese Head: normocephalic, atraumatic Eyes:conjunctiva non-injected, anicteric ENT: normal inspection external ears, nose, mucous membranes moist Neck: supple, trachea midline Lungs: clear, no respiratory distress, no wheezing/rhonchi/rales CV: RRR, no murmur, no pretibial edema Abd: normal BS, soft, non-tender Ext: no cyanosis, no calf tenderness; pedal pushes and pulls intact bilaterally Neuro: A&O x 3, no focal deficits noted, normal affect Skin: warm, dry Results & Data ([facility]) Vital Signs (Past 12 Hours) Vital Signs Temp Pulse Pulse Resp BP Pulse Ox 08/27/20 15:20 77 16 113/74 97 08/27/20 14:50 37.2 C 91 H 16 117/76 95 08/27/20 14:40 37.1 C 90 12 126/71 97 08/27/20 14:30 93 H 12 122/92 98 08/27/20 14:20 85 14 119/60 96 08/27/20 14:10 87 12 105/52 L 93 08/27/20 14:03 36.5 C 105 H 17 102/85 96 08/27/20 10:32 37.1 C 76 18 101/71 95
[2020-08-27] MEDS: METHOCARBAMOL 750 MG TABLET PO SCH ×2 (17:33→21:14)
[2020-08-27] MEDS: DOCUSATE SODIUM/SENNA 50/8.6MG TAB PO SCH (21:05)
[2020-08-27] MEDS: CETIRIZINE HCL 10 MG TABLET PO SCH (21:05)
[2020-08-27] MEDS: HYOSCYAMINE SULFATE 0.125 MG TAB PO SCH (21:06)
[2020-08-27] MEDS: DOCUSATE SODIUM 100 MG CAP PO SCH (21:06)
[2020-08-27] MEDS: PANTOprazole 40 MG TAB PO SCH (21:07)
[2020-08-27] MEDS: PREGABALIN 75 MG CAP PO SCH (21:07)
[2020-08-27] MEDS: ceFAZolin 2000MG 2,000 MG/15 ML SYR IV SCH (21:07)
[2020-08-27] MEDS: traZODone HCL 100 MG TAB PO SCH (21:09)
[2020-08-27] MEDS ORDERED: COUGH DROP (SUGAR FREE) LOZ 24 LOZ/1 BOX BUCCAL PRN (21:41)
[2020-08-27] MEDS ORDERED: Nursing to Pharmacy Communication SCH (21:45)
[2020-08-28] MEDS: ceFAZolin 2000MG 2,000 MG/15 ML SYR IV SCH (03:08)
[2020-08-28] MEDS: KETOROLAC TROMETHAMINE 15 MG/ML VIAL IV SCH ×2 (03:08→08:23)
[2020-08-28] MEDS: POLYETHYLENE (MIRALAX) 17 GM PACK PO SCH ×3 (05:15→16:50)
[2020-08-28] MEDS: LACTATED RINGER'S 1,000 ML IV SCH (05:22)
[2020-08-28 06:51] LABS: Basophils # (auto) 0.02 K/uL (0-0.2); Basophils % (auto) 0.1 %; Hematocrit (blood only) 35.5 % (37-47); Hemoglobin 11.7 g/dL (12.0-16.0); Immature Granulocytes # (auto) 0.04 K/uL (0.00-0.02); Immature Granulocytes % (auto) 0.2 %; Lymphocytes # (auto) 1.99 K/uL (1.2-3.4); Lymphocytes % (auto) 11.8 %; Mean Corpuscular Hemoglobin 30.9 pg (25-34); Mean Corpuscular Volume 93.7 fL (80-100); Mean Platelet Volume 10.6 fL (7.4-10.4); Monocytes # (auto) 1.46 K/uL (0.11-0.59); Monocytes % (auto) 8.6 %; Neutrophils # (auto) 13.42 K/uL (1.4-6.5); Neutrophils % (auto) 79.3 %; Platelet Count 192 K/uL (130-400); RDW Coefficient of Variation 12.5 % (11.5-14.5); RDW Standard Deviation 42.5 fL (36.4-46.3); Red Blood Count 3.79 M/uL (4.2-5.4); White Blood Count 16.93 K/uL (4.8-10.8)
[2020-08-28 07:37] LABS: BUN Creatinine Ratio 19.2 (10-20); Calcium 8.3 mg/dl (8.5-10.1); Creatinine Clr Calc Pharmacy 84.7 ml/min; Est GFR (African American) 78.7; Est GFR (Non-African American) 67.9; Potassium 4.3 mmol/L (3.5-5.1)
[2020-08-28] MEDS: METHOCARBAMOL 750 MG TABLET PO SCH ×4 (08:22→21:15)
[2020-08-28] MEDS: CITALOPRAM 20 MG TAB PO SCH (08:23)
[2020-08-28] MEDS: HYOSCYAMINE SULFATE 0.125 MG TAB PO SCH ×2 (08:23→21:15)
[2020-08-28] MEDS: MULTIVITAMIN TAB PO SCH (08:23)
[2020-08-28] MEDS: DOCUSATE SODIUM 100 MG CAP PO SCH ×2 (08:23→21:14)
[2020-08-28] MEDS: PANTOprazole 40 MG TAB PO SCH ×2 (08:23→21:16)
[2020-08-28] MEDS: ADVANCED PROBIOTIC 1250 MG CAPSULE PO SCH (08:23)
[2020-08-28] MEDS: CETIRIZINE HCL 10 MG TABLET PO SCH ×2 (08:23→21:11)
[2020-08-28] MEDS: PREGABALIN 75 MG CAP PO SCH ×2 (08:28→21:25)
[2020-08-28] MEDS ORDERED: ESTROVEN PO SCH (09:00)
--- NOTE | 2020-08-28 10:09 | Orthopedic Progress Note ---
Date of Service August 28, 2020 Assessment & Plan (1) Lumbar stenosis with neurogenic claudication: Admission and Anticipated Discharge Date Admission Date: August 27, 2020 This time continue physical therapy monitor her WILI output hopefully discharge home in the next few days. Subjective Back pain is controlled leg pain markedly improved. Physical Exam Physical Exam: Patient is in the chair at the bedside. Is good strength testing. Appears comfortable. Results & Data ([facility]) Vital Signs (Past 12 Hours) Vital Signs Temp Pulse Resp BP Pulse Ox 08/28/20 07:05 36.7 C 62 16 109/67 94 08/28/20 03:15 36.6 C 65 14 101/64 92 08/27/20 22:56 36.8 C 67 16 104/63 92
[2020-08-28] MEDS ORDERED: SODIUM CHLORIDE 0.9% 1000ML 1,000 ML IV SCH (10:15)
--- NOTE | 2020-08-28 10:44 | Hospitalist Progress Note ---
Date of Service August 28, 2020 Assessment & Plan (1) S/P spinal surgery: Post op day# 1 S/P instrument removal, decompression and fusion L4-L5 by Dr Aleman EBL#250ml; WILI drain 330 mL -pain management per ortho -wound management per ortho -PT/OT as appropriate -DVT prophylaxis per ortho -incentive spirometry -monitor H&H for acute blood loss anemia; pre-op Hgb: 15 Acute blood loss anemia H&H 11.7 and 35.5, preop hemoglobin 15 Likely dilutional component as well Cough/Feeling unwell obtain CXR - likely atelectasis given crackles at bases, O2 sats 92% room air encourage to continue to use incentive spirometry will give gentle IVF x 1 L due to poor appetite this morning repeat urinalysis when cath removed 2/2 to suprapubic pain/dysuria - yesterday UA negative Leukocytosis likely reactive in setting of post op state no fever, monitor closely for s/sx cxr and Ua ordered (2) Anxiety: Depression -Continue citalopram (3) Chronic idiopathic urticaria: Follows with Consulting Sales Executive -Continue cetirizine (4) IBS (irritable bowel syndrome): IBS-C -Continue bowel regimen, Levsin (5) GERD (gastroesophageal reflux disease): -Continue PPI DVT Prophylaxis -SCDs per ortho Disposition per primary service Follows with Dr Andino for routine care Pt was seen and care coordinated with Dr Jane. See addendum Thank you for this consultation. We will follow the patient with you during their hospital stay. You can reach a [facility] via [place] text Admission and Anticipated Discharge Date Admission Date: August 27, 2020 Supervising Physician Co-Signing Physician Notes Patient is seen and examined at bedside. She complained of dizziness earlier but improved later. Back pain at surgical site is controlled. Also states having dry nonexpectorant cough. Denies any chest pain, shortness of breath, abdominal pain. Chest x-ray showed no acute disease. On exam patient is obese, no apparent distress, normocephalic atraumatic, lungs are clear to auscultation, S1-S2, no murmur, no pedal edema, abdomen soft, nontender, normal bowel sounds, back--surgical site in dressing,+ drain, alert, awake, oriented, grossly no focal deficits. Patient is consulted for postop medical management. Back pain is controlled. Continue PT OT. Continue incentive spirometry. Wound care, activity, DVT prophylaxis per orthopedics. Monitor CBC. Continue bowel regimen to prevent constipation. Mild leukocytosis noted. No indication for antibiotics currently. I personally reviewed the record. Patient is interviewed and examined at bedside. Patient's care is coordinated with Lizabeth Bee. Please refer to the documentation above for details of patient's presentation and for discussion of other issues. Subjective Patient was seen and examined in room 314. Follow-up lumbar surgery. "I just do not feel well this morning." When she was up and walking with therapy she complained of dizziness, "like things were spinning," and just feeling unwell. Overall feels nauseated and poor appetite this morning. She also complains of dysuria which was present preoperatively yesterday. Urinalysis was obtained which was negative. She denies any fever, chills, sweats, lightheadedness, dizziness, chest pain, shortness of breath, abdominal pain. She is passing gas. Initially she denied cough but after physical exam she did exhibit mild dry cough with deep breathing. She did tolerate her full liquid diet yesterday but only a piece of toast for breakfast today. Review of Systems Review of Systems: All systems reviewed & are unremarkable except as noted in HPI & below Physical Exam Physical Exam: Gen: WD/WN, female, sitting up in bedside chair, NAD, A&O x3 HEENT: Normocephalic, atraumatic, conjunctivae moist, sclerae anicteric, mucous membranes moist. Lung: Clear to Auscultation bilaterally, bibasilar crackles, no wheezes or rhonchi Heart: Regular rate, regular rhythm, no murmurs, rubs, or gallops Abdomen: Soft, NT, ND +BS x 4 Extremities: No edema Skin: Warm, no rash, negative turgor. Results & Data Results & Data ([facility]) Vital Signs (Past 12 Hours) Vital Signs Temp Pulse Resp BP Pulse Ox 08/28/20 07:05 36.7 C 62 16 109/67 94 08/28/20 03:15 36.6 C 65 14 101/64 92 08/27/20 22:56 36.8 C 67 16 104/63 92 Diagnostic Findings Chest X-Ray 08/12/20 08:19 XR chest Pre-admission PA/Lat HISTORY: 55 years-old Female pat preoperative exam. No acute chest complaints. Chronic back pain COMPARISON: Chest radiograph 12/12/2016 TECHNIQUE: PA and lateral views of the chest FINDINGS: Cardiac mediastinal and hilar silhouettes are within normal limits. There is no pneumothorax, pleural effusion, airspace consolidation or overt pulmonary edema. Mild right hemidiaphragmatic elevation. Cholecystectomy. IMPRESSION: No acute process. ACT 112: Negative or not required by law. The above report was generated using voice recognition software. It may contain grammatical, syntax or spelling errors. Electronically signed by: Mik Romero M.D. 08/12/2020 12:56 PM Lumbar Spine X-Ray 08/27/20 11:25 FL lumbar spine 2-3V CLINICAL HISTORY: L4-L5 DECOMP/FUSION, L5-S1 HARDWARE REMOVAL COMPARISON STUDY: Lumbar spine by MRI September 16, 2016. FLUOROSCOPY TIME: 8 seconds. FLUOROSCOPIC IMAGES: 2 FINDINGS: Fluoroscopy was provided during removal of the L5 and S1 pedicle screws. Previous L5-S1 discectomy is noted. Interval L4-L5 discectomy with in terbody spacer placement is noted. L4-L5 posterior decompression and bilateral pedicle screw fusion is noted. IMPRESSION: Fluoroscopy provided during hardware removal and L4-L5 discectomy, posterior decompression and bilateral pedicle screw fusion. ACT 112: Negative or not required by law. Electronically signed by: Lorenzo Reagan M.D. 08/27/2020 2:06 PM Medications Administered Cetirizine HCl (Cetirizine Hcl 10 Mg Tablet) 10 mg PO BID TARAH Stop: 09/26/20 20:59 Last Admin: 08/28/20 08:23 Dose: 10 mg Documented by: [id number] Admin: 08/27/20 21:05 Dose: 10 mg Documented by: [id number] Citalopram Hydrobromide (Citalopram 20 Mg Tab) 20 mg PO QAM TARAH Stop: 09/27/20 08:59 Last Admin: 08/28/20 08:23 Dose: 20 mg Documented by: [id number] Docusate Sodium (Docusate Sodium 100 Mg Cap) 100 mg PO BID TARAH Stop: 09/26/20 20:59 Last Admin: 08/28/20 08:23 Dose: 100 mg Documented by: [id number] Admin: 08/27/20 21:06 Dose: 100 mg Documented by: [id number] Hydromorphone HCl (Hydromorphone Inj 0.5 Mg/0.5 Ml Syr) 0.5 mg IV Q3H PRN PRN Reason: MOD pain (scale 4-6) & Pre PT Stop: 09/10/20 15:13 Last Admin: 08/27/20 22:51 Dose: 0.5 mg Documented by: [id number] Admin: 08/27/20 15:53 Dose: 0.5 mg Documented by: [id number] Hyoscyamine (Hyoscyamine Sulfate 0.125 Mg Tab) 0.125 mg PO BID [facility] Stop: 09/26/20 20:59 Last Admin: 08/28/20 08:23 Dose: 0.125 mg Documented by: [id number] Admin: 08/27/20 21:06 Dose: 0.125 mg Documented by: [id number] Sodium Chloride (Nss 1000ml) 1,000 mls @ 125 mls/hr IV .Q8H TARAH Stop: 08/28/20 18:14 Last Admin: 08/28/20 10:35 Dose: 125 mls/hr Documented by: [id number] Lactobacillus Acidoph/Casei/Rhamnos (Advanced Probiotic 1250 Mg Capsule) 2 cap PO DAILY [facility] Stop: 09/27/20 08:59 Last Admin: 08/28/20 08:23 Dose: 2 cap Documented by: [id number] Menthol (Cough Drop (Sugar Free) Maricruz 24 Maricruz/1 Box) 1 maricruz BUCCAL PRN PRN PRN Reason: Cough Stop: 09/26/20 21:40 Last Admin: 08/27/20 21:48 Dose: 1 maricruz Documented by: [id number] Methocarbamol (Methocarbamol 750 Mg Tablet) 750 mg PO QID [facility] Stop: 09/26/20 16:59 Last Admin: 08/28/20 08:22 Dose: 750 mg Documented by: [id number] Admin: 08/27/20 21:14 Dose: 750 mg Documented by: [id number] Admin: 08/27/20 17:33 Dose: 750 mg Documented by: [id number] Multivitamins (Multivitamin Tab) 1 tab PO QAM TARAH Stop: 09/27/20 08:59 Last Admin: 08/28/20 08:23 Dose: 1 tab Documented by: [id number] Pantoprazole Sodium (Pantoprazole 40 Mg Tab) 40 mg PO BID TARAH Stop: 09/26/20 20:59 Last Admin: 08/28/20 08:23 Dose: 40 mg Documented by: [id number] Admin: 08/27/20 21:07 Dose: 40 mg Documented by: [id number] Polyethylene Glycol (Polyethylene (Miralax) 17 Gm Pack) 17 gm PO Q6 TARAH Stop: 09/27/20 05:59 Last Admin: 08/28/20 05:15 Dose: 17 gm Documented by: [id number] Pregabalin (Pregabalin 75 Mg Cap) 75 mg PO BID TARAH Stop: 09/26/20 20:59 Last Admin: 08/28/20 08:28 Dose: 75 mg Documented by: [id number] Admin: 08/27/20 21:07 Dose: 75 mg Documented by: [id number] Senna/Docusate Sodium (Docusate Sodium/Senna 50/8.6mg Tab) 2 tab PO HS [facility] Stop: 09/26/20 20:59 Last Admin: 08/27/20 21:05 Dose: 2 tab Documented by: [id number] Trazodone HCl (Trazodone Hcl 100 Mg Tab) 100 mg PO HS [facility] Stop: 09/26/20 20:59 Last Admin: 08/27/20 21:09 Dose: 100 mg Documented by: [id number] Discontinued Medications Acetaminophen (Acetaminophen 500 Mg Tab) 1,000 mg PO PREOP TARAH Stop: 08/27/20 18:00 Last Admin: 08/27/20 11:04 Dose: 1,000 mg Documented by: [id number] Bacitracin (Bacitracin Inj 50,000 Unit Vial) Confirm Administered Dose 50,000 units .ROUTE .STK-MED ONE Stop: 08/27/20 11:44 Last Admin: 08/27/20 12:38 Dose: 50,000 units Documented by: [id number] Bupivacaine HCl/Epinephrine Bitart (Bupivacaine/Epinephrine 0.5% Mpf 1:200,000 30 Ml Vial) Confirm Administered Dose 30 ml .ROUTE .STK-MED ONE Stop: 08/27/20 11:44 Last Admin: 08/27/20 12:38 Dose: 20 ml Documented by: [id number] Celecoxib (Celebrex 200 Mg Cap) 200 mg PO PREOP TARAH Stop: 08/27/20 18:00 Last Admin: 08/27/20 11:04 Dose: 200 mg Documented by: [id number] Fentanyl Citrate (Fentanyl Citrate 100 Mcg/2 Ml Vial) 50 mcg IV Q5M PRN PRN Reason: PACU Use Only-Pain Stop: 08/27/20 19:47 Last Admin: 08/27/20 14:25 Dose: 50 mcg Documented by: [id number] Admin: 08/27/20 14:15 Dose: 50 mcg Documented by: [id number] Gabapentin (Gabapentin 900 Mg Dose) 900 mg PO PREOP TARAH Stop: 08/27/20 18:00 Last Admin: 08/27/20 11:03 Dose: 900 mg Documented by: [id number] Lactated Ringer's (Lr) 1,000 mls @ 15 mls/hr IV .Q24H TARAH Stop: 08/28/20 05:59 Last Infusion: 08/27/20 11:50 Dose: 0 mls/hr Documented by: [id number] Admin: 08/27/20 11:11 Dose: 15 mls/hr Documented by: [id number] Cefazolin Sodium (Ancef 2000mg) 2,000 mg in 15 mls @ 3.75 mls/min IV PREOP TARAH; Protocol Stop: 08/27/20 18:00 Last Admin: 08/27/20 11:50 Dose: 3.75 mls/min Documented by: [id number] Lactated Ringer's (Lr) 1,000 mls @ 75 mls/hr IV .[id number] TARAH Stop: 09/26/20 15:13 Last Admin: 08/28/20 05:22 Dose: Not Given Documented by: [id number] Infusion: 08/28/20 05:17 Dose: 0 mls/hr Documented by: [id number] Admin: 08/27/20 15:48 Dose: 75 mls/hr Documented by: [id number] Cefazolin Sodium (Ancef 2000mg) 2,000 mg in 15 mls @ 3.75 mls/min IV Q8H TARAH; Protocol Stop: 08/28/20 04:03 Last Admin: 08/28/20 03:08 Dose: 3.75 mls/min Documented by: [id number] Admin: 08/27/20 21:07 Dose: 3.75 mls/min Documented by: [id number] Ketorolac Tromethamine (Ketorolac Tromethamine 15 Mg/Ml Vial) 15 mg IV Q6H TARAH Stop: 08/28/20 10:01 Last Admin: 08/28/20 08:23 Dose: 15 mg Documented by: [id number] Admin: 08/28/20 03:08 Dose: 15 mg Documented by: [id number] Admin: 08/27/20 21:08 Dose: 15 mg Documented by: [id number] Admin: 08/27/20 15:49 Dose: 15 mg Documented by: [id number] Miscellaneous ( Floseal Hemostatic Matrix 10ml) 10 ml TOP ONCE ONE Stop: 08/27/20 12:39 Last Admin: 08/27/20 13:39 Dose: 20 ml Documented by: [id number] COVID-19 Results Results COVID-19 Adm Lab Results: RBC 3.79 M/uL (4.2-5.4) L 08/28/20 WBC 16.93 K/uL (4.8-10.8) H 08/28/20 Hgb 11.7 g/dL (12.0-16.0) L 08/28/20 Hct 35.5 % (37-47) L 08/28/20 Plt Count 192 K/uL (130-400) 08/28/20 Neutrophils (%) (Auto) 79.3 % 08/28/20 Lymphocytes (%) (Auto) 11.8 % 08/28/20 Monocytes # (Auto) 1.46 K/uL (0.11-0.59) H 08/28/20 Eosinophils # (Auto) 0.00 K/uL (0-0.5) 08/28/20 Immature Granulocyte % (Auto) 0.2 % 08/28/20 Neutrophils # (Auto) 13.42 K/uL (1.4-6.5) H 08/28/20 Lymphocytes # (Auto) 1.99 K/uL (1.2-3.4) 08/28/20 Monocytes # (Auto) 1.46 K/uL (0.11-0.59) H 08/28/20 Eosinophils # (Auto) 0.00 K/uL (0-0.5) 08/28/20 Basophils # (Auto) 0.02 K/uL (0-0.2) 08/28/20 Immature Granulocyte # (Auto) 0.04 K/uL (0.00-0.02) H 08/28/20 Na 141 mmol/L (136-145) 08/28/20 K 4.3 mmol/L (3.5-5.1) 08/28/20 Cl 109 mmol/L (98-107) H 08/28/20 CO2 25 mmol/L (21-32) 08/28/20 Anion Gap 7.0 (3-11) 08/28/20 BUN 18 mg/dl (7-18) 08/28/20 Creatinine 0.95 mg/dl (0.6-1.2) 08/28/20 BUN/Creatinine Ratio 19.2 (10-20) 08/28/20 Glucose Level 109 mg/dl (70-99) H 08/28/20 Ca 8.3 mg/dl (8.5-10.1) L 08/28/20 PTT 25.0 Seconds (21.0-31.0) 08/12/20 INR 1.0 (0.9-1.1) 08/12/20 SARS-CoV-2, RNA, NAAT NEGATIVE (NEGATIVE) 08/27/20 Chest X-Ray 08/28/20
--- NOTE | 2020-08-28 10:58 | XRay Report ---
SINGLE VIEW CHEST CLINICAL HISTORY: Cough. FINDINGS: An AP, portable, upright chest radiograph is compared to study dated 08/12/2020. The cardiome diastinal silhouette is unremarkable. There is mild elevation of the right hemidiaphragm. The lungs a nd pleural spaces are clear. No pneumothorax is seen. The bony thorax is grossly intact. IMPRESSION: No active disease in the chest. ACT 112: Negative or not required by law. Electronically signed by: Aristides Coombs M.D. 08/28/2020 10:57 AM
[2020-08-28 11:09] LABS: Appearance Urine Clear (Clear); Bacteria Urine Automated Negative (Negative); Bilirubin Urine Negative (Negative); Blood Urine Trace (Negative); Cast Urine Automated 0 /lpf (0-5); Color Urine Yellow; Epithelial Cell Urine Auto 0-5 /lpf (0-5); Glucose Urine UA Negative (Negative); Ketones Urine Negative (Negative); Leukocyte Esterase Urine Negative (Negative); Nitrite Urine Negative (Negative); Protein Urine Negative (Negative); RBC Urine Automated 0-4 /hpf (0-4); Specific Gravity Urine 1.011 (1.000-1.030); Urobilinogen Urine Negative (Negative); WBC Urine Automated 0 /hpf (0-5)
[2020-08-28] MEDS: traMADol HCL 50 MG TABLET PO PRN (12:17)
[2020-08-28] MEDS: oxyCODONE HCL IR 5 MG TAB (IMMEDIATE RELEASE) PO PRN ×2 (15:38→21:25)
[2020-08-28] MEDS: ACETAMINOPHEN 500 MG TAB PO PRN (19:45)
[2020-08-28] MEDS: DOCUSATE SODIUM/SENNA 50/8.6MG TAB PO SCH (21:13)
[2020-08-28] MEDS: traZODone HCL 100 MG TAB PO SCH (21:16)
[2020-08-29] MEDS: POLYETHYLENE (MIRALAX) 17 GM PACK PO SCH ×5 (00:18→21:10)
[2020-08-29 05:43] LABS: Hematocrit (blood only) 32.8 % (37-47); Hemoglobin 10.7 g/dL (12.0-16.0); Mean Corpuscular Hgb Conc 32.6 g/dL (32-36); Mean Corpuscular Volume 95.1 fL (80-100); Mean Platelet Volume 10.4 fL (7.4-10.4); Platelet Count 143 K/uL (130-400); RDW Coefficient of Variation 12.9 % (11.5-14.5); RDW Standard Deviation 44.4 fL (36.4-46.3); Red Blood Count 3.45 M/uL (4.2-5.4); White Blood Count 9.08 K/uL (4.8-10.8)
[2020-08-29 06:15] LABS: BUN Creatinine Ratio 22.4 (10-20); Creatinine Clr Calc Pharmacy 82.9 ml/min; Est GFR (African American) 76.7; Est GFR (Non-African American) 66.2; Magnesium 2.1 mg/dl (1.8-2.4); Potassium 4.4 mmol/L (3.5-5.1)
[2020-08-29] MEDS: oxyCODONE HCL IR 5 MG TAB (IMMEDIATE RELEASE) PO PRN ×2 (08:28→19:41)
[2020-08-29] MEDS: dexAMETHasone 8 MG in SYRINGE 0 ML IV SCH (08:29)
[2020-08-29] MEDS: MULTIVITAMIN TAB PO SCH (08:29)
[2020-08-29] MEDS: CITALOPRAM 20 MG TAB PO SCH (08:29)
[2020-08-29] MEDS: ADVANCED PROBIOTIC 1250 MG CAPSULE PO SCH (08:29)
[2020-08-29] MEDS: CETIRIZINE HCL 10 MG TABLET PO SCH ×2 (08:30→21:09)
[2020-08-29] MEDS: HYOSCYAMINE SULFATE 0.125 MG TAB PO SCH ×2 (08:30→21:10)
[2020-08-29] MEDS: PANTOprazole 40 MG TAB PO SCH ×2 (08:30→21:10)
[2020-08-29] MEDS: DOCUSATE SODIUM 100 MG CAP PO SCH ×2 (08:30→21:09)
[2020-08-29] MEDS: METHOCARBAMOL 750 MG TABLET PO SCH ×4 (08:30→21:10)
[2020-08-29] MEDS: PREGABALIN 75 MG CAP PO SCH ×2 (08:39→21:10)
--- NOTE | 2020-08-29 10:44 | Orthopedic Progress Note ---
Date of Service August 29, 2020 Assessment & Plan (1) Lumbar stenosis with neurogenic claudication: Admission and Anticipated Discharge Date Admission Date: August 27, 2020 At this time we will continue physical therapy monitor WILI output anticipate discharge home tomorrow. Subjective Back pain controlled leg symptoms markedly improved. Physical Exam Physical Exam: On exam patient is ambulating halls has good strength testing. Results & Data ([facility]) Vital Signs (Past 12 Hours) Vital Signs Temp Pulse Resp BP Pulse Ox 08/29/20 07:14 36.6 C 60 16 105/66 95 08/28/20 23:25 37.0 C 64 16 108/70 93
[2020-08-29] MEDS: ACETAMINOPHEN 500 MG TAB PO PRN (11:42)
[2020-08-29] MEDS ORDERED: FLUCONAZOLE 50 MG TAB PO ONE (16:15)
--- NOTE | 2020-08-29 19:24 | Hospitalist Progress Note ---
Date of Service August 29, 2020 Assessment & Plan (1) S/P spinal surgery: S/P instrument removal, decompression and fusion L4-L5 by Dr Aleman POD#2 Pain control, activity, wound care as per ortho Continue PT/OT Incentive spirometry Monitor CBC Monitor drain output Acute blood loss anemia Partly dilutional Hb 10.7 Monitor CBC Candidiasis Will give a dose of Diflucan Leukocytosis likely reactive in setting of post op state Resolved (2) Anxiety: Depression Continue citalopram (3) Chronic idiopathic urticaria: Follows with Credit Risk Analyst Continue cetirizine (4) IBS (irritable bowel syndrome): IBS-C Continue bowel regimen, Levsin (5) GERD (gastroesophageal reflux disease): Continue PPI DVT Px As per Ortho Thank you for this consultation. We will follow the patient with you during their hospital stay. You can reach a member of the [facility] Hospitalist Team 27/11 via [place] text Admission and Anticipated Discharge Date Admission Date: August 27, 2020 Subjective Patient is seen and examined at bedside Reports having whitish vaginal discharge Back pain is controlled Has some dizziness with ambulation but improving Denies chest pain, shortness of breath, abdominal pain Offers no other complaints Review of Systems Review of Systems: All systems reviewed & are unremarkable except as noted in HPI & below Physical Exam Physical Exam: Physical Exam: Vitals signs as noted above General Appearance:Morbidly Obese, no apparent distress Head: normocephalic, Atraumatic Eyes: normal inspection, EOMI Neck: supple, Trachea midline Respiratory/Chest: Normal breath sounds, CTA Cardiovascular: S1, S2, No murmur Abdomen/GI:Soft, Non tender, Bowel sounds present Back: Surgical site in dressing, +Drain Extremities/Musculoskeletal:normal inspection, no edema Neurologic/Psych:AAOX3, grossly no focal neurological deficits Skin: normal color, warm Results & Data Results & Data ([facility]) Vital Signs (Past 12 Hours) Vital Signs Temp Pulse Resp BP Pulse Ox 08/29/20 14:51 37.2 C 58 L 16 116/75 91 Laboratory Results Short CBC 08/29/20 Range/Units 05:23 WBC 9.08 (4.8-10.8) K/uL Hgb 10.7 L (12.0-16.0) g/dL Hct 32.8 L (37-47) % Plt Count 143 (130-400) K/uL BMP 08/29/20 05:23 Sodium 143 Potassium 4.4 Chloride 111 H Carbon Dioxide 33 H BUN 22 H Creatinine 0.97 Glucose 87 Calcium 8.0 L
[2020-08-29] MEDS: DOCUSATE SODIUM/SENNA 50/8.6MG TAB PO SCH (21:09)
[2020-08-29] MEDS: traZODone HCL 100 MG TAB PO SCH (21:10)
[2020-08-30] MEDS: traMADol HCL 50 MG TABLET PO PRN ×2 (04:33→11:20)
[2020-08-30] MEDS: POLYETHYLENE (MIRALAX) 17 GM PACK PO SCH ×2 (05:33→11:55)
[2020-08-30 06:20] LABS: Hematocrit (blood only) 36.2 % (37-47); Hemoglobin 12.3 g/dL (12.0-16.0); Mean Corpuscular Hemoglobin 31.5 pg (25-34); Mean Corpuscular Volume 92.8 fL (80-100); Mean Platelet Volume 10.6 fL (7.4-10.4); Platelet Count 198 K/uL (130-400); RDW Coefficient of Variation 12.5 % (11.5-14.5); RDW Standard Deviation 42.4 fL (36.4-46.3); White Blood Count 13.79 K/uL (4.8-10.8)
[2020-08-30 06:53] LABS: BUN Creatinine Ratio 20.4 (10-20); Calcium 8.8 mg/dl (8.5-10.1); Creatinine Clr Calc Pharmacy 108.7 ml/min; Est GFR (African American) 106.5; Est GFR (Non-African American) 91.8; Potassium 4.1 mmol/L (3.5-5.1)
[2020-08-30] MEDS: oxyCODONE HCL IR 5 MG TAB (IMMEDIATE RELEASE) PO PRN (08:40)
[2020-08-30] MEDS: CETIRIZINE HCL 10 MG TABLET PO SCH (08:41)
[2020-08-30] MEDS: DOCUSATE SODIUM 100 MG CAP PO SCH (08:41)
[2020-08-30] MEDS: METHOCARBAMOL 750 MG TABLET PO SCH ×2 (08:41→11:58)
[2020-08-30] MEDS: CITALOPRAM 20 MG TAB PO SCH (08:41)
[2020-08-30] MEDS: dexAMETHasone 8 MG in SYRINGE 0 ML IV SCH ×2 (08:41→12:09)
[2020-08-30] MEDS: HYOSCYAMINE SULFATE 0.125 MG TAB PO SCH (08:42)
[2020-08-30] MEDS: PANTOprazole 40 MG TAB PO SCH (08:42)
[2020-08-30] MEDS: ADVANCED PROBIOTIC 1250 MG CAPSULE PO SCH (08:42)
[2020-08-30] MEDS: MULTIVITAMIN TAB PO SCH (08:42)
[2020-08-30] MEDS: PREGABALIN 75 MG CAP PO SCH (08:46)
--- NOTE | 2020-08-30 10:10 | Discharge Summary ---
Date of Service August 30, 2020 Admission HPI Per Admitting Provider This is a 55-year-old female well-known to me the presents with worsening back and left leg pain. After failing course of nonoperative care she is here for surgical invention. Principal Diagnosis Lumbar spinal stenosis with neurogenic claudication Discharge Data Allergies Allergy/AdvReac Type Severity Reaction Status Date / Time Bactrim AdvReac Unknown Yeast Verified 12/13/16 00:18 infection sulfamethoxazole AdvReac Unknown Yeast Verified 08/27/20 10:26 infection trimethoprim AdvReac Unknown Yeast Verified 08/27/20 10:26 infection Consultations 08/27/20 15:14 Consult Hospitalist Routine Procedures Performed Operation Date: 08/27/20 11:25 Actual Procedures p L4-L5 Decompression Fusion, L5-S1 Hardware Removal, Spinal Cord Monitoring(Not Applicable) - Ayo Aleman DO Ordered Studies 08/27/20 11:25 FL lumbar spine 2-3V Routine Hospital Course (1) Lumbar stenosis with neurogenic claudication: Patient went lumbar decompression fusion tolerated so was taken to orthopedic for postoperative. Postop day 1 is up and ambulating progressed she progressed to postop day #2 on postop day #3 pain was well controlled WILI drain decreased properly. Subsequent discharge home. Discharge orders instructions found the chart for further review. Total Time Total Time Spent Total Time Spent (In Minutes): 20 minutes Discharge Plan Discharge Items Patient Disposition: Home - Self-Care Reason For Visit: Low Back Pain Discharge Diagnosis: Lumbar spinal stenosis with neurogenic claudication Activity: As commented below Non-emergency contact: Primary Care Provider Call non-emergency contact if: you have any medication questions Follow-up/Referrals: Jonny Andino MD [Primary Care Provider] - Diet: Regular Addtl Attending Provider Instructions: ACTIVITY RECOMMENDATIONS: SELF CARE INSTRUCTIONS AFTER THORACIC/LUMBAR FUSIONS 1. You may walk to your tolerance. It is good exercise for your legs and back. Expect some back and intermittent leg aches and pains. 2. You may perform "counter-top" level activities (make a sandwich, ben with a project, etc.). 3. No bending or lifting of more than 10 pounds or back twisting of any nature (roll like a log when turning in bed). 4. You may ride in a car for 20-30 minutes at a time. No driving until after your first visit with your doctor. 5. Frequent changes of position and restricting sitting to 30 minutes at a time will help limit the amount of back spasms and stiffness you may experience. 6. You may discontinue the use of ambulatory aids (cane, crutches, etc.) once your strength and confidence allow. 7. 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 Do not take a tub bath, sit in a hot tub or go into a swimming pool until after your first recheck in the office. SPECIAL CARE INSTRUCTIONS: VERY IMPORTANT TO READ AND REVIEW A. Your surgical incision has been closed with a cosmetic suture under the skin that will dissolve in about 6 weeks. In 14 days, you can use a pair of clean scissors and cut the suture that is left outside of the skin at the ends of your incision. 1. The small skin tapes can be removed 7 days after surgery if they have not fallen off by that point. 2. You may keep the wound open to air as much as possible to promote healing after post-op day number 5 unless told otherwise by your doctor. 3. If you think the wound looks like it is becoming infected (redness or worsening drainage) and/or you are experiencing fever, chill or worsening back pain and muscle spasms, contact the office so that we may evaluate you as soon as possible. B. Complications are uncommon, but please contact us if you have any signs or symptoms of: 1. wound infection (fever higher than 102.5 degrees F, redness, separation of wound, drainage, or increasing pain from the incision) 2. blood clots in legs (pain, swelling, redness and warmth in legs) 3. urinary tract infection (fever higher than 102.5 degrees F, burning upon urination or increased frequency of urination) 4. nerve problems (inability to walk on your toes or heels, numbness, loss of bowel or bladder control) 5. any other symptoms that concern you C. Please call the office at if you have any concerns or questions about your operation or recovery. D. No smoking! Smoking drastically decreases the chance of a solid fusion. E. Do not take any anti-inflammatory medications (Indocin, Advil, Motrin, Aspirin, Naprosyn, etc.) as these may inhibit the chance of a solid fusion. Tylenol is okay to take for pain. MANAGING PAIN AFTER SPINAL SURGERY 1. Narcotic medication is intended for short-term use and will be provided for surgical pain. Surgical pain usually lasts for a period of 4-6 weeks. Narcotic medication includes Percocet, Vicodin, Darvocet, Tylenol #3 or Lortab. 2. Longer-term pain is more appropriately treated with non-narcotic medication such as Tylenol ES. 3. Muscle spasm is not appropriately treated with narcotics. Muscle relaxers such as Soma, Flexeril or Skelaxin can be used along with Tylenol ES. 4. Remember that we all live with some "aches and pains". This is not unusual or uncommon after an injury or as we get older. a. Back pain is expected and may include muscle spasms for 4 to 6 weeks after surgery. The pain should gradually improve. If the pain worsens for no apparent reason, please contact the office. b. Intermittent leg pain may also be experienced and should not be concerned about unless it worsens for no apparent reason. If so, please contact the office. 5. We will provide appropriate medication within the normal guidelines of their prescribed use. We will also be very cautious and aware of potential abuse and extended duration of patients' medication needs. a. Pain medications are for your comfort and to assist with sleep and rest so that the tissue can heal. They are not provided in order to return to normal activity and should not be used through the day. To do so or worsening pain at night can result from ongoing tissue damage and development of tolerance to the prescribed medicine. 6. Please allow 2-3 days to process refills. Prescriptions will not be mailed but must be picked up at the office. FOLLOW UP VISIT: Keep your scheduled follow-up appointment. Any questions, please call the office at . Pending Studies at Discharge: No Stand-Alone Forms: My [facility], Smoking Cessation Medications and DC Order Prescriptions: New oxycodone 5 mg tablet 5 mg PO Q6H PRN (Reason: pain, severe) Qty: 30 RF: 0 tramadol 50 mg tablet 50 mg PO Q6H PRN (Reason: pain, moderate) Qty: 30 RF: 0 Continued methocarbamol 750 mg Tablet 750 mg PO QID RF: 0 Probiotic 3 billion cell Capsule 3,000 mmu cells PO BID RF: 0 Estroven 1 mg PO QAM RF: 0 docusate sodium 100 mg Capsule 100 mg PO BID Qty: 100 RF: 0 diazepam 2 mg tablet 2 mg PO HS PRN (Reason: Sleep) RF: 0 hyoscyamine sulfate 0.125 mg tablet 0.125 mg PO BID RF: 0 multivitamin Tablet 1 tab PO QAM RF: 0 evening primrose oil 500 mg Capsule 500 mg PO BID RF: 0 pantoprazole 40 mg tablet,delayed release (DR/EC) 40 mg PO BID RF: 0 pregabalin 75 mg capsule 75 mg PO BID RF: 0 baclofen 10 mg tablet 10 mg PO BID PRN (Reason: Muscle Spasm) RF: 0 trazodone 50 mg tablet 100 mg PO HS RF: 0 citalopram 20 mg Tablet 20 mg PO QAM RF: 0 cetirizine 10 mg Tablet 10 mg PO BID RF: 0 hydroxyzine HCl 25 mg Tablet 25 mg PO QID PRN (Reason: Itching) RF: 0 polyethylene glycol 3350 [Miralax] 17 gram Powder In Packet 17 g PO BID RF: 0 Discharge Orders: Discharge Order (Routine); Ordered 08/30/20 Ordered By: Ayo Aleman Admission Data Admit Date/Time: 08/27/20 14:07 Attending Provider: Ayo Aleman Admit Provider: Ayo Aleman Primary Care Provider: Jonny Andino Other Providers: Marcos Jane
[2020-08-30] MEDS ORDERED: FLUCONAZOLE 50 MG TAB PO ONE (10:11)
--- NOTE | 2020-08-30 12:59 | Communication Note ---
Date of Service: August 30, 2020 Patient got discharged. Not seen today.
== END 2020-08-30 12:47 | disposition home or self-care (01) | DRG 454 ==
LOC: ASU 10:02 → 3E 14:07

== ENCOUNTER 2021-07-18 06:14 | Inpatient (IN) ==
--- NOTE | 2021-07-13 14:45 | Anesthesiology Consultation ---
Date of Service July 13, 2021 Assessment & Plan (1) Encounter for pre-operative examination: - Neuropsychology Medical Consultant 12/22/2020 [facility]: "...chronic urticaria and dermatographism...doing fairly well...not having hives all the time. When she does she uses hydroxyzine which is a couple times a week and they resolved. She does feel like her tongue is swollen more days than not. It does not feel like it fits into her mouth like it used to. A recent course of prednisone for her back did nothing for the tongue swelling. She does not have any swelling of her lips her eyes...unable to take the Pepcid on a regular basis. She feels like when she takes it with her muscle relaxer she will get dizzy...chronic pruritus associated with an itchy urticarial rash for the last year. Cell phone pictures are consistent with chronic urticaria...now feels like her tongue is swollen and does not fit into the bottom of her mouth like it should. There is no obvious angioedema on exam today. She does not describe any other episodes of angioedema. We will continue to observe. She is still having some hives so we will change the Zyrtec to Xyzal 5 mg twice daily. She will take Pepcid 40 mg in the morning so that she can then take her muscle relaxer later in the day seemed the 2 of them together seem to cause dizziness. She can continue hydroxyzine every 6 hours as needed...will also avoid nonsteroidal anti-inflammatory agents and aspirin which can aggravate the urticaria. She may wish to use Tylenol for pain until her hives are better controlled. The natural history of chronic urticaria is resolution over time..." - PCP reviewed this result with neurology to see how often it needed to be monitored and what modality to use. Neuro (Dr. Heydi Garcia) recommended one-time evaluation with neurosurgery "to develop a plan as to frequency and modality for imaging." - COVID screening: Per sliver cutter on 07/13/2021: Travel screen negative, no known COVID-19 positive contacts or current COVID-19 related symptoms in past 2 weeks. Patient vaccinated. Surgeon arranging preop COVID testing, scheduled 07/14/2021. Awaiting results. Chart Review Chart Review: Acceptable Risk for Surgery and Patient NOT seen in Pre Admission Testing History Surgery Operation Date: 07/18/21 07:45 Proposed Procedures p L3-L4 Decompression and Fusion, L4-L5 Hardware Removal, Spinal Cord Monitoring - Ayo Aleman DO Height/Weight Height: 5 ft 7 in Weight: 107.048 kg Allergies Allergy/AdvReac Type Severity Reaction Status Date / Time Bactrim AdvReac Unknown Yeast Verified 12/13/16 00:18 infection sulfamethoxazole AdvReac Unknown Yeast Verified 07/18/21 06:39 infection trimethoprim AdvReac Unknown Yeast Verified 07/18/21 06:39 infection Medications Home Medications Medication Instructions Recorded Confirmed Last Taken baclofen 10 mg tablet 10 mg PO BID PRN 10/31/19 07/18/21 07/17/21 19:00 diazepam 2 mg tablet 2 mg PO HS PRN 10/31/19 07/18/21 07/15/21 22:00 evening primrose oil 500 mg capsule 500 mg PO BID 10/31/19 07/18/21 07/17/21 09:00 hyoscyamine sulfate 0.125 mg tablet 0.125 mg PO BID 10/31/19 07/18/21 07/17/21 19:00 multivitamin 1 tab PO QAM 10/31/19 07/18/21 07/17/21 09:00 pantoprazole 40 mg tablet,delayed 40 mg PO BID 10/31/19 07/18/21 07/17/21 19:00 release pregabalin 75 mg capsule 75 mg PO BID 10/31/19 07/18/21 07/17/21 19:00 trazodone 50 mg tablet 100 mg PO HS 10/31/19 07/18/21 07/17/21 19:00 Estroven 1 mg PO QAM 01/14/20 07/18/21 07/17/21 15:00 lactobacillus combination no.4 3 3,000 mmu cells PO BID 01/14/20 07/18/21 07/17/21 19:00 billion cell capsule (Probiotic) methocarbamol 750 mg tablet 750 mg PO QID 01/14/20 07/18/21 07/17/21 19:00 docusate sodium 100 mg capsule 100 mg PO BID #100 cap 02/06/20 07/18/21 07/17/21 19:00 citalopram 20 mg tablet 20 mg PO QAM 07/30/20 07/18/21 07/17/21 09:00 cetirizine 10 mg tablet 10 mg PO BID 08/12/20 07/18/21 07/17/21 19:00 hydroxyzine HCl 25 mg tablet 25 mg PO QID PRN 08/12/20 07/18/21 07/17/21 19:00 polyethylene glycol 3350 17 gram 17 g PO BID 08/27/20 07/18/21 07/17/21 08:00 oral powder packet (Miralax) montelukast 10 mg tablet 10 mg PO QAM 07/13/21 07/18/21 07/17/21 10:00 (Singulair) ondansetron 4 mg disintegrating 4 mg PO TID PRN 07/13/21 07/18/21 07/16/21 19:00 tablet Active Medications Generic Name Dose Route Start Last Admin Trade Name Freq PRN Reason Stop Dose Admin Acetaminophen 1,000 mg 07/18/21 06:00 07/18/21 07:26 Acetaminophen 500 Mg Tab PO 07/18/21 18:00 1,000 mg PREOP TARAH Administration Celecoxib 200 mg 07/18/21 06:00 07/18/21 07:26 Celebrex 200 Mg Cap PO 07/18/21 18:00 200 mg PREOP TARAH Administration Gabapentin 600 mg 07/18/21 06:00 07/18/21 07:25 Gabapentin 600 Mg Dose PO 07/18/21 18:00 600 mg PREOP TARAH Administration Cefazolin Sodium 2,000 mg in 15 mls @ 3.75 mls/min 07/18/21 06:00 07/18/21 07:44 Ancef 2000mg IV 07/18/21 18:00 3.75 mls/min PREOP TARAH Administration Protocol Past Medical History Medical History (Updated 07/15/21 @ 13:01 by Serena Lundberg PA-C) 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 > discharged from [place] specialist care, chronic fatigue Anxiety Chronic idiopathic urticaria DDD (degenerative disc disease) Lower back Diverticular disease Fibromyalgia GERD (gastroesophageal reflux disease) controlled Hiatal hernia History of COVID-19 04/01/2021 IBS (irritable bowel syndrome) Migraine controlled Obesity Peptic ulcer 2018 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 01/2020 > per patient, not found on f/u imaging >[facility] cerebral angiogram report 03/2020 unremarkable cerebral angiogram, 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 2016. 08/27/2020 L4-L5 decompression and fusion, hardware removal L5-S1: Grade 2 view, MAC#3, ETT#7.0 atraumatic x 1. History of cardiac cath 2014 ([facility]) > normal coronary anatomy History of colonoscopy Multiple History of esophagogastroduodenoscopy (EGD) History of TMJ disorder x2 Hx of cholecystectomy Hx of oophorectomy B/L salpingectomy, oophorectomy with convert to mini laparotomy, IVELISSE, appendectomy (02/06/20): Grade 2 view, MAC#3, ETT 7.0 at [facility] Social History Smoking Status: Former smoker Do You Dip or Chew Tobacco: No Smoking End Date: 2015 Hx Alcohol Use: No Hx Substance Use: No substance use type: does not use Physical Exam Vital Signs Last Vital Signs Temp 36.6 C 07/18/21 06:35 Pulse 70 07/18/21 06:35 Resp 18 07/18/21 06:35 BP 146/89 H 07/18/21 06:35 Pulse Ox 94 07/18/21 06:35 Lab Results Anesthesia Preop Results Results Anesthesia Widget: WBC 9.45 K/uL (4.8-10.8) 07/12/21 Hgb 15.0 g/dL (12.0-16.0) 07/12/21 Hct 43.7 % (37-47) 07/12/21 Plt 240 K/uL (130-400) 07/12/21 Na 140 mmol/L (136-145) 07/12/21 K 3.5 mmol/L (3.5-5.1) 07/12/21 Cl 105 mmol/L (98-107) 07/12/21 CO2 27 mmol/L (21-32) 07/12/21 BUN 18 mg/dl (6-23) 07/12/21 Creat 0.97 mg/dl (0.6-1.2) 07/12/21 Glucose Level 99 mg/dl (70-99(Fasting)) 07/12/21 PT 10.4 Seconds (9.0-12.0) 07/12/21 PTT 26.7 Seconds (21.0-31.0) 07/12/21 INR 1.0 (0.9-1.1) 07/12/21 Urine Color Dark Yellow 07/12/21 Urine Appearance Clear (Clear) 07/12/21 Urine pH 5.0 (4.5-7.5) 07/12/21 Urine Specific [place] 1.016 (1.000-1.030) 07/12/21 Urine Protein Negative (Negative) 07/12/21 Urine Glucose (UA) Negative (Negative) 07/12/21 Urine Ketones Negative (Negative) 07/12/21 Urine Blood Negative (Negative) 07/12/21 Urine Nitrite Negative (Negative) 07/12/21 Urine Bilirubin Negative (Negative) 07/12/21 Urine Urobilinogen Negative (Negative) 07/12/21 Urine Leukocyte Esterase Negative (Negative) 07/12/21 Testing Electrocardiogram Date: 07/12/21 NSR, rate 73 bpm Chest X-Ray Date: 07/12/21 FINDINGS: The cardiac mediastinal and hilar silhouettes are within normal limits. No pneumothorax, pleural effusion, airspace consolidation or overt pulmonary edema. Cholecystectomy. The bones appear grossly intact. IMPRESSION: No acute process. Stress Test Date: 02/19/19 Dobutamine Negative for inducible ischemia EF 55-59% Grade I diastolic dysfunction No significant valvular disease MPHR 101% Other Testing CTA Head and neck 01/30/2019 Four Vessel morphology of aortic arch. Patency of the imaged bilateral subclavian and common carotid arteries. Mild to moderate mixed plaque formation about the bilateral carotid bulbs results in less than 50% luminal narrowing bilaterally. Patent bilateral internal carotid arteries. Tiny 1 mm saccular aneurysms are noted involving the bilateral ophthalmic branches of the internal carotid arteries projecting laterally (image 83 series 3 and image 81 series 3). There may be an additional 1 mm saccular aneurysm projecting inferomedially from the ophthalmic branch right ICA on image 80 series 3. No large aneurysm or evidence of aneurysm rupture. The bilateral middle and anterior cerebral arteries are patent and unremarkable. The left vertebral artery originates directly from the aortic arch and is developmentally diminutive. Dominant right vertebral artery. Patent bilateral vertebral arteries. The majority of the left vertebral artery terminates into the left PICA. Diminutive basilar artery with origin of the bilateral posterior cerebral arteries which are widely patent. No dissection, high-grade stenosis or proximal branch occlusion. Cerebral venous sinuses appear patent. Lung apices are clear without pneumothorax. Unremarkable thyroid. No adenopathy. 7 mm indeterminate subcutaneous nodule about the left upper back. Mastoid air cells are clear. No significant paranasal sinus disease. No acute fracture. IMPRESSION: 1. Tiny saccular aneurysms are noted involving the bilateral ophthalmic branches of the internal carotid arteries measuring up to 1 mm as above. 2. Otherwise unremarkable CTA of the head and neck with incidental findings as above. 3. Mild to moderate mixed plaque about the bilateral carotid bulbs results in less than 50% luminal narrowing bilaterally.
[~2021-07-18 06:14] MED LIST changes: -DEXAMETHASONE SOD INJ 4 MG/ML VIAL ONE; +GABAPENTIN 600 MG DOSE PO SCH; -GABAPENTIN 900 MG DOSE PO SCH; -GLYCOPYRROLATE 0.2 MG/ML VIAL ONE; -HYDROmorphone INJ 2 MG/ML SYR/VIAL ONE; -LARYING-O-JET KIT (LTA) ONE; -LIDOCAINE HCL 2% 2 ML VIAL/AMP(20MG/ML) INFIL ONE; -LR 15ML/HR IV SCH; -MIDAZOLAM HCL 1 MG/ML 2ML VIAL ONE; -NEOSTIGMINE METHYLSULFATE 1 MG/ML 10ML VIAL ONE; -ONDANSETRON INJ 2 MG/ML 2 ML VIAL ONE; -PROPOFOL IV EMULSION 10 MG/ML 20 ML VIAL IV ONE; -ROCURONIUM BROMIDE 10 MG/ML 5 ML VIAL IV ONE; -SODIUM CHLORIDE 0.9% INJ 10 ML VIAL ONE; -fentaNYL citrate 100 MCG/2 ML VIAL ONE
[2021-07-18] MEDS ORDERED: PROPOFOL IV EMULSION 10 MG/ML 20 ML VIAL IV ONE (07:04)
[2021-07-18] MEDS ORDERED: fentaNYL citrate 100 MCG/2 ML VIAL ONE ×2 (07:04→09:13)
[2021-07-18] MEDS ORDERED: LIDOCAINE 2% 2 ML VIAL/AMP(20MG/ML) INFIL ONE (07:04)
[2021-07-18] MEDS ORDERED: MIDAZOLAM HCL 1 MG/ML 2ML VIAL ONE (07:04)
[2021-07-18] MEDS ORDERED: ONDANSETRON INJ 2 MG/ML 2 ML VIAL ONE ×2 (07:23→07:58)
--- NOTE | 2021-07-18 07:35 | History & Physical Bridge Note ---
Date of Service July 18, 2021 History & Physical Bridge Note I have examined the patient, reviewed the History & Physical and in the interval since the performance of the History & Physical I have noted the following changes of clinical significance: no changes noted
--- NOTE | 2021-07-18 07:36 | History & Physical Report ---
Date of Service July 18, 2021 Assessment & Plan (1) Lumbar stenosis with neurogenic claudication: Plan: L3-L4 decompression and fusion, L4-L5 hardware removal History of Present Illness Chief Complaint: Back and leg pain Primary Care Provider: Jonny Andino MD This is a 55-year-old female known to me the presents with worsening back and leg pain. Failing course of nonoperative care is here for surgical invention. Allergies Allergy/AdvReac Type Severity Reaction Status Date / Time Bactrim AdvReac Unknown Yeast Verified 12/13/16 00:18 infection sulfamethoxazole AdvReac Unknown Yeast Verified 07/18/21 06:39 infection trimethoprim AdvReac Unknown Yeast Verified 07/18/21 06:39 infection Home Medications Medication Instructions Recorded Confirmed Type baclofen 10 mg tablet 10 mg PO BID PRN 10/31/19 07/18/21 History diazepam 2 mg tablet 2 mg PO HS PRN 10/31/19 07/18/21 History evening primrose oil 500 mg capsule 500 mg PO BID 10/31/19 07/18/21 History hyoscyamine sulfate 0.125 mg tablet 0.125 mg PO BID 10/31/19 07/18/21 History multivitamin 1 tab PO QAM 10/31/19 07/18/21 History pantoprazole 40 mg tablet,delayed 40 mg PO BID 10/31/19 07/18/21 History release pregabalin 75 mg capsule 75 mg PO BID 10/31/19 07/18/21 History trazodone 50 mg tablet 100 mg PO HS 10/31/19 07/18/21 History Estroven 1 mg PO QAM 01/14/20 07/18/21 History lactobacillus combination no.4 3 3,000 mmu cells PO BID 01/14/20 07/18/21 History billion cell capsule (Probiotic) methocarbamol 750 mg tablet 750 mg PO QID 01/14/20 07/18/21 History docusate sodium 100 mg capsule 100 mg PO BID #100 cap 02/06/20 07/18/21 Rx citalopram 20 mg tablet 20 mg PO QAM 07/30/20 07/18/21 History cetirizine 10 mg tablet 10 mg PO BID 08/12/20 07/18/21 History hydroxyzine HCl 25 mg tablet 25 mg PO QID PRN 08/12/20 07/18/21 History polyethylene glycol 3350 17 gram 17 g PO BID 08/27/20 07/18/21 History oral powder packet (Miralax) montelukast 10 mg tablet 10 mg PO QAM 07/13/21 07/18/21 History (Singulair) ondansetron 4 mg disintegrating 4 mg PO TID PRN 07/13/21 07/18/21 History tablet Past Med/Surg History Medical History (Updated 07/15/21 @ 13:01 by Serena Lundberg PA-C) 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 > discharged from [place] specialist care, chronic fatigue Anxiety Chronic idiopathic urticaria DDD (degenerative disc disease) Lower back Diverticular disease Fibromyalgia GERD (gastroesophageal reflux disease) controlled Hiatal hernia History of COVID-19 04/01/2021 IBS (irritable bowel syndrome) Migraine controlled Obesity Peptic ulcer 2019 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 01/2020 > per patient, not found on f/u imaging >[facility] cerebral angiogram report 03/2020 unremarkable cerebral angiogram, 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 2016. 08/27/2020 L4-L5 decompression and fusion, hardware removal L5-S1: Grade 2 view, MAC#3, ETT#7.0 atraumatic x 1. History of cardiac cath 2015 ([facility]) > normal coronary anatomy History of colonoscopy Multiple History of esophagogastroduodenoscopy (EGD) History of TMJ disorder x2 Hx of cholecystectomy Hx of oophorectomy B/L salpingectomy, oophorectomy with convert to mini laparotomy, IVELISSE, appendectomy (02/06/20): Grade 2 view, MAC#3, ETT 7.0 at [facility] Family History Other Cancer Diabetes Stroke Social History Smoking Status: Former smoker Smoking End Date: 2015; Second Hand Exposure: No; Do You Dip or Chew Tobacco: No; Tobacco Cessation Education Requested by Patient: No Hx Alcohol Use: No Hx Substance Use: No Preferred Language: Turkmen Communication Ability: Effective 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
[2021-07-18] MEDS ORDERED: ceFAZolin 330 MG/ML 1 GM VIAL ONE (07:41)
[2021-07-18] MEDS ORDERED: BUPIVACAINE/EPINEPHRINE 0.25% 1:200,000 30 ML VIAL ONE (07:41)
[2021-07-18] MEDS ORDERED: ATROPINE SULFATE 0.1 MG/ML 10ML SYR IV PRN (07:48)
[2021-07-18] MEDS ORDERED: ePHEDrine sulfate 50 MG/ML AMP IV PRN (07:48)
[2021-07-18] MEDS ORDERED: ONDANSETRON INJ 2 MG/ML 2 ML VIAL IV PRN ×2 (07:48→11:02)
[2021-07-18] MEDS ORDERED: PROMETHAZINE HCL 6.25 MG in SODIUM CHLORIDE 0.9% 50 ML IV PRN (07:48)
[2021-07-18] MEDS ORDERED: SUCCINYLCHOLINE CHLORIDE 20 MG/ML 10 ML VIAL IV ONE (07:59)
[2021-07-18] MEDS ORDERED: ROCURONIUM BROMIDE 10 MG/ML 5 ML VIAL IV ONE (07:59)
[2021-07-18] MEDS ORDERED: FLOSEAL HEMOSTATIC MATRIX 10ML TOP ONE (08:27)
[2021-07-18] MEDS ORDERED: ePHEDrine sulfate 50 MG/ML SYR ONE (08:33)
--- NOTE | 2021-07-18 09:30 | Operative Report ---
Post Operative Report Pre & Post Diagnosis Operation Date: 07/18/21 07:45 Pre-Op Diagnosis: Radiculopathy, Lumbar Region Post-Op Diagnosis: Radiculopathy, Lumbar Region I identified the patient and participated in the time-out.: Yes Procedure Operation Date: 07/18/21 07:45 Actual Procedures 1 removal of posterior instrumentation L4-5. #2 exploration of fusion L4-5 #3 lumbar decompression with bilateral medial facetectomies and foraminotomies L2- L3 L3-L4. #4 posterior spinal fusion L3-L4. #5 placement posterior instrumentation L3 3 L4-L5. #6 interbody fusion L3-L4. #7 placement of titanium cage 13 x 26 mm at L3-L4. #8 placement of locally harvested morselized autograft in the posterior lateral gutters. #9 placement of I factor combined with V toss in the interbody space and posterior lateral gutters. Surgeon Ayo Aleman, DO Management Architect Joy Luna Estimated Blood Loss 200 Findings See Below The patient is 5 foot 7 inches tall weighing over 110 kg with a BMI in excess of 38. The patient's body habitus did create significant technical difficulty requiring her deepest retractors longus instruments in order to perform her procedure. This had at least 50% increased operative time. Specimens None Indications This is a 56-year-old female presents with severe lumbar radiculopathy after failing course of nonoperative care is here for the above-mentioned procedure. Description of Procedure Patient was met with identified informed consent obtained. Patient was then taken to the operative suite underwent ablation placed in a prone position the Dong table top of the Rick frame. All bony prominences well-padded eyes inspected to ensure no external pressure placed upon the. This point lumbar spine was prepped and draped in a sterile fashion. Sharp dissection with the assistance of Bovie cautery was performed down to and exposing the lamina and transverse processes of L3 and instrumentation at L4-L5 bilaterally. I then proceeded to move the hardware bilaterally explore the fusion mass noting it to be maturing. Then performed a complete laminectomy of L3 partial laminectomy L2 including bilateral medial facetectomies and foraminotomies addressing severe spinal stenosis. Pedicle screws were then placed in L3-L4-L5 bilaterally with assistance of fluoroscopy and appropriate sized briseyda placed. By way of a transforaminal portion left pleat discectomy of L3-L4 was performed endplates curetted to subcortically bone and the 13 x 26 mm titanium cage filled I factor tapped in position. The rods then compressed locked in final position bilaterally. The transverse processes of L3 L4 burred to subcortically bone. I factor combined with Vitoss and locally harvested morselized autograft was placed in the posterior gutters. 15 round WILI drain inserted. The incision was then closed with 1 Vicryl in the fascia 2-0 Vicryl subcutaneously and 4 Monocryl for final skin closure. Steri-Strip sterile dressing was placed. Patient will continue PACU stable condition. Please note spinal cord monitoring was last that the procedure no changes noted. Lastly Joy Luna was present at the entire surgery involved in patient positioning complex portions of the surgery and fascial closure. I attest to the content of the Intraoperative Record and any orders documented therein. Any exceptions are noted below.
--- NOTE | 2021-07-18 09:31 | Fluoroscopy Report ---
FL lumbar spine 2-3V CLINICAL HISTORY: L4-5 HR/ L3-4 DFI COMPARISON STUDY: None. FLUOROSCOPY TIME: 11.8 seconds. FINDINGS: 2 fluoroscopic spot images of the lumbar spine demonstrate posterior decompression fusion f rom L3 through L5 with pedicle screws and rods. Hardware appears intact. There are L3-L4, L4-L5, and L5-S1 disc spacers in place. IMPRESSION: Fluoroscopic assistance provided for posterior decompression and fusion within the lower lumbar spine. ACT 112: Negative or not required by law. Electronically signed by: Kenyon Rogers M.D. 07/18/2021 9:30 AM
[2021-07-18] MEDS ORDERED: GLYCOPYRROLATE 0.2 MG/ML VIAL ONE (09:50)
[2021-07-18] MEDS ORDERED: NEOSTIGMINE METHYLSULFATE 1 MG/ML 10ML VIAL ONE (09:50)
[2021-07-18] MEDS: fentaNYL citrate 100 MCG/2 ML VIAL IV PRN ×3 (09:53→10:14)
[2021-07-18] MEDS ORDERED: hydrOXYzine HCl 25 MG TAB PO PRN (11:02)
[2021-07-18] MEDS ORDERED: SOD PHOSPHATE/SOD BIPHOSPHATE ENEMA 132 ML BTL PR PRN (11:02)
[2021-07-18] MEDS ORDERED: MAGNESIUM HYDROXIDE SUSP 30 ML UDC PO PRN (11:02)
[2021-07-18] MEDS ORDERED: HYDROmorphone INJ 1 MG/ML SYRINGE IV PRN (11:02)
[2021-07-18] MEDS ORDERED: LORazepam 0.5 MG TAB PO PRN (11:02)
[2021-07-18] MEDS ORDERED: ACETAMINOPHEN 500 MG TAB PO PRN (11:02)
[2021-07-18] MEDS ORDERED: ONDANSETRON 4 MG OD TAB PO PRN (11:02)
[2021-07-18] MEDS ORDERED: diazePAM 2 MG TABLET PO PRN (11:02)
[2021-07-18] MEDS ORDERED: METOCLOPRAMIDE HCL INJ 5 MG/ML 2 ML VIAL IV PRN (11:02)
[2021-07-18] MEDS ORDERED: HYDROmorphone INJ 0.5 MG/0.5 ML SYR IV PRN (11:02)
[2021-07-18] MEDS ORDERED: FAMOTIDINE 20 MG TAB PO PRN (11:02)
[2021-07-18] MEDS ORDERED: DO NOT ADMINISTER PNEUMOCOCCAL VACCINE PRN (11:02)
[2021-07-18] MEDS ORDERED: NALOXONE HCL 0.4 MG/1 ML VIAL/CARP IV PRN (11:02)
[2021-07-18] MEDS ORDERED: bisacodyL 10 MG SUPP PR PRN (11:02)
[2021-07-18] MEDS ORDERED: PROMETHAZINE HCL 12.5 MG in SODIUM CHLORIDE 0.9% 50 ML IV PRN (11:02)
[2021-07-18] MEDS ORDERED: DO NOT ADMINISTER FLU VACCINE PRN (11:02)
[2021-07-18] MEDS ORDERED: diphenhydrAMINE Capsule 25 MG CAP PO PRN (11:02)
[2021-07-18] MEDS ORDERED: LORazepam 2 MG/1 ML VIAL IV PRN (11:02)
[2021-07-18] MEDS ORDERED: ALUMINUM/MAGNESIUM SUSP 30 ML UDC PO PRN (11:02)
[2021-07-18] MEDS: LACTATED RINGER'S 1,000 ML IV SCH ×2 (11:09→17:53)
--- NOTE | 2021-07-18 11:27 | Hospitalist Consultation ---
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 (7) IBS (irritable bowel syndrome): - Hx of such, chronic DVT ppx: - teds, scds CODE: Full Dispo: From home, likely to remain in hospital x 1 more day. Thank you for involving us in the care of Ms. Oconnell. Please do not hesitate to call with questions or concerns. At this time medicine service will follow along. Supervising Physician Co-Signing Physician Notes Pt was seen and examined. Agreed with Imelda ESCOBEDO exam, assessment and plan. S/P lumbar decompression and fusion of L3-L5 by performed by Dr. Aleman today. No postop complication. Continue incentive spirometry. Check hgb in am. Continue PT/OT eval. Continue pain control MD Kristie History of Present Illness Reason for Consultation: Med management Requesting Physician: Dr. Aleman Attending Physician: Ayo Alemna, DO History of Present Illness This is a 56 yo F with PMhx of Saccular aneurysm, obesity, anxiety, chronic idiopathic urticaria, DDD, fibromyalgia, GERD, IBS and migraine who underwent a lumbar decompression fusion from L3-L5 by Dr. Aleman on 07/18/21. She was seen and examined in hospital room, her is present with her at bedside. She is doing well, reports that her pain is moderate but that she is able to move her feet wiggle her toes, and bend her knees without difficulty. She has been drinking water without any issues, patient has not yet trialed lunch. She repo rts having a history of fibromyalgia and that her pain has been difficult to control in the past. She also notes that she has not had a bowel movement since last and traditionally uses MiraLAX at home on a daily basis. Allergies Allergy/AdvReac Type Severity Reaction Status Date / Time Bactrim AdvReac Unknown Yeast Verified 12/13/16 00:18 infection sulfamethoxazole AdvReac Unknown Yeast Verified 07/18/21 06:39 infection trimethoprim AdvReac Unknown Yeast Verified 07/18/21 06:39 infection Home Medications Medication Instructions Recorded Confirmed Type baclofen 10 mg tablet 10 mg PO BID PRN 10/31/19 07/18/21 History diazepam 2 mg tablet 2 mg PO HS PRN 10/31/19 07/18/21 History hyoscyamine sulfate 0.125 mg tablet 0.125 mg PO BID 10/31/19 07/18/21 History multivitamin 1 tab PO QAM 10/31/19 07/18/21 History pantoprazole 40 mg tablet,delayed 40 mg PO BID 10/31/19 07/18/21 History release pregabalin 75 mg capsule 75 mg PO TID 10/31/19 07/18/21 History trazodone 50 mg tablet 100 mg PO HS 10/31/19 07/18/21 History lactobacillus combination no.4 3 3,000 mmu cells PO BID 01/14/20 07/18/21 History billion cell capsule (Probiotic) methocarbamol 750 mg tablet 750 mg PO QID 01/14/20 07/18/21 History docusate sodium 100 mg capsule 100 mg PO BID #100 cap 02/06/20 07/18/21 Rx citalopram 20 mg tablet 20 mg PO QAM 07/30/20 07/18/21 History cetirizine 10 mg tablet 10 mg PO BID 08/12/20 07/18/21 History hydroxyzine HCl 25 mg tablet 25 mg PO QID PRN 08/12/20 07/18/21 History polyethylene glycol 3350 17 gram 17 g PO BID 08/27/20 07/18/21 History oral powder packet (Miralax) ondansetron 4 mg disintegrating 4 mg PO TID PRN 07/13/21 07/18/21 History tablet benzonatate 100 mg capsule 100 mg PO TID PRN 07/18/21 07/18/21 History cyanocobalamin (vitamin B-12) 1,000 mcg PO DAILY 07/18/21 07/18/21 History 1,000 mcg tablet (Vitamin B-12) estradiol 0.1 mg/24 hr semiweekly 0.1 mg TRANSDERMAL UD 07/18/21 07/18/21 History transdermal patch evening primrose oil 500 mg capsule 1,000 mg PO BID 07/18/21 07/18/21 History famotidine 20 mg tablet 20 mg PO DAILY 07/18/21 07/18/21 History magnesium 100 mg tablet 100 mg PO DAILY 07/18/21 07/18/21 History metoclopramide HCl 5 mg tablet 5 mg PO BID PRN 07/18/21 07/18/21 History rizatriptan 10 mg disintegrating 10 mg PO UD 07/18/21 07/18/21 History tablet (Maxalt-SUSPENDER CUTTER) oxycodone 5 mg tablet 5 mg PO Q6H PRN #30 tab 07/19/21 Rx tramadol 50 mg tablet 50 mg PO Q6H PRN #30 tab 07/19/21 Rx lactulose 10 gram/15 mL (15 mL) 20 g PO DAILY PRN #600 ml 07/21/21 Rx oral solution Patient History Medical History (Updated 07/15/21 @ 13:01 by Serena Lundberg PA-C) Anaplasmosis [facility] admission 10/2019 > discharged from [place] specialist care, chronic fatigue Anxiety Chronic idiopathic urticaria DDD (degenerative disc disease) Lower back Diverticular disease Fibromyalgia GERD (gastroesophageal reflux disease) controlled Hiatal hernia History of COVID-19 04/01/2021 IBS (irritable bowel syndrome) Migraine controlled Obesity Peptic ulcer 2018 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 01/2020 > per patient, not found on f/u imaging >[facility] cerebral angiogram report 03/2020 unremarkable cerebral angiogram, 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 2016. 08/27/2020 L4-L5 decompression and fusion, hardware removal L5-S1: Grade 2 view, MAC#3, ETT#7.0 atraumatic x 1. History of cardiac cath 2014 ([facility]) > normal coronary anatomy History of colonoscopy Multiple History of esophagogastroduodenoscopy (EGD) History of TMJ disorder x2 Hx of cholecystectomy Hx of oophorectomy B/L salpingectomy, oophorectomy with convert to mini laparotomy, IVELISSE, appendectomy (02/06/20): Grade 2 view, MAC#3, ETT 7.0 at [facility] Family History Other Cancer Diabetes Stroke Social History Smoking Status: Former smoker Second Hand Exposure: No; Hx Alcohol Use: No Hx Substance Use: No Preferred Language: Dominican Communication Ability: Effective Site Specialist Required: No Beliefs That Will Affect Care: None marital status: Current Living Situation: Spouse and Other Current Living Situation Comment: lives with spouse and her mother- takes care of her mother Feels Safe at Home: Yes Assistive Devices: Walker Review of Systems Review of Systems: Constitutional: No fever, sweats or chills, +generalized back pain as per HPI. Eyes: No diplopia, no worsening or blurred vision ENT: normal hearing, no trouble swallowing Respiratory: No cough, sputum, dyspnea at rest or on exertion Cardiovascular: No chest pain, tightness or palpitations Abdomen: No pain, nausea, vomiting, diarrhea or constipation Musculoskeletal: No joint pain, calf pain, swelling Neurologic: No weakness, numbness/tingling, or balance problems Psychiatric: hx of anxiety and fibromyalgia Skin: No rash or itch Physical Exam Physical Exam: General: awake, alert, no apparent distress, morbidly obese Head: Normocephalic, atraumatic ENT: PERRL, EOMI, no pharyngeal exudate, mucous membranes moist Chest: Clear to auscultation, on room air, no adventitious breath sounds Cardiac: Regular rate and rhythm, no murmur, no JVD, normal peripheral pulses, good capillary refill Abdominal: NABS x 4 quadrants, soft, nondistended, nontender to palpation, no rebound or guarding : berry cath in place draining clear yellow urine Back: dressing c/d/i, WILI drain in place draining serosanginous bloody outs. Extremities: Normal inspection, no peripheral edema or erythema, calfs nontender to palpation Psych: Normal mood and affect Neuro: AAO x 3, strength intact bilaterally and rated 5/5, no motor deficits, speech is clear, no peripheral sensory deficits Results & Data Results & Data ([facility]) Vital Signs (Past 12 Hours) Vital Signs Temp Pulse Pulse Pulse Resp BP Pulse Ox 07/18/21 10:50 36.4 C L 93 H 16 113/67 92 07/18/21 10:45 85 15 136/70 96 07/18/21 10:35 36.8 C 91 H 18 127/70 98 07/18/21 10:25 81 12 134/73 98 07/18/21 10:15 75 20 129/75 98 07/18/21 10:05 84 14 131/75 99 07/18/21 09:55 79 12 132/72 94 07/18/21 09:46 36.8 C 98 H 18 115/64 97 07/18/21 06:35 36.6 C 70 18 146/89 H 94 Laboratory Results 07/18/21 07/18/21 07:07 06:55 SARS-CoV-2, RNA, NAAT NEGATIVE Blood Type O Positive Antibody Screen NEGATIVE
[2021-07-18] MEDS: oxyCODONE HCL IR 5 MG TAB (IMMEDIATE RELEASE) PO PRN ×2 (11:33→17:09)
[2021-07-18] MEDS ORDERED: METOCLOPRAMIDE HCL 5 MG TABLET PO PRN (12:22)
[2021-07-18] MEDS ORDERED: BENZONATATE 100 MG CAPSULE PO PRN (12:22)
[2021-07-18] MEDS: KETOROLAC TROMETHAMINE 15 MG/ML VIAL IV SCH ×2 (13:16→19:43)
[2021-07-18] MEDS: POLYETHYLENE (MIRALAX) 17 GM PACK PO SCH ×2 (13:16→20:00)
--- NOTE | 2021-07-18 13:31 | Anesthesiology Progress Note ---
Date of Service July 18, 2021 Anesthesia Post Procedure Vital Signs Vital Signs: Temp Pulse Pulse Pulse Resp BP BP 07/18/21 12:50 36.3 C L 79 16 110/66 07/18/21 12:24 36.4 C L 86 16 105/69 07/18/21 11:20 36.4 C L 86 16 116/76 07/18/21 10:50 36.4 C L 93 H 16 113/67 07/18/21 10:45 85 15 136/70 07/18/21 10:35 36.8 C 91 H 18 127/70 07/18/21 10:25 81 12 134/73 07/18/21 10:15 75 20 129/75 07/18/21 10:05 84 14 131/75 07/18/21 09:55 79 12 132/72 07/18/21 09:46 36.8 C 98 H 18 115/64 07/18/21 06:35 36.6 C 70 18 146/89 H Pulse Ox 07/18/21 12:50 90 07/18/21 12:24 94 07/18/21 11:20 96 07/18/21 10:50 92 07/18/21 10:45 96 07/18/21 10:35 98 07/18/21 10:25 98 07/18/21 10:15 98 07/18/21 10:05 99 07/18/21 09:55 94 07/18/21 09:46 97 07/18/21 06:35 94 Pain Intensity Medial Back: Pain Intensity: 8 Transfer of Care Handoff Completed per policy Notes Mental Status: alert / awake / arousable Patient Amnestic to Procedure: Yes Nausea / Vomiting: adequately controlled Pain: adequately controlled Airway Patency, RR, SpO2: stable & adequate BP & HR: stable & adequate Hydration State: stable & adequate Anesthetic Complications: no major complications apparent
[2021-07-18] MEDS: traMADol HCL 50 MG TABLET PO PRN ×2 (14:38→19:50)
[2021-07-18] MEDS: METHOCARBAMOL 750 MG TABLET PO SCH ×3 (14:40→20:04)
[2021-07-18] MEDS: ceFAZolin 2000MG 2,000 MG/15 ML SYR IV SCH ×2 (15:43→23:22)
[2021-07-18] MEDS: BACLOFEN 10 MG TAB PO PRN (15:43)
[2021-07-18] MEDS ORDERED: FLUCONAZOLE 50 MG TAB PO ONE (16:00)
[2021-07-18] MEDS: HYOSCYAMINE SULFATE 0.125 MG TAB PO SCH (20:00)
[2021-07-18] MEDS: DOCUSATE SODIUM 100 MG CAP PO SCH (20:01)
[2021-07-18] MEDS: PANTOprazole 40 MG TAB PO SCH (20:02)
[2021-07-18] MEDS: DOCUSATE SODIUM/SENNA 50/8.6MG TAB PO SCH (20:02)
[2021-07-18] MEDS: traZODone HCL 100 MG TAB PO SCH (20:04)
[2021-07-18] MEDS: CETIRIZINE HCL 10 MG TABLET PO SCH (20:04)
[2021-07-18] MEDS: PREGABALIN 75 MG CAP PO SCH (20:06)
[2021-07-18] MEDS: hydrOXYzine HCl 25 MG TAB PO PRN (21:15)
[2021-07-19] MEDS: LACTATED RINGER'S 1,000 ML IV SCH (00:23)
[2021-07-19] MEDS: KETOROLAC TROMETHAMINE 15 MG/ML VIAL IV SCH ×2 (02:22→07:35)
[2021-07-19] MEDS: ACETAMINOPHEN 1,000 MG/100 ML VIAL IV PRN ×2 (04:26→16:50)
[2021-07-19] MEDS: POLYETHYLENE (MIRALAX) 17 GM PACK PO SCH ×6 (05:59→23:49)
[2021-07-19] MEDS: oxyCODONE HCL IR 5 MG TAB (IMMEDIATE RELEASE) PO PRN ×3 (06:00→22:47)
[2021-07-19 06:10] LABS: Basophils # (auto) 0.01 K/uL (0-0.2); Basophils % (auto) 0.1 %; Eosinophils # (auto) 0.24 K/uL (0-0.5); Eosinophils % (auto) 2.8 %; Hematocrit (blood only) 35.4 % (37-47); Hemoglobin 11.4 g/dL (12.0-16.0); Immature Granulocytes # (auto) 0.03 K/uL (0.00-0.02); Immature Granulocytes % (auto) 0.4 %; Lymphocytes # (auto) 1.93 K/uL (1.2-3.4); Lymphocytes % (auto) 22.8 %; Mean Corpuscular Hemoglobin 30.4 pg (25-34); Mean Corpuscular Hgb Conc 32.2 g/dL (32-36); Mean Corpuscular Volume 94.4 fL (80-100); Mean Platelet Volume 10.6 fL (7.4-10.4); Monocytes # (auto) 1.28 K/uL (0.11-0.59); Monocytes % (auto) 15.1 %; Neutrophils # (auto) 4.98 K/uL (1.4-6.5); Neutrophils % (auto) 58.8 %; Platelet Count 152 K/uL (130-400); RDW Coefficient of Variation 12.9 % (11.5-14.5); RDW Standard Deviation 44.7 fL (36.4-46.3); Red Blood Count 3.75 M/uL (4.2-5.4); White Blood Count 8.47 K/uL (4.8-10.8)
[2021-07-19 06:32] LABS: BUN Creatinine Ratio 16.2 (10-20); Calcium 7.7 mg/dl (8.5-10.1); Creatinine Clr Calc Pharmacy 71.1 ml/min; Est GFR (African American) 64.7 ml/min; Est GFR (Non-African American) 55.9 ml/min; Potassium 3.9 mmol/L (3.5-5.1)
[2021-07-19] MEDS: PREGABALIN 75 MG CAP PO SCH ×2 (08:27→20:39)
[2021-07-19] MEDS: HYOSCYAMINE SULFATE 0.125 MG TAB PO SCH ×2 (08:27→20:40)
[2021-07-19] MEDS: MONTELUKAST SODIUM 10 MG TABLET PO SCH (08:27)
[2021-07-19] MEDS: METHOCARBAMOL 750 MG TABLET PO SCH ×4 (08:27→20:40)
[2021-07-19] MEDS: dexAMETHasone 6 MG in SYRINGE 0 ML IV SCH (08:28)
[2021-07-19] MEDS: DOCUSATE SODIUM 100 MG CAP PO SCH ×2 (08:28→20:40)
[2021-07-19] MEDS: CITALOPRAM 20 MG TAB PO SCH (08:28)
[2021-07-19] MEDS: CYANOCOBALAMIN (B-12) 500 MCG TABLET PO SCH (08:28)
[2021-07-19] MEDS: PANTOprazole 40 MG TAB PO SCH ×2 (08:28→20:39)
[2021-07-19] MEDS: CETIRIZINE HCL 10 MG TABLET PO SCH ×2 (08:28→20:40)
[2021-07-19] MEDS: ADVANCED PROBIOTIC 1250 MG CAPSULE PO SCH (08:28)
[2021-07-19] MEDS: MULTIVITAMIN TAB PO SCH (08:28)
[2021-07-19] MEDS: FAMOTIDINE 20 MG TAB PO SCH (08:28)
[2021-07-19] MEDS ORDERED: NON-FORMULARY MEDICATION (Magnesium 100 mg Tablet) PO SCH (09:00)
[2021-07-19] MEDS ORDERED: ESTROVEN PO SCH (09:00)
[2021-07-19] MEDS: hydrOXYzine HCl 25 MG TAB PO PRN (10:15)
--- NOTE | 2021-07-19 10:57 | Hospitalist Progress Note ---
Date of Service July 19, 2021 Assessment & Plan (1) Lumbar stenosis with neurogenic claudication: (2) DDD (degenerative disc disease): Plan: Actual Procedures 1 removal of posterior instrumentation L4-5. #2 exploration of fusion L4-5 #3 lumbar decompression with bilateral medial facetectomies and foraminotomies L2- L3 L3-L4. #4 posterior spinal fusion L3-L4. #5 placement posterior instrumentation L3 3 L4-L5. #6 interbody fusion L3-L4. #7 placement of titanium cage 13 x 26 mm at L3-L4. #8 placement of locally harvested morselized autograft in the posterior lateral gutters. #9 placement of I factor combined with V toss in the interbody space and posterior lateral gutters. POD # [address] Aleman EBL 200ml; GREGORY drain 270 Pain management, bowel regimen and DVT ppx per the primary team PT/OT consults Follow am CBC to monitor for acute blood loss Hgb of 15 from 07/12/21 Anemia secondary to expected postsurgical blood loss and hemodilution Preop hemoglobin 15, hemoglobin today 11.4 Need to monitor GREGORY output follow cbc Chest Pain pt reports substernal chest discomfort sx are reproducible EKG ordered for completeness revealed per my interpretation 65 bpm, nsr, unchanged from EKG on 07/12 will order trop x 2 for completeness encouraged heat, pt declined due to always feeling hot (3) Obesity: Plan: BMI of 36.0, encourage diet and weight loss (4) GERD (gastroesophageal reflux disease): Plan: Cont famotidine (5) Fibromyalgia: (6) Anxiety: 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 (7) IBS (irritable bowel syndrome): Plan: Hx of such, chronic continue bowel regimen DVT ppx: teds, scds CODE: Full Dispo: per primary Patient was seen and examined in collaboration with, Dr. Flowers, please see addendum Thank you for this consultation. We will follow the patient with you during their hospital stay. You can reach a member of the [facility] Hospitalist Team 27/11 via hospitalist role on tiger text. Admission and Anticipated Discharge Date Admission Date: July 18, 2021 Supervising Physician Co-Signing Physician Notes Pt was seen and examined. Agreed with Imelda ESCOBEDO exam, assessment and plan. S/P day #2 lumbar decompression and fusion of L3-L5 by performed by Dr. Aleman. No postop complication. Continue incentive spirometry. Check hgb in am. Continue PT/OT eval. Continue pain control MD Kristie Subjective Patient was seen and examined in room 315. Follow-up lumbar surgery. She complains of substernal chest pressure. Has experienced in the past in relation to her fibromyalgia. She further complains of being lightheaded and dizzy but denies feeling like she is going to pass out. She complains of intermittent hot flashes which is normal for her but no diaphoresis. She denies f/c/s, sob, cough, uri sx, hemoptysis, n/v/d. Last BM on . Typically she admits to having difficult time moving bowels. Review of Systems Review of Systems: All systems reviewed & are unremarkable except as noted in HPI & below Physical Exam Physical Exam: Gen: WD/WN, NAD, A&O x3 HEENT: Normocephalic, atraumatic, conjunctivae moist, sclerae anicteric, mucous membranes moist. Lung: Clear to Auscultation bilaterally, no wheezes/rales/rhonchi Heart: Regular rate, regular rhythm, no murmurs, rubs, or gallops, + pain to palpation to L sided anterior chest wall and sternal area Abdomen: Soft, NT, ND +BS x 4 Extremities: No edema, lumbar dressing CDI gregory drain with serosang drainage Skin: Warm, no rash, negative turgor. Results & Data Results & Data ([facility]) Vital Signs (Past 12 Hours) Vital Signs Temp Pulse Resp BP BP Pulse Ox 07/19/21 08:44 67 16 90/58 L 93 07/19/21 07:45 36.7 C 69 18 91/60 L 95 07/19/21 05:55 101/66 07/19/21 04:10 93 07/19/21 04:05 36.6 C 74 18 90/57 L 77 L Laboratory Results Short CBC 07/19/21 Range/Units 05:48 WBC 8.47 (4.8-10.8) K/uL Hgb 11.4 L (12.0-16.0) g/dL Hct 35.4 L (37-47) % Plt Count 152 (130-400) K/uL BMP 07/19/21 05:48 Sodium 136 Potassium 3.9 Chloride 105 Carbon Dioxide 26 BUN 18 Creatinine 1.11 Glucose 96 Calcium 7.7 L Medications Administered Current Inpatient Medications Acetaminophen (Acetaminophen 500 Mg Tab) 1,000 mg PO Q8H PRN PRN Reason: MILD Pain Scale 1,2,3 & Pre PT Stop: 08/17/21 11:01 Al Hydrox/Mg Hydrox/Simethicone (Aluminum/Magnesium Susp 30 Ml Udc) 30 ml PO Q6H PRN PRN Reason: Dyspepsia Stop: 08/17/21 11:01 Baclofen (Baclofen 10 Mg Tab) 10 mg PO BID PRN PRN Reason: Muscle Spasm Stop: 08/17/21 11:01 Last Admin: 07/18/21 15:43 Dose: 10 mg Documented by: Benzonatate (Benzonatate 100 Mg Capsule) 100 mg PO TID PRN PRN Reason: Cough Stop: 08/17/21 12:21 Bisacodyl (Bisacodyl 10 Mg Supp) 10 mg [place] DAILY PRN PRN Reason: Constipation Stop: 08/17/21 11:01 Cetirizine HCl (Cetirizine Hcl 10 Mg Tablet) 10 mg PO BID [facility] Stop: 08/17/21 20:59 Last Admin: 07/19/21 08:28 Dose: Not Given Documented by: Citalopram Hydrobromide (Citalopram 20 Mg Tab) 20 mg PO QAM [facility] Stop: 08/18/21 08:59 Last Admin: 07/19/21 08:28 Dose: 20 mg Documented by: Cyanocobalamin (Cyanocobalamin (B-12) 500 Mcg Tablet) 1,000 mcg PO DAILY [facility] Stop: 08/18/21 08:59 Last Admin: 07/19/21 08:28 Dose: 1,000 mcg Documented by: Diazepam (Diazepam 2 Mg Tablet) 2 mg PO HS PRN PRN Reason: Sleep Stop: 08/17/21 11:01 Diphenhydramine HCl (Diphenhydramine Capsule 25 Mg Cap) 25 mg PO Q6H PRN PRN Reason: Allergic Rhinitis/Insomnia Stop: 08/17/21 11:01 Docusate Sodium (Docusate Sodium 100 Mg Cap) 100 mg PO BID [facility] Stop: 08/17/21 20:59 Last Admin: 07/19/21 08:28 Dose: 100 mg Documented by: Famotidine (Famotidine 20 Mg Tab) 20 mg PO Q12H PRN PRN Reason: Dyspepsia Stop: 08/17/21 11:01 Famotidine (Famotidine 20 Mg Tab) 20 mg PO DAILY [facility] Stop: 08/18/21 08:59 Last Admin: 07/19/21 08:28 Dose: 20 mg Documented by: Hydromorphone HCl (Hydromorphone Inj 0.5 Mg/0.5 Ml Syr) 0.5 mg IV Q3H PRN PRN Reason: MODERATE Pain (Scale 4,5,6) & Pre PT Stop: 08/01/21 11:01 Hydromorphone HCl (Hydromorphone Inj 1 Mg/Ml Syringe) 1 mg IV Q3H PRN PRN Reason: SEVERE Pain (Scale 7,8,9,10) Stop: 08/01/21 11:01 Hydroxyzine HCl (Hydroxyzine Hcl 25 Mg Tab) 25 mg PO QID PRN PRN Reason: Itching Stop: 08/17/21 11:01 Last Admin: 07/19/21 10:15 Dose: 25 mg Documented by: Hyoscyamine (Hyoscyamine Sulfate 0.125 Mg Tab) 0.125 mg PO BID [facility] Stop: 08/17/21 20:59 Last Admin: 07/19/21 08:27 Dose: 0.125 mg Documented by: Promethazine HCl 12.5 mg/ (Sodium Chloride) 50.5 mls @ 202 mls/hr IV Q6H PRN PRN Reason: Nausea &/or Vomiting Stop: 08/17/21 11:01 Acetaminophen (Ofirmev) 1,000 mg in 100 mls @ 400 mls/hr IV Q8H PRN PRN Reason: Pain Rating 1-3 & Pre PT Stop: 07/21/21 11:01 Last Infusion: 07/19/21 05:10 Dose: Infused Documented by: Dexamethasone 6 mg/ Syringe 1.5 mls @ 1 mls/min IV DAILY [facility] Stop: 07/21/21 09:02 Last Admin: 07/19/21 08:28 Dose: 1 mls/min Documented by: Influenza Virus Vaccine Quadrival (Do Not Administer Flu Vaccine) 1 ea N/A PRN PRN PRN Reason: Notification Stop: 08/17/21 11:01 Lactobacillus Acidophilus (Advanced Probiotic 1250 Mg Capsule) 2 cap PO DAILY [facility] Stop: 08/18/21 08:59 Last Admin: 07/19/21 08:28 Dose: 2 cap Documented by: Lorazepam (Lorazepam 0.5 Mg Tab) 0.5 mg PO Q8H PRN PRN Reason: Sedation/Anxiety Stop: 08/17/21 11:01 Lorazepam (Lorazepam 2 Mg/1 Ml Vial) 0.5 mg IV Q8H PRN PRN Reason: Sedation/Anxiety Stop: 08/17/21 11:01 Magnesium Hydroxide (Magnesium Hydroxide Susp 30 Ml Udc) 30 ml PO Q24H PRN PRN Reason: Constipation Stop: 08/17/21 11:01 Methocarbamol (Methocarbamol 750 Mg Tablet) 750 mg PO QID [facility] Stop: 08/17/21 13:29 Last Admin: 07/19/21 08:27 Dose: 750 mg Documented by: Metoclopramide HCl (Metoclopramide Hcl Inj 5 Mg/Ml 2 Ml Vial) 10 mg IV Q6H PRN PRN Reason: Nausea &/or Vomiting Stop: 08/17/21 11:01 Miscellaneous (Estradiol Patch-Order Awaiting Action) 1 ea N/A QS [facility] Stop: 08/17/21 13:14 Last Admin: 07/19/21 07:38 Dose: Not Given Documented by: Montelukast Sodium (Montelukast Sodium 10 Mg Tablet) 10 mg PO QAM [facility] Stop: 08/18/21 08:59 Last Admin: 07/19/21 08:27 Dose: 10 mg Documented by: Multivitamins (Multivitamin Tab) 1 tab PO QAM [facility] Stop: 08/18/21 08:59 Last Admin: 07/19/21 08:28 Dose: 1 tab Documented by: Naloxone HCl (Naloxone Hcl 0.4 Mg/1 Ml Vial/Carp) 0.1 mg IV Q5M PRN PRN Reason: Oversedation/Resp depression Stop: 08/17/21 11:01 Ondansetron HCl (Ondansetron Inj 2 Mg/Ml 2 Ml Vial) 4 mg IV Q6H PRN PRN Reason: Nausea &/or Vomiting Stop: 08/17/21 11:01 Last Admin: 07/18/21 15:15 Dose: 4 mg Documented by: Ondansetron HCl (Ondansetron 4 Mg Od Tab) 4 mg PO Q6H PRN PRN Reason: Nausea Stop: 08/17/21 11:01 Oxycodone HCl (Oxycodone Hcl Ir 5 Mg Tab (Immediate Release)) 5 - 10 mg PO Q4H PRN PRN Reason: Pain & Pre PT Stop: 08/01/21 11:01 Last Admin: 07/19/21 10:18 Dose: 10 mg Documented by: Pantoprazole Sodium (Pantoprazole 40 Mg Tab) 40 mg PO BID [facility] Stop: 08/17/21 20:59 Last Admin: 07/19/21 08:28 Dose: 40 mg Documented by: Pneumococcal Polyvalent Vaccine (Do Not Administer Pneumococcal Vaccine) 1 ea N/A PRN PRN PRN Reason: Notification Stop: 08/17/21 11:01 Polyethylene Glycol (Polyethylene (Miralax) 17 Gm Pack) 17 gm PO Q6 [facility] Stop: 08/18/21 05:59 Last Admin: 07/19/21 05:59 Dose: 17 gm Documented by: Polyethylene Glycol (Polyethylene (Miralax) 17 Gm Pack) 17 gm PO BID [facility] Stop: 08/17/21 13:29 Last Admin: 07/19/21 08:25 Dose: 17 gm Documented by: Pregabalin (Pregabalin 75 Mg Cap) 75 mg PO BID [facility] Stop: 08/17/21 20:59 Last Admin: 07/19/21 08:27 Dose: 75 mg Documented by: Senna/Docusate Sodium (Docusate Sodium/Senna 50/8.6mg Tab) 2 tab PO HS [facility] Stop: 08/17/21 20:59 Last Admin: 07/18/21 20:02 Dose: 2 tab Documented by: Sodium Biphosphate/Sodium Phosphate (Sod Phosphate/Sod Biphosphate Enema 132 Ml Btl) 132 ml [place] ONE PRN PRN Reason: Constipation Stop: 08/17/21 11:01 Tramadol HCl (Tramadol Hcl 50 Mg Tablet) 50 - 100 mg PO Q4H PRN PRN Reason: Moderate-Severe pain & Pre PT Stop: 08/17/21 11:01 Last Admin: 07/18/21 19:50 Dose: 100 mg Documented by: Trazodone HCl (Trazodone Hcl 100 Mg Tab) 100 mg PO HS [facility] Stop: 08/17/21 20:59 Last Admin: 07/18/21 20:04 Dose: 100 mg Documented by:
--- NOTE | 2021-07-19 14:14 | Orthopedic Progress Note ---
Date of Service July 19, 2021 Assessment & Plan (1) Lumbar stenosis with neurogenic claudication: Plan: At this time we will continue physical therapy monitor WILI output hopefully discharge home later after this week. Admission and Anticipated Discharge Date Admission Date: July 18, 2021 Subjective Back pain controlled left leg pain improved she has some left buttock pain. Physical Exam Physical Exam: On exam she appears comfortable. Is good strength testing. Results & Data ([facility]) Vital Signs (Past 12 Hours) Vital Signs Temp Pulse Resp BP BP Pulse Ox 07/19/21 13:48 36.7 C 81 16 136/75 92 07/19/21 11:45 94 07/19/21 11:38 36.8 C 66 18 99/74 L 84 L 07/19/21 08:44 67 16 90/58 L 93 07/19/21 07:45 36.7 C 69 18 91/60 L 95 07/19/21 05:55 101/66 07/19/21 04:10 93 07/19/21 04:05 36.6 C 74 18 90/57 L 77 L
[2021-07-19] MEDS: bisacodyL 5 MG TABEC PO PRN (15:05)
[2021-07-19] MEDS: traZODone HCL 100 MG TAB PO SCH (20:40)
[2021-07-19] MEDS: DOCUSATE SODIUM/SENNA 50/8.6MG TAB PO SCH (20:40)
[2021-07-19] MEDS: traMADol HCL 50 MG TABLET PO PRN (20:50)
[2021-07-20] MEDS: POLYETHYLENE (MIRALAX) 17 GM PACK PO SCH ×5 (06:04→21:14)
--- NOTE | 2021-07-20 06:20 | Electrocardiogram Report ---
Test Reason : Blood Pressure : / mmHG Vent. Rate : 065 BPM Atrial Rate : 065 BPM P-R Int : 152 ms QRS Dur : 084 ms QT Int : 414 ms P-R-T Axes : 022 000 007 degrees QTc Int : 430 ms Normal sinus rhythm Possible Inferior infarct , age undetermined Abnormal ECG When compared with ECG of 12-JUL-2021 15:37, Borderline criteria for Inferior infarct are now Present Confirmed by Tez Covarrubias ([id number]) on 07/20/2021 6:20:18 AM Referred By: Ayo Aleman Confirmed By:Tez Covarrubias
[2021-07-20 07:18] LABS: Hemoglobin 11.6 g/dL (12.0-16.0); Mean Corpuscular Hemoglobin 30.4 pg (25-34); Mean Corpuscular Hgb Conc 32.2 g/dL (32-36); Mean Corpuscular Volume 94.2 fL (80-100); Mean Platelet Volume 11.1 fL (7.4-10.4); Platelet Count 182 K/uL (130-400); RDW Coefficient of Variation 13.1 % (11.5-14.5); RDW Standard Deviation 44.7 fL (36.4-46.3); Red Blood Count 3.82 M/uL (4.2-5.4)
[2021-07-20] MEDS: oxyCODONE HCL IR 5 MG TAB (IMMEDIATE RELEASE) PO PRN ×3 (07:38→22:14)
[2021-07-20 07:42] LABS: BUN Creatinine Ratio 18.5 (10-20); Calcium 8.7 mg/dl (8.5-10.1); Creatinine Clr Calc Pharmacy 85.8 ml/min; Est GFR (African American) 81.2 ml/min; Est GFR (Non-African American) 70.1 ml/min; Potassium 4.6 mmol/L (3.5-5.1)
[2021-07-20] MEDS: ADVANCED PROBIOTIC 1250 MG CAPSULE PO SCH (08:39)
[2021-07-20] MEDS: CYANOCOBALAMIN (B-12) 500 MCG TABLET PO SCH (08:39)
[2021-07-20] MEDS: PREGABALIN 75 MG CAP PO SCH ×2 (08:39→21:13)
[2021-07-20] MEDS: DOCUSATE SODIUM 100 MG CAP PO SCH ×2 (08:39→21:15)
[2021-07-20] MEDS: METHOCARBAMOL 750 MG TABLET PO SCH ×4 (08:39→21:15)
[2021-07-20] MEDS: MONTELUKAST SODIUM 10 MG TABLET PO SCH (08:39)
[2021-07-20] MEDS: hydrOXYzine HCl 25 MG TAB PO PRN ×2 (08:39→12:05)
[2021-07-20] MEDS: FAMOTIDINE 20 MG TAB PO SCH (08:39)
[2021-07-20] MEDS: CITALOPRAM 20 MG TAB PO SCH (08:40)
[2021-07-20] MEDS: MULTIVITAMIN TAB PO SCH (08:40)
[2021-07-20] MEDS: PANTOprazole 40 MG TAB PO SCH ×2 (08:40→21:15)
[2021-07-20] MEDS: CETIRIZINE HCL 10 MG TABLET PO SCH ×2 (08:40→21:14)
[2021-07-20] MEDS: bisacodyL 5 MG TABEC PO PRN (08:40)
[2021-07-20] MEDS: HYOSCYAMINE SULFATE 0.125 MG TAB PO SCH ×2 (08:40→21:15)
[2021-07-20] MEDS: dexAMETHasone 6 MG in SYRINGE 0 ML IV SCH (08:41)
--- NOTE | 2021-07-20 10:07 | Hospitalist Progress Note ---
Date of Service July 20, 2021 Assessment & Plan (1) Lumbar stenosis with neurogenic claudication: (2) DDD (degenerative disc disease): Plan: Actual Procedures 1 removal of posterior instrumentation L4-5. #2 exploration of fusion L4-5 #3 lumbar decompression with bilateral medial facetectomies and foraminotomies L2- L3 L3-L4. #4 posterior spinal fusion L3-L4. #5 placement posterior instrumentation L3 3 L4-L5. #6 interbody fusion L3-L4. #7 placement of titanium cage 13 x 26 mm at L3-L4. #8 placement of locally harvested morselized autograft in the posterior lateral gutters. #9 placement of I factor combined with V toss in the interbody space and posterior lateral gutters. POD # [address] Aleman EBL 200ml; Pain management, bowel regimen and DVT ppx per the primary team PT/OT consults Follow am CBC to monitor for acute blood loss Hgb of 15 from 07/12/21 Anemia secondary to expected postsurgical blood loss and hemodilution Preop hemoglobin 15, hemoglobin improving to 11.6 Need to monitor GREGORY output follow cbc Chest Pain pt reports substernal chest discomfort sx are reproducible EKG ordered for completeness revealed per my interpretation 65 bpm, nsr, unchanged from EKG on 07/12 trop negative x1, echo ordered and obtained, unremarkable still having, again feel its likely MSK as its entirely reproducible, may even be assoc with fibro pt requesting CXR so will obtain add muscle rub, ice (3) Obesity: Plan: BMI of 36.0, encourage diet and weight loss (4) GERD (gastroesophageal reflux disease): Plan: Cont famotidine (5) Fibromyalgia: (6) Anxiety: Plan: 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 EMR meds. (7) IBS (irritable bowel syndrome): Plan: Hx of such, chronic continue bowel regimen DVT ppx: teds, scds CODE: Full Dispo: per primary Patient was seen and examined in collaboration with, Dr. Cohen, please see addendum Thank you for this consultation. We will follow the patient with you during their hospital stay. You can reach a member of the [facility] Hospitalist Team 27/11 via hospitalist role on tiger text. Admission and Anticipated Discharge Date Admission Date: July 18, 2021 Supervising Physician Co-Signing Physician Notes Attending Addendum: care coordinated with LAURA Braun's notes please refer to her notes for full details, I agree with her notes patient seen and examined, records reviewed by myself as well on exam, patient seen resting in bed, comfortable reports left hip pain radiating to the left leg mild chest pain- reproduced with palpation no other symptoms VS noted and reviewed oriented x 3, not in distress, speaks in sentences with no effort nor accessory muscle use normal rate, regular rhythm, no murmurs (+) tenderness to palpation of mid parasternal border clear breath sounds bilaterally non distended, soft, nontender no bipedal edema, erythema, warmth no neuro deficits all labs noted and reviewed ASSESSMENT AND PLAN S/P BACK SURGERY reporting L hip pain radiating to the left leg already on Cymbalta and Robaxin will discuss with Dr. Aleman CHEST PAIN, LIKELY COSTOCHONDRITIS cardiac work up negative PRN analgesics CONSTIPATION Lactulose ordered other diagnoses and plan of care as per LAURA Braun's notes Alex Cohen MD Subjective Patient was seen and examined in room 315. Follow-up lumbar surgery. She continues to have left-sided substernal chest pressure. She described as a, "elephant sitting on my chest." She is able to reproduce it herself. She is asking for a chest x-ray and Biofreeze. Denies any fever, chills, sweats, shortness of breath, lightheadedness, cough, hemoptysis, nausea, vomiting. Overall has decreased appetite. She has not moved her bowels. Review of Systems Review of Systems: All systems reviewed & are unremarkable except as noted in HPI & below Physical Exam Physical Exam: Gen: WD/WN, NAD, A&O x3 HEENT: Normocephalic, atraumatic, conjunctivae moist, sclerae anicteric, mucous membranes moist. Lung: Clear to Auscultation bilaterally, no wheezes/rales/rhonchi Heart: Regular rate, regular rhythm, no murmurs, rubs, or gallops, + pain to palpation to L sided anterior chest wall and sternal area Abdomen: Soft, NT, ND +BS x 4 Extremities: No edema, lumbar dressing CDI gregory drain with serosang drainage Skin: Warm, no rash, negative turgor. Results & Data Results & Data ([facility]) Vital Signs (Past 12 Hours) Vital Signs Temp Pulse Resp BP BP Pulse Ox 07/20/21 07:26 36.7 C 66 16 99/67 L 93 07/19/21 22:59 36.8 C 72 22 105/65 92 Laboratory Results Short CBC 07/20/21 Range/Units 06:40 WBC 14.00 H (4.8-10.8) K/uL Hgb 11.6 L (12.0-16.0) g/dL Hct 36.0 L (37-47) % Plt Count 182 (130-400) K/uL BMP 07/20/21 06:40 Sodium 138 Potassium 4.6 Chloride 107 Carbon Dioxide 27 BUN 17 Creatinine 0.92 Glucose 139 H Calcium 8.7 Cardiac Enzymes 07/19/21 07/19/21 Range/Units 11:26 15:47 Troponin I < 0.03 < 0.03 (0-0.04) ng/ml Diagnostic Findings ECHO: EF 55-60%, reviewed and unremarkable Medications Administered Current Inpatient Medications Acetaminophen (Acetaminophen 500 Mg Tab) 1,000 mg PO Q8H PRN PRN Reason: MILD Pain Scale 1,2,3 & Pre PT Stop: 08/17/21 11:01 Last Admin: 07/20/21 06:04 Dose: 1,000 mg Documented by: Al Hydrox/Mg Hydrox/Simethicone (Aluminum/Magnesium Susp 30 Ml Udc) 30 ml PO Q6H PRN PRN Reason: Dyspepsia Stop: 08/17/21 11:01 Baclofen (Baclofen 10 Mg Tab) 10 mg PO BID PRN PRN Reason: Muscle Spasm Stop: 08/17/21 11:01 Last Admin: 07/18/21 15:43 Dose: 10 mg Documented by: Benzonatate (Benzonatate 100 Mg Capsule) 100 mg PO TID PRN PRN Reason: Cough Stop: 08/17/21 12:21 Bisacodyl (Bisacodyl 10 Mg Supp) 10 mg [place] DAILY PRN PRN Reason: Constipation Stop: 08/17/21 11:01 Bisacodyl (Bisacodyl 5 Mg Tabec) 5 mg PO DAILY PRN PRN Reason: Constipation Stop: 08/18/21 12:31 Last Admin: 07/20/21 08:40 Dose: 5 mg Documented by: Cetirizine HCl (Cetirizine Hcl 10 Mg Tablet) 10 mg PO BID [facility] Stop: 08/17/21 20:59 Last Admin: 07/20/21 08:40 Dose: Not Given Documented by: Citalopram Hydrobromide (Citalopram 20 Mg Tab) 20 mg PO QAM [facility] Stop: 08/18/21 08:59 Last Admin: 07/20/21 08:40 Dose: 20 mg Documented by: Cyanocobalamin (Cyanocobalamin (B-12) 500 Mcg Tablet) 1,000 mcg PO DAILY [facility] Stop: 08/18/21 08:59 Last Admin: 07/20/21 08:39 Dose: 1,000 mcg Documented by: Diazepam (Diazepam 2 Mg Tablet) 2 mg PO HS PRN PRN Reason: Sleep Stop: 08/17/21 11:01 Diphenhydramine HCl (Diphenhydramine Capsule 25 Mg Cap) 25 mg PO Q6H PRN PRN Reason: Allergic Rhinitis/Insomnia Stop: 08/17/21 11:01 Docusate Sodium (Docusate Sodium 100 Mg Cap) 100 mg PO BID [facility] Stop: 08/17/21 20:59 Last Admin: 07/20/21 08:39 Dose: 100 mg Documented by: Famotidine (Famotidine 20 Mg Tab) 20 mg PO Q12H PRN PRN Reason: Dyspepsia Stop: 08/17/21 11:01 Famotidine (Famotidine 20 Mg Tab) 20 mg PO DAILY [facility] Stop: 08/18/21 08:59 Last Admin: 07/20/21 08:39 Dose: 20 mg Documented by: Hydromorphone HCl (Hydromorphone Inj 0.5 Mg/0.5 Ml Syr) 0.5 mg IV Q3H PRN PRN Reason: MODERATE Pain (Scale 4,5,6) & Pre PT Stop: 08/01/21 11:01 Hydromorphone HCl (Hydromorphone Inj 1 Mg/Ml Syringe) 1 mg IV Q3H PRN PRN Reason: SEVERE Pain (Scale 7,8,9,10) Stop: 08/01/21 11:01 Hydroxyzine HCl (Hydroxyzine Hcl 25 Mg Tab) 25 mg PO QID PRN PRN Reason: Itching Stop: 08/17/21 11:01 Last Admin: 07/20/21 08:39 Dose: 25 mg Documented by: Hyoscyamine (Hyoscyamine Sulfate 0.125 Mg Tab) 0.125 mg PO BID [facility] Stop: 08/17/21 20:59 Last Admin: 07/20/21 08:40 Dose: 0.125 mg Documented by: Promethazine HCl 12.5 mg/ (Sodium Chloride) 50.5 mls @ 202 mls/hr IV Q6H PRN PRN Reason: Nausea &/or Vomiting Stop: 08/17/21 11:01 Acetaminophen (Ofirmev) 1,000 mg in 100 mls @ 400 mls/hr IV Q8H PRN PRN Reason: Pain Rating 1-3 & Pre PT Stop: 07/21/21 11:01 Last Infusion: 07/19/21 17:15 Dose: Infused Documented by: Dexamethasone 6 mg/ Syringe 1.5 mls @ 1 mls/min IV DAILY [facility] Stop: 07/21/21 09:02 Last Admin: 07/20/21 08:41 Dose: 1 mls/min Documented by: Influenza Virus Vaccine Quadrival (Do Not Administer Flu Vaccine) 1 ea N/A PRN PRN PRN Reason: Notification Stop: 08/17/21 11:01 Lactobacillus Acidophilus (Advanced Probiotic 1250 Mg Capsule) 2 cap PO DAILY [facility] Stop: 08/18/21 08:59 Last Admin: 07/20/21 08:39 Dose: 2 cap Documented by: Lorazepam (Lorazepam 0.5 Mg Tab) 0.5 mg PO Q8H PRN PRN Reason: Sedation/Anxiety Stop: 08/17/21 11:01 Lorazepam (Lorazepam 2 Mg/1 Ml Vial) 0.5 mg IV Q8H PRN PRN Reason: Sedation/Anxiety Stop: 08/17/21 11:01 Magnesium Hydroxide (Magnesium Hydroxide Susp 30 Ml Udc) 30 ml PO Q24H PRN PRN Reason: Constipation Stop: 08/17/21 11:01 Last Admin: 07/19/21 12:31 Dose: 30 ml Documented by: Methocarbamol (Methocarbamol 750 Mg Tablet) 750 mg PO QID [facility] Stop: 08/17/21 13:29 Last Admin: 07/20/21 08:39 Dose: 750 mg Documented by: Metoclopramide HCl (Metoclopramide Hcl Inj 5 Mg/Ml 2 Ml Vial) 10 mg IV Q6H PRN PRN Reason: Nausea &/or Vomiting Stop: 08/17/21 11:01 Miscellaneous (Estradiol Patch-Order Awaiting Action) 1 ea N/A QS [facility] Stop: 08/17/21 13:14 Last Admin: 07/20/21 08:32 Dose: Not Given Documented by: Montelukast Sodium (Montelukast Sodium 10 Mg Tablet) 10 mg PO QAM [facility] Stop: 08/18/21 08:59 Last Admin: 07/20/21 08:39 Dose: 10 mg Documented by: Multivitamins (Multivitamin Tab) 1 tab PO [facility] Stop: 08/18/21 08:59 Last Admin: 07/20/21 08:40 Dose: 1 tab Documented by: Naloxone HCl (Naloxone Hcl 0.4 Mg/1 Ml Vial/Carp) 0.1 mg IV Q5M PRN PRN Reason: Oversedation/Resp depression Stop: 08/17/21 11:01 Ondansetron HCl (Ondansetron Inj 2 Mg/Ml 2 Ml Vial) 4 mg IV Q6H PRN PRN Reason: Nausea &/or Vomiting Stop: 08/17/21 11:01 Last Admin: 07/18/21 15:15 Dose: 4 mg Documented by: Ondansetron HCl (Ondansetron 4 Mg Od Tab) 4 mg PO Q6H PRN PRN Reason: Nausea Stop: 08/17/21 11:01 Oxycodone HCl (Oxycodone Hcl Ir 5 Mg Tab (Immediate Release)) 5 - 10 mg PO Q4H PRN PRN Reason: Pain & Pre PT Stop: 08/01/21 11:01 Last Admin: 07/20/21 07:38 Dose: 10 mg Documented by: Pantoprazole Sodium (Pantoprazole 40 Mg Tab) 40 mg PO BID [facility] Stop: 08/17/21 20:59 Last Admin: 07/20/21 08:40 Dose: 40 mg Documented by: Pneumococcal Polyvalent Vaccine (Do Not Administer Pneumococcal Vaccine) 1 ea N/A PRN PRN PRN Reason: Notification Stop: 08/17/21 11:01 Polyethylene Glycol (Polyethylene (Miralax) 17 Gm Pack) 17 gm PO Q6 [facility] Stop: 08/18/21 05:59 Last Admin: 07/20/21 06:04 Dose: 17 gm Documented by: Polyethylene Glycol (Polyethylene (Miralax) 17 Gm Pack) 17 gm PO BID [facility] Stop: 08/17/21 13:29 Last Admin: 07/20/21 08:32 Dose: 17 gm Documented by: Pregabalin (Pregabalin 75 Mg Cap) 75 mg PO BID [facility] Stop: 08/17/21 20:59 Last Admin: 07/20/21 08:39 Dose: 75 mg Documented by: Senna/Docusate Sodium (Docusate Sodium/Senna 50/8.6mg Tab) 2 tab PO HS [facility] Stop: 08/17/21 20:59 Last Admin: 07/19/21 20:40 Dose: 2 tab Documented by: Sodium Biphosphate/Sodium Phosphate (Sod Phosphate/Sod Biphosphate Enema 132 Ml Btl) 132 ml [place] ONE PRN PRN Reason: Constipation Stop: 08/17/21 11:01 Tramadol HCl (Tramadol Hcl 50 Mg Tablet) 50 - 100 mg PO Q4H PRN PRN Reason: Moderate-Severe pain & Pre PT Stop: 08/17/21 11:01 Last Admin: 07/19/21 20:50 Dose: 100 mg Documented by: Trazodone HCl (Trazodone Hcl 100 Mg Tab) 100 mg PO HS [facility] Stop: 08/17/21 20:59 Last Admin: 07/19/21 20:40 Dose: 100 mg Documented by:
[2021-07-20] MEDS ORDERED: DICLOFENAC SOD 1% GEL 100 GM TUBE EXT PRN (10:21)
--- NOTE | 2021-07-20 10:55 | Orthopedic Progress Note ---
Date of Service July 20, 2021 Assessment & Plan (1) Lumbar stenosis with neurogenic claudication: Plan: At this time we will continue physical therapy monitor WILI output hopefully discharge home tomorrow. Admission and Anticipated Discharge Date Admission Date: July 18, 2021 Subjective Back pain controlled leg pain improving Physical Exam Physical Exam: To walkOn exam she is good strength testing appears comfortable.. Results & Data ([facility]) Vital Signs (Past 12 Hours) Vital Signs Temp Pulse Resp BP BP Pulse Ox 07/20/21 07:26 36.7 C 66 16 99/67 L 93 07/19/21 22:59 36.8 C 72 22 105/65 92
--- NOTE | 2021-07-20 11:06 | XRay Report ---
XR chest 1V portable CLINICAL HISTORY: Atypical chest pain. COMPARISON STUDY: Chest radiograph July 12, 2021. FINDINGS: Lung volumes are normal. No pneumothorax or pleural effusion. Cardiomediastinal silhouette is stable. There is possible right basilar opacity. There is pulmonary vascular congestion without ov ert pulmonary edema. IMPRESSION: 1. Pulmonary vascular congestion without overt pulmonary edema. 2. Possible right basilar opacity. ACT 112: Negative or not required by law. Electronically signed by: Lorenzo Reagan M.D. 07/20/2021 11:05 AM
--- NOTE | 2021-07-20 13:14 | XRay Report ---
XR hip LT 2V w pelvis CLINICAL HISTORY: Left hip pain. Recent lumbar spine surgery. COMPARISON: CT of the abdomen and pelvis October 31, 2019. FINDINGS: Postoperative findings within the lumbosacral spine are partially imaged, including a surg ical drain. The sacroiliac joints and symphysis pubis are intact. Alignment of the hips is anatomic. Hip joint spaces are preserved. Minimal osteophytosis of both hips is present. Pelvic calcifications favor phleboliths. IMPRESSION: 1. No acute fracture within the pelvis or hips. 2. Postoperative findings within the lumbosacral spine, partially imaged. 3. Minimal degenerative changes of the hips. Preserved joint spaces. ACT 112: Negative or not required by law. Electronically signed by: Lorenzo Reagan M.D. 07/20/2021 1:12 PM
[2021-07-20] MEDS ORDERED: LACTULOSE SYRUP 10 GM/15 ML BTL 960 ML PO STA (14:26)
[2021-07-20] MEDS: traZODone HCL 100 MG TAB PO SCH (21:14)
[2021-07-20] MEDS: DOCUSATE SODIUM/SENNA 50/8.6MG TAB PO SCH (21:14)
[2021-07-21] MEDS: POLYETHYLENE (MIRALAX) 17 GM PACK PO SCH ×2 (00:24→08:38)
[2021-07-21] MEDS: oxyCODONE HCL IR 5 MG TAB (IMMEDIATE RELEASE) PO PRN ×2 (07:20→11:57)
[2021-07-21] MEDS: dexAMETHasone 6 MG in SYRINGE 0 ML IV SCH (08:36)
[2021-07-21] MEDS: MONTELUKAST SODIUM 10 MG TABLET PO SCH (08:36)
[2021-07-21] MEDS: DOCUSATE SODIUM 100 MG CAP PO SCH (08:36)
[2021-07-21] MEDS: MULTIVITAMIN TAB PO SCH (08:37)
[2021-07-21] MEDS: FAMOTIDINE 20 MG TAB PO SCH (08:37)
[2021-07-21] MEDS: ADVANCED PROBIOTIC 1250 MG CAPSULE PO SCH (08:37)
[2021-07-21] MEDS: CETIRIZINE HCL 10 MG TABLET PO SCH (08:37)
[2021-07-21] MEDS: CITALOPRAM 20 MG TAB PO SCH (08:37)
[2021-07-21] MEDS: CYANOCOBALAMIN (B-12) 500 MCG TABLET PO SCH (08:37)
[2021-07-21] MEDS: METHOCARBAMOL 750 MG TABLET PO SCH (08:37)
[2021-07-21] MEDS: HYOSCYAMINE SULFATE 0.125 MG TAB PO SCH (08:38)
[2021-07-21] MEDS: PANTOprazole 40 MG TAB PO SCH (08:38)
[2021-07-21] MEDS: PREGABALIN 75 MG CAP PO SCH (08:39)
[2021-07-21] MEDS: BACLOFEN 10 MG TAB PO PRN (08:46)
[2021-07-21] MEDS: ACETAMINOPHEN 1,000 MG/100 ML VIAL IV PRN (10:52)
--- NOTE | 2021-07-21 13:05 | Discharge Summary ---
Date of Service July 21, 2021 Admission HPI Per Admitting Provider This is a 55-year-old female known to me the presents with worsening back and leg pain. Failing course of nonoperative care is here for surgical invention. Principal Diagnosis Lumbar spinal stenosis with radiculopathy Discharge Data Allergies Allergy/AdvReac Type Severity Reaction Status Date / Time Bactrim AdvReac Unknown Yeast Verified 12/13/16 00:18 infection sulfamethoxazole AdvReac Unknown Yeast Verified 07/18/21 06:39 infection trimethoprim AdvReac Unknown Yeast Verified 07/18/21 06:39 infection Consultations 07/18/21 11:02 Consult Hospitalist Routine Procedures Performed Operation Date: 07/18/21 07:45 Actual Procedures p L3-L4 Decompression and Fusion, Spinal Cord Monitoring(Not Applicable) - Ayo Aleman DO s L4-L5 Hardware Removal,(Not Applicable) - Ayo Aleman DO Ordered Studies 07/18/21 07:45 FL lumbar spine 2-3V Routine Hospital Course (1) Lumbar stenosis with neurogenic claudication: Patient went lumbar decompression fusion [facility] orthopedic for postoperative. Postop day 1 she was up and ambulating progressed to postop day #2 on postop day #3 WILI drain decreased probably. Pain well controlled. Struggling with some left-sided sacroiliitis which is well-established. At this point she did feel comfortable would like to go home. Discharge orders instructions found in chart for further view. Total Time Total Time Spent Total Time Spent (In Minutes): 20 minutes Discharge Plan Discharge Items Patient Disposition: Home - Self-Care Reason For Visit: Radiculopathy, Lumbar Region Discharge Diagnosis: Lumbar spinal stenosis with radiculopathy Activity: As commented below Non-emergency contact: Primary Care Provider Call non-emergency contact if: you have any medication questions Follow-up/Referrals: Ayo Aleman DO [Surgeon] - 08/02/21 11:15 am (with Facundo Harman PA-C; [place] office) Jonny Andino MD [Primary Care Provider] - Diet: Regular Addtl Attending Provider Instructions: ACTIVITY RECOMMENDATIONS: SELF CARE INSTRUCTIONS AFTER THORACIC/LUMBAR FUSIONS 1. You may walk to your tolerance. It is good exercise for your legs and back. Expect some back and intermittent leg aches and pains. 2. You may perform "counter-top" level activities (make a sandwich, ben with a project, etc.). 3. No bending or lifting of more than 10 pounds or back twisting of any nature (roll like a log when turning in bed). 4. You may ride in a car for 20-30 minutes at a time. No driving until after your first visit with your doctor. 5. Frequent changes of position and restricting sitting to 30 minutes at a time will help limit the amount of back spasms and stiffness you may experience. 6. You may discontinue the use of ambulatory aids (cane, crutches, etc.) once your strength and confidence allow. 7. You may order administrator the shower and let water strike your incision when you arrive home at least once daily. Do not take a tub bath, sit in a hot tub or go into a swimming pool until after your first recheck in the office. SPECIAL CARE INSTRUCTIONS: VERY IMPORTANT TO READ AND REVIEW A. Your surgical incision has been closed with a cosmetic suture under the skin that will dissolve in about 6 weeks. In 14 days, you can use a pair of clean scissors and cut the suture that is left outside of the skin at the ends of your incision. 1. The small skin tapes can be removed 7 days after surgery if they have not fallen off by that point. 2. You may keep the wound open to air as much as possible to promote healing after post-op day number 5 unless told otherwise by your doctor. 3. If you think the wound looks like it is becoming infected (redness or worsening drainage) and/or you are experiencing fever, chill or worsening back pain and muscle spasms, contact the office so that we may evaluate you as soon as possible. B. Complications are uncommon, but please contact us if you have any signs or symptoms of: 1. wound infection (fever higher than 102.5 degrees F, redness, separation of wound, drainage, or increasing pain from the incision) 2. blood clots in legs (pain, swelling, redness and warmth in legs) 3. urinary tract infection (fever higher than 102.5 degrees F, burning upon urination or increased frequency of urination) 4. nerve problems (inability to walk on your toes or heels, numbness, loss of bowel or bladder control) 5. any other symptoms that concern you C. Please call the office at if you have any concerns or questions about your operation or recovery. D. No smoking! Smoking drastically decreases the chance of a solid fusion. E. Do not take any anti-inflammatory medications (Indocin, Advil, Motrin, Aspirin, Naprosyn, etc.) as these may inhibit the chance of a solid fusion. Tylenol is okay to take for pain. MANAGING PAIN AFTER SPINAL SURGERY 1. Narcotic medication is intended for short-term use and will be provided for surgical pain. Surgical pain usually lasts for a period of 4-6 weeks. Narcotic medication includes Percocet, Vicodin, Darvocet, Tylenol #3 or Lortab. 2. Longer-term pain is more appropriately treated with non-narcotic medication such as Tylenol ES. 3. Muscle spasm is not appropriately treated with narcotics. Muscle relaxers such as Soma, Flexeril or Skelaxin can be used along with Tylenol ES. 4. Remember that we all live with some "aches and pains". This is not unusual or uncommon after an injury or as we get older. a. Back pain is expected and may include muscle spasms for 4 to 6 weeks after surgery. The pain should gradually improve. If the pain worsens for no apparent reason, please contact the office. b. Intermittent leg pain may also be experienced and should not be concerned about unless it worsens for no apparent reason. If so, please contact the office. 5. We will provide appropriate medication within the normal guidelines of their prescribed use. We will also be very cautious and aware of potential abuse and extended duration of patients' medication needs. a. Pain medications are for your comfort and to assist with sleep and rest so that the tissue can heal. They are not provided in order to return to normal activity and should not be used through the day. To do so or worsening pain at night can result from ongoing tissue damage and development of tolerance to the prescribed medicine. 6. Please allow 2-3 days to process refills. Prescriptions will not be mailed but must be picked up at the office. FOLLOW UP VISIT: Keep your scheduled follow-up appointment. Any questions, please call the office at . Pending Studies at Discharge: No Stand-Alone Forms: [employer], Smoking Cessation Medications and ND Order Prescriptions: New oxycodone 5 mg tablet 5 mg PO Q6H PRN (Reason: pain, severe) Qty: 30 RF: 0 tramadol 50 mg tablet 50 mg PO Q6H PRN (Reason: pain, moderate) Qty: 30 RF: 0 lactulose 10 gram/15 mL (15 mL) solution 20 g PO DAILY PRN (Reason: constipation) Qty: 600 RF: 1 Continued methocarbamol 750 mg Tablet 750 mg PO QID RF: 0 Probiotic 3 billion cell Capsule 3,000 mmu cells PO BID RF: 0 docusate sodium 100 mg Capsule 100 mg PO BID Qty: 100 RF: 0 diazepam 2 mg tablet 2 mg PO HS PRN (Reason: Sleep) RF: 0 hyoscyamine sulfate 0.125 mg tablet 0.125 mg PO BID RF: 0 multivitamin Tablet 1 tab PO QAM RF: 0 pantoprazole 40 mg tablet,delayed release (DR/EC) 40 mg PO BID RF: 0 pregabalin 75 mg capsule 75 mg PO TID RF: 0 baclofen 10 mg tablet 10 mg PO BID PRN (Reason: Muscle Spasm) RF: 0 trazodone 50 mg tablet 100 mg PO HS RF: 0 citalopram 20 mg Tablet 20 mg PO QAM RF: 0 cetirizine 10 mg Tablet 10 mg PO BID RF: 0 hydroxyzine HCl 25 mg Tablet 25 mg PO QID PRN (Reason: Itching) RF: 0 polyethylene glycol 3350 [Miralax] 17 gram Powder In Packet 17 g PO BID RF: 0 ondansetron 4 mg Tablet,Disintegrating 4 mg PO TID PRN (Reason: Nausea) RF: 0 evening primrose oil 500 mg Capsule 1,000 mg PO BID RF: 0 estradiol 0.1 mg/24 hr patch semiweekly 0.1 mg transdermal UD RF: 0 cyanocobalamin (vitamin B-12) [Vitamin B-12] 1,000 mcg Tablet 1,000 mcg PO DAILY RF: 0 famotidine 20 mg tablet 20 mg PO DAILY RF: 0 benzonatate 100 mg capsule 100 mg PO TID PRN (Reason: Cough) RF: 0 rizatriptan [Maxalt-[employer] ASSISTANT] 10 mg Tablet,Disintegrating 10 mg PO UD RF: 0 magnesium 100 mg Tablet 100 mg PO DAILY RF: 0 metoclopramide HCl 5 mg tablet 5 mg PO BID PRN (Reason: Nausea) RF: 0 Discharge Orders: Discharge Order (Routine); Ordered 07/21/21 Ordered By: Ayo Aleman Admission Data Admit Date/Time: 07/18/21 09:34 Attending Provider: Ayo Aleman Admit Provider: Ayo Aleman Primary Care Provider: Jonny Andino Other Providers: Delia Perez ; Lizabeth Braun ; Alex Cohen Other Interventions: Discharge Summary Assessment (RN) Last Done: 07/21/21 11:49
--- NOTE | 2021-07-21 16:23 | Hospitalist Progress Note ---
Date of Service July 21, 2021 Assessment & Plan (1) Lumbar stenosis with neurogenic claudication: (2) DDD (degenerative disc disease): Plan: per LAURA Lizabeth Braun's notes with addendum: Actual Procedures 1 removal of posterior instrumentation L4-5. #2 exploration of fusion L4-5 #3 lumbar decompression with bilateral medial facetectomies and foraminotomies L2- L3 L3-L4. #4 posterior spinal fusion L3-L4. #5 placement posterior instr umentation L3 3 L4-L5. #6 interbody fusion L3-L4. #7 placement of titanium cage 13 x 26 mm at L3-L4. #8 placement of locally harvested morselized autograft in the posterior lateral gutters. #9 placement of I factor combined with V toss in the interbody space and posterior lateral gutters. POD # [address] Aleman EBL 200ml; stable overall Anemia secondary to expected postsurgical blood loss and hemodilution Preop hemoglobin 15, hemoglobin 11 Chest Pain acute coronary syndrome ruled out cardiac work up negative likely costochondritis outpatient ff up (3) Obesity: Plan: BMI of 36.0, encourage diet and weight loss (4) GERD (gastroesophageal reflux disease): Plan: Cont famotidine (5) Fibromyalgia: (6) Anxiety: Plan: Can continue [employer] medications including citalopram, diazepam, hydroxyzine, pregabalin, trazodone (7) IBS (irritable bowel syndrome): Plan: Hx of such, chronic Lactulose PRN prescribed Admission and Anticipated Discharge Date Admission Date: July 18, 2021 Subjective Follow-up status post back surgery, chest pain, constipation, etc. Seen resting in bed, sitting up, in good spirits States she feels better overall Back pain well controlled Positive BMs Chest pain improving No shortness of breath, palpitations, dizziness Ambulating better No other symptoms States that she is ready and would like to be discharged today by Dr. Aleman Review of Systems Review of Systems: all noted and negative except for above Physical Exam Physical Exam: General- oriented x 3, not in distress, speaks in sentences with no effort or accessory muscle use Eyes- anicteric Neck- no JVD Lungs- clear breath sounds bilaterally, no rales/wheezes Heart- normal rate, regular rhythm; no murmurs Abdomen- normal bowel sounds, nondistended, soft, nontender Extremities- no pretibial edema, no calf tenderness Neuro- alert, oriented x 3; no gross focal neurologic deficits Skin- warm & dry Results & Data Results & Data ([facility]) Vital Signs (Past 12 Hours) Vital Signs Temp Pulse Pulse Resp BP BP Pulse Ox 07/21/21 11:49 36.5 C 85 61 20 104/64 108/72 95 07/21/21 07:09 36.5 C 61 20 108/72 95 all noted and reviewed including below
== END 2021-07-21 12:20 | disposition home or self-care (01) | DRG 454 ==
LOC: ASU 06:14 → 3E 09:34
DX: M48.062 Spinal stenosis, lumbar region with neurogenic claudication; Z87.440 Personal history of urinary (tract) infections; M79.7 Fibromyalgia; Z86.16 Personal history of COVID-19; Z88.8 Allergy status to other drugs, medicaments and biological substances; F41.9 Anxiety disorder, unspecified; K21.9 Gastro-esophageal reflux disease without esophagitis; D62 Acute posthemorrhagic anemia; Z68.36 Body mass index [BMI] 36.0-36.9, adult; M54.16 Radiculopathy, lumbar region; I67.1 Cerebral aneurysm, nonruptured; E66.9 Obesity, unspecified; K58.9 Irritable bowel syndrome, unspecified; Z87.891 Personal history of nicotine dependence; Z88.2 Allergy status to sulfonamides; Z98.1 Arthrodesis status

== ENCOUNTER 2022-09-26 11:24 | Inpatient (IN) ==
[2022-09-26] MEDS ORDERED: SODIUM CHLORIDE 0.9% 1000ML 1,000 ML IV ONE (12:02)
[2022-09-26] MEDS ORDERED: ONDANSETRON INJ 2 MG/ML 2 ML VIAL IV STA ×2 (12:02→17:31)
[2022-09-26] MEDS ORDERED: KETOROLAC TROMETHAMINE 15 MG/ML VIAL IV STA (12:02)
--- NOTE | 2022-09-26 12:07 | Emergency Department Note ---
Impression & Plan Right sided abdominal pain, Diverticulitis, Constipation, Nausea ED Provider Note NAME: LUCI MEI AGE: 57 SEX: F : 1965 ARRIVES VIA: Walk-In INFORMANT: [Patient][family] ED PROVIDER(S): [Aristides Sarmiento MD] CHIEF COMPLAINT: Constipation HISTORY OF PRESENT ILLNESS: The patient is a 57-year-old female who presents with what she thinks may be severe constipation. She has not had a decent bowel movement in 10 days. She has had some "connie" over the last several days but nothing significant. She states the stool is brown. She has pain along the entire right side of the abdomen. She has nausea but no vomiting, no fever. She has noticed some difficulty with urination as she has to push her urine out. The patient did try lactulose without any benefit. She has been using stool softeners as well as Dulcolax. She also took 6 heaping capfuls of MiraLAX. The patient states that 6 weeks ago, she had back surgery. She was on narcotics for 1 week. She is not currently on any narcotics. She has had constipation issues her whole life and she states that she was told that she has a stricture in her colon. She has had her gallbladder and appendix removed. PMHx/PSHx: See Below SOCIAL HISTORY: See Below. PHYSICAL EXAM: GENERAL: Patient is in no acute distress. HEENT: No acute trauma, normocephalic atraumatic, mucous membranes moist, no nasal congestion. NECK: No stridor, no adenopathy, no meningismus, trachea is midline. LUNGS: Clear to auscultation bilaterally, no wheeze, no rhonchi, breath sounds equal. HEART: Without murmurs gallops or rubs, regular rate and rhythm. ABDOMEN: Soft, moderately tender along the entire right side of the abdomen, bowel sounds are positive. No peritonitis. No abdominal distention. EXTREMITIES: No cyanosis or edema, full range of motion of all the joints without pain or difficulty, no signs for acute trauma. NEUROLOGIC: Oriented x 3, no acute motor or sensory deficits, no focal weakness. SKIN: No rash, no jaundice, no diaphoresis. DIFFERENTIAL DIAGNOSIS: Constipation, large bowel obstruction, colonic stricture, small bowel obstruction, dehydration, electrolyte imbalance, urinary infection, urinary re tention, among others. EMERGENCY DEPARTMENT COURSE/PROCEDURES: Prior/Outside records reviewed: Previous orthopedic discharge summary. MEDICAL DECISION MAKING: There is no leukocytosis or concerning anemia. There is a normal platelet count. No renal failure or significant electrolyte abnormality. No concerning liver enzyme elevation. No pancreatitis. COVID test returned negative. Abdominal and pelvis CT showed a sigmoid diverticulitis as well as constipation. No bowel obstruction. On exam, patient was not toxic or febrile. She was tender along the right side of the abdomen. Patient received IV saline, she was given IV Zofran. She received IV Toradol. She was eventually given a dose of IV morphine. She was given a second dose of IV Zofran. She received IV Unasyn as antibiotic coverage. I did speak with GI, Dr. Ascencio. He suggested an enema. If the patient had relief, she could likely go home, if not, she might require a hospital stay for a bowel regimen and cleanout. Patient was given a milk and molasses enema without any relief. She had persistent right sided abdominal pain. Given her presentation, given her findings of diverticulitis coupled with constipation. Given the lack of improvement in her constipation despite her excessive laxative use at home, hospitalization was felt warranted. I spoke with the patient and case management, the on-call hospitalist was consulted. DISPOSITION: Patient's presentation and findings warrant a hospital stay. Past Med/Surg History Medical History Anaplasmosis [facility] admission 10/2019 > discharged from [facility] care, chronic fatigue Anxiety Chronic idiopathic urticaria DDD (degenerative disc disease) Lower back Diverticular disease Fibromyalgia GERD (gastroesophageal reflux disease) controlled Hiatal hernia History of COVID-19 04/01/2021 IBS (irritable bowel syndrome) Migraine controlled Obesity Peptic ulcer 2018 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 01/2020 > per patient, not found on f/u imaging >S cerebral angiogram report 03/2020 unremarkable cerebral angiogram, bilat tool grinder normal variant, no signs of intracranial aneurysms and pt to RTC PRN TMJ (temporomandibular joint syndrome) Urinary tract infection Frequent Surgical History H/O: hysterectomy Partial (2003) History of back surgery x 2. 2016. 08/27/2020 L4-L5 decompression and fusion, hardware removal L5-S1: Grade 2 view, MAC#3, ETT#7.0 atraumatic x 1. History of cardiac cath 2014 ([facility]) > normal coronary anatomy History of colonoscopy Multiple History of esophagogastroduodenoscopy (EGD) History of TMJ disorder x2 Hx of cholecystectomy Hx of oophorectomy B/L salpingectomy, oophorectomy with convert to mini laparotomy, IVELISSE, appe ndectomy (02/06/20): Grade 2 view, MAC#3, ETT 7.0 at [facility] Family History Other Cancer Diabetes Stroke Social History Smoking Status: Never smoker Second Hand Exposure: No; Do You Dip or Chew Tobacco: No; Hx Alcohol Use: No Hx Substance Use: No Preferred Language: Romanian Communication Ability: Effective Aircraft Part Assembler Required: No Beliefs That Will Affect Care: None marital status: Current Living Situation: Spouse and Other Current Living Situation Comment: lives with spouse and her mother- takes care of her mother Feels Safe at Home: Yes Assistive Devices: Walker Allergies Allergies Allergy/AdvReac Type Severity Reaction Status Date / Time Bactrim AdvReac Unknown Yeast Verified 12/13/16 00:18 infection sulfamethoxazole AdvReac Unknown Yeast Verified 07/18/21 06:39 infection trimethoprim AdvReac Unknown Yeast Verified 07/18/21 06:39 infection Home Meds Home Medications Medication Instructions Recorded Confirmed baclofen 10 mg tablet 10 mg PO BID PRN Muscle Spasm 10/31/19 07/18/21 diazepam 2 mg tablet 2 mg PO HS PRN Sleep 10/31/19 07/18/21 hyoscyamine sulfate 0.125 mg tablet 0.125 mg PO BID 10/31/19 07/18/21 multivitamin 1 tab PO QAM 10/31/19 07/18/21 pantoprazole 40 mg tablet,delayed 40 mg PO BID 10/31/19 07/18/21 release pregabalin 75 mg capsule 75 mg PO TID 10/31/19 07/18/21 trazodone 50 mg tablet 100 mg PO HS 10/31/19 07/18/21 lactobacillus combination no.4 3 3,000 mmu cells PO BID 01/14/20 07/18/21 billion cell capsule (Probiotic) methocarbamol 750 mg tablet 750 mg PO QID 01/14/20 07/18/21 citalopram 20 mg tablet 20 mg PO QAM 07/30/20 07/18/21 cetirizine 10 mg tablet 10 mg PO BID 08/12/20 07/18/21 hydroxyzine HCl 25 mg tablet 25 mg PO QID PRN Itching 08/12/20 07/18/21 polyethylene glycol 3350 17 gram 17 g PO BID 08/27/20 07/18/21 oral powder packet (Miralax) ondansetron 4 mg disintegrating 4 mg PO TID PRN Nausea 07/13/21 07/18/21 tablet benzonatate 100 mg capsule 100 mg PO TID PRN Cough 07/18/21 07/18/21 cyanocobalamin (vitamin B-12) 1,000 mcg PO DAILY 07/18/21 07/18/21 1,000 mcg tablet (Vitamin B-12) estradiol 0.1 mg/24 hr semiweekly 0.1 mg transdermal UD 07/18/21 07/18/21 transdermal patch evening primrose oil 500 mg capsule 1,000 mg PO BID 07/18/21 07/18/21 famotidine 20 mg tablet 20 mg PO DAILY 07/18/21 07/18/21 magnesium 100 mg tablet 100 mg PO DAILY 07/18/21 07/18/21 metoclopramide HCl 5 mg tablet 5 mg PO BID PRN Nausea 07/18/21 07/18/21 rizatriptan 10 mg disintegrating 10 mg PO UD 07/18/21 07/18/21 tablet (Maxalt-ART TEACHER) Previous Rx's Medication Instructions Recorded docusate sodium 100 mg capsule 100 mg PO BID #100 caps 02/06/20 oxycodone 5 mg tablet 5 mg PO Q6H PRN pain, severe #30 07/19/21 tabs tramadol 50 mg tablet 50 mg PO Q6H PRN pain, moderate 07/19/21 #30 tabs lactulose 10 gram/15 mL (15 mL) 20 g (30 mL) PO DAILY PRN 07/21/21 oral solution constipation #600 mL diazepam 5 mg tablet (Valium) 5 mg PO Q8H PRN muscle spasm #6 12/03/21 tabs oxycodone 5 mg tablet 5 - 10 mg PO Q6H PRN pain #20 tabs 12/03/21 Results & Data (ED) Vital Signs Vital Signs - 24 hr 09/26/22 11:25 09/26/22 12:12 09/26/22 12:34 Temperature 36.4 C L Temperature Source Temporal Artery Scan Pulse Rate 104 H 84 Pulse Rate [Right Apical] 91 H Pulse Rate from SpO2 Sensor Respiratory Rate 19 16 Respiratory Effort / Characteristics Non-Labored Spontaneous Non-Labored Spontaneous Respiratory Depth Normal Normal Respiratory Pattern Regular Blood Pressure 118/72 Blood Pressure [Left Arm] 124/82 Blood Pressure Mean 87 Blood Pressure Mean [Left Arm] 96 Pulse Oximetry 96 95 Oxygen Delivery Method Room Air Room Air Sepsis Recent Fever Within 48 Hours No Sepsis New/Unexplained Change in Mental Status No Sepsis Action Taken by Nursing No Action Required 09/26/22 14:11 09/26/22 12:33 09/26/22 12:40 Temperature Temperature Source Pulse Rate 85 86 Pulse Rate [Right Apical] 90 Pulse Rate from SpO2 Sensor 85 85 Respiratory Rate 16 23 19 Respiratory Effort / Characteristics Non-Labored Respiratory Depth Respiratory Pattern Blood Pressure Blood Pressure [Left Arm] 127/85 Blood Pressure Mean Blood Pressure Mean [Left Arm] 99 Pulse Oximetry 91 94 93 Oxygen Delivery Method Room Air Sepsis Recent Fever Within 48 Hours Sepsis New/Unexplained Change in Mental Status Sepsis Action Taken by Nursing 09/26/22 12:50 09/26/22 13:00 09/26/22 13:10 Temperature Temperature Source Pulse Rate 80 85 83 Pulse Rate [Right Apical] Pulse Rate from SpO2 Sensor 81 84 83 Respiratory Rate 23 24 19 Respiratory Effort / Characteristics Respiratory Depth Respiratory Pattern Blood Pressure Blood Pressure [Left Arm] Blood Pressure Mean Blood Pressure Mean [Left Arm] Pulse Oximetry 93 92 92 Oxygen Delivery Method Sepsis Recent Fever Within 48 Hours Sepsis New/Unexplained Change in Mental Status Sepsis Action Taken by Nursing 09/26/22 13:20 09/26/22 13:33 09/26/22 13:40 Temperature Temperature Source Pulse Rate 81 76 85 Pulse Rate [Right Apical] Pulse Rate from SpO2 Sensor 81 76 85 Respiratory Rate 15 15 15 Respiratory Effort / Characteristics Respiratory Depth Respiratory Pattern Blood Pressure Blood Pressure [Left Arm] Blood Pressure Mean Blood Pressure Mean [Left Arm] Pulse Oximetry 94 92 92 Oxygen Delivery Method Sepsis Recent Fever Within 48 Hours Sepsis New/Unexplained Change in Mental Status Sepsis Action Taken by Nursing 09/26/22 13:50 09/26/22 14:00 09/26/22 14:10 Temperature Temperature Source Pulse Rate 87 91 H 90 Pulse Rate [Right Apical] Pulse Rate from SpO2 Sensor 87 91 H 90 Respiratory Rate 20 21 20 Respiratory Effort / Characteristics Respiratory Depth Respiratory Pattern Blood Pressure Blood Pressure [Left Arm] Blood Pressure Mean Blood Pressure Mean [Left Arm] Pulse Oximetry 93 93 91 Oxygen Delivery Method Sepsis Recent Fever Within 48 Hours Sepsis New/Unexplained Change in Mental Status Sepsis Action Taken by Nursing 09/26/22 14:20 09/26/22 14:30 09/26/22 14:40 Temperature Temperature Source Pulse Rate 88 85 81 Pulse Rate [Right Apical] Pulse Rate from SpO2 Sensor 88 86 81 Respiratory Rate 21 15 18 Respiratory Effort / Characteristics Respiratory Depth Respiratory Pattern Blood Pressure Blood Pressure [Left Arm] Blood Pressure Mean Blood Pressure Mean [Left Arm] Pulse Oximetry 91 92 92 Oxygen Delivery Method Sepsis Recent Fever Within 48 Hours Sepsis New/Unexplained Change in Mental Status Sepsis Action Taken by Nursing 09/26/22 14:50 09/26/22 15:14 09/26/22 15:20 Temperature Temperature Source Pulse Rate 82 90 91 H Pulse Rate [Right Apical] Pulse Rate from SpO2 Sensor 82 Respiratory Rate 16 20 21 Respiratory Effort / Characteristics Respiratory Depth Respiratory Pattern Blood Pressure Blood Pressure [Left Arm] Blood Pressure Mean Blood Pressure Mean [Left Arm] Pulse Oximetry 90 Oxygen Delivery Method Sepsis Recent Fever Within 48 Hours Sepsis New/Unexplained Change in Mental Status Sepsis Action Taken by Nursing 09/26/22 15:30 09/26/22 15:40 09/26/22 15:50 Temperature Temperature Source Pulse Rate 89 90 90 Pulse Rate [Right Apical] Pulse Rate from SpO2 Sensor 90 89 Respiratory Rate 18 19 13 Respiratory Effort / Characteristics Respiratory Depth Respiratory Pattern Blood Pressure Blood Pressure [Left Arm] Blood Pressure Mean Blood Pressure Mean [Left Arm] Pulse Oximetry 91 90 Oxygen Delivery Method Sepsis Recent Fever Within 48 Hours Sepsis New/Unexplained Change in Mental Status Sepsis Action Taken by Nursing 09/26/22 16:00 09/26/22 16:10 09/26/22 16:21 Temperature Temperature Source Pulse Rate 91 H 96 H 95 H Pulse Rate [Right Apical] Pulse Rate from SpO2 Sensor 91 H 96 H 94 H Respiratory Rate 19 19 18 Respiratory Effort / Characteristics Respiratory Depth Respiratory Pattern Blood Pressure Blood Pressure [Left Arm] Blood Pressure Mean Blood Pressure Mean [Left Arm] Pulse Oximetry 92 93 92 Oxygen Delivery Method Sepsis Recent Fever Within 48 Hours Sepsis New/Unexplained Change in Mental Status Sepsis Action Taken by Nursing 09/26/22 16:30 09/26/22 16:40 09/26/22 17:55 Temperature Temperature Source Pulse Rate 97 H 97 H Pulse Rate [Right Apical] Pulse Rate from SpO2 Sensor 97 H 97 H 98 H Respiratory Rate 19 21 Respiratory Effort / Characteristics Respiratory Depth Respiratory Pattern Blood Pressure Blood Pressure [Left Arm] Blood Pressure Mean Blood Pressure Mean [Left Arm] Pulse Oximetry 92 90 93 Oxygen Delivery Method Sepsis Recent Fever Within 48 Hours Sepsis New/Unexplained Change in Mental Status Sepsis Action Taken by Nursing 09/26/22 18:00 09/26/22 18:00 09/26/22 18:10 Temperature Temperature Source Pulse Rate 93 H 96 H Pulse Rate [Right Apical] Pulse Rate from SpO2 Sensor 94 H 96 H Respiratory Rate 24 17 Respiratory Effort / Characteristics Respiratory Depth Respiratory Pattern Blood Pressure 132/81 Blood Pressure [Left Arm] Blood Pressure Mean 98 Blood Pressure Mean [Left Arm] Pulse Oximetry 93 92 Oxygen Delivery Method Sepsis Recent Fever Within 48 Hours Sepsis New/Unexplained Change in Mental Status Sepsis Action Taken by Intermediate Medications Current Medication List: was personally reviewed by me Laboratory Data Attestation: I reviewed the patient's lab results. 09/26/22 11:57 09/26/22 11:57 Lab Results 09/26/22 09/26/22 09/26/22 Range/Units 11:57 11:57 12:17 WBC 8.82 (4.8-10.8) K/ul RBC 4.50 (4.20-5.40) M/uL Hgb 13.5 (12.0-16.0) g/dl Hct 41.5 (37.0-47.0) % MCV 92.2 (80.0-100.0) fL MCH 30.0 (25.0-34.0) pg MCHC 32.5 (32.0-36.0) g/dL RDW Std Deviation 41.5 (36.4-46.3) fL RDW Coeff of [place] 12.4 (11.5-14.5) % Plt Count 258 (130-400) K/uL MPV 10.7 (9.4-12.4) fL Immature Gran % (Auto) 0.3 % Neut % (Auto) 54.6 % Lymph % (Auto) 33.8 % [place] % (Auto) 8.7 % Eos % (Auto) 1.9 % Baso % (Auto) 0.7 % Neut # (Auto) 4.81 (1.40-6.50) K/uL Lymph # (Auto) 2.98 (1.2-3.4) K/uL [place] # (Auto) 0.77 H (0.11-0.59) K/uL Eos # (Auto) 0.17 (0-0.50) K/uL Baso # (Auto) 0.06 (0-0.2) K/uL Immature Gran # (Auto) 0.03 (0.01-0.20) K/uL Sodium 140 (136-145) mmol/L Potassium 4.1 (3.5-5.1) mmol/L Chloride 106 (98-107) mmol/L Carbon Dioxide 26 (21-32) mmol/L Anion Gap 8 (3-11) BUN 16 (6-23) mg/dl Creatinine 1.06 (0.6-1.2) mg/dl Est Cr Clr Drug Dosing 74.2 ml/min Est GFR ( Amer) 68.0 ml/min Est GFR (Non-Af Amer) 58.7 ml/min BUN/Creatinine Ratio 15.1 (10-20) Glucose 83 (70-99(Fasting)) mg/dl Calcium 9.8 (8.6-10.3) mg/dl Total Bilirubin 0.6 (0.2-1.0) mg/dl AST 44 H (13-39) U/L ALT 31 (7-52) U/L Alkaline Phosphatase 93 (34-104) U/L Total Protein 8.4 H (6.0-8.3) gm/dl Albumin 4.7 (3.4-5.0) gm/dl Globulin 3.7 (2.5-4.0) gm/dl Albumin/Globulin Ratio 1.3 (0.9-2) Lipase 35 (11-82) U/L SARS-CoV-2, RNA, NAAT NEGATIVE (NEGATIVE) Administered Medications Discontinued Medications Sodium Chloride (Nss 1000ml) 1,000 mls @ 999 mls/hr IV .Q1H1M ONE Stop: 09/26/22 13:02 Last Infusion: 09/26/22 13:16 Dose: 0 mls/hr Documented By: Admin: 09/26/22 12:15 Dose: 999 mls/hr Documented By: LISSY Ioversol (Optiray 320 100ml) 90 ml IV ONCE ONE Stop: 09/26/22 15:13 Last Admin: 09/26/22 15:12 Dose: 90 ml Documented By: ZACHARY Ketorolac Tromethamine (Ketorolac Tromethamine 15 Mg/Ml Vial) 15 mg IV NOW STA Stop: 09/26/22 12:03 Last Admin: 09/26/22 12:16 Dose: 15 mg Documented By: LISSY Morphine Sulfate (Morphine Sulfate 4 Mg/Ml 1 Ml Carp\\Vial) 4 mg IV NOW STA Stop: 09/26/22 17:32 Last Admin: 09/26/22 17:41 Dose: 4 mg Documented By: JAN Ondansetron HCl (Ondansetron Inj 2 Mg/Ml 2 Ml Vial) 4 mg IV NOW STA Stop: 09/26/22 12:03 Last Admin: 09/26/22 12:15 Dose: 4 mg Documented By: LISSY Ondansetron HCl (Ondansetron Inj 2 Mg/Ml 2 Ml Vial) 4 mg IV NOW STA Stop: 09/26/22 17:32 Last Admin: 09/26/22 17:41 Dose: 4 mg Documented By: JAN Imaging Data Radiologist's Impression: Abdomen/Pelvis CT 09/26/22 12:02 CT abd pelvis IV con only CLINICAL HISTORY: r abd pain, no bm for over week TECHNIQUE: Helical axial images of the abdomen and pelvis were obtained and displayed. Automated dose lowering techniques and/or adjustment according to patient size were utilized for this exam. This exam was performed with intravenous contrast. CT DOSE: 1241.28 mGy.cm COMPARISON: Comparison is made to CT abdomen pelvis 10/31/2019 FINDINGS: Lower chest: Bibasilar atelectasis versus scarring is seen. Liver: Hepatic steatosis is noted. Gallbladder and biliary tree: Patient is status post cholecystectomy. No intra- or extrahepatic biliary ductal dilation. Pancreas: Unremarkable, no focal lesions. Spleen: Mild prominence of the spleen is seen. Adrenals: Unremarkable. Kidneys and ureters: Unremarkable. Bladder: Unremarkable. Reproductive organs: Patient is status post hysterectomy. Previous seen noted left ovarian lesion is no longer seen. Bowel: Diverticulosis is seen with a prominent focus of stool in a sigmoid diverticulum (series 3 image 346). No inspissated stool is seen. Lymph nodes Retroperitoneal: Unremarkable. Pelvic: Unremarkable. Mesenteric: Unremarkable. Peritoneum: Trace fat stranding is seen about a distal loop of sigmoid colon. There is trace pelvic free fluid. No pneumoperitoneum or drainable fluid collection is seen. Vessels: Unremarkable. Abdominal wall: Unremarkable. Bones: Posterior fixation hardware spans L2-L5. IMPRESSION: 1. No evidence of inspissated stool. There is a prominent distal sigmoid diverticulum the small amount of surrounding fat stranding, clinical correlation for symptoms of diverticulitis is recommended. 2. Hepatic steatosis. 3. Splenomegaly. ACT 112: Negative or not required by law. Electronically signed by: Maury Orozco M.D. 09/26/2022 3:42 PM Discharge Plan Visit Data Chief Complaint: Constipation Stated Complaint: CONSTIPATION ED Provider: Aristides Sarmiento Discharge Problem: Right sided abdominal pain, Diverticulitis, Constipation, Nausea Patient Disposition: Admitted As Inpatient Condition: Fair Forms Stand Alone Forms: My [facility] [employer] Prescriptions Prescriptions: No Action methocarbamol 750 mg Tablet 750 mg PO QID Probiotic 3 billion cell Capsule 3,000 mmu cells PO BID docusate sodium 100 mg Capsule 100 mg PO BID Qty: 100 0RF diazepam 2 mg tablet 2 mg PO HS PRN (Reason: Sleep) hyoscyamine sulfate 0.125 mg tablet 0.125 mg PO BID multivitamin Tablet 1 tab PO QAM pantoprazole 40 mg tablet,delayed release (DR/EC) 40 mg PO BID pregabalin 75 mg capsule 75 mg PO TID baclofen 10 mg tablet 10 mg PO BID PRN (Reason: Muscle Spasm) trazodone 50 mg tablet 100 mg PO HS oxycodone 5 mg tablet 5 - 10 mg PO Q6H PRN (Reason: pain) Qty: 20 0RF Rx Instructions: Initial Treatment diazepam [Valium] 5 mg tablet 5 mg PO Q8H PRN (Reason: muscle spasm) Qty: 6 0RF Rx Instructions: INITIAL THERAPY citalopram 20 mg Tablet 20 mg PO QAM cetirizine 10 mg Tablet 10 mg PO BID hydroxyzine HCl 25 mg Tablet 25 mg PO QID PRN (Reason: Itching) polyethylene glycol 3350 [Miralax] 17 gram Powder In Packet 17 g PO BID ondansetron 4 mg Tablet,Disintegrating 4 mg PO TID PRN (Reason: Nausea) evening primrose oil 500 mg Capsule 1,000 mg PO BID estradiol 0.1 mg/24 hr patch semiweekly 0.1 mg transdermal UD Rx Instructions: Twice weekly cyanocobalamin (vitamin B-12) [Vitamin B-12] 1,000 mcg Tablet 1,000 mcg PO DAILY famotidine 20 mg tablet 20 mg PO DAILY benzonatate 100 mg capsule 100 mg PO TID PRN (Reason: Cough) rizatriptan [Maxalt-ART TEACHER] 10 mg Tablet,Disintegrating 10 mg PO UD Rx Instructions: Take 1 tab by mouth as needed for migraine. May repeat every 2 hours. No more than 3 pills in 24 hours. magnesium 100 mg Tablet 100 mg PO DAILY metoclopramide HCl 5 mg tablet 5 mg PO BID PRN (Reason: Nausea) oxycodone 5 mg tablet 5 mg PO Q6H PRN (Reason: pain, severe) Qty: 30 0RF tramadol 50 mg tablet 50 mg PO Q6H PRN (Reason: pain, moderate) Qty: 30 0RF lactulose 10 gram/15 mL (15 mL) solution 20 g PO DAILY PRN (Reason: constipation) Qty: 600 1RF Referrals Referrals: Jonny Andino MD [Primary Care Provider] -
[2022-09-26 12:25] LABS: Basophils # (auto) 0.06 K/uL (0-0.2); Basophils % (auto) 0.7 %; Eosinophils # (auto) 0.17 K/uL (0-0.50); Eosinophils % (auto) 1.9 %; Hematocrit (blood only) 41.5 % (37.0-47.0); Hemoglobin 13.5 g/dl (12.0-16.0); Immature Granulocytes # (auto) 0.03 K/uL (0.01-0.20); Immature Granulocytes % (auto) 0.3 %; Lymphocytes # (auto) 2.98 K/uL (1.2-3.4); Lymphocytes % (auto) 33.8 %; Mean Corpuscular Hgb Conc 32.5 g/dL (32.0-36.0); Mean Corpuscular Volume 92.2 fL (80.0-100.0); Mean Platelet Volume 10.7 fL (9.4-12.4); Monocytes # (auto) 0.77 K/uL (0.11-0.59); Monocytes % (auto) 8.7 %; Neutrophils # (auto) 4.81 K/uL (1.40-6.50); Neutrophils % (auto) 54.6 %; Platelet Count 258 K/uL (130-400); RDW Coefficient of Variation 12.4 % (11.5-14.5); RDW Standard Deviation 41.5 fL (36.4-46.3); White Blood Count 8.82 K/ul (4.8-10.8)
[2022-09-26 12:45] LABS: Albumin Globulin Ratio 1.3 (0.9-2); Albumin Level 4.7 gm/dl (3.4-5.0); BUN Creatinine Ratio 15.1 (10-20); Bilirubin,Total 0.6 mg/dl (0.2-1.0); Calcium 9.8 mg/dl (8.6-10.3); Creatinine Clr Calc Pharmacy 74.2 ml/min; Est GFR (Non-African American) 58.7 ml/min; Globulin 3.7 gm/dl (2.5-4.0); Potassium 4.1 mmol/L (3.5-5.1); Total Protein 8.4 gm/dl (6.0-8.3)
[2022-09-26] MEDS ORDERED: OPTIRAY 320 100ml IV ONE (15:12)
--- NOTE | 2022-09-26 15:43 | CT Scan Report ---
CT abd pelvis IV con only CLINICAL HISTORY: r abd pain, no bm for over week TECHNIQUE: Helical axial images of the abdomen and pelvis were obtained and displayed. Automated dose lowering techniques and/or adjustment according to patient size were utilized for this exam. This e xam was performed with intravenous contrast. CT DOSE: 1241.28 mGy.cm COMPARISON: Comparison is made to CT abdomen pelvis 10/31/2019 FINDINGS: Lower chest: Bibasilar atelectasis versus scarring is seen. Liver: Hepatic steatosis is noted. Gallbladder and biliary tree: Patient is status post cholecystectomy. No intra- or extrahepatic bilia ry ductal dilation. Pancreas: Unremarkable, no focal lesions. Spleen: Mild prominence of the spleen is seen. Adrenals: Unremarkable. Kidneys and ureters: Unremarkable. Bladder: Unremarkable. Reproductive organs: Patient is status post hysterectomy. Previous seen noted left ovarian lesion is no longer seen. Bowel: Diverticulosis is seen with a prominent focus of stool in a sigmoid diverticulum (series 3 delta ge 346). No inspissated stool is seen. Lymph nodes Retroperitoneal: Unremarkable. Pelvic: Unremarkable. Mesenteric: Unremarkable. Peritoneum: Trace fat stranding is seen about a distal loop of sigmoid colon. There is trace pelvic f ree fluid. No pneumoperitoneum or drainable fluid collection is seen. Vessels: Unremarkable. Abdominal wall: Unremarkable. Bones: Posterior fixation hardware spans L2-L5. IMPRESSION: 1. No evidence of inspissated stool. There is a prominent distal sigmoid diverticulum the small amou nt of surrounding fat stranding, clinical correlation for symptoms of diverticulitis is recommended. 2. Hepatic steatosis. 3. Splenomegaly. ACT 112: Negative or not required by law. Electronically signed by: Maury Orozco M.D. 09/26/2022 3:42 PM
[2022-09-26] MEDS ORDERED: MoRPHine SULFATE 4 MG/ML 1 ML CARP\\VIAL IV STA (17:31)
[2022-09-26] MEDS ORDERED: AMPICILLIN/SULBACTAM SOD 3,000 MG in 0.9 % SODIUM CHLORIDE 100 ML IV STA (17:33)
--- NOTE | 2022-09-26 18:27 | History & Physical Report ---
Date of Service September 26, 2022 Assessment & Plan (1) Right sided abdominal pain: (2) Diverticulitis: Plan: -Based on imaging -Will place on bowel rest and IV fluids, zosyn for now. (3) Constipation: Plan: -Acute on chronic. Severe currently. Sees Dr Tom outpatient -s/p enema in ER with no effect. Will start golytely -consult GI (4) Nausea: Plan: -zofran PRN Plan DVT ppx SQ heparin Medication Reconciliation -Review and order home medications as appropriate Code -Presumed to be full History of Present Illness Chief Complaint: constipation Primary Care Provider: Jonny Andino MD Ms Sally Oconnell is a 57 year old female with history of chronic constipation (last had a colonoscopy 07/08/2020 which showed a 2mm polyp in descending colon, moderate diverticulosis in sigmoid colon, narrowing of colon in association with diverticular opening, internal hemorrhoids, TMJ, Degenerative disc disease who recently had back surgery 6 weeks ago presents today with severe constipation with no significant bowel movement in the past 10 days. Patient feels very bloated "like I am 9 months " with nausea, belching resulting in poor oral intake. She suffers from chronic constipation but never this bad. She takes dulcolax (2 pills), probiotics and 1 capful of miralax a day. She also takes lactulose as needed and recently drank an entire bottle. Still no bowel movement. ER course- zofran 4mg x 2, morphine 4mg IV, toradol 15mg IV, NSS 1 L, enema resulting in some small pellets of stool CT A/P with contrast shows no inspissated stool, diverticulosis of sigmoid with small surrounding stranding suggestive of diverticulitis. Allergies Allergy/AdvReac Type Severity Reaction Status Date / Time Bactrim AdvReac Unknown Yeast Verified 12/13/16 00:18 infection sulfamethoxazole AdvReac Unknown Yeast Verified 07/18/21 06:39 infection trimethoprim AdvReac Unknown Yeast Verified 07/18/21 06:39 infection Home Medications Medication Instructions Recorded Confirmed Type baclofen 10 mg tablet 10 mg PO BID PRN Muscle Spasm 10/31/19 07/18/21 History diazepam 2 mg tablet 2 mg PO HS PRN Sleep 10/31/19 07/18/21 History hyoscyamine sulfate 0.125 mg tablet 0.125 mg PO BID 10/31/19 07/18/21 History multivitamin 1 tab PO QAM 10/31/19 07/18/21 History pantoprazole 40 mg tablet,delayed 40 mg PO BID 10/31/19 07/18/21 History release pregabalin 75 mg capsule 75 mg PO TID 10/31/19 07/18/21 History trazodone 50 mg tablet 100 mg PO HS 10/31/19 07/18/21 History lactobacillus combination no.4 3 3,000 mmu cells PO BID 01/14/20 07/18/21 Histor y billion cell capsule (Probiotic) methocarbamol 750 mg tablet 750 mg PO QID 01/14/20 07/18/21 History docusate sodium 100 mg capsule 100 mg PO BID #100 caps 02/06/20 07/18/21 Rx citalopram 20 mg tablet 20 mg PO QAM 07/30/20 07/18/21 History cetirizine 10 mg tablet 10 mg PO BID 08/12/20 07/18/21 History hydroxyzine HCl 25 mg tablet 25 mg PO QID PRN Itching 08/12/20 07/18/21 History polyethylene glycol 3350 17 gram 17 g PO BID 08/27/20 07/18/21 History oral powder packet (Miralax) ondansetron 4 mg disintegrating 4 mg PO TID PRN Nausea 07/13/21 07/18/21 History tablet benzonatate 100 mg capsule 100 mg PO TID PRN Cough 07/18/21 07/18/21 History cyanocobalamin (vitamin B-12) 1,000 mcg PO DAILY 07/18/21 07/18/21 History 1,000 mcg tablet (Vitamin B-12) estradiol 0.1 mg/24 hr semiweekly 0.1 mg transdermal UD 07/18/21 07/18/21 History transdermal patch evening primrose oil 500 mg capsule 1,000 mg PO BID 07/18/21 07/18/21 History famotidine 20 mg tablet 20 mg PO DAILY 07/18/21 07/18/21 History magnesium 100 mg tablet 100 mg PO DAILY 07/18/21 07/18/21 History metoclopramide HCl 5 mg tablet 5 mg PO BID PRN Nausea 07/18/21 07/18/21 History rizatriptan 10 mg disintegrating 10 mg PO UD 07/18/21 07/18/21 History tablet (Maxalt-[employer] HAR[employer]) oxycodone 5 mg tablet 5 mg PO Q6H PRN pain, severe #30 07/19/21 Rx tabs tramadol 50 mg tablet 50 mg PO Q6H PRN pain, moderate 07/19/21 Rx #30 tabs lactulose 10 gram/15 mL (15 mL) 20 g (30 mL) PO DAILY PRN 07/21/21 Rx oral solution constipation #600 mL diazepam 5 mg tablet (Valium) 5 mg PO Q8H PRN muscle spasm #6 12/03/21 Rx tabs oxycodone 5 mg tablet 5 - 10 mg PO Q6H PRN pain #20 tabs 12/03/21 Rx Past Med/Surg History Medical History Anaplasmosis [facility] admission 10/2019 > discharged from [facility] care, chronic fatigue Anxiety Chronic idiopathic urticaria DDD (degenerative disc disease) Lower back Diverticular disease Fibromyalgia GERD (gastroesophageal reflux disease) controlled Hiatal hernia History of COVID-19 04/01/2021 IBS (irritable bowel syndrome) Migraine controlled Obesity Peptic ulcer 2018 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 01/2020 > per patient, not found on f/u imaging >[facility] cerebral angiogram report 03/2020 unremarkable cerebral angiogram, 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 2016. 08/27/2020 L4-L5 decompression and fusion, hardware removal L5-S1: Grade 2 view, MAC#3, ETT#7.0 atraumatic x 1. History of cardiac cath 2014 ([facility]) > normal coronary anatomy History of colonoscopy Multiple History of esophagogastroduodenoscopy (EGD) History of TMJ disorder x2 Hx of cholecystectomy Hx of oophorectomy B/L salpingectomy, oophorectomy with convert to mini laparotomy, IVELISSE, appendectomy (02/06/20): Grade 2 view, MAC#3, ETT 7.0 at [facility] Family History Other Cancer Diabetes Stroke Social History Smoking Status: Never smoker Second Hand Exposure: No; Do You Dip or Chew Tobacco: No; Hx Alcohol Use: No Hx Substance Use: No Preferred Language: Bahamian Communication Ability: Effective Sand Filler Required: No Beliefs That Will Affect Care: None marital status: Current Living Situation: Spouse and Other Current Living Situation Comment: lives with spouse and her mother- takes care of her mother Feels Safe at Home: Yes Assistive Devices: Walker Review of Systems Review of Systems: As above in HPI, remaining ROS otherwise negative Physical Exam Physical Exam: appears stated age, well nourished, no acute distress ENMT: Head is normocephalic, atraumatic, mucous membrane moist Respiratory: clear bilaterally, no wheezing/rhonchi/rales Cardiovascular: regular rate and rhythm, no murmurs/rubs/gallops Gastrointestinal (Abdomen): soft, hypoactive bowel sounds, obese Musculoskeletal: No edema, no cyanosis or clubbing Skin: no rash, no redness, no ulcer noted on exposed skin Neurologic: awake, alert, spontaneously moving extremities Psychiatric: normal affect, speech linear, non pressured Results & Data Results & Data Vital Signs (Past 12 Hours) Vital Signs Temp Pulse Pulse Resp BP BP Pulse Ox 09/26/22 18:10 96 H 17 92 09/26/22 18:00 93 H 24 93 09/26/22 18:00 132/81 09/26/22 17:55 93 09/26/22 16:40 97 H 21 90 09/26/22 16:30 97 H 19 92 09/26/22 16:21 95 H 18 92 09/26/22 16:10 96 H 19 93 09/26/22 16:00 91 H 19 92 09/26/22 15:50 90 13 90 09/26/22 15:40 90 19 91 09/26/22 15:30 89 18 09/26/22 15:20 91 H 21 09/26/22 15:14 90 20 09/26/22 14:50 82 16 90 09/26/22 14:40 81 18 92 09/26/22 14:30 85 15 92 09/26/22 14:20 88 21 91 09/26/22 14:10 90 20 91 09/26/22 14:00 91 H 21 93 09/26/22 13:50 87 20 93 09/26/22 13:40 85 15 92 09/26/22 13:33 76 15 92 09/26/22 13:20 81 15 94 09/26/22 13:10 83 19 92 09/26/22 13:00 85 24 92 09/26/22 12:50 80 23 93 09/26/22 12:40 86 19 93 09/26/22 12:33 85 23 94 09/26/22 14:11 90 16 127/85 91 09/26/22 12:34 84 09/26/22 12:12 91 H 16 124/82 95 09/26/22 11:25 36.4 C L 104 H 19 118/72 96 O2 Del Method 09/26/22 18:10 09/26/22 18:00 09/26/22 18:00 09/26/22 17:55 09/26/22 16:40 09/26/22 16:30 09/26/22 16:21 09/26/22 16:10 09/26/22 16:00 09/26/22 15:50 09/26/22 15:40 09/26/22 15:30 09/26/22 15:20 09/26/22 15:14 09/26/22 14:50 09/26/22 14:40 09/26/22 14:30 09/26/22 14:20 09/26/22 14:10 09/26/22 14:00 09/26/22 13:50 09/26/22 13:40 09/26/22 13:33 09/26/22 13:20 09/26/22 13:10 09/26/22 13:00 09/26/22 12:50 09/26/22 12:40 09/26/22 12:33 09/26/22 14:11 Room Air 09/26/22 12:34 09/26/22 12:12 Room Air 09/26/22 11:25 Room Air (3) Constipation Constipation type: unspecified constipation type Qualified Code(s): K59.00 - Constipation, unspecified
[2022-09-26] MEDS ORDERED: PIPERACILLIN/TAZOBACTAM 4.5 GM (over 30 mins) IV ONE (19:45)
[2022-09-26] MEDS ORDERED: LAVAGE SOLUTION 4000ML PO SCH (20:15)
[2022-09-26] MEDS: SODIUM CHLORIDE 0.9% 1000ML 1,000 ML IV SCH (20:29)
[2022-09-26] MEDS ORDERED: Nursing to Pharmacy Communication SCH (21:30)
[2022-09-26] MEDS ORDERED: ONDANSETRON 4 MG OD TAB PO PRN (22:16)
[2022-09-26] MEDS ORDERED: hydrOXYzine HCl 25 MG TAB PO PRN (22:16)
[2022-09-26] MEDS: AMITRIPTYLINE HCL 100 MG TAB PO SCH (23:16)
[2022-09-26] MEDS: tiZANidine HCL 4 MG TABLET PO SCH (23:16)
[2022-09-26] MEDS: traZODone HCL 100 MG TAB PO SCH (23:16)
[2022-09-26] MEDS ORDERED: RIZATRIPTAN BENZOATE MLT 10 MG TAB PO PRN (23:27)
[2022-09-27] MEDS: PIPERACILLIN/TAZOBACTAM 4.5 GM in DEXTROSE 5% 100 ML IV SCH ×3 (01:19→17:50)
[2022-09-27 07:06] LABS: Hematocrit (blood only) 35.5 % (37.0-47.0); Hemoglobin 11.6 g/dl (12.0-16.0); Mean Corpuscular Hgb Conc 32.7 g/dL (32.0-36.0); Mean Corpuscular Volume 91.7 fL (80.0-100.0); Mean Platelet Volume 10.8 fL (9.4-12.4); Platelet Count 222 K/uL (130-400); RDW Coefficient of Variation 12.4 % (11.5-14.5); RDW Standard Deviation 41.6 fL (36.4-46.3); Red Blood Count 3.87 M/uL (4.20-5.40); White Blood Count 6.23 K/ul (4.8-10.8)
[2022-09-27 07:21] LABS: Albumin Globulin Ratio 1.2 (0.9-2); Albumin Level 3.8 gm/dl (3.4-5.0); BUN Creatinine Ratio 12.2 (10-20); Bilirubin,Total 0.7 mg/dl (0.2-1.0); Calcium 8.8 mg/dl (8.6-10.3); Creatinine Clr Calc Pharmacy 71.5 ml/min; Est GFR (African American) 61.6 ml/min; Est GFR (Non-African American) 53.1 ml/min; Globulin 3.1 gm/dl (2.5-4.0); Magnesium 2.2 mg/dl (1.7-2.4); Phosphorus 4.3 mg/dl (2.5-4.9); Potassium 4.3 mmol/L (3.5-5.1); Total Protein 6.9 gm/dl (6.0-8.3)
[2022-09-27] MEDS: SODIUM CHLORIDE 0.9% 1000ML 1,000 ML IV SCH ×2 (07:31→17:29)
[2022-09-27] MEDS: MAGNESIUM OXIDE 400 MG TAB PO SCH (08:56)
[2022-09-27] MEDS: POLYETHYLENE (MIRALAX) 17 GM PACK PO SCH ×2 (08:56→20:43)
[2022-09-27] MEDS: tiZANidine HCL 4 MG TABLET PO SCH ×2 (08:57→20:44)
[2022-09-27] MEDS: ADVANCED PROBIOTIC 1250 MG CAPSULE PO SCH ×2 (08:57→20:43)
[2022-09-27] MEDS: CYANOCOBALAMIN (B-12) 500 MCG TABLET PO SCH (08:58)
[2022-09-27] MEDS: DOCUSATE SODIUM 100 MG CAP PO SCH ×2 (08:58→20:44)
[2022-09-27] MEDS: HYOSCYAMINE SULFATE 0.125 MG TAB PO SCH ×2 (08:59→20:43)
[2022-09-27] MEDS: METOCLOPRAMIDE HCL 5 MG TABLET PO PRN ×2 (08:59→20:44)
[2022-09-27] MEDS: FAMOTIDINE 20 MG TAB PO SCH (08:59)
[2022-09-27] MEDS: MULTIVITAMIN TAB PO SCH (08:59)
[2022-09-27] MEDS: PANTOprazole 40 MG TAB PO SCH ×2 (09:00→20:44)
[2022-09-27] MEDS ORDERED: ESTRADIOL 0.1 MG/24hrs TDSY TD SCH (09:00)
[2022-09-27] MEDS: PREGABALIN 75 MG CAP PO SCH ×3 (09:02→20:50)
[2022-09-27] MEDS: ACETAMINOPHEN 325 MG TAB PO PRN (09:05)
[2022-09-27] MEDS ORDERED: PROMETHAZINE HCL 12.5 MG in SODIUM CHLORIDE 0.9% 50 ML IV PRN (10:06)
--- NOTE | 2022-09-27 11:18 | Gastrointestinal Consultation ---
Date of Consultation September 27, 2022 Assessment & Plan (1) Constipation: (2) Diverticular stricture: Symptoms are more typical of diverticular stricture and constipation vs. diverticulitis. No clear indication for antibiotics but OK to continue coverage during impatient stay. Plan 1. Continue enemas, Golytely prep. 2. Antiemetics. 3. KUB tomorrow. 4. OP colonoscopy in 6-8 wks. Our office was notified and asked to contact the pt to schedule. Supervising Physician Co-Signing Physician Notes I performed a history and physical examination of the patient today, including specifically on physical exam - soft abdomen. I have discussed the patient's management with the advanced practitioner. Please refer to the nurse practitioner's note for the documented findings and plan of care. Use bowel prep to cleanse her then start Linzess for maintenance. Recall GI if needed. History of Present Illness Reason for Consultation: Constipation Requesting Physician: Dr Santillan Attending Physician: Marcos Jane MD History of Present Illness Ms. Sally Oconnell is a 57 yr old female pt w a hx of chronic constipation and diverticular stricture who has been passing only small brown liquid BMs w/o a significant BM for 2 wks. Her daily regime at home is 2 capfuls of Miralax and a stool softener daily, adding lactulose if no BM for a few days. She has continu ed this w/o effect and feels very distended. CTAT w IV contrast on arrival w a prominent distal sigmoid diverticulum ? diverticulitis. Pt received a milk of molasses enema and has thus far taken 1/2 of a Golytely bowel prep. Allergies Allergy/AdvReac Type Severity Reaction Status Date / Time Bactrim AdvReac Unknown Yeast Verified 12/13/16 00:18 infection sulfamethoxazole AdvReac Unknown Yeast Verified 09/26/22 19:18 infection trimethoprim AdvReac Unknown Yeast Verified 09/26/22 19:18 infection Home Medications Medication Instructions Recorded Confirmed Type hyoscyamine sulfate 0.125 mg tablet 0.125 mg PO BID 10/31/19 09/26/22 History multivitamin 1 tab PO QAM 10/31/19 09/26/22 History pantoprazole 40 mg tablet,delayed 40 mg PO BID 10/31/19 09/26/22 History release pregabalin 75 mg capsule 75 mg PO TID 10/31/19 09/26/22 History trazodone 50 mg tablet 100 mg PO HS 10/31/19 09/26/22 History lactobacillus combination no.4 3 3,000 mmu cells PO BID 01/14/20 09/26/22 History billion cell capsule (Probiotic) docusate sodium 100 mg capsule 100 mg PO BID #100 caps 02/06/20 09/26/22 Rx cetirizine 10 mg tablet 10 mg PO BID 08/12/20 09/26/22 History hydroxyzine HCl 25 mg tablet 25 mg PO QID PRN Itching 08/12/20 09/26/22 History polyethylene glycol 3350 17 gram 17 g PO BID 08/27/20 09/26/22 History oral powder packet (Miralax) ondansetron 4 mg disintegrating 4 mg PO TID PRN Nausea 07/13/21 09/26/22 History tablet cyanocobalamin (vitamin B-12) 1,000 mcg PO DAILY 07/18/21 09/26/22 History 1,000 mcg tablet (Vitamin B-12) estradiol 0.1 mg/24 hr semiweekly 0.1 mg transdermal UD 07/18/21 09/26/22 History transdermal patch evening primrose oil 500 mg capsule 1,000 mg PO BID 07/18/21 09/26/22 History famotidine 20 mg tablet 20 mg PO DAILY 07/18/21 09/26/22 History magnesium 100 mg tablet 100 mg PO DAILY 07/18/21 09/26/22 History metoclopramide HCl 5 mg tablet 5 mg PO BID PRN Nausea 07/18/21 09/26/22 History rizatriptan 10 mg disintegrating 10 mg PO UD 07/18/21 09/26/22 History tablet (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) lactulose 10 gram/15 mL (15 mL) 20 g (30 mL) PO DAILY PRN 07/21/21 09/26/22 Rx oral solution constipation #600 mL diazepam 5 mg tablet (Valium) 5 mg PO Q8H PRN muscle spasm #6 12/03/21 09/26/22 Rx tabs amitriptyline 100 mg tablet 100 mg PO HS 09/26/22 09/26/22 History tizanidine 4 mg tablet 4 mg PO BID 09/26/22 09/26/22 History Patient History Medical History Anaplasmosis [facility] admission 10/2019 > discharged from [place] specialist care, chronic fatigue Anxiety Chronic idiopathic urticaria DDD (degenerative disc disease) Lower back Diverticular disease Fibromyalgia GERD (gastroesophageal reflux disease) controlled Hiatal hernia History of COVID-19 04/01/2021 IBS (irritable bowel syndrome) Migraine controlled Obesity Peptic ulcer 2018 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 01/2020 > per patient, not found on f/u imaging >[facility] cerebral angiogram report 03/2020 unremarkable cerebral angiogram, 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 2016. 08/27/2020 L4-L5 decompression and fusion, hardware removal L5-S1: Grade 2 view, MAC#3, ETT#7.0 atraumatic x 1. History of cardiac cath 2014 ([facility]) > normal coronary anatomy History of colonoscopy Multiple History of esophagogastroduodenoscopy (EGD) History of TMJ disorder x2 Hx of cholecystectomy Hx of oophorectomy B/L salpingectomy, oophorectomy with convert to mini laparotomy, IVELISSE, appendectomy (02/06/20): Grade 2 view, MAC#3, ETT 7.0 at [facility] Family History Other Cancer Diabetes Stroke Social History Smoking Status: Former smoker Cigarettes Per Day: quit 6 years ago; Second Hand Exposure: No; Do You Dip or Chew Tobacco: No; Tobacco Cessation Education Requested by Patient: No Hx Alcohol Use: No Hx Substance Use: No Preferred Language: Ukrainian Communication Ability: Effective Solution Analyst Required: No Beliefs That Will Affect Care: None marital status: Current Living Situation: Spouse Current Living Situation Comment: lives with spouse and her mother- takes care of her mother Other Information That Helps Us Care for You: No Feels Safe at Home: Yes Safety Concerns: Feels Safe At This Time Assistive Devices: None Review of Systems Review of Systems: ROS: Gen: Denies weakness, fevers, weight loss Eyes: No eye redness, or pain, no recent vision changes Resp: No SOB, no cough Cardio: No palpitations/irregular beats, no chest pain GI: As per HPI otherwise (-). : Denies pain on urination Skin: No jaundice, itching or new rashes M/S: denies red swollen joints or joint pain. Results & Data Vital Signs (Past 12 Hours) Vital Signs Temp Pulse Resp BP Pulse Ox O2 Del Method 09/27/22 07:46 37.0 C 83 14 112/74 98 Room Air Laboratory Results WBC 6.2, Hb 11.6, HCT 35, PLT S222, NA 141, K4.3, CL 108, CO2 27, BUN 14, CR 1.15, glucose 87. AST is 57 otherwise LFTs and lipase are normal Diagnostic Findings CTAP w IV: 1. No evidence of inspissated stool. There is a prominent distal sigmoid diverticulum the small amount of surrounding fat stranding, clinical correlation for symptoms of diverticulitis is recommended. 2. Hepatic steatosis. 3. Splenomegaly. (1) Constipation Constipation type: unspecified constipation type Qualified Code(s): K59.00 - Constipation, unspecified
[2022-09-27] MEDS ORDERED: SOD PHOSPHATE/SOD BIPHOSPHATE ENEMA 132 ML BTL PR STA ×2 (12:00→12:54)
[2022-09-27] MEDS ORDERED: SOD PHOSPHATE/SOD BIPHOSPHATE ENEMA 132 ML BTL PR ONE ×4 (14:00→20:00)
--- NOTE | 2022-09-27 15:05 | Hospitalist Progress Note ---
Date of Service September 27, 2022 Assessment & Plan (1) Right sided abdominal pain: (2) Diverticulitis: Plan: -Based on imaging -Will place on bowel rest and IV fluids, zosyn for now. (3) Constipation: (4) Nausea: Plan This is a 57-year-old female who has a significant past medical history of obesity, prediabetes, peptic ulcer disease, IBS, GERD, constipation, chronic headaches, anxiety, history of lumbar surgery, depression who presented to ED on 09/26/2022 secondary to constipation. 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 Patient started on half of GoLytely prep which made her more nauseated Abdominal pain Severe constipation Abnormal CT scan concerning for diverticulitis Patient admitted to medical Gastroenterology consulted, discussed with Kaelyn MARISCAL who feels symptoms are more typical of a diverticular stricture and constipation as opposed to diverticulitis Given hospitalization we will continue to cover with empiric antibiotics, if remains afebrile, no leukocytosis likely able to d/c antibiotics tomorrow Continue enemas and GoLytely prep per GI -patient did have medium loose bowel movement as of 1500 on 09/27 per nurse Tad VALDEZ in a.m. CT abd/pelvis: No evidence of inspissated stool. There is a prominent distal sigmoid diverticulum the small amount of surrounding fat stranding, clinical correlation for symptoms of diverticulitis is recommended. she will need OP cscope in 6-8 weeks last c scope was 2020 -inflammatory tissue on biopsy, diverticulosis GERD hx of PUD continue PPI Depression/anx Continue amitriptyline and trazodone Fibromyalgia Chronic headache History of lumbar fusion Continue tizanidine and Lyrica Dvt Ppx: SQ Lovenox Dispo: pt not yet medically stable for d/c FULL CODE PCP: Dr. Angel Pt was seen and examined in collaboration with DR. Jane, please see addendum A total of 55 was spent coordinating, documenting, and providing care for this patient excluding time spent in the performance of separately billed services. This included personally viewing all current laboratories and imaging studies, medication reconciliation, outpatient chart review, and discussion with specialists. Admission and Anticipated Discharge Date Admission Date: September 26, 2022 Supervising Physician Co-Signing Physician Notes Patient is seen and examined at bedside. States having constipation, abdominal discomfort and intermittent nausea. Denies any chest pain, dyspnea. On exam patient is obese, no apparent distress, normocephalic atraumatic, EOMI, normal breath sounds, clear to auscultation, S1-S2, no murmur, no. Asthma, abdomen soft, distended, decreased bowel sounds, right lower quadrant minimal tenderness, alert, awake, oriented, grossly no focal deficits. Patient is admitted for management of constipation, diverticular stricture. ? Diverticulitis. Continue bowel regimen. Appreciate GI input. Enema as needed. Will need outpatient colonoscopy in 6 to 8 weeks. Empirically on IV antibiotics. Patient had a bowel movement after enema today. I personally reviewed the record. Patient is interviewed and examined at bedside. Patient's care is coordinated with Lizabeth Braun PA-C. Please refer to the documentation above for details of patient's presentation and for discussion of other issues. Subjective Patient was seen and examined in room 357. Follow-up severe constipation. Patient states she has not gone to the bathroom since September 17. She has severe constipation despite multiple rounds of MiraLAX, stool softeners and lactulose. She had enema in ER with very minimal effect to just small, "nuggets." She also drank half of the GoLytely prep last evening and still has not moved bowels. She complains of significant nausea and Zofran is not helping. She feels significantly bloated and uncomfortable. She does state she follows with Dr. Negro ALAMO and previously had an outpatient colonoscopy and was told that she needed a, "pediatric scope," due to a stricture. She currently denies any fever, chills, sweats, lightheadedness, dizzy, chest pain, shortness of breath. She does feel that she is having more difficulty urinating since being constipated and is having to strain. Review of Systems Review of Systems: All systems reviewed & are unremarkable except as noted in HPI & below Physical Exam Physical Exam: Gen: WD/WN, NAD, A&O x3 HEENT: Normocephalic, atraumatic, conjunctivae moist, sclerae anicteric, mucous membranes moist. Lung: Clear to Auscultation bilaterally, no wheezes/rales/rhonchi Heart: Regular rate, regular rhythm, no murmurs, rubs, or gallops Abdomen: Obese abdomen, soft, NT, distended, hypoactive bowel Extremities: No edema Skin: Warm, no rash, negative turgor. Results & Data Results & Data Vital Signs (Past 12 Hours) Vital Signs Temp Pulse Resp BP Pulse Ox O2 Del Method 09/27/22 07:46 37.0 C 83 14 112/74 98 Room Air Laboratory Results Short CBC 09/27/22 Range/Units 05:59 WBC 6.23 (4.8-10.8) K/ul Hgb 11.6 L (12.0-16.0) g/dl Hct 35.5 L (37.0-47.0) % Plt Count 222 (130-400) K/uL BMP 09/27/22 05:59 Sodium 141 Potassium 4.3 Chloride 108 H Carbon Dioxide 27 BUN 14 Creatinine 1.15 Glucose 87 Calcium 8.8 Liver Function 09/27/22 Range/Units 05:59 Total Bilirubin 0.7 (0.2-1.0) mg/dl AST 57 H (13-39) U/L ALT 44 (7-52) U/L Alkaline Phosphatase 80 (34-104) U/L Albumin 3.8 (3.4-5.0) gm/dl Medications Administered Current Inpatient Medications Acetaminophen (Acetaminophen 325 Mg Tab) 650 mg PO Q6 PRN PRN Reason: Pain or Fever Stop: 10/26/22 21:22 Last Admin: 09/27/22 09:05 Dose: 650 mg Amitriptyline HCl (Amitriptyline Hcl 100 Mg Tab) 100 mg PO HS TARAH Stop: 10/26/22 22:19 Last Admin: 09/26/22 23:16 Dose: 100 mg Cyanocobalamin (Cyanocobalamin (B-12) 500 Mcg Tablet) 1,000 mcg PO DAILY TARAH Stop: 10/27/22 08:59 Last Admin: 09/27/22 08:58 Dose: 1,000 mcg Diazepam (Diazepam 5 Mg Tablet) 5 mg PO Q8H PRN PRN Reason: muscle spasm Stop: 10/26/22 22:15 Docusate Sodium (Docusate Sodium 100 Mg Cap) 100 mg PO BID TARAH Stop: 10/27/22 08:59 Last Admin: 09/27/22 08:58 Dose: 100 mg Estradiol (Estradiol 0.1 Mg/24hrs Tdsy) 0.1 mg TD SuWe@0900 [facility] Stop: 10/27/22 08:59 Last Admin: 09/27/22 08:57 Dose: 0.1 mg Famotidine (Famotidine 20 Mg Tab) 20 mg PO DAILY TARAH Stop: 10/27/22 08:59 Last Admin: 09/27/22 08:59 Dose: 20 mg Hydroxyzine HCl (Hydroxyzine Hcl 25 Mg Tab) 25 mg PO QID PRN PRN Reason: Itching Stop: 10/26/22 22:15 Hyoscyamine (Hyoscyamine Sulfate 0.125 Mg Tab) 0.125 mg PO BID [facility] Stop: 10/27/22 08:59 Last Admin: 09/27/22 08:59 Dose: 0.125 mg Piperacillin Sod/Tazobactam (Sod 4.5 gm/ Dextrose) 120 mls @ 30 mls/hr IV Q8H [facility]; Protocol Stop: 10/07/22 02:29 Last Admin: 09/27/22 11:20 Dose: 30 mls/hr Sodium Chloride (Nss 1000ml) 1,000 mls @ 100 mls/hr IV .Q10H [facility] Stop: 10/26/22 19:29 Last Admin: 09/27/22 07:31 Dose: 100 mls/hr Promethazine HCl 12.5 mg/ (Sodium Chloride) 50.5 mls @ 202 mls/hr IV Q6H PRN PRN Reason: Nausea And Vomiting Stop: 10/27/22 10:05 Lactobacillus Acidophilus (Advanced Probiotic 1250 Mg Capsule) 2 cap PO BID [facility] Stop: 10/27/22 08:59 Last Admin: 09/27/22 08:57 Dose: 2 cap Magnesium Oxide (Magnesium Oxide 400 Mg Tab) 200 mg PO DAILY [facility] Stop: 10/27/22 08:59 Last Admin: 09/27/22 08:56 Dose: 200 mg Metoclopramide HCl (Metoclopramide Hcl 5 Mg Tablet) 5 mg PO BID PRN PRN Reason: Nausea Stop: 10/26/22 22:15 Last Admin: 09/27/22 08:59 Dose: 5 mg Multivitamins (Multivitamin Tab) 1 tab PO QAM [facility] Stop: 10/27/22 08:59 Last Admin: 09/27/22 08:59 Dose: 1 tab Pantoprazole Sodium (Pantoprazole 40 Mg Tab) 40 mg PO BID TARAH Stop: 10/27/22 08:59 Last Admin: 09/27/22 09:00 Dose: 40 mg Polyethylene Glycol (Polyethylene (Miralax) 17 Gm Pack) 17 gm PO BID TARAH Stop: 10/27/22 08:59 Last Admin: 09/27/22 08:56 Dose: 17 gm Pregabalin (Pregabalin 75 Mg Cap) 75 mg PO TID TARAH Stop: 10/27/22 08:59 Last Admin: 09/27/22 09:02 Dose: 75 mg Rizatriptan Benzoate (Rizatriptan Benzoate Digital [employer] Operator 10 Mg Tab) 10 mg PO DAILY PRN PRN Reason: Headache Stop: 10/26/22 23:26 Last Admin: 09/27/22 12:44 Dose: 10 mg Tizanidine HCl (Tizanidine Hcl 4 Mg Tablet) 4 mg PO BID TARAH Stop: 10/26/22 22:19 Last Admin: 09/27/22 08:57 Dose: 4 mg Trazodone HCl (Trazodone Hcl 100 Mg Tab) 100 mg PO HS TARAH Stop: 10/26/22 22:19 Last Admin: 09/26/22 23:16 Dose: 100 mg (3) Constipation Constipation type: unspecified constipation type Qualified Code(s): K59.00 - Constipation, unspecified
[2022-09-27] MEDS: KETOROLAC TROMETHAMINE 15 MG/ML VIAL IV PRN (15:31)
[2022-09-27] MEDS: AMITRIPTYLINE HCL 100 MG TAB PO SCH (20:43)
[2022-09-27] MEDS: traZODone HCL 100 MG TAB PO SCH (20:44)
[2022-09-27] MEDS: diazePAM 5 MG TABLET PO PRN (20:50)
[2022-09-27] MEDS ORDERED: ENOXAPARIN INJ 40 MG/0.4 ML SYR SQ SCH (21:00)
[2022-09-27 22:03] LABS: Appearance Urine Clear (Clear); Bilirubin Urine Negative (Negative); Blood Urine Negative (Negative); Color Urine Yellow; Glucose Urine UA Negative (Negative); Ketones Urine Negative (Negative); Leukocyte Esterase Urine Negative (Negative); Nitrite Urine Negative (Negative); Protein Urine Negative (Negative); Specific Gravity Urine 1.008 (1.000-1.030); Urobilinogen Urine Negative (Negative)
[2022-09-27] MEDS ORDERED: Nursing to Pharmacy Communication SCH (22:15)
[2022-09-28] MEDS: PIPERACILLIN/TAZOBACTAM 4.5 GM in DEXTROSE 5% 100 ML IV SCH ×2 (01:30→08:16)
[2022-09-28] MEDS: SODIUM CHLORIDE 0.9% 1000ML 1,000 ML IV SCH (03:25)
[2022-09-28] MEDS: PREGABALIN 75 MG CAP PO SCH ×2 (08:13→12:49)
[2022-09-28] MEDS: FAMOTIDINE 20 MG TAB PO SCH (08:14)
[2022-09-28] MEDS: ACETAMINOPHEN 325 MG TAB PO PRN (08:14)
[2022-09-28] MEDS: CYANOCOBALAMIN (B-12) 500 MCG TABLET PO SCH (08:14)
[2022-09-28] MEDS: HYOSCYAMINE SULFATE 0.125 MG TAB PO SCH (08:14)
[2022-09-28] MEDS: ADVANCED PROBIOTIC 1250 MG CAPSULE PO SCH (08:14)
[2022-09-28] MEDS: diazePAM 5 MG TABLET PO PRN (08:14)
[2022-09-28] MEDS: DOCUSATE SODIUM 100 MG CAP PO SCH (08:15)
[2022-09-28] MEDS: MAGNESIUM OXIDE 400 MG TAB PO SCH (08:15)
[2022-09-28] MEDS: tiZANidine HCL 4 MG TABLET PO SCH (08:15)
[2022-09-28] MEDS: MULTIVITAMIN TAB PO SCH (08:15)
[2022-09-28] MEDS: PANTOprazole 40 MG TAB PO SCH (08:16)
[2022-09-28] MEDS: POLYETHYLENE (MIRALAX) 17 GM PACK PO SCH (08:16)
[2022-09-28 09:32] LABS: BUN Creatinine Ratio 9.5 (10-20); Calcium 8.9 mg/dl (8.6-10.3); Creatinine Clr Calc Pharmacy 70.9 ml/min; Est GFR (Non-African American) 52.6 ml/min; Magnesium 2.2 mg/dl (1.7-2.4); Potassium 4.1 mmol/L (3.5-5.1)
[2022-09-28] MEDS ORDERED: SOD PHOSPHATE/SOD BIPHOSPHATE ENEMA 132 ML BTL PR STA (10:31)
--- NOTE | 2022-09-28 10:39 | Gastroenterology Progress Note ---
Date of Service September 28, 2022 Assessment & Plan (1) Constipation: (2) Diverticular stricture: Plan: Symptoms are more typical of diverticular stricture and constipation vs. diverticulitis. No clear indication for antibiotics but OK to continue coverage during impatient stay. Plan 1. Will repeat Fleets x 1 and continue w Golytely prep until pt passes more BMs and bloating/constipation resolved. 2. Antiemetics. 3. KUB tis pending. Will review films/results when available. 4. OP colonoscopy in 6-8 wks. Our office was notified and asked to contact the pt to schedule. 5. GI will sign off. Please recall if questions. Admission and Anticipated Discharge Date Admission Date: September 26, 2022 Supervising Physician Co-Signing Physician Notes I performed a history and physical examination of the patient today, including specifically on physical exam - soft abdomen. I have discussed the patient's management with the advanced practitioner. Please refer to the nurse practitioner's note for the documented findings and plan of care. Had multiple BM. Diet as tolerated. OP Trulance +/- Motegrity. Recall GI if needed. Subjective Ms. Oconnell is a 57-year-old female admitted September 26 for pain, constipation. Mabel ging at that time consistent with diverticulitis. Yesterday, after fleets enema, passed 1 moderate, loose, brown bowel movement. No further BMs after tap water enemas x 3. Abd pain is improved but continues w right sided fullness/bloating pressure discomfort. No nausea/vomiting. Review of Systems Review of Systems: ROS: Gen: Denies weakness, fevers, weight loss Eyes: No eye redness, or pain, no recent vision changes Resp: No SOB, no cough Cardio: No palpitations/irregular beats, no chest pain GI: As per HPI otherwise (-). : Denies pain on urination Skin: No jaundice, itching or new rashes M/S: denies red swollen joints or joint pain. Physical Exam Constitutional: WD/WN, vitals as above Eyes: PERRL, conjunctivae normal, anicteric sclerae ENMT: external ear and nose normal, oropharynx normal Neck: trachea midline, no thyromegaly Respiratory: normal respiratory effort, lungs clear to auscultation Cardiovascular: RRR, no murmur, no edema Gastrointestinal (Abdomen): Mild RLQ tenderness w palpation, BS present/normoactive. No palpable masses. Skin: no rashes, warm and dry Neurologic: PERRL, EOMI, accommodation nl, no face palsy, no dysarthria Psychiatric: A+Ox3, euthymic affect Lymphatic: no cervical or axillary lymphadenopathy Results & Data Vital Signs (Past 12 Hours) Vital Signs Temp Pulse Resp BP Pulse Ox O2 Del Method 09/28/22 07:53 36.5 C 75 16 143/83 H 93 Room Air Laboratory Results WBC 6.23, Hb 11.6, HCT 35.5, PLT S222, NA 141, K4.3, CL 108, CO2 27, BUN 14, CR 1.5 Diagnostic Findings 1. No evidence of inspissated stool. There is a prominent distal sigmoid diverticulum the small amount of surrounding fat stranding, clinical correlation for symptoms of diverticulitis is recommended. 2. Hepatic steatosis. 3. Splenomegaly. (1) Constipation Constipation type: unspecified constipation type Qualified Code(s): K59.00 - Constipation, unspecified
--- NOTE | 2022-09-28 14:56 | XRay Report ---
XR KUB/Abdomen 1 view CLINICAL HISTORY: constipation TECHNIQUE: 1 view of the abdomen was obtained. Comparison: Comparison is made to CT abdomen pelvis 09/27/2019 FINDINGS: Lung bases are unremarkable. Posterior fixation hardware is seen in the lumbar spine. Degenerative ch anges are seen. The bowel gas pattern is nonobstructive. A moderate amount of stool is noted within t he large bowel. IMPRESSION: Moderate stool burden without evidence of fecal impaction. ACT 112: Negative or not required by law. Electronically signed by: Maury Orozco M.D. 09/28/2022 2:54 PM
[2022-09-28] MEDS: KETOROLAC TROMETHAMINE 15 MG/ML VIAL IV PRN (15:43)
--- NOTE | 2022-09-28 16:50 | Discharge Summary ---
Discharge Summary Date of Service September 28, 2022 Notes For Next Care Provider Acute on chronic constipation, severe. CT abd/pelvis without evidence of inspissated stool. Out-patient colonoscopy in 6-8 weeks Medication Changes From Visit Continue docusate sodium BID, Miralax daily, lactulose PRN, added Golytely, Senna HS and fleet enema as needed Admission HPI Per Admitting Provider Ms Sally Oconnell is a 57 year old female with history of chronic constipation (last had a colonoscopy 07/08/2020 which showed a 2mm polyp in descending colon, moderate diverticulosis in sigmoid colon, narrowing of colon in association with diverticular opening, internal hemorrhoids, TMJ, Degenerative disc disease who recently had back surgery 6 weeks ago presents today with severe constipation with no significant bowel movement in the past 10 days. Patient feels very bloated "like I am 9 months " with nausea, belching resulting in poor oral intake. She suffers from chronic constipation but never this bad. She takes dulcolax (2 pills), probiotics and 1 capful of miralax a day. She also takes lactulose as needed and recently drank an entire bottle. Still no bowel movement. ER course- zofran 4mg x 2, morphine 4mg IV, toradol 15mg IV, NSS 1 L, enema resulting in some small pellets of stool CT A/P with contrast shows no inspissated stool, diverticulosis of sigmoid with small surrounding stranding suggestive of diverticulitis. Admission Exam Per Admitting Provider Physical Exam: appears stated age, well nourished, no acute distress ENMT: Head is normocephalic, atraumatic, mucous membrane moist Respiratory: clear bilaterally, no wheezing/rhonchi/rales Cardiovascular: regular rate and rhythm, no murmurs/rubs/gallops Gastrointestinal (Abdomen): soft, hypoactive bowel sounds, obese Musculoskeletal: No edema, no cyanosis or clubbing Skin: no rash, no redness, no ulcer noted on exposed skin Neurologic: awake, alert, spontaneously moving extremities Psychiatric: normal affect, speech linear, non pressured Principal Dx & Hospital Course #1 = Principal Diagnosis (1) Diverticular stricture: (2) Right sided abdominal pain: (3) Constipation: (4) Nausea: Plan Ms Sally Oconnell is a 57 year old female with history of chronic constipation (last had a colonoscopy 07/08/2020 which showed a 2mm polyp in descending colon, moderate diverticulosis in sigmoid colon, narrowing of colon in association with diverticular opening, internal hemorrhoids, TMJ, Degenerative disc disease who recently had back surgery 6 weeks ago presents today with severe constipation with no significant bowel movement in the past [address] abd/pelvis with no evidence of inspissated stool. There is a prominent distal sigmoid diverticulum the small amount of surrounding fat stranding. Bowel regimen augmented overnight with golytely and fleets enema with small output. Nausea resolved but still feeling bloated and cramping. Repeat KUB today with moderate stool burden but no evidence of bowel obstruction. Per GI, symptoms are more typical of diverticular stricture and constipation vs. diverticulitis. Out-patient colonoscopy in 6-8 weeks. Continue docusate sodium BID, Miralax daily, lactulose PRN, added Golytely, Senna HS and fleets as needed Discharge Exam Gen: WD/WN, NAD, sitting up in bed, A&Ox3 HEENT: Normocephalic, atraumatic, conjunctivae moist, sclerae anicteric, mucous membranes moist Lung: Clear to Auscultation bilaterally, no wheezes/rales/rhonchi Heart: Regular rate, regular rhythm, no murmurs, rubs, or gallops Abdomen: Soft, mild TTP RLQ, distended but soft +BS x 4 Extremities: no edema Skin: Warm, no rash Updated Medication List Medication Instructions Recorded Confirmed Type hyoscyamine sulfate 0.125 mg tablet 0.125 mg PO BID 10/31/19 09/26/22 History multivitamin 1 tab PO QAM 10/31/19 09/26/22 History pantoprazole 40 mg tablet,delayed 40 mg PO BID 10/31/19 09/26/22 History release pregabalin 75 mg capsule 75 mg PO TID 10/31/19 09/26/22 History trazodone 50 mg tablet 100 mg PO HS 10/31/19 09/26/22 History lactobacillus combination no.4 3 3,000 mmu cells PO BID 01/14/20 09/26/22 History billion cell capsule (Probiotic) docusate sodium 100 mg capsule 100 mg PO BID #100 caps 02/06/20 09/26/22 Rx cetirizine 10 mg tablet 10 mg PO BID 08/12/20 09/26/22 History hydroxyzine HCl 25 mg tablet 25 mg PO QID PRN Itching 08/12/20 09/26/22 History polyethylene glycol 3350 17 gram 17 g PO BID 08/27/20 09/26/22 History oral powder packet (Miralax) ondansetron 4 mg disintegrating 4 mg PO TID PRN Nausea 07/13/21 09/26/22 History tablet cyanocobalamin (vitamin B-12) 1,000 mcg PO DAILY 07/18/21 09/26/22 History 1,000 mcg tablet (Vitamin B-12) estradiol 0.1 mg/24 hr semiweekly 0.1 mg transdermal UD 07/18/21 09/26/22 History transdermal patch evening primrose oil 500 mg capsule 1,000 mg PO BID 07/18/21 09/26/22 History famotidine 20 mg tablet 20 mg PO DAILY 07/18/21 09/26/22 History magnesium 100 mg tablet 100 mg PO DAILY 07/18/21 09/26/22 History metoclopramide HCl 5 mg tablet 5 mg PO BID PRN Nausea 07/18/21 09/26/22 History rizatriptan 10 mg disintegrating 10 mg PO UD 07/18/21 09/26/22 History tablet (Maxalt-LEATHER DRESSER) lactulose 10 gram/15 mL (15 mL) 20 g (30 mL) PO DAILY PRN 07/21/21 09/26/22 Rx oral solution constipation #600 mL diazepam 5 mg tablet (Valium) 5 mg PO Q8H PRN muscle spasm #6 12/03/21 09/26/22 Rx tabs amitriptyline 100 mg tablet 100 mg PO HS 09/26/22 09/26/22 History tizanidine 4 mg tablet 4 mg PO BID 09/26/22 09/26/22 History sennosides 8.6 mg capsule (senna) 8.6 mg PO HS PRN constipation #10 09/28/22 Rx caps Hospital Stay Data Consultations 09/26/22 17:41 ED Decision to Admit Stat 09/27/22 10:05 Consult Gastroenterology Routine Diagnostic Imagining Performed 09/26/22 12:02 CT abd pelvis IV con only Stat Pending Results Patient Have Any Pending Studies at Discharge: No Discharge Instructions Given to Patient (Per Discharging Provider) MEDICATION CHANGES: Continue Golytely, fleet enema PRN, and Senna HS until back to baseline bowel movements SUMMARY OF TEST RESULTS: You were admitted with constipation. Per GI evaluation, symptoms are more typical of diverticular stricture and constipation vs. diverticulitis. KUB today reveals moderate stool burden but no evidence of bowel obstruction. Plan for out-patient colonoscopy with GI service in 6-8 weeks. Their office will call you to schedule. Continue docusate sodium BID, Miralax daily, lactulose PRN, added Golytely, Senna HS and fleets as needed PENDING TEST RESULTS: None RECOMMENDATIONS FOR FOLLOW-UP: Follow up with PCP as scheduled. GI to contact you regarding colonoscopy. Continue medication regimen as scheduled aside from changes noted above. Return to ER if you develop worsening abdominal pain, nausea or vomiting. OTHER INSTRUCTIONS: Seek medical attention if you have: * temperature above 101 * chest pain or trouble breathing * abdominal pain, nausea, vomiting * diarrhea, dark stools or bloody stools * any unanswered questions or concerns Call 911 if symptoms are severe. Please take good care of yourself. Call if you have any questions or problems. You can reach a [facility] hospitalist on duty at [facility] 24 hours a day by calling [phone]. Total Time Total Time Spent Total Time Spent (In Minutes): 50
== END 2022-09-28 18:14 | disposition home health service (06) | DRG 392 ==
LOC: ED 11:24 → SUATTDRO 19:28 → 3W 19:28

== ENCOUNTER 2025-04-03 18:10 | Inpatient (IN) ==
[2025-04-03] MEDS ORDERED: VANCOMYCIN CONSULT ACTIVE PRN (18:27)
--- NOTE | 2025-04-03 18:31 | Emergency Department Note ---
Impression & Plan Sepsis, Leukocytosis, Anemia ED Provider Note NAME: LUCI MEI AGE: 59 SEX: F : 1965 ARRIVES VIA: Walk-In INFORMANT: Patient ED PROVIDER(S): Franco Dias DO CHIEF COMPLAINT: Fever HPI: Patient is a 59-year-old female with a past medical history of a high output stoma, IRA, pyelonephritis, IBS who presents to the ER for fever and chills that started today. Temps as high as 104. 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 She denies any headache or change in vision. No chest pain or shortness of breath. No cough or congestion. She admits to abdominal pain but notes that is always there. No dysuria, urgency, or frequency. No other exacerbating or remitting factors. ADDITIONAL HISTORY OBTAINED: Per HPI Chronic Medical/Social Conditions Affecting Care: Per HPI PAST MEDICAL HISTORY:See Below PAST SURGICAL HISTORY:See Below FAMILY HISTORY:See Below SOCIAL HISTORY:See Below HOME MEDICATIONS:See Below ALLERGIES:See Below VITALS:See Below PHYSICAL EXAMINATION: GENERAL: Sitting up in bed, alert, well appearing, well nourished, no distress, non-toxic EYE EXAM: normal conjunctiva. OROPHARYNX: no exudate, no erythema, lips, buccal mucosa, and tongue normal and mucous membranes are moist NECK: supple, no nuchal rigidity, no adenopathy, non-tender LUNGS: Clear to auscultation. Normal chest wall mechanics HEART: no murmurs, S1 normal and S2 normal ABDOMEN: abdomen soft, non-tender, normo-active bowel sounds, no masses, no rebound or guarding. Ostomy bag in place and empty UPPER EXTREMITIES: upper extremities are grossly normal. LOWER EXTREMITIES: No pitting edema. NEURO EXAM: Normal sensorium, cranial nerves II-XII grossly intact, normal speech, no gross weakness of arms, no gross weakness of legs. MEDICAL DECISION MAKING: Patient is a 59-year-old female who presents ER for the above-stated complaint. IV was established and blood work was obtained. Labs show leukocytosis of 32,000. Mild anemia 9.3. BMP along with LFTs bilirubin was unremarkable. Mag at 1.6. Troponin negative. Pro-Ryland at 1.1. UA had leuks and whites but did have some epithelial cells. Slight contamination. CT abdomen pelvis was obtained and sent to [facility]. Questionable bilateral infiltrates. Patient was covered with IV Zosyn, IV vancomycin. She was given 3 L of IV fluids. Discussed with Dr. Murray from [facility] who knew the patient. Reviewed blood work. She agreed to accept the patient and also felt it was reasonable for her to stay here as they did not feel that there was going to be any acute intervention. Discussed with the patient and she would prefer to stay here. General surgery saw her and was agreeable. Discussed case with the hospitalist and they agree. Systolic pressures improved from the 80s to the 100s with repeat boluses. Consults/Care Managements Discussions: Per MDM Triage Nursing notes reviewed. Limited review of prior medical records performed Vital Signs: reviewed and remarkable for no significant abnormalities Differential diagnosis: Differential diagnoses include major intracranial, cervical, spinal, thoracic, abdominal, pelvic and neurologic injury. Fracture, contusion, sprain, strain, laceration, abrasions included as well. ER treatment provided: See below Diagnostics interpreted by me include EKG and cardiac monitoring as listed below: -Cardiac Monitoring: An order was placed for continuous cardiac monitoring. The monitor shows a rate of 120 with sinus rhythm. -ECG: none -Laboratory studies:Interpreted by me as stated above in MDM and shown below. Imaging studies: Xrays: As interpreted by me: Portable AP upright 1 view of the chest shows no focal infiltrate CTs show: CT abdomen pelvis as described above Procedures:none Critical Care: I have personally spent 33 minutes of critical care time in the direct management of this patient. This includes bedside care, interpretation of diagnostic studies, and testing, discussion with consultants, patient, and family members, and other required patient management activities. This 33 minutes is in excess of all separately billable procedures. Past Med/Surg History Problem List (Updated 04/03/25 @ 22:50 by Siomara Russ PA-C) CKD (chronic kidney disease), stage III Diversion colitis History of colostomy History of abdominoperineal resection Sepsis Diverticular stricture Right sided abdominal pain (Acute) Diverticulitis (Acute) Constipation (Acute ~09/27/22) Nausea (Acute) Ulcer of abdomen wall (Chronic) Bowel wall thickening (Chronic) GERD (gastroesophageal reflux disease) (Chronic) Chest pain (Acute) Lumbar stenosis with neurogenic claudication Abdominal pain (Acute) H/O: hysterectomy (Acute) Pyelonephritis (Acute) Anaplasmosis (Acute) Fever IRA (acute kidney injury) Encounter for pre-operative examination History of appendectomy Left ovarian cyst S/P spinal surgery Chronic idiopathic urticaria Obesity IBS (irritable bowel syndrome) Anxiety DDD (degenerative disc disease) Lower back Fibromyalgia Medical History History of COVID-19 04/01/2021 Diverticular disease Hiatal hernia 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 01/2020 > per patient, not found on f/u imaging >S cerebral angiogram report 03/2020 unremarkable cerebral angiogram, bilat potato picker normal variant, no signs of intracranial aneurysms and pt to RTC PRN Anaplasmosis [facility]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 2016. 08/27/2020 L4-L5 decompression and fusion, hardware removal L5-S1: Grade 2 view, MAC#3, ETT#7.0 atraumatic x 1. 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: No Beliefs That Will Affect Care: None marital status: Current Living Situation: Spouse Current Living Situation Comment: lives with spouse and her mother- takes care of her mother Feels Safe at Home: Yes Assistive Devices: None Allergies Allergies Allergy/AdvReac Type Severity Reaction Status Date / Time Bactrim AdvReac Unknown Yeast Verified 12/13/16 00:18 infection sulfamethoxazole AdvReac Unknown Yeast Verified 09/26/22 19:18 infection trimethoprim AdvReac Unknown Yeast Verified 09/26/22 19:18 infection Home Meds Home Medications Medication Instructions Recorded Confirmed hyoscyamine sulfate 0.125 mg tablet 0.125 mg PO BID PRN cramping 10/31/19 04/03/25 multivitamin 1 tab PO QAM 10/31/19 04/03/25 pantoprazole 40 mg tablet,delayed 40 mg PO AMHS 10/31/19 04/03/25 release cyanocobalamin (vitamin B-12) 1,000 mcg PO QAM 07/18/21 04/03/25 1,000 mcg tablet (Vitamin B-12) estradiol 0.1 mg/24 hr semiweekly 0.1 mg transdermal 2XWK 07/18/21 04/03/25 transdermal patch famotidine 20 mg tablet 20 mg PO BID PRN Heartburn 07/18/21 04/03/25 magnesium 100 mg tablet 100 mg PO QAM 07/18/21 04/03/25 amitriptyline 100 mg tablet 100 mg PO HS 09/26/22 04/03/25 diazepam 10 mg tablet 10 mg PO Q12 PRN Anxiety 04/03/25 04/03/25 ferrous sulfate 325 mg (65 mg 325 mg PO Q OTHER DAY 04/03/25 04/03/25 iron) tablet fluticasone 113 mcg-salmeterol 14 2 inh inhalation AMHS 04/03/25 04/03/25 mcg/actuation breath activated powdr hydroxyzine HCl 50 mg tablet 50 mg PO QID PRN Itching 04/03/25 04/03/25 levofloxacin 500 mg tablet 500 mg PO QAM PRN if temp >100.4 04/03/25 04/03/25 lidocaine-prilocaine 2.5 %-2.5 % See Rx Instructions .Route .COMPLEX 04/03/25 04/03/25 topical cream methocarbamol 500 mg tablet 500 mg PO TID 04/03/25 04/03/25 montelukast 10 mg tablet 10 mg PO QAM 04/03/25 04/03/25 omalizumab 150 mg/mL subcutaneous 300 mg subcut .EVERY 4 WEEKS 04/03/25 04/03/25 syringe (Xolair) oxycodone 5 mg tablet 5 - 10 mg PO Q4 PRN pain,severe 04/03/25 04/03/25 perfluorohexyloctane (PF) 100 % 1 drp OPB AMHS 04/03/25 04/03/25 eye drops (Miebo (PF)) pregabalin 100 mg capsule See Rx Instructions .Route .COMPLEX 04/03/25 04/03/25 prochlorperazine maleate 5 mg 5 mg PO Q6 PRN Nausea 04/03/25 04/03/25 tablet promethazine 12.5 mg tablet 12.5 mg PO Q6 PRN Nausea 04/03/25 04/03/25 tizanidine 4 mg tablet 4 mg PO Q6 PRN muscle spasms 04/03/25 04/03/25 Results & Data (ED) Vital Signs Vital Signs - 24 hr 04/03/25 18:11 04/03/25 18:28 04/03/25 19:12 Temperature 37.1 C Temperature Source Oral Pulse Rate 127 H 96 H 89 Pulse Rate from SpO2 Sensor Respiratory Rate 20 18 Respiratory Effort / Characteristics Non-Labored Spontaneous Respiratory Depth Normal Blood Pressure 106/49 L 117/63 Blood Pressure Mean 68 81 Pulse Oximetry 96 Oxygen Delivery Method Room Air Sepsis Recent Fever Within 48 Hours No Sepsis New/Unexplained Change in Mental Status N/A Sepsis Action Taken by Nursing No Action Required 04/03/25 20:00 04/03/25 20:09 04/03/25 20:21 Temperature Temperature Source Pulse Rate 70 70 78 Pulse Rate from SpO2 Sensor 70 69 Respiratory Rate 12 16 21 Respiratory Effort / Characteristics Respiratory Depth Blood Pressure 84/48 L 86/48 L 89/51 L Blood Pressure Mean 60 60 63 Pulse Oximetry 91 94 91 Oxygen Delivery Method Room Air Room Air Room Air Sepsis Recent Fever Within 48 Hours Sepsis New/Unexplained Change in Mental Status Sepsis Action Taken by Nursing 04/03/25 20:42 04/03/25 21:00 04/03/25 21:33 Temperature Temperature Source Pulse Rate 68 68 75 Pulse Rate from SpO2 Sensor 68 69 75 Respiratory Rate 20 19 13 Respiratory Effort / Characteristics Respiratory Depth Blood Pressure 92/52 L 87/51 L 100/62 Blood Pressure Mean 65 63 74 Pulse Oximetry 90 90 94 Oxygen Delivery Method Room Air Room Air Room Air Sepsis Recent Fever Within 48 Hours Sepsis New/Unexplained Change in Mental Status Sepsis Action Taken by Nursing 04/03/25 21:42 04/03/25 21:45 Temperature Temperature Source Pulse Rate 72 72 Pulse Rate from SpO2 Sensor 72 72 Respiratory Rate 13 13 Respiratory Effort / Characteristics Respiratory Depth Blood Pressure 120/68 116/64 Blood Pressure Mean 85 81 Pulse Oximetry 92 92 Oxygen Delivery Method Room Air Room Air Sepsis Recent Fever Within 48 Hours Sepsis New/Unexplained Change in Mental Status Sepsis Action Taken by Nursing Laboratory Data 04/03/25 18:54 04/03/25 18:54 Lab Results 04/03/25 04/03/25 Range/Units 18:54 18:59 WBC 32.65 H* (4.8-10.8) K/ul RBC 3.32 L (4.20-5.40) M/uL Hgb 9.3 L (12.0-16.0) g/dL POC Hgb 9.9 L (12.0-16.0) g/dl Hct 28.1 L (37.0-47.0) % POC Hct 29 L (37-47) % MCV 84.6 (80.0-100.0) fL MCH 28.0 (25.0-34.0) pg MCHC 33.1 (32.0-36.0) g/dL RDW Std Deviation 41.0 (36.4-46.3) fL RDW Coeff of Randee 13.2 (11.5-14.5) % Plt Count 662 H (130-400) K/uL MPV 9.3 L (9.4-12.4) fL Immature Gran % (Auto) 0.9 % Neut % (Auto) 82.2 % Lymph % (Auto) 7.6 % Crenshaw % (Auto) 8.5 % Eos % (Auto) 0.3 % Baso % (Auto) 0.5 % Neut # (Auto) 26.84 H (1.40-6.50) K/uL Lymph # (Auto) 2.49 (1.20-3.40) K/uL Crenshaw # (Auto) 2.77 H (0.11-0.59) K/uL Eos # (Auto) 0.09 (0.00-0.50) K/uL Baso # (Auto) 0.15 (0.00-0.20) K/uL Immature Gran # (Auto) 0.31 H (0.01-0.20) K/uL Giant Platelets 1+ Polychromasia 1+ POC Sodium 136 (135-144) mmol/L Sodium 134 L (136-145) mmol/L POC Potassium 4.1 (3.3-5.0) mmol/L Potassium 4.0 (3.5-5.1) mmol/L POC Chloride 100 L (101-112) mmol/L Chloride 100 (98-107) mmol/L Carbon Dioxide 25 (21-32) mmol/L POC Total CO2 22 L (24-31) mmol/L Anion Gap 9 (3-11) POC Anion Gap 19.0 (16-25) mmol/L POC BUN 15 (7-18) mg/dl BUN 16 (6-23) mg/dl Creatinine 1.88 H (0.6-1.2) mg/dl POC Creatinine 2.2 H (0.6-1.3) mg/dl Est Cr Clr Drug Dosing 38.8 ml/min eGFR 30.61 BUN/Creatinine Ratio 8.5 L (10-20) Glucose 92 (70-99(Fasting)) mg/dl POC Glucose (other) 93 (70-99) mg/dl Lactate 1.8 (0.4-2.0) mmol/L Calcium 8.7 (8.6-10.3) mg/dl POC Ioniz Calcium Hiro 1.09 L (1.12-1.32) mmol/l Magnesium 1.6 L (1.7-2.4) mg/dl Total Bilirubin 0.3 (0.2-1.0) mg/dl Direct Bilirubin 0.0 (0-0.2) mg/dl AST 12 L (13-39) U/L ALT 6 L (7-52) U/L Alkaline Phosphatase 96 (34-104) U/L Troponin I High Sens 9.6 (0-14) pg/ml Total Protein 7.4 (6.0-8.3) gm/dl Albumin 3.2 L (3.4-5.0) gm/dl Procalcitonin 1.13 H (0-0.5) ng/ml Urine Color Yellow Urine Appearance Clear (Clear) Urine pH 8.0 H (4.5-7.5) Ur Specific Willard 1.012 (1.000-1.030) Urine Protein Negative (Negative) Urine Glucose (UA) Negative (Negative) Urine Ketones Negative (Negative) Urine Blood Trace H (Negative) Urine Nitrite Negative (Negative) Urine Bilirubin Negative (Negative) Urine Urobilinogen Negative (Negative) Ur Leukocyte Esterase 1+ H (Negative) Urine WBC (Auto) 21-50 H (0-5) /hpf Urine RBC (Auto) 0-2 (0-2) /hpf U Hyaline Cast (Auto) 0-2 (0-2) /lpf U Epithel Cells (Auto) 6-10 H (0-2) /hpf Urine Bacteria (Auto) None Seen (None Seen) Urine Comment Administered Medications Discontinued Medications Piperacillin Sod/Tazobactam Sod (Zosyn) 4.5 gm in 100 mls @ 200 mls/hr IV NOW ONE; Protocol Stop: 04/03/25 18:56 Last Infusion: 04/03/25 19:50 Dose: Infused Documented By: Admin: 04/03/25 19:01 Dose: 200 mls/hr Documented By: GIGI Vancomycin HCl 2,000 mg/ (Sodium Chloride) 540 mls @ 200 mls/hr IV NOW ONE Stop: 04/03/25 21:08 Last Admin: 04/03/25 20:31 Dose: 200 mls/hr Documented By: GIGI Sodium Chloride (Nss) 1,000 mls @ 999 mls/hr IV .Q1H1M TARAH Stop: 04/03/25 20:30 Last Infusion: 04/03/25 21:47 Dose: Infused Documented By: Admin: 04/03/25 19:54 Dose: Not Given Documented By: Admin: 04/03/25 19:23 Dose: 999 mls/hr Documented By: KAREN Promethazine HCl (Phenergan) 25 mg in 51 mls @ 204 mls/hr IV NOW STA Stop: 04/03/25 19:09 Last Infusion: 04/03/25 21:46 Dose: Infused Documented By: Admin: 04/03/25 19:49 Dose: 204 mls/hr Documented By: CHANDNI Sodium Chloride (Nss) 1,000 mls @ 999 mls/hr IV .Q1H1M ONE Stop: 04/03/25 22:19 Last Admin: 04/03/25 21:41 Dose: 999 mls/hr Documented By: GIGI Morphine Sulfate (Morphine Sulfate 2 Mg/Ml Carp) 2 mg IV NOW STA Stop: 04/03/25 18:56 Last Admin: 04/03/25 19:23 Dose: 2 mg Documented By: JT Imaging Data Radiologist's Impression: Chest X-Ray 04/03/25 18:27 Clinical History: Sepsis Technique: A frontal view of the chest was obtained Comparison is made to the prior examination dated 07/20/2021 Findings: There are no definite pulmonary infiltrates. The heart size is within normal limits. No pleural effusion or pneumothorax is seen. There is no definite pulmonary nodule. No fracture is noted. There is a right chest wall port with its tip in the SVC Impression: No active disease Electronically signed by Clyde Cunha 04-03-2025 7:17 PM Abdomen/Pelvis CT 04/03/25 19:05 CT ABDOMEN and PELVIS without INTRAVENOUS CONTRAST HISTORY: Abdominal pain TECHNIQUE: CT abdomen and pelvis without contrast. IV CONTRAST: None ENTERIC CONTRAST: None. COMPARISON: CT abdomen pelvis June 23, 2024. FINDINGS: LOWER CHEST: Bibasilar densities of the lungs may represent atelectasis or mild pneumonia. LIVER: No focal lesion identified in this noncontrast study. Hepatic steatosis and hepatomegaly. GALLBLADDER/BILIARY: Surgically absent gallbladder. No abnormal biliary dilatation. SPLEEN: Normal spleen is absent. There may be small splenules. PANCREAS: Unremarkable. ADRENALS: Unremarkable. KIDNEYS: Atrophic left kidney. No stones or hydronephrosis identified. PERITONEUM/RETROPERITONEUM. No lymphadenopathy by size criteria. No aortic aneurysm. There are inflammatory changes in the lower pelvis and in the presacral space with fluid. GASTROINTESTINAL: No obstruction. Redemonstrated postoperative changes of colectomy with ostomy creation in the right lower quadrant of the abdomen. Since the previous CT examination of June 23 2024, there may have been an interval resection of the previously present sigmoid colon stump. There are several gas and fluid containing structures in the lower pelvis that likely represent normal bowel loops however difficult to exclude a collection in this noncontrast examination. REPRODUCTIVE: No suspicious pelvic mass is identified. URINARY BLADDER: Unremarkable BONES: No acute findings. L2-5 posterior instrumented fusion with laminectomies IMPRESSION: Inflammatory changes in the lower pelvis and in the presacral space with fluid. Redemonstrated postoperative changes of colectomy with ostomy creation in the right lower quadrant of the abdomen. Since the previous CT examination of June 23 2024, there may have been an interval resection of the previously present sigmoid colon stump. Please clinically correlate If there was such interval surgical intervention, the presacral inflammatory appearance may be postoperative in nature. There are several gas and fluid containing structures in this area of the the lower pelvis that likely represent normal bowel loops however difficult to exclude a collection in this noncontrast examination. If indicated follow-up evaluation with contrast-enhanced CT may be required for further assessment of this area in question. Bibasilar densities of the lungs may represent atelectasis or mild pneumonia. Electronically signed by Luisito Galeas 04-03-2025 8:50 PM Discharge Plan Visit Data Chief Complaint: Fever Stated Complaint: FEVER 104.5 ED Provider: Franco Dias Discharge Problem: Sepsis, Leukocytosis, Anemia Condition: Serious Discharge Instructions Interventions: ED Discharge Assessment Last Done: 04/03/25 22:34 Forms Stand Alone Forms: My [facility]acc[facility] Prescriptions Prescriptions: No Action hyoscyamine sulfate 0.125 mg tablet 0.125 mg PO BID PRN (Reason: cramping) multivitamin Tablet 1 tab PO QAM pantoprazole 40 mg tablet,delayed release (DR/EC) 40 mg PO AMHS amitriptyline 100 mg tablet 100 mg PO HS estradiol 0.1 mg/24 hr patch semiweekly 0.1 mg transdermal 2XWK Rx Instructions: Twice weekly. Sunday/Sundays cyanocobalamin (vitamin B-12) [Vitamin B-12] 1,000 mcg Tablet 1,000 mcg PO QAM famotidine 20 mg tablet 20 mg PO BID PRN (Reason: Heartburn) magnesium 100 mg Tablet 100 mg PO QAM montelukast 10 mg tablet 10 mg PO QAM pregabalin 100 mg capsule See Rx Instructions .ROUTE .COMPLEX Rx Instructions: take 2 capsules by mouth in the morning, 1 capsule at midday, and 2 capsules in the evening for a total of 500mg per day promethazine 12.5 mg tablet 12.5 mg PO Q6 PRN (Reason: Nausea) diazepam 10 mg tablet 10 mg PO Q12 PRN (Reason: Anxiety) oxycodone 5 mg tablet 5 - 10 mg PO Q4 PRN (Reason: pain,severe) hydroxyzine HCl 50 mg tablet 50 mg PO QID PRN (Reason: Itching) ferrous sulfate 325 mg (65 mg iron) Tablet 325 mg PO Q OTHER DAY tizanidine 4 mg tablet 4 mg PO Q6 PRN (Reason: muscle spasms) prochlorperazine maleate 5 mg tablet 5 mg PO Q6 PRN (Reason: Nausea) Xolair 150 mg/mL syringe 300 mg SUBCUT .EVERY 4 WEEKS methocarbamol 500 mg tablet 500 mg PO TID Rx Instructions: take 1 tablet by mouth in the morning, at noon and before bedtime Miebo (PF) 100 % drops 1 drp OPB AMHS fluticasone propion-salmeterol 113-14 mcg/actuation aerosol powdr breath activated 2 inh INHALATION AMHS levofloxacin 500 mg tablet 500 mg PO QAM PRN (Reason: if temp >100.4) Rx Instructions: then go to urgent care or ER to get checked out EMERGENCY ANTIBIOTIC lidocaine-prilocaine 2.5-2.5 % cream See Rx Instructions .ROUTE .COMPLEX Rx Instructions: apply 1 each topically to affected area for pain (port site prior to infusion) port site in chest wall Referrals Referrals: Jonny Andino MD [Primary Care Provider] - Discharge Problem: Sepsis Qualifiers: Sepsis type: sepsis due to unspecified organism Sepsis acute organ dysfunction status: unspecified Qualified Code(s): A41.9 - Sepsis, unspecified organism Leukocytosis Qualifiers: Leukocytosis type: unspecified Qualified Code(s): D72.829 - Elevated white blood cell count, unspecified Anemia Qualifiers: Anemia type: unspecified type Qualified Code(s): D64.9 - Anemia, unspecified
[2025-04-03] MEDS: PIPERACILLIN/TAZOBACTAM 4.5 GM/100 ML BAG IV ONE (19:01)
--- NOTE | 2025-04-03 19:18 | XRay Report ---
Clinical History: Sepsis Technique: A frontal view of the chest was obtained Comparison is made to the prior examination dated 07/20/2021 Findings: There are no definite pulmonary infiltrates. The heart size is within normal limits. No pleural effusion or pneumothorax is seen. There is no definite pulmonary nodule. No fracture is noted. There is a right chest wall port with its tip in the SVC Impression: No active disease Electronically signed by Clyde Cunha 04-03-2025 7:17 PM
[2025-04-03] MEDS: SODIUM CHLORIDE 0.9% 1,000 ML IV SCH (19:23)
[2025-04-03] MEDS: MoRPHine SULFATE 2 MG/ML CARP IV STA (19:23)
[2025-04-03 19:27] LABS: Hematocrit (blood only) 28.1 % (37.0-47.0); Hemoglobin 9.3 g/dL (12.0-16.0); Mean Corpuscular Hemoglobin 28.0 pg (25.0-34.0); Mean Corpuscular Volume 84.6 fL (80.0-100.0); Platelet Count 662 K/uL (130-400); RDW Standard Deviation 41.0 fL (36.4-46.3); Red Blood Count 3.32 M/uL (4.20-5.40); White Blood Count 32.65 K/ul (4.8-10.8)
[2025-04-03 19:34] LABS: Appearance Urine Clear (Clear); Bacteria Urine Automated None Seen (None Seen); Cast Urine Automated 0-2 /lpf (0-2); Glucose Urine UA Negative (Negative); RBC Urine Automated 0-2 /hpf (0-2); WBC Urine Automated 21-50 /hpf (0-5)
[2025-04-03 19:44] LABS: Alanine Aminotransferase 6.0 U/L (7-52); Albumin Level 3.2 gm/dl (3.4-5.0); Alkaline Phosphatase 96.0 U/L (34-104); Anion Gap 9.0 (3-11); Bilirubin,Total 0.3 mg/dl (0.2-1.0); Blood Urea Nitrogen 16.0 mg/dl (6-23); Calcium 8.7 mg/dl (8.6-10.3); Carbon Dioxide 25.0 mmol/L (21-32); Chloride 100.0 mmol/L (98-107); Creatinine Clr Calc Pharmacy 38.8 ml/min; Glucose 92.0 mg/dl (70-99(Fasting)); Magnesium 1.6 mg/dl (1.7-2.4); Potassium 4.0 mmol/L (3.5-5.1); Sodium 134.0 mmol/L (136-145); Total Protein 7.4 gm/dl (6.0-8.3)
[2025-04-03] MEDS: PROMETHAZINE 25 MG/51 ML BAG IV STA (19:49)
[2025-04-03 19:57] LABS: Giant Platelets 1+; Immature Granulocytes # (auto) 0.31 K/uL (0.01-0.20); Immature Granulocytes % (auto) 0.9 %; Polychromasia 1+
[2025-04-03] MEDS: VANCOMYCIN HCL 2,000 MG in SODIUM CHLORIDE 0.9% 500 ML IV ONE (20:31)
--- NOTE | 2025-04-03 20:50 | CT Scan Report ---
CT ABDOMEN and PELVIS without INTRAVENOUS CONTRAST HISTORY: Abdominal pain TECHNIQUE: CT abdomen and pelvis without contrast. IV CONTRAST: None ENTERIC CONTRAST: None. COMPARISON: CT abdomen pelvis June 23, 2024. FINDINGS: LOWER CHEST: Bibasilar densities of the lungs may represent atelectasis or mild pneumonia. LIVER: No focal lesion identified in this noncontrast study. Hepatic steatosis and hepatomegaly. GALLBLADDER/BILIARY: Surgically absent gallbladder. No abnormal biliary dilatation. SPLEEN: Normal spleen is absent. There may be small splenules. PANCREAS: Unremarkable. ADRENALS: Unremarkable. KIDNEYS: Atrophic left kidney. No stones or hydronephrosis identified. PERITONEUM/RETROPERITONEUM. No lymphadenopathy by size criteria. No aortic aneurysm. There are inflammatory changes in the lower pelvis and in the presacral space with fluid. GASTROINTESTINAL: No obstruction. Redemonstrated postoperative changes of colectomy with ostomy creation in the right lower quadrant of the abdomen. Since the previous CT examination of June 23 2024, there may have been an interval resection of the previously present sigmoid colon stump. There are several gas and fluid containing structures in the lower pelvis that likely represent normal bowel loops however difficult to exclude a collection in this noncontrast examination. REPRODUCTIVE: No suspicious pelvic mass is identified. URINARY BLADDER: Unremarkable BONES: No acute findings. L2-5 posterior instrumented fusion with laminectomies IMPRESSION: Inflammatory changes in the lower pelvis and in the presacral space with fluid. Redemonstrated postoperative changes of colectomy with ostomy creation in the right lower quadrant of the abdomen. Since the previous CT examination of June 23 2024, there may have been an interval resection of the previously present sigmoid colon stump. Please clinically correlate If there was such interval surgical intervention, the presacral inflammatory appearance may be postoperative in nature. There are several gas and fluid containing structures in this area of the the lower pelvis that likely represent normal bowel loops however difficult to exclude a collection in this noncontrast examination. If indicated follow-up evaluation with contrast-enhanced CT may be required for further assessment of this area in question. Bibasilar densities of the lungs may represent atelectasis or mild pneumonia. Electronically signed by Luisito Galeas 04-03-2025 8:50 PM
[2025-04-03] MEDS: SODIUM CHLORIDE 0.9% 1,000 ML IV ONE ×3 (21:41→23:32)
--- NOTE | 2025-04-03 21:49 | Surgery Consultation ---
Date of Consultation April 03, 2025 Assessment & Plan (1) Fever: I evaluated the patient in room B10 at the request of the treating emergency room physician. Surgical recommendations are as follows: As the patient has had recent surgery at [facility], the treating emergency room physician did discuss with the patient's surgeon and they felt that the findings on patient's CT scan were expected postoperative findings did not necessitate the need for reoperation. Per the treating emergency room physician, the patient's surgeon at [facility] felt that the patient could be treated [facility] with hydration and as well as antibiotics The treating emergency room physician has initiated hydration measures with intravenous fluids Antibiotics in form of vancomycin and Zosyn have been initiated which should continue As noted, there does not appear to be any drainable surgical collection or need for urgent surgical intervention so we will continue with plan as outlined above If the patient would clinically deteriorate consideration be given to r epeating a CT scan of her abdomen pelvis to see if there is any interval change or anything that would necessitate surgical intervention, and if this would be necessary transfer to [facility] would likely be indicated It is possible that the patient does have a urinary tract infection contributing to her current presentation and the selected antibiotics should cover the most likely pathogens. Would recommend monitoring patient with bladder scans to ensure she is not retaining urine Recommend following serial labs Additional recommendations will be forthcoming based on her clinical course as it unfolds Supervising Physician Co-Signing Physician Notes This case was discussed with the surgical PA. Agree with conservative management in the form of IVF resuscitation and IV abx at this time. History of Present Illness Reason for Consultation: Fever, status post abdominal surgery History of Present Illness This is a 51-year-old female who presented to the emergency department secondary to fever and generally not feeling very well. Patient has an extensive abdominal surgery history. Patient has had a hysterectomy, and oophorectomy, cholecystectomy, as well as an appendectomy. Patient also notes that she has back problems that she feels because of severe constipation as well as urinary difficulties. She says that she has had 4 back surgeries. She notes that due to her severe constipation she had to have a colostomy in December 2023. During this hospitalization she notes that she required a colostomy revision. She notes that she had a splenectomy also at the time of the surgery. She subsequently had an ileostomy formation in May of this year which was 2024 and she had a closure of her colostomy. In addition, the patient said she had an additional surgery where she had removal of her rectum and anus in March 08 of this year. She notes that this was performed at [facility] in [place], [place] when she was in the hospital 1 week. She says that she did go home with a WILI drain in place which was removed 4 days ago by her primary care office. She notes that the drainage was bloody/serosanguineous but it was not puslike. The patient presented to the emergency department [facility] today as she developed shakes and chills earlier today as well as a fever as high as 104.7. The patient notes that since her most recent surgery she has had some generalized abdominal pain that has not gotten any worse. She notes that her ileostomy is putting out a normal amount of liquid material. She notes that she does not have any dysuria or hematuria but does have urinary difficulties and feels as though she cannot empty her bladder completely all the time. She denies any lightheadedness or dizziness and has not had any falls or head injuries at home. She notes that she has not had any changes in her appetite since her most recent surgery. Since arrival to hospital patient has had labs and imaging which I independent reviewed. Chest x-ray showed no pleural effusions or pneumothorax. No definite pulmonary infiltrates were noted. A CT scan abdomen pelvis was performed and this showed the patient had postoperative changes of a colectomy with an ostomy creation in the right lower quadrant of the abdomen. Interval resection of a previous sigmoid colon stump was noted. In the presacral area there is inflammatory changes noted. There are some gas and fluid containing structures in the area of the lower pelvis but the interpreting radiologist felt to potentially represent a normal bowel loops however a postoperative fluid collection could not be definitively ascertained. Labs included CBC white blood cell count was elevated 32.6. Hemoglobin and hematocrit were 9.3 and 20.1. Platelet count was 662,000. Chemistry profile showed sodium was 134 with a normal potassium. BUN and creatinine were 16 and 1.8. Magnesium was slightly low at 1.6. Urinalysis showed 1+ leukocyte esterase and 21-50 white blood cells per high-power field with no bacteria or nitrites. At the time of my interview the patient was resting comfortably in bed and was in no distress. Allergies Allergy/AdvReac Type Severity Reaction Status Date / Time Bactrim AdvReac Unknown Yeast Verified 12/13/16 00:18 infection sulfamethoxazole AdvReac Unknown Yeast Verified 09/26/22 19:18 infection trimethoprim AdvReac Unknown Yeast Verified 09/26/22 19:18 infection Home Medications Medication Instructions Recorded Confirmed Type hyoscyamine sulfate 0.125 mg tablet 0.125 mg PO BID PRN cramping 10/31/19 04/03/25 History multivitamin 1 tab PO QAM 10/31/19 04/03/25 History pantoprazole 40 mg tablet,delayed 40 mg PO AMHS 10/31/19 04/03/25 History release cyanocobalamin (vitamin B-12) 1,000 mcg PO QAM 07/18/21 04/03/25 History 1,000 mcg tablet (Vitamin B-12) estradiol 0.1 mg/24 hr semiweekly 0.1 mg transdermal 2XWK 07/18/21 04/03/25 History transdermal patch famotidine 20 mg tablet 20 mg PO BID PRN Heartburn 07/18/21 04/03/25 History magnesium 100 mg tablet 100 mg PO QAM 07/18/21 04/03/25 History amitriptyline 100 mg tablet 100 mg PO HS 09/26/22 04/03/25 History diazepam 10 mg tablet 10 mg PO Q12 PRN Anxiety 04/03/25 04/03/25 History diphenoxylate-atropine 2.5 1 tab PO UD 04/03/25 04/03/25 History mg-0.025 mg tablet electrolyte-S (pH 7.4) (Isolyte S 1 ea IV 3XWK 04/03/25 04/03/25 History pH 7.4 intravenous solution) ferrous sulfate 325 mg (65 mg 325 mg PO Q OTHER DAY 04/03/25 04/03/25 History iron) tablet fluticasone 113 mcg-salmeterol 14 2 inh inhalation AMHS 04/03/25 04/03/25 History mcg/actuation breath activated powdr hydroxyzine HCl 50 mg tablet 50 mg PO QID PRN Itching 04/03/25 04/03/25 History levofloxacin 500 mg tablet 500 mg PO QAM PRN if temp >100.4 04/03/25 04/03/25 History lidocaine-prilocaine 2.5 %-2.5 % See Rx Instructions .Route .COMPLEX 04/03/25 04/03/25 History topical cream loperamide 2 mg capsule 2 mg PO UD 04/03/25 04/03/25 History methocarbamol 500 mg tablet 500 mg PO TID 04/03/25 04/03/25 History montelukast 10 mg tablet 10 mg PO QAM 04/03/25 04/03/25 History omalizumab 150 mg/mL subcutaneous 300 mg subcut .EVERY 4 WEEKS 04/03/25 04/03/25 History syringe (Xolair) oxycodone 5 mg tablet 5 - 10 mg PO Q4 PRN pain,severe 04/03/25 04/03/25 History perfluorohexyloctane (PF) 100 % 1 drp OPB AMHS 04/03/25 04/03/25 History eye drops (Miebo (PF)) pregabalin 100 mg capsule See Rx Instructions .Route .COMPLEX 04/03/25 04/03/25 History prochlorperazine maleate 5 mg 5 mg PO Q6 PRN Nausea 04/03/25 04/03/25 History tablet promethazine 12.5 mg tablet 12.5 mg PO Q6 PRN Nausea 04/03/25 04/03/25 History rizatriptan 10 mg tablet 10 mg PO UD PRN Migraine Headache 04/03/25 04/03/25 History tizanidine 4 mg tablet 4 mg PO Q6 PRN muscle spasms 04/03/25 04/03/25 History Patient History Medical History (Updated 04/04/25 @ 10:05 by Dar Sutherland DO) History of COVID-19 04/01/2021 Diverticular disease Hiatal hernia 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 01/2020 > per patient, not found on f/u imaging >[facility] cerebral angiogram report 03/2020 unremarkable cerebral angiogram, bilat synchronizer normal variant, no signs of intracranial aneurysms and pt to RTC PRN Anaplasmosis [facility] admission 10/2019 > discharged from [place] [facility] care, chronic fatigue Peptic ulcer 2018 GERD (gastroesophageal reflux disease) controlled Urinary tract infection Frequent Migraine controlled Surgical History (Updated 04/03/25 @ 22:51 by Siomara Russ PA-C) History of splenectomy Hx of oophorectomy B/L salpingectomy, oophorectomy with convert to mini laparotomy, IVELISSE, appendectomy (02/06/20): Grade 2 view, MAC#3, ETT 7.0 at [facility] History of back surgery x 2. 2016. 08/27/2020 L4-L5 decompression and fusion, hardware removal L5-S1: Grade 2 view, MAC#3, ETT#7.0 atraumatic x 1. 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 Required: No Beliefs That Will Affect Care: None marital status: Current Living Situation: Spouse Current Living Situation Comment: lives with spouse and her mother- takes care of her mother Feels Safe at Home: Yes Safety Concerns: Feels Safe At This Time Assistive Devices: Glasses Review of Systems Review of Systems: All systems reviewed & are unremarkable except as noted in HPI & below Physical Exam Constitutional: no acute distress Patient appears generally fatigued Eyes: no conjunctival abnormality ENMT: Ears: no hearing impairment and no external ear abnormality Mouth: no oropharynx abnormality Neck: trachea midline Respiratory: normal respiratory effort; no respiratory distress and no labored breathing Cardiovascular: Rate/Rhythm: regular rate and regular rhythm Gastrointestinal (Abdomen): Abdomen is soft without distention. Patient did have some slight tenderness to palpation across her lower abdomen but she says that this has been present since her surgery. She has multiple well-healed surgical incisions. Patient did have an ileostomy on the left side of her abdomen. The ostomy appeared pink and viable. There is liquid stool in the collection bag. There is no abdominal rigidity, rebound tenderness, guarding, or signs of peritonitis Musculoskeletal: No calf tenderness Skin: no rashes Neurologic: moves all extremities Psychiatric: A+Ox3, euthymic affect Results & Data Vital Signs (Past 12 Hours) Vital Signs Temp Pulse Resp BP Pulse Ox O2 Del Method 04/03/25 21:45 72 13 116/64 92 Room Air 04/03/25 21:42 72 13 120/68 92 Room Air 04/03/25 21:33 75 13 100/62 94 Room Air 04/03/25 21:00 68 19 87/51 L 90 Room Air 04/03/25 20:42 68 20 92/52 L 90 Room Air 04/03/25 20:21 78 21 89/51 L 91 Room Air 04/03/25 20:09 70 16 86/48 L 94 Room Air 04/03/25 20:00 70 12 84/48 L 91 Room Air 04/03/25 19:12 89 18 117/63 04/03/25 18:28 96 H 04/03/25 18:11 37.1 C 127 H 20 106/49 L 96 Room Air PG Care Time/CCT Total # of Minutes Spent Total Time Spent with Patient: Total time spent is greater than 50% in coordination of care (as documented) at patient's floor/unit and/or counseling patient: Coding Level of Care Code 99628 IN/OBS CONSULT LVL 5,80M Diagnoses Fever R50.9
--- NOTE | 2025-04-03 21:49 | History & Physical Report ---
Date of Service April 03, 2025 Assessment & Plan (1) Sepsis: (2) History of abdominoperineal resection: (3) History of colostomy: (4) Diversion colitis: (5) CKD (chronic kidney disease), stage III: (6) History of splenectomy: Plan: HPI, ROS, PE completed by Siomara Russ PA-C Assessment and Plan per Dr Huitron. See addendum. 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 Per chart review admission at [facility] 02/04/2025-02/07/25 for IRA, rectal bleeding, high output ileostomy. S/P flex sig 02/05 with results consistent with diversion colitis. Patient was treated with hydrocortisone and mesalamine suppositories. Colorectal surgery was also involved for high output ostomy for which Imodium and fiber was implemented. Patient required IVF with ostomy output ranging from 1L-2L per day. She was to have continued outpatient IVF to maintain hydration if ostomy output >1500mL/day. During hospitalization nephrology secondary to IRA secondary to high output ostomy and recommended continued IVF. Another [facility] admission 03/09/25-03/14/25 for laparoscopic completion proctectomy with abdominoperineal resection on 03/09/25 Patient reports since last surgery she has not "bounced back". States continued poor appetite and decreased oral intake. States has been having lower abdominal pain and using pain medications daily. She feels abdominal pain is about the same as it has been. She reports gets 2L IVF on Mon, Wed, Fridays secondary to high output ostomy. She doesn't measure output but feels it is similar output to what it has been. States in mornings starts off as "mushy" and turns to liquid throughout the day. Denies any noted blood or black color. Today started with fever, rigors, chills. Home temperature reported at 104F. C/O left sided MILLER today. Took Tylenol at home with decreased fever. States she feels "really sick and wiped out" today. Denies neck pain, dizziness, vision changes, N/V, A, dizziness, syncope, CP, SOB, palpitations, cough, sore throat, otalgia, rhinorrhea, paresthesias, extremity edema, rashes, urinary symptoms. Per chart review has had ongoing leukocytosis with WBC: 12.9 on 02/06/2025 that up trended to 24 on 02/10/2025 and downtrended to 18.5 and 02/24/2025. WBC was 26.9 on 03/09/2025, 20 on 03/14/2025 Hgb: 9.5 on 03/09/2025 and 10.2 on 03/30/2025 Creatinine had peaked at 3.8 on 02/03/2025 and has improved to 1.7-1.8 during February and beginning of March 2025. Uptrending again end of March with C reatinine 2.2 on 03/26/2025 03/27/2025 CT abdomen pelvis: 1. Decreased fluid collection within splenic fossa likely postoperative seroma. 2. New presacral pelvic fluid collections with questionable rim enhancement, nonspecific in the setting of recent surgery. Differential consideration include resolving seroma, hematoma versus abscess. Seen by [facility] general surgery Dr. Murray on 03/31/2025 with concerns for postsurgical pain and concerns about her sore area on abdomen at site of prior drain. Surgeon felt wounds with expected healing at that time. Allergies Allergy/AdvReac Type Severity Reaction Status Date / Time Bactrim AdvReac Unknown Yeast Verified 12/13/16 00:18 infection sulfamethoxazole AdvReac Unknown Yeast Verified 09/26/22 19:18 infection trimethoprim AdvReac Unknown Yeast Verified 09/26/22 19:18 infection Home Medications Medication Instructions Recorded Confirmed Type hyoscyamine sulfate 0.125 mg tablet 0.125 mg PO BID PRN cramping 10/31/19 04/03/25 History multivitamin 1 tab PO QAM 10/31/19 04/03/25 History pantoprazole 40 mg tablet,delayed 40 mg PO AMHS 10/31/19 04/03/25 History release cyanocobalamin (vitamin B-12) 1,000 mcg PO QAM 07/18/21 04/03/25 History 1,000 mcg tablet (Vitamin B-12) estradiol 0.1 mg/24 hr semiweekly 0.1 mg transdermal 2XWK 07/18/21 04/03/25 History transdermal patch famotidine 20 mg tablet 20 mg PO BID PRN Heartburn 07/18/21 04/03/25 History magnesium 100 mg tablet 100 mg PO QAM 07/18/21 04/03/25 History amitriptyline 100 mg tablet 100 mg PO HS 09/26/22 04/03/25 History diazepam 10 mg tablet 10 mg PO Q12 PRN Anxiety 04/03/25 04/03/25 History diphenoxylate-atropine 2.5 1 tab PO UD 04/03/25 04/03/25 History mg-0.025 mg tablet electrolyte-S (pH 7.4) (Isolyte S 1 ea IV 3XWK 04/03/25 04/03/25 History pH 7.4 intravenous solution) ferrous sulfate 325 mg (65 mg 325 mg PO Q OTHER DAY 04/03/25 04/03/25 History iron) tablet fluticasone 113 mcg-salmeterol 14 2 inh inhalation AMHS 04/03/25 04/03/25 History mcg/actuation breath activated powdr hydroxyzine HCl 50 mg tablet 50 mg PO QID PRN Itching 04/03/25 04/03/25 History levofloxacin 500 mg tablet 500 mg PO QAM PRN if temp >100.4 04/03/25 04/03/25 History lidocaine-prilocaine 2.5 %-2.5 % See Rx Instructions .Route .COMPLEX 04/03/25 04/03/25 History topical cream loperamide 2 mg capsule 2 mg PO UD 04/03/25 04/03/25 History methocarbamol 500 mg tablet 500 mg PO TID 04/03/25 04/03/25 History montelukast 10 mg tablet 10 mg PO QAM 04/03/25 04/03/25 History omalizumab 150 mg/mL subcutaneous 300 mg subcut .EVERY 4 WEEKS 04/03/25 04/03/25 History syringe (Xolair) oxycodone 5 mg tablet 5 - 10 mg PO Q4 PRN pain,severe 04/03/25 04/03/25 History perfluorohexyloctane (PF) 100 % 1 drp OPB AMHS 04/03/25 04/03/25 History eye drops (Miebo (PF)) pregabalin 100 mg capsule See Rx Instructions .Route .COMPLEX 04/03/25 04/03/25 History prochlorperazine maleate 5 mg 5 mg PO Q6 PRN Nausea 04/03/25 04/03/25 History tablet promethazine 12.5 mg tablet 12.5 mg PO Q6 PRN Nausea 04/03/25 04/03/25 History rizatriptan 10 mg tablet 10 mg PO UD PRN Migraine Headache 04/03/25 04/03/25 History tizanidine 4 mg tablet 4 mg PO Q6 PRN muscle spasms 04/03/25 04/03/25 History Past Med/Surg History Problem List (Updated 04/03/25 @ 22:50 by Siomara Russ PA-C) CKD (chronic kidney disease), stage III Diversion colitis History of colostomy History of abdominoperineal resection Sepsis Diverticular stricture Right sided abdominal pain (Acute) Diverticulitis (Acute) Constipation (Acute ~09/27/22) Nausea (Acute) Ulcer of abdomen wall (Chronic) Bowel wall thickening (Chronic) GERD (gastroesophageal reflux disease) (Chronic) Chest pain (Acute) Lumbar stenosis with neurogenic claudication Abdominal pain (Acute) H/O: hysterectomy (Acute) Pyelonephritis (Acute) Anaplasmosis (Acute) Fever IRA (acute kidney injury) Encounter for pre-operative examination History of appendectomy Left ovarian cyst S/P spinal surgery Chronic idiopathic urticaria Obesity IBS (irritable bowel syndrome) Anxiety DDD (degenerative disc disease) Lower back Fibromyalgia Medical History (Updated 04/03/25 @ 22:50 by Siomara Russ PA-C) History of COVID-19 04/01/2021 Diverticular disease Hiatal hernia 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 01/2020 > per patient, not found on f/u imaging >S cerebral angiogram report 03/2020 unremarkable cerebral angiogram, 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 admission 10/2019 > discharged from [facility], chronic fatigue Peptic ulcer 2018 GERD (gastroesophageal reflux disease) controlled Urinary tract infection Frequent Migraine controlled Surgical History (Updated 04/03/25 @ 22:51 by Siomara Russ PA-C) History of splenectomy Hx of oophorectomy B/L salpingectomy, oophorectomy with convert to mini laparotomy, IVELISSE, appendectomy (02/06/20): Grade 2 view, MAC#3, ETT [address] [facility] History of back surgery x 2. 2016. 08/27/2020 L4-L5 decompression and fusion, hardware removal L5-S1: Grade 2 view, MAC#3, ETT#7.0 atraumatic x 1. History of cardiac cath 2014 ([facility]) > normal coronary anatomy History of TMJ disorder x2 History of esophagogastroduodenoscopy (EGD) History of colonoscopy Multiple H/O: hysterectomy Partial (2003) Hx of cholecystectomy Family History Other Cancer Diabetes Stroke Social History Smoking Status: Never smoker Cigarettes Per Day: quit 6 years ago; Second Hand Exposure: No; Do You Dip or Chew Tobacco: No; Hx Alcohol Use: No Hx Substance Use: No Preferred Language: Yoruba Communication Ability: Effective Radiologist Required: No Beliefs That Will Affect Care: None marital status: Current Living Situation: Spouse Current Living Situation Comment: lives with spouse and her mother- takes care of her mother Feels Safe at Home: Yes Safety Concerns: Feels Safe At This Time Assistive Devices: Glasses Review of Systems Review of Systems: All systems reviewed & are unremarkable except as noted in HPI & below Physical Exam Physical Exam: General: +ill appearing female, WDWN Head: normocephalic, atraumatic Eyes: conjunctiva non-injected, anicteric ENT: normal inspection external ears, nose, mucous membranes moist Neck: supple, trachea midline, non-tender Lungs: clear, no respiratory distress, no wheezing/rhonchi/rales CV: RRR, no murmur, no JVD, no pretibial edema Abd: normal BS, +ostomy, +incision site lower abdomen appears slightly ulcerated, no active drainage, abdomen soft, +diffuse tenderness to palpation Ext: no cyanosis, no calf tenderness Neuro: +lethargic, does answer questions appropriately and is oriented x 3 however does appear to fall asleep during exam and awakens with voice, no focal deficits noted, normal affect Skin: warm, dry Results & Data Results & Data Vital Signs (Past 12 Hours) Vital Signs Temp Pulse Resp BP Pulse Ox O2 Del Method 04/03/25 21:33 75 13 100/62 94 Room Air 04/03/25 21:00 68 19 87/51 L 90 Room Air 04/03/25 20:42 68 20 92/52 L 90 Room Air 04/03/25 20:21 78 21 89/51 L 91 Room Air 04/03/25 20:09 70 16 86/48 L 94 Room Air 04/03/25 20:00 70 12 84/48 L 91 Room Air 04/03/25 19:12 89 18 117/63 04/03/25 18:28 96 H 04/03/25 18:11 37.1 C 127 H 20 106/49 L 96 Room Air Laboratory Results Short CBC 04/03/25 Range/Units 18:54 WBC 32.65 H* (4.8-10.8) K/ul Hgb 9.3 L (12.0-16.0) g/dL Hct 28.1 L (37.0-47.0) % Plt Count 662 H (130-400) K/uL BMP 04/03/25 18:54 Sodium 134 L Potassium 4.0 Chloride 100 Carbon Dioxide 25 BUN 16 Creatinine 1.88 H Glucose 92 Calcium 8.7 Liver Function 04/03/25 Range/Units 18:54 Total Bilirubin 0.3 (0.2-1.0) mg/dl Direct Bilirubin 0.0 (0-0.2) mg/dl AST 12 L (13-39) U/L ALT 6 L (7-52) U/L Alkaline Phosphatase 96 (34-104) U/L Albumin 3.2 L (3.4-5.0) gm/dl Urine 04/03/25 Range/Units 18:54 Urine Color Yellow Urine Appearance Clear (Clear) Urine pH 8.0 H (4.5-7.5) Ur Specific [place] 1.012 (1.000-1.030) Urine Protein Negative (Negative) Urine Glucose (UA) Negative (Negative) Diagnostic Findings Chest X-Ray 04/03/25 18:27 Clinical History: Sepsis Technique: A frontal view of the chest was obtained Comparison is made to the prior examination dated 07/20/2021 Findings: There are no definite pulmonary infiltrates. The heart size is within normal limits. No pleural effusion or pneumothorax is seen. There is no definite pulmonary nodule. No fracture is noted. There is a right chest wall port with its tip in the SVC Impression: No active disease Electronically signed by Clyde Cunha 04-03-2025 7:17 PM Abdomen/Pelvis CT 04/03/25 19:05 CT ABDOMEN and PELVIS without INTRAVENOUS CONTRAST HISTORY: Abdominal pain TECHNIQUE: CT abdomen and pelvis without contrast. IV CONTRAST: None ENTERIC CONTRAST: None. COMPARISON: CT abdomen pelvis June 23, 2024. FINDINGS: LOWER CHEST: Bibasilar densities of the lungs may represent atelectasis or mild pneumonia. LIVER: No focal lesion identified in this noncontrast study. Hepatic steatosis and hepatomegaly. GALLBLADDER/BILIARY: Surgically absent gallbladder. No abnormal biliary dilatation. SPLEEN: Normal spleen is absent. There may be small splenules. PANCREAS: Unremarkable. ADRENALS: Unremarkable. KIDNEYS: Atrophic left kidney. No stones or hydronephrosis identified. PERITONEUM/RETROPERITONEUM. No lymphadenopathy by size criteria. No aortic aneurysm. There are inflammatory changes in the lower pelvis and in the presacral space with fluid. GASTROINTESTINAL: No obstruction. Redemonstrated postoperative changes of colectomy with ostomy creation in the right lower quadrant of the abdomen. Since the previous CT examination of June 23 2024, there may have been an interval resection of the previously present sigmoid colon stump. There are several gas and fluid containing structures in the lower pelvis that likely represent normal bowel loops however difficult to exclude a collection in this noncontrast examination. REPRODUCTIVE: No suspicious pelvic mass is identified. URINARY BLADDER: Unremarkable BONES: No acute findings. L2-5 posterior instrumented fusion with laminectomies IMPRESSION: Inflammatory changes in the lower pelvis and in the presacral space with fluid. Redemonstrated postoperative changes of colectomy with ostomy creation in the right lower quadrant of the abdomen. Since the previous CT examination of June 23 2024, there may have been an interval resection of the previously present sigmoid colon stump. Please clinically correlate If there was such interval surgical intervention, the presacral inflammatory appearance may be postoperative in nature. There are several gas and fluid containing structures in this area of the the lower pelvis that likely represent normal bowel loops however difficult to exclude a collection in this noncontrast examination. If indicated follow-up evaluation with contrast-enhanced CT may be required for further assessment of this area in question. Bibasilar densities of the lungs may represent atelectasis or mild pneumonia. Electronically signed by Luisito Galeas 04-03-2025 8:50 PM Code Status & VTE Plan VTE Prophylaxis Plan VTE Prophylaxis will be ordered: Yes Supervising Physician Co-Signing Physician Notes IM ATTENDING : Patient seen and examined. History obtained from patient, family, and records. Concur with salient points upon review of preceding documentation by Ms. Siomara Russ PA-C. In addition, patient declined [facility] transfer for now follow-up evaluation by her colorectal surgeon (Dr. Murray). Dr. Murray updated by ED provider of patient decision. I take responsibility for plan of care below. FINAL ASSESSMENT AND PLAN as follows : Severe sepsis SIRS plus ARF on CKD (baseline creatinine of 1.6) Secondary to postop pelvic fluid collection, ? Complicated UTI Recent bowel surgery for colonic inertia/diversion colitis (03/2025, [facility]) COPD/restrictive lung disease, lung status at baseline Postop anemia, hemoglobin at baseline Cerebral aneurysm, no recent follow-up with [facility] neurovascular service Prediabetes, hemoglobin A1c of 5.8 from June 2024 GERD, stable on regimen Mood disorder stable Chronic back pain status post surgery Fibromyalgia as per records Past tobacco abuse Admit to med/tele CS, Daptomycin and Zosyn General Surgery consultation while at [facility] re: postop pelvic fluid collection (Patient already seen at the ER by LAURA. [facility] transfer recommended if with further decompensation.) Monitor creatinine response to IVF DVT prophylaxis. Heparin subcu Full code Patient requesting updates providers. Mr. Adal Price, contact #[phone]. I spent a total of 30 minutes coordinating, documenting, and providing care for this patientexcludingtime spent by another provider/QHP. Text document was generated using [employer] voice recognition software. It may contain grammatical or spelling errors. Kindly contact undersigned for clarification of any documentation item in question.
[2025-04-03] MEDS: MAGNESIUM SULFATE / D5W 1 GM/100 ML BAG IV ONE (23:56)
[2025-04-04] MEDS: PREGABALIN 100 MG CAP PO SCH (00:12)
[2025-04-04] MEDS: PIPERACILLIN/TAZOBACTAM 4.5 GM/100 ML BAG IV SCH (00:12)
[2025-04-04] MEDS: DAPTOmycin 500 MG in SYRINGE 0 ML IV SCH (04:14)
[2025-04-04] MEDS: ACETAMINOPHEN 325 MG TAB PO PRN (04:20)
[2025-04-04 06:17] LABS: Hematocrit (blood only) 26.2 % (37.0-47.0); Hemoglobin 8.6 g/dL (12.0-16.0); Immature Granulocytes # (auto) 0.15 K/uL (0.01-0.20); Immature Granulocytes % (auto) 0.7 %; Mean Corpuscular Hemoglobin 27.8 pg (25.0-34.0); Mean Corpuscular Volume 84.8 fL (80.0-100.0); Platelet Count 611 K/uL (130-400); RDW Standard Deviation 41.3 fL (36.4-46.3); Red Blood Count 3.09 M/uL (4.20-5.40); White Blood Count 22.51 K/ul (4.8-10.8)
[2025-04-04] MEDS: HEPARIN SOD 5,000 UNIT/0.5 ML VIAL SQ SCH (06:21)
[2025-04-04 06:35] LABS: Anion Gap 9.0 (3-11); Blood Urea Nitrogen 12.0 mg/dl (6-23); Calcium 8.0 mg/dl (8.6-10.3); Carbon Dioxide 22.0 mmol/L (21-32); Chloride 104.0 mmol/L (98-107); Creatinine Clr Calc Pharmacy 39.7 ml/min; Glucose 100.0 mg/dl (70-99(Fasting)); Magnesium 1.8 mg/dl (1.7-2.4); Potassium 4.0 mmol/L (3.5-5.1); Sodium 135.0 mmol/L (136-145)
[2025-04-04] MEDS: FLUTICASONE/VILANTEROL 200/25MCG 14 PUFFS/INHALER INH SCH (07:45)
[2025-04-04] MEDS: FAMOTIDINE 20 MG TAB PO PRN (07:45)
[2025-04-04] MEDS: CYANOCOBALAMIN (B-12) 500 MCG TABLET PO SCH (07:46)
[2025-04-04] MEDS: MONTELUKAST SODIUM 10 MG TABLET PO SCH (07:46)
[2025-04-04] MEDS: MULTIVITAMIN TAB PO SCH (07:46)
[2025-04-04] MEDS: ARTIFICIAL TEARS OPB SCH (07:46)
[2025-04-04] MEDS: METHOCARBAMOL 500 MG TABLET PO SCH (07:46)
[2025-04-04] MEDS: FERROUS SULFATE 325 MG TAB PO SCH (07:46)
[2025-04-04] MEDS: LACTATED RINGER'S 1,000 ML IV ONE ×2 (08:07→10:06)
--- NOTE | 2025-04-04 08:23 | Electrocardiogram Report ---
Test Reason : Blood Pressure : */* mmHG Vent. Rate : 89 BPM Atrial Rate : 89 BPM P-R Int : 140 ms QRS Dur : 82 ms QT Int : 382 ms P-R-T Axes : 16 1 19 degrees QTcB Int : 464 ms Normal sinus rhythm Normal ECG When compared with ECG of 19-Jul-2021 09:12, Borderline criteria for Inferior infarct are no longer Present Confirmed by Rusty Moss ([id number]) on 04/04/2025 8:23:06 AM Referred By: REFERRED SELF Confirmed By: Rusty Moss
[2025-04-04] MEDS: LACTATED RINGER'S 1,000 ML IV SCH (09:04)
[2025-04-04] MEDS ORDERED: STAT IV Infusion **Titration per Protocol STA (09:57)
--- NOTE | 2025-04-04 10:12 | Hospitalist Progress Note ---
Date of Service April 04, 2025 Assessment & Plan (1) Septic shock: Plan: With hypovolemic shock (2) CKD (chronic kidney disease), stage III: (3) Postoperative infection: Plan: Pelvic floor (4) History of abdominoperineal resection: (5) High output ileostomy: (6) History of splenectomy: (7) Thrombocytosis after splenectomy: Plan Patient 59-year-old female admitted with sepsis due to presumed postoperative pelvic floor infection from recent abdominal perineal resection. This morning patient critically ill with low blood pressure, lightheadedness, dizziness and near syncopal episode. Patient immediately bolused with 1 L of lactated Ringer's, despite fluid bolus blood pressure remains in the 80s, patient extremely lightheaded dizzy and near syncopal with standing up. Patient has received adequate fluid resuscitation, transfer to the ICU for IV pressors. Continue fluid resuscitation, give additional fluid bolus. Patient also has an high output ileostomy. She gets IV fluids regularly as an outpatient to maintain adequate hydration. This is also contributing to her hypotension. Increase rate of maintenance IV fluids Suspect combination of septic shock and hypovolemic shock. Will need close monitoring and treatments with IV medications. 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 Continue broad-spectrum antibiotics, follow cultures WBCs have significantly improved from admission, appears to be responding to current antibiotic regimen. Updated patient's via phone. He reports that when patient was in [place] they also had problems with low blood pressures and she had to receive albumin infusions Admission and Anticipated Discharge Date Admission Date: April 03, 2025 Subjective Called urgently to bedside this morning, patient's blood pressure systolically in the 80s. Lightheaded and dizzy when she sat up. She denies any chest pain or shortness of breath. Some lower abdominal pain but not any worse than what has been her usual since her surgery. Continues to have high output from her ileostomy. Physical Exam Physical Exam: Constitutional: Alert, nontoxic, but ill in appearance HEENT: Mucous membranes moist. Lungs: Clear to auscultation, decreased, no wheezes rales or rhonchi CV: S1-S2, regular Abdomen: Soft, mild lower quadrant tenderness, no distention, no guarding, no rigidity, ileostomy right mid abdomen Extremities: No significant edema Neuro: No focal deficits, weak Psych: Cooperative, normal mood, mentation clear Results & Data Results & Data Vital Signs (Past 12 Hours) Vital Signs Temp Pulse Pulse Resp BP Pulse Ox O2 Del Method 04/04/25 08:52 36.6 C 63 18 85/55 L 93 Room Air 04/04/25 08:15 92 H 04/04/25 07:56 73 84/53 L 93 Room Air 04/04/25 07:51 Room Air 04/04/25 07:42 37.1 C 66 16 85/44 L 95 Room Air 04/04/25 06:24 36.8 C 04/04/25 04:19 38.3 C H 04/04/25 02:52 37.4 C 78 16 108/61 93 Room Air 04/03/25 23:30 Room Air 04/03/25 23:30 36.6 C 18 133/80 94 Room Air 04/03/25 23:04 77 Diagnostic Findings Reviewed imaging, laboratory and diagnostic studies. Pertinent findings as below. WBCs 22.5, improved Hemoglobin 0.6, decreased, as expected from hemodilution Platelets 611, improving Electrolytes stable Creatinine 1.85, stable Cultures pending Critical Care Time 40
--- NOTE | 2025-04-04 10:51 | Critical Care Consultation ---
Date of Consultation April 04, 2025 Assessment & Plan (1) Septic shock: Plan Impression: 59-year-old female with extensive abdominal surgery and abdominal history admitted with fevers and suspected infection with white count up to 32,000. She is anemic and presented with mild renal insufficiency. She was likely under resuscitated on the floor and transferred due to hypotension. Blood pressure has resolved with additional crystalloid. Recommendations: 1. Neurologic: No current issues. Patient is chronically on amitriptyline, Valium as well as outpatient pain medications 2. Cardiovascular: Septic shock superimposed on inadequate volume resuscitation. The patient's blood pressure has resolved with appropriate fluids. Will need to continue aggressive fluid management strategy given the high output of her ostomy. Lactate normal on presentation which is encouraging. Try and keep intake and output at least matched. Patient declines Sidhu catheter currently however if hemodynamic instability persists, will need to pursue for monitoring purposes 3. Respiratory: No current issues. Continue home Advair 4. GI: PPI. Diet as tolerated. Monitor output. 5. Renal: Acute renal insufficiency. Likely prerenal although there was significant white blood cells/pyuria identified on urinalysis. See comments under ID below. Acid-base status appears preserved based on serum bicarb and electrolytes are stable. Calcium repletion warranted. 6. Endocrine: Glycemic control per protocol. 7. ID: Possible urinary tract infection. Procalcitonin elevated at 1.13. Patient is currently on daptomycin and Zosyn. This will trend procalcitonin and follow cultures, no growth to date. Encouraged by the fact that white blood cell count is decreasing. Normal lactate on presentation 8. Heme-onc: Mild anemia. No evidence of acute active ongoing blood loss and no indication for transfusion currently. Continue to monitor. Will monitor the patient in the ICU today to ensure hemodynamic stability but anticipate she can likely transfer to the floor later today or tomorrow. The above recommendations and plan were discussed with the patient as well as with the bedside ICU nurse. History of Present Illness Attending Physician: Dar Sutherland DO History of Present Illness Asked by hospitalist to assist in evaluation management this patient transferred to the ICU with hypotension. History is obtained from discussion with the patient as well as review of the electronic medical record. The patient is a 59-year-old female with an extensive history of abdominal surgery performed at [facility]. Patient has an high output ostomy. She typically has 1 to 2 L of output per day. She was recently admitted to [facility] for laparoscopic completion proctectomy with APR. She has had poor appetite since going home. She reported fevers to 104 at home headache. She felt ill and wiped out. She presented to the emergency room. Her surgeon was contacted who recommended antibiotics and monitoring here. Reportedly the patient had decreased levels of consciousness on the floor and low blood pressure. Fluid bolus was ordered and she was transferred to the ICU. I assessed the patient on arrival to the ICU. She is awake alert conversant. Blood pressure is currently 1 teens over 70s with fluids running. She is not tachycardic. She appears hemodynamically stable Allergies Allergy/AdvReac Type Severity Reaction Status Date / Time Bactrim AdvReac Unknown Yeast Verified 12/13/16 00:18 infection sulfamethoxazole AdvReac Unknown Yeast Verified 09/26/22 19:18 infection trimethoprim AdvReac Unknown Yeast Verified 09/26/22 19:18 infection Home Medications Medication Instructions Recorded Confirmed Type hyoscyamine sulfate 0.125 mg tablet 0.125 mg PO BID PRN cramping 10/31/19 04/03/25 History multivitamin 1 tab PO QAM 10/31/19 04/03/25 History pantoprazole 40 mg tablet,delayed 40 mg PO [facility]HS 10/31/19 04/03/25 History release cyanocobalamin (vitamin B-12) 1,000 mcg PO QAM 07/18/21 04/03/25 History 1,000 mcg tablet (Vitamin B-12) estradiol 0.1 mg/24 hr semiweekly 0.1 mg transdermal 2XWK 07/18/21 04/03/25 History transdermal patch famotidine 20 mg tablet 20 mg PO BID PRN Heartburn 07/18/21 04/03/25 History magnesium 100 mg tablet 100 mg PO QAM 07/18/21 04/03/25 History amitriptyline 100 mg tablet 100 mg PO HS 09/26/22 04/03/25 History diazepam 10 mg tablet 10 mg PO Q12 PRN Anxiety 04/03/25 04/03/25 History diphenoxylate-atropine 2.5 1 tab PO UD 04/03/25 04/03/25 History mg-0.025 mg tablet electrolyte-S (pH 7.4) (Isolyte S 1 ea IV 3XWK 04/03/25 04/03/25 History pH 7.4 intravenous solution) ferrous sulfate 325 mg (65 mg 325 mg PO Q OTHER DAY 04/03/25 04/03/25 History iron) tablet fluticasone 113 mcg-salmeterol 14 2 inh inhalation AMHS 04/03/25 04/03/25 History mcg/actuation breath activated powdr hydroxyzine HCl 50 mg tablet 50 mg PO QID PRN Itching 04/03/25 04/03/25 History levofloxacin 500 mg tablet 500 mg PO QAM PRN if temp >100.4 04/03/25 04/03/25 History lidocaine-prilocaine 2.5 %-2.5 % See Rx Instructions .Route .COMPLEX 04/03/25 04/03/25 History topical cream loperamide 2 mg capsule 2 mg PO UD 04/03/25 04/03/25 History methocarbamol 500 mg tablet 500 mg PO TID 04/03/25 04/03/25 History montelukast 10 mg tablet 10 mg PO QAM 04/03/25 04/03/25 History omalizumab 150 mg/mL subcutaneous 300 mg subcut .EVERY 4 WEEKS 04/03/25 04/03/25 History syringe (Xolair) oxycodone 5 mg tablet 5 - 10 mg PO Q4 PRN pain,severe 04/03/25 04/03/25 History perfluorohexyloctane (PF) 100 % 1 drp OPB AMHS 04/03/25 04/03/25 History eye drops (Miebo (PF)) pregabalin 100 mg capsule See Rx Instructions .Route .COMPLEX 04/03/25 04/03/25 History prochlorperazine maleate 5 mg 5 mg PO Q6 PRN Nausea 04/03/25 04/03/25 History tablet promethazine 12.5 mg tablet 12.5 mg PO Q6 PRN Nausea 04/03/25 04/03/25 History rizatriptan 10 mg tablet 10 mg PO UD PRN Migraine Headache 04/03/25 04/03/25 History tizanidine 4 mg tablet 4 mg PO Q6 PRN muscle spasms 04/03/25 04/03/25 History Patient History Medical History (Updated 04/04/25 @ 10:05 by Dar Sutherland DO) History of COVID-19 04/01/2021 Diverticular disease Hiatal hernia 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 01/2020 > per patient, not found on f/u imaging >[facility] cerebral angiogram report 03/2020 unremarkable cerebral angiogram, bilat floor framer normal variant, no signs of intracranial aneurysms and pt to RTC PRN Anaplasmosis [facility] admission 10/2019 > discharged from [facility] care, chronic fatigue Peptic ulcer 2018 GERD (gastroesophageal reflux disease) controlled Urinary tract infection Frequent Migraine controlled Surgical History (Updated 04/03/25 @ 22:51 by Siomara Russ PA-C) History of splenectomy Hx of oophorectomy B/L salpingectomy, oophorectomy with convert to mini laparotomy, IVELISSE, appendectomy (02/06/20): Grade 2 view, MAC#3, ETT 7.0 at [facility] History of back surgery x 2. 2016. 08/27/2020 L4-L5 decompression and fusion, hardware removal L5-S1: Grade 2 view, MAC#3, ETT#7.0 atraumatic x 1. History of cardiac cath 2014 ([facility]) > normal coronary anatomy History of TMJ disorder x2 History of esophagogastroduodenoscopy (EGD) History of colonoscopy Multiple H/O: hysterectomy Partial (2003) Hx of cholecystectomy Family History Other Cancer Diabetes Stroke Social History Smoking Status: Never smoker Cigarettes Per Day: quit 6 years ago; Second Hand Exposure: No; Do You Dip or Chew Tobacco: No; Hx Alcohol Use: No Hx Substance Use: No Preferred Language: Eritrean Communication Ability: Effective Hr Systems Analyst Required: No Beliefs That Will Affect Care: None marital status: Current Living Situation: Spouse Current Living Situation Comment: lives with spouse and her mother- takes care of her mother Feels Safe at Home: Yes Safety Concerns: Feels Safe At This Time Assistive Devices: Glasses Review of Systems Review of Systems: Please refer to admission H&P. No additions or deletions Physical Exam Constitutional: no acute distress Patient appears generally fatigued Eyes: no conjunctival abnormality ENMT: Ears: no external ear abnormality Mouth: no oropharynx abnormality Neck: trachea midline Respiratory: normal respiratory effort; no respiratory distress and no labored breathing Cardiovascular: Rate/Rhythm: regular rate and regular rhythm Gastrointestinal (Abdomen): Abdomen is soft without distention. Patient did have some slight tenderness to palpation across her lower abdomen but she says that this has been present since her surgery. She has multiple well-healed surgical incisions. Patient did have an ileostomy on the left side of her abdomen. The ostomy appeared pink and viable. There is liquid stool in the collection bag. There is no abdominal rigidity, rebound tenderness, guarding, or signs of peritonitis Musculoskeletal: No calf tenderness Skin: no rashes Neurologic: moves all extremities Psychiatric: A+Ox3, euthymic affect Results & Data Results & Data Vital Signs (Past 12 Hours) Vital Signs Temp Pulse Pulse Resp BP Pulse Ox O2 Del Method 04/04/25 08:52 36.6 C 63 18 85/55 L 93 Room Air 04/04/25 08:15 92 H 04/04/25 07:56 73 84/53 L 93 Room Air 04/04/25 07:51 Room Air 04/04/25 07:42 37.1 C 66 16 85/44 L 95 Room Air 04/04/25 06:24 36.8 C 04/04/25 04:19 38.3 C H 04/04/25 02:52 37.4 C 78 16 108/61 93 Room Air 04/03/25 23:30 Room Air 04/03/25 23:30 36.6 C 18 133/80 94 Room Air 04/03/25 23:04 77 Critical Care Results & Data Vital Signs (Past 12 Hours) Vital Signs Temp Pulse Pulse Resp BP BP Pulse Ox 04/04/25 10:45 63 17 91 04/04/25 10:45 117/69 04/04/25 10:42 65 17 90 04/04/25 10:30 110/71 04/04/25 10:30 110/71 04/04/25 10:30 63 21 88 L 04/04/25 10:23 114/69 04/04/25 10:21 63 18 93 04/04/25 10:18 63 14 90 04/04/25 10:17 64 16 107/58 L 94 04/04/25 08:52 36.6 C 63 18 85/55 L 93 04/04/25 08:15 92 H 04/04/25 07:56 73 84/53 L 93 04/04/25 07:51 04/04/25 07:42 37.1 C 66 16 85/44 L 95 04/04/25 07:12 17 04/04/25 07:00 19 04/04/25 06:51 20 04/04/25 06:24 36.8 C 04/04/25 04:19 38.3 C H 04/04/25 02:52 37.4 C 78 16 108/61 93 04/03/25 23:30 04/03/25 23:30 36.6 C 18 133/80 94 04/03/25 23:04 77 O2 Del Method 04/04/25 10:45 04/04/25 10:45 04/04/25 10:42 04/04/25 10:30 04/04/25 10:30 04/04/25 10:30 04/04/25 10:23 04/04/25 10:21 04/04/25 10:18 04/04/25 10:17 Room Air 04/04/25 08:52 Room Air 04/04/25 08:15 04/04/25 07:56 Room Air 04/04/25 07:51 Room Air 04/04/25 07:42 Room Air 04/04/25 07:12 04/04/25 07:00 04/04/25 06:51 04/04/25 06:24 04/04/25 04:19 04/04/25 02:52 Room Air 04/03/25 23:30 Room Air 04/03/25 23:30 Room Air 04/03/25 23:04 Lab & Micro Results (Past 24 Hours) RBC 3.09 M/uL (4.20-5.40) L 04/04/25 WBC 22.51 K/ul (4.8-10.8) H 04/04/25 Hgb 8.6 g/dL (12.0-16.0) L 04/04/25 Hct 26.2 % (37.0-47.0) L 04/04/25 MCV 84.8 fL (80.0-100.0) 04/04/25 MCH 27.8 pg (25.0-34.0) 04/04/25 MCHC 32.8 g/dL (32.0-36.0) 04/04/25 RDW Standard Deviation 41.3 fL (36.4-46.3) 04/04/25 RDW Coefficient of Variation 13.5 % (11.5-14.5) 04/04/25 Plt Count 611 K/uL (130-400) H 04/04/25 MPV 9.3 fL (9.4-12.4) L 04/04/25 Neutrophils (%) (Auto) 79.3 % 04/04/25 Lymphocytes (%) (Auto) 9.3 % 04/04/25 Monocytes # (Auto) 2.14 K/uL (0.11-0.59) H 04/04/25 Eosinophils # (Auto) 0.14 K/uL (0.00-0.50) 04/04/25 Immature Granulocyte % (Auto) 0.7 % 04/04/25 Neutrophils # (Auto) 17.85 K/uL (1.40-6.50) H 04/04/25 Lymphocytes # (Auto) 2.10 K/uL (1.20-3.40) 04/04/25 Monocytes # (Auto) 2.14 K/uL (0.11-0.59) H 04/04/25 Eosinophils # (Auto) 0.14 K/uL (0.00-0.50) 04/04/25 Basophils # (Auto) 0.13 K/uL (0.00-0.20) 04/04/25 Immature Granulocyte # (Auto) 0.15 K/uL (0.01-0.20) 5 Giant Platelets 1+ 04/03/25 Polychromasia 1+ 04/03/25 Na 135 mmol/L (136-145) L 04/04/25 K 4.0 mmol/L (3.5-5.1) 04/04/25 Cl 104 mmol/L (98-107) 04/04/25 CO2 22 mmol/L (21-32) 04/04/25 Anion Gap 9 (3-11) 04/04/25 BUN 12 mg/dl (6-23) 04/04/25 Creatinine 1.85 mg/dl (0.6-1.2) H 04/04/25 BUN/Creatinine Ratio 6.5 (10-20) L 04/04/25 Glu 100 mg/dl (70-99(Fasting)) H 04/04/25 Ca 8.0 mg/dl (8.6-10.3) L 04/04/25 Total Bilirubin 0.3 mg/dl (0.2-1.0) 04/03/25 Direct Bilirubin 0.0 mg/dl (0-0.2) 04/03/25 AST 12 U/L (13-39) L 04/03/25 ALT 6 U/L (7-52) L 04/03/25 Alkaline Phosphatase 96 U/L (34-104) 04/03/25 TP 7.4 gm/dl (6.0-8.3) 04/03/25 Albumin 3.2 gm/dl (3.4-5.0) L 04/03/25 Mg 1.8 mg/dl (1.7-2.4) 04/04/25 05:37 Calcium Level 8.0 mg/dl (8.6-10.3) L 04/04/25 05:37 Diagnostic Findings (Past 24 Hours) Chest X-Ray 04/03/25 18:27 Clinical History: Sepsis Technique: A frontal view of the chest was obtained Comparison is made to the prior examination dated 07/20/2021 Findings: There are no definite pulmonary infiltrates. The heart size is within normal limits. No pleural effusion or pneumothorax is seen. There is no definite pulmonary nodule. No fracture is noted. There is a right chest wall port with its tip in the SVC Impression: No active disease Electronically signed by Clyde Cunha 04-03-2025 7:17 PM Abdomen/Pelvis CT 04/03/25 19:05 CT ABDOMEN and PELVIS without INTRAVENOUS CONTRAST HISTORY: Abdominal pain TECHNIQUE: CT abdomen and pelvis without contrast. IV CONTRAST: None ENTERIC CONTRAST: None. COMPARISON: CT abdomen pelvis June 23, 2024. FINDINGS: LOWER CHEST: Bibasilar densities of the lungs may represent atelectasis or mild pneumonia. LIVER: No focal lesion identified in this noncontrast study. Hepatic steatosis and hepatomegaly. GALLBLADDER/BILIARY: Surgically absent gallbladder. No abnormal biliary dilatation. SPLEEN: Normal spleen is absent. There may be small splenules. PANCREAS: Unremarkable. ADRENALS: Unremarkable. KIDNEYS: Atrophic left kidney. No stones or hydronephrosis identified. PERITONEUM/RETROPERITONEUM. No lymphadenopathy by size criteria. No aortic aneurysm. There are inflammatory changes in the lower pelvis and in the presacral space with fluid. GASTROINTESTINAL: No obstruction. Redemonstrated postoperative changes of colectomy with ostomy creation in the right lower quadrant of the abdomen. Since the previous CT examination of June 23 2024, there may have been an interval resection of the previously present sigmoid colon stump. There are several gas and fluid containing structures in the lower pelvis that likely represent normal bowel loops however difficult to exclude a collection in this noncontrast examination. REPRODUCTIVE: No suspicious pelvic mass is identified. URINARY BLADDER: Unremarkable BONES: No acute findings. L2-5 posterior instrumented fusion with laminectomies IMPRESSION: Inflammatory changes in the lower pelvis and in the presacral space with fluid. Redemonstrated postoperative changes of colectomy with ostomy creation in the right lower quadrant of the abdomen. Since the previous CT examination of June 23 2024, there may have been an interval resection of the previously present sigmoid colon stump. Please clinically correlate If there was such interval surgical intervention, the presacral inflammatory appearance may be postoperative in nature. There are several gas and fluid containing structures in this area of the the lower pelvis that likely represent normal bowel loops however difficult to exclude a collection in this noncontrast examination. If indicated follow-up evaluation with contrast-enhanced CT may be required for further assessment of this area in question. Bibasilar densities of the lungs may represent atelectasis or mild pneumonia. Electronically signed by Luisito Galeas 04-03-2025 8:50 PM I & O Totals 24 Hours 04/03/25 04/04/25 04/05/25 06:59 06:59 06:59 Intake Total 3551 / 3551 1755.417 / 1755.417 Balance 3551 / 3551 1755.417 / 1755.417 Cumulative 04/03/25 18:10 thru 04/04/25 09:45 Intake Total 5306.417 Balance 5306.417 RT Ventilator Mngmt (Last Documented) Ventilator Ordered Settings Respiratory Rate 17 04/04/25 10:45 Ventilator - PT Measurements Respiratory Rate 17 Coding Level of Care Code 24216 INT INP/OBS CARE 3/75MIN Diagnoses Septic shock A41.9; R65.21
[2025-04-04] MEDS: CALCIUM GLUCONATE 1,000 MG/60 ML BAG IV SCH (11:23)
[2025-04-04] MEDS: NOREPINEPHRINE/D5W 4 MG/250 ML PLCT IV SCH (11:23)
--- NOTE | 2025-04-04 12:59 | Surgery Progress Note ---
Date of Service April 04, 2025 Assessment & Plan (1) Postoperative infection: Plan Pt s/p APR earlier this month presented with SIRS. Work up CT A/P revealing inflammatory changes in the pelvic region of a prior surgical site. She has been initiated on IV abx and fluid resuscitation with improvement in her hemodynamics has not required pressors and LA was WNL. She had a fever 0400 and is afebrile currently. Continue with IV abx. She is on Zosyn and Daptomycin No acute surgical intervention May advance diet as tolerated May have chemical DVT ppx and the patient is on Heparin SQ Surgery will follow Admission and Anticipated Discharge Date Admission Date: April 03, 2025 Subjective Laure feels improved this am. She denies further chills and does not have any significant abdominal pain. She does admit to ongoing pain at the APR site which she has had since the surgery earlier this month. She denies nausea. Physical Exam Constitutional: no acute distress, not ill appearing, not in distress and not diaphoretic Respiratory: normal respiratory effort; no respiratory distress, no labored breathing and does not use accessory muscles Gastrointestinal (Abdomen): Inspection/Auscultation: abdomen not distended Percussion/Palpation: + abdomen tender (minimal TTP lower midline and suprapubic region) and abdomen soft; no guarding Skin: warm and dry Results & Data Vital Signs (Past 12 Hours) Vital Signs Temp Pulse Pulse Resp BP BP Pulse Ox 04/04/25 12:00 114/69 04/04/25 12:00 63 20 91 04/04/25 11:45 118/74 04/04/25 11:45 63 21 92 04/04/25 11:30 63 17 95 04/04/25 11:30 119/77 04/04/25 11:30 119/77 04/04/25 11:15 63 17 89 L 04/04/25 11:15 117/72 04/04/25 11:15 117/72 04/04/25 11:00 63 17 90 04/04/25 11:00 115/70 04/04/25 11:00 115/70 04/04/25 10:57 36.6 C 04/04/25 10:45 117/69 04/04/25 10:45 63 17 91 04/04/25 10:45 117/69 04/04/25 10:42 65 17 90 04/04/25 10:32 64 04/04/25 10:30 110/71 04/04/25 10:30 110/71 04/04/25 10:30 63 21 88 L 04/04/25 10:23 114/69 04/04/25 10:21 63 18 93 04/04/25 10:18 63 14 90 04/04/25 10:17 04/04/25 10:17 64 16 107/58 L 94 04/04/25 08:52 36.6 C 63 18 85/55 L 93 04/04/25 08:15 92 H 04/04/25 07:56 73 84/53 L 93 04/04/25 07:51 04/04/25 07:42 37.1 C 66 16 85/44 L 95 04/04/25 07:12 17 04/04/25 07:00 19 04/04/25 06:51 20 04/04/25 06:24 36.8 C 04/04/25 04:19 38.3 C H 04/04/25 02:52 37.4 C 78 16 108/61 93 O2 Del Method 04/04/25 12:00 04/04/25 12:00 04/04/25 11:45 04/04/25 11:45 04/04/25 11:30 04/04/25 11:30 04/04/25 11:30 04/04/25 11:15 04/04/25 11:15 04/04/25 11:15 04/04/25 11:00 04/04/25 11:00 04/04/25 11:00 04/04/25 10:57 04/04/25 10:45 04/04/25 10:45 04/04/25 10:45 04/04/25 10:42 04/04/25 10:32 04/04/25 10:30 04/04/25 10:30 04/04/25 10:30 04/04/25 10:23 04/04/25 10:21 04/04/25 10:18 04/04/25 10:17 Room Air 04/04/25 10:17 Room Air 04/04/25 08:52 Room Air 04/04/25 08:15 04/04/25 07:56 Room Air 04/04/25 07:51 Room Air 04/04/25 07:42 Room Air 04/04/25 07:12 04/04/25 07:00 04/04/25 06:51 04/04/25 06:24 04/04/25 04:19 04/04/25 02:52 Room Air PG Care Time/CCT Total # of Minutes Spent Total Time Spent with Patient: Total time spent is greater than 50% in coordination of care (as documented) at patient's floor/unit and/or counseling patient: Coding Level of Care Code 69500 SUB INP/OBS CARE 05/31MIN Diagnoses Infection of organ or organ space after surgery, initial encounter T81.43XA Encounter type: initial encounter Postoperative infection type: organ or organ space surgical site (1) Postoperative infection Encounter type: initial encounter Postoperative infection type: organ or organ space surgical site Qualified Code(s): T81.43XA - Infection following a procedure, organ and space surgical site, initial encounter
[2025-04-04] MEDS: HYDROmorphone INJ 0.5 MG/0.5 ML SYR IV PRN (18:30)
[2025-04-04] MEDS: LORazepam 0.5 MG TAB PO PRN (19:57)
[2025-04-04] MEDS: AMITRIPTYLINE HCL 100 MG TAB PO SCH (21:39)
[2025-04-05 05:16] LABS: Hematocrit (blood only) 27.0 % (37.0-47.0); Hemoglobin 8.7 g/dL (12.0-16.0); Mean Corpuscular Hemoglobin 28.0 pg (25.0-34.0); Mean Corpuscular Volume 86.8 fL (80.0-100.0); Platelet Count 592 K/uL (130-400); RDW Standard Deviation 42.2 fL (36.4-46.3); Red Blood Count 3.11 M/uL (4.20-5.40); White Blood Count 16.61 K/ul (4.8-10.8)
[2025-04-05 05:31] LABS: Anion Gap 8.0 (3-11); Blood Urea Nitrogen 9.0 mg/dl (6-23); Calcium 8.4 mg/dl (8.6-10.3); Carbon Dioxide 26.0 mmol/L (21-32); Chloride 106.0 mmol/L (98-107); Creatinine Clr Calc Pharmacy 41.8 ml/min; Glucose 127.0 mg/dl (70-99(Fasting)); Potassium 3.7 mmol/L (3.5-5.1); Sodium 140.0 mmol/L (136-145)
[2025-04-05 06:41] LABS: ALC (manual) 6.48 K/uL (1.2-3.4); ANC (manual) 7.81 K/uL (1.4-6.5); RBC Morphology Unremarkable
--- NOTE | 2025-04-05 07:34 | Critical Care Progress Note ---
Date of Service April 05, 2025 Assessment & Plan (1) Septic shock: Plan Impression: 59-year-old female with extensive abdominal surgery and abdominal history admitted with fevers and suspected infection with white count up to 32,000. She is anemic and presented with mild renal insufficiency. She was likely under resuscitated on the floor and transferred due to hypotension. Blood pressure has resolved with additional crystalloid. Recommendations: 1. Neurologic: No current issues. Patient is chronically on amitriptyline, Valium as well as outpatient pain medications 2. Cardiovascular: Hypotension resolved. Suspect related to depleted intravascular volume. Continue IV fluids 3. Respiratory: No current issues. Continue home Advair 4. GI: PPI. Diet as tolerated. Monitor output. 5. Renal: Acute renal insufficiency. Renal indices stabilized today and unclear close to baseline studies performed June 2024. Continue to follow 6. Endocrine: Glycemic control per protocol. 7. ID: Possible urinary tract infection. Cultures no growth to date. P rocalcitonin decreasing and white blood cell count decreasing on daptomycin and Zosyn. 8. Heme-onc: Mild anemia. No evidence of acute active ongoing blood loss and no indication for transfusion currently. Continue to monitor. Okay to transfer to the floor. Critical care services will sign off. Feel free to contact us with questions or concerns. Additional management per admitting hospitalist service The above recommendations and plan were discussed with the patient as well as with the bedside ICU nurse. Admission and Anticipated Discharge Date Admission Date: April 03, 2025 Subjective Patient seen and examined. EMR reviewed. Discussed with bedside nurse in a multidisciplinary rounds. The patient reports that she is doing okay. She just feels that her body is not functioning appropriately. Her blood pressure issues have resolved she is now on the hypertensive side. She is complaining of some continued discomfort around her right lower quadrant stoma but this has not progressed. Exam is reassuring. Patient never required vasoactive medications. Review of Systems Review of Systems: All systems reviewed & are unremarkable except as noted in HPI & below Physical Exam Constitutional: no acute distress Eyes: no conjunctival abnormality ENMT: Ears: no external ear abnormality Mouth: no oropharynx abnormality Neck: trachea midline Respiratory: normal respiratory effort; no respiratory distress and no labored breathing Cardiovascular: Rate/Rhythm: regular rate and regular rhythm Skin: no rashes Neurologic: moves all extremities Psychiatric: A+Ox3, euthymic affect Results & Data Results & Data Vital Signs (Past 12 Hours) Vital Signs Temp Pulse Resp BP Pulse Ox Pulse Ox O2 Del Method 04/05/25 06:01 156/94 H 04/05/25 06:01 156/94 H 04/05/25 06:01 156/94 H 04/05/25 06:01 156/94 H 04/05/25 06:01 156/94 H 04/05/25 06:00 79 20 04/05/25 05:00 123/79 04/05/25 05:00 123/79 04/05/25 05:00 123/79 04/05/25 05:00 123/79 04/05/25 05:00 123/79 04/05/25 05:00 123/79 04/05/25 05:00 123/79 04/05/25 05:00 76 19 04/05/25 04:00 79 20 04/05/25 04:00 131/68 04/05/25 04:00 131/68 04/05/25 04:00 131/68 04/05/25 04:00 131/68 04/05/25 04:00 131/68 04/05/25 03:59 36.6 C 17 94 Nasal Cannula 04/05/25 03:57 83 19 04/05/25 03:55 136/65 04/05/25 03:55 136/65 04/05/25 03:55 136/65 04/05/25 03:55 136/65 04/05/25 03:55 136/65 04/05/25 03:45 99 H 17 04/05/25 03:02 76 15 04/05/25 03:00 108/61 04/05/25 03:00 108/61 04/05/25 03:00 108/61 04/05/25 03:00 108/61 04/05/25 02:59 78 15 04/05/25 02:02 80 18 04/05/25 02:00 12104/05/25 02:00 12104/05/25 02:00 12104/05/25 02:00 12104/05/25 02:00 12104/05/25 01:59 80 17 04/05/25 01:02 72 17 89 L 04/05/25 01:00 122/70 04/05/25 01:00 122/70 04/05/25 01:00 122/70 04/05/25 01:00 122/70 04/05/25 01:00 122/70 04/05/25 00:56 73 15 88 L 04/05/25 00:00 125/67 04/05/25 00:00 125/67 04/05/25 00:00 125/67 04/05/25 00:00 125/67 04/05/25 00:00 125/67 04/05/25 00:00 78 17 88 L 04/05/25 00:00 36.9 C 15 93 Nasal Cannula 04/04/25 23:35 36.9 C 04/04/25 23:18 91 04/04/25 23:03 88 14 04/04/25 23:01 122/80 04/04/25 23:01 122/80 04/04/25 23:01 122/80 04/04/25 23:01 122/80 04/04/25 23:01 122/80 04/04/25 23:00 87 28 H 04/04/25 22:17 Room Air 04/04/25 22:00 70 13 94 04/04/25 22:00 115/68 04/04/25 22:00 115/68 04/04/25 22:00 115/68 04/04/25 22:00 115/68 04/04/25 22:00 115/68 04/04/25 21:42 128/55 L 04/04/25 21:42 128/55 L 04/04/25 21:42 128/55 L 04/04/25 21:42 128/55 L 04/04/25 21:42 128/55 L 04/04/25 21:42 73 21 95 04/04/25 21:39 81 24 92 04/04/25 20:00 75 20 04/04/25 20:00 160/77 H 04/04/25 20:00 160/77 H 04/04/25 20:00 160/77 H 04/04/25 20:00 160/77 H 04/04/25 20:00 160/77 H 04/04/25 20:00 37.6 C H 04/04/25 19:51 74 23 04/04/25 19:43 168/111 H 04/04/25 19:43 168/111 H 04/04/25 19:43 168/111 H 04/04/25 19:43 168/111 H 04/04/25 19:42 75 21 97 O2 Del Method O2 Flow Rate 04/05/25 06:01 04/05/25 06:01 04/05/25 06:01 04/05/25 06:01 04/05/25 06:01 04/05/25 06:00 04/05/25 05:00 04/05/25 05:00 04/05/25 05:00 04/05/25 05:00 04/05/25 05:00 04/05/25 05:00 04/05/25 05:00 04/05/25 05:00 04/05/25 04:00 04/05/25 04:00 04/05/25 04:00 04/05/25 04:00 04/05/25 04:00 04/05/25 04:00 04/05/25 03:59 2 04/05/25 03:57 04/05/25 03:55 04/05/25 03:55 04/05/25 03:55 04/05/25 03:55 04/05/25 03:55 04/05/25 03:45 04/05/25 03:02 04/05/25 03:00 04/05/25 03:00 04/05/25 03:00 04/05/25 03:00 04/05/25 02:59 04/05/25 02:02 04/05/25 02:00 04/05/25 02:00 04/05/25 02:00 04/05/25 02:00 04/05/25 02:00 04/05/25 01:59 04/05/25 01:02 04/05/25 01:00 04/05/25 01:00 04/05/25 01:00 04/05/25 01:00 04/05/25 01:00 04/05/25 00:56 04/05/25 00:00 04/05/25 00:00 04/05/25 00:00 04/05/25 00:00 04/05/25 00:00 04/05/25 00:00 04/05/25 00:00 2 04/04/25 23:35 04/04/25 23:18 Room Air 04/04/25 23:03 04/04/25 23:01 04/04/25 23:01 04/04/25 23:01 04/04/25 23:01 04/04/25 23:01 04/04/25 23:00 04/04/25 22:17 04/04/25 22:00 04/04/25 22:00 04/04/25 22:00 04/04/25 22:00 04/04/25 22:00 04/04/25 22:00 04/04/25 21:42 04/04/25 21:42 04/04/25 21:42 04/04/25 21:42 04/04/25 21:42 04/04/25 21:42 04/04/25 21:39 04/04/25 20:00 04/04/25 20:00 04/04/25 20:00 04/04/25 20:00 04/04/25 20:00 04/04/25 20:00 04/04/25 20:00 04/04/25 19:51 04/04/25 19:43 04/04/25 19:43 04/04/25 19:43 04/04/25 19:43 04/04/25 19:42 Critical Care Results & Data Vital Signs (Past 12 Hours) Vital Signs Temp Pulse Resp BP Pulse Ox Pulse Ox O2 Del Method 04/05/25 06:01 156/94 H 04/05/25 06:01 156/94 H 04/05/25 06:01 156/94 H 04/05/25 06:01 156/94 H 04/05/25 06:01 156/94 H 04/05/25 06:00 79 20 04/05/25 05:00 123/79 04/05/25 05:00 123/79 04/05/25 05:00 123/79 04/05/25 05:00 123/79 04/05/25 05:00 123/79 04/05/25 05:00 123/79 04/05/25 05:00 123/79 04/05/25 05:00 76 19 04/05/25 04:00 79 20 04/05/25 04:00 131/68 04/05/25 04:00 131/68 04/05/25 04:00 131/68 04/05/25 04:00 131/68 04/05/25 04:00 131/68 04/05/25 03:59 36.6 C 17 94 Nasal Cannula 04/05/25 03:57 83 19 04/05/25 03:55 136/65 04/05/25 03:55 136/65 04/05/25 03:55 136/65 04/05/25 03:55 136/65 04/05/25 03:55 136/65 04/05/25 03:45 99 H 17 04/05/25 03:02 76 15 04/05/25 03:00 108/61 04/05/25 03:00 108/61 04/05/25 03:00 108/61 04/05/25 03:00 108/61 04/05/25 02:59 78 15 04/05/25 02:02 80 18 04/05/25 02:00 121/71 04/05/25 02:00 121/71 04/05/25 02:00 121/71 04/05/25 02:00 121/71 04/05/25 02:00 121/71 04/05/25 01:59 80 17 04/05/25 01:02 72 17 89 L 04/05/25 01:00 122/70 04/05/25 01:00 122/70 04/05/25 01:00 122/70 04/05/25 01:00 122/70 04/05/25 01:00 122/70 04/05/25 00:56 73 15 88 L 04/05/25 00:00 125/67 04/05/25 00:00 125/67 04/05/25 00:00 125/67 04/05/25 00:00 125/67 04/05/25 00:00 125/67 04/05/25 00:00 78 17 88 L 04/05/25 00:00 36.9 C 15 93 Nasal Cannula 04/04/25 23:35 36.9 C 04/04/25 23:18 91 04/04/25 23:03 88 14 04/04/25 23:01 122/80 04/04/25 23:01 122/80 04/04/25 23:01 122/80 04/04/25 23:01 122/80 04/04/25 23:01 122/80 04/04/25 23:00 87 28 H 04/04/25 22:17 Room Air 04/04/25 22:00 70 13 94 04/04/25 22:00 115/68 04/04/25 22:00 115/68 04/04/25 22:00 115/68 04/04/25 22:00 115/68 04/04/25 22:00 115/68 04/04/25 21:42 128/55 L 04/04/25 21:42 128/55 L 04/04/25 21:42 128/55 L 04/04/25 21:42 128/55 L 04/04/25 21:42 128/55 L 04/04/25 21:42 73 21 95 04/04/25 21:39 81 24 92 04/04/25 20:00 75 20 04/04/25 20:00 160/77 H 04/04/25 20:00 160/77 H 04/04/25 20:00 160/77 H 04/04/25 20:00 160/77 H 04/04/25 20:00 160/77 H 04/04/25 20:00 37.6 C H 04/04/25 19:51 74 23 04/04/25 19:43 168/111 H 04/04/25 19:43 168/111 H 04/04/25 19:43 168/111 H 04/04/25 19:43 168/111 H 04/04/25 19:42 75 21 97 O2 Del Method O2 Flow Rate 04/05/25 06:01 04/05/25 06:01 04/05/25 06:01 04/05/25 06:01 04/05/25 06:01 04/05/25 06:00 04/05/25 05:00 04/05/25 05:00 04/05/25 05:00 04/05/25 05:00 04/05/25 05:00 04/05/25 05:00 04/05/25 05:00 04/05/25 05:00 04/05/25 04:00 04/05/25 04:00 04/05/25 04:00 04/05/25 04:00 04/05/25 04:00 04/05/25 04:00 04/05/25 03:59 2 04/05/25 03:57 04/05/25 03:55 04/05/25 03:55 04/05/25 03:55 04/05/25 03:55 04/05/25 03:55 04/05/25 03:45 04/05/25 03:02 04/05/25 03:00 04/05/25 03:00 04/05/25 03:00 04/05/25 03:00 04/05/25 02:59 04/05/25 02:02 04/05/25 02:00 04/05/25 02:00 04/05/25 02:00 04/05/25 02:00 04/05/25 02:00 04/05/25 01:59 04/05/25 01:02 04/05/25 01:00 04/05/25 01:00 04/05/25 01:00 04/05/25 01:00 04/05/25 01:00 04/05/25 00:56 04/05/25 00:00 04/05/25 00:00 04/05/25 00:00 04/05/25 00:00 04/05/25 00:00 04/05/25 00:00 04/05/25 00:00 2 04/04/25 23:35 04/04/25 23:18 Room Air 04/04/25 23:03 04/04/25 23:01 04/04/25 23:01 04/04/25 23:01 04/04/25 23:01 04/04/25 23:01 04/04/25 23:00 04/04/25 22:17 04/04/25 22:00 04/04/25 22:00 04/04/25 22:00 04/04/25 22:00 04/04/25 22:00 04/04/25 22:00 04/04/25 21:42 04/04/25 21:42 04/04/25 21:42 04/04/25 21:42 04/04/25 21:42 04/04/25 21:42 04/04/25 21:39 04/04/25 20:00 04/04/25 20:00 04/04/25 20:00 04/04/25 20:00 04/04/25 20:00 04/04/25 20:00 04/04/25 20:00 04/04/25 19:51 04/04/25 19:43 04/04/25 19:43 04/04/25 19:43 04/04/25 19:43 04/04/25 19:42 Lab & Micro Results (Past 24 Hours) RBC 3.11 M/uL (4.20-5.40) L 04/05/25 WBC 16.61 K/ul (4.8-10.8) H 04/05/25 Hgb 8.7 g/dL (12.0-16.0) L 04/05/25 Hct 27.0 % (37.0-47.0) L 04/05/25 MCV 86.8 fL (80.0-100.0) 04/05/25 MCH 28.0 pg (25.0-34.0) 04/05/25 MCHC 32.2 g/dL (32.0-36.0) 04/05/25 RDW Standard Deviation 42.2 fL (36.4-46.3) 04/05/25 RDW Coefficient of Variation 13.4 % (11.5-14.5) 04/05/25 Plt Count 592 K/uL (130-400) H 04/05/25 MPV 9.8 fL (9.4-12.4) 04/05/25 ANC 7.81 K/uL (1.4-6.5) H 04/05/25 ALC 6.48 K/uL (1.2-3.4) H 04/05/25 Neutrophils % (Manual) 47 % 04/05/25 Lymphocytes % (Manual) 39 % 04/05/25 Monocytes % (Manual) 8 % 04/05/25 Eosinophils % (Manual) 4 % 04/05/25 Basophils % (Manual) 2 % 04/05/25 Neutrophils # (Manual) 7.81 K/uL (1.40-6.50) H 04/05/25 Lymphocytes # (Manual) 6.48 K/uL (1.2-3.4) H 04/05/25 Monocytes # (Manual) 1.33 K/uL (0.11-0.59) H 04/05/25 Eosinophils # (Manual) 0.66 K/uL (0-0.50) H 04/05/25 Basophils # (Manual) 0.33 K/uL (0-0.2) H 04/05/25 Red Blood Cell Morphology Unremarkable 04/05/25 Na 140 mmol/L (136-145) 04/05/25 K 3.7 mmol/L (3.5-5.1) 04/05/25 Cl 106 mmol/L (98-107) 04/05/25 CO2 26 mmol/L (21-32) 04/05/25 Anion Gap 8 (3-11) 04/05/25 BUN 9 mg/dl (6-23) 04/05/25 Creatinine 1.76 mg/dl (0.6-1.2) H 04/05/25 BUN/Creatinine Ratio 5.1 (10-20) L 04/05/25 Glu 127 mg/dl (70-99(Fasting)) H 04/05/25 Ca 8.4 mg/dl (8.6-10.3) L 04/05/25 Calcium Level 8.4 mg/dl (8.6-10.3) L 04/05/25 04:35 Microbiology 04/03/25 18:54 Aerobic Blood Culture - Preliminary Blood No growth in Aerobic bottle after 24 hours. Anaerobic Blood Culture - Preliminary No growth in Anaerobic bottle after 24 hours. 04/03/25 19:19 Aerobic Blood Culture - Preliminary Blood No growth in Aerobic bottle after 24 hours. Anaerobic Blood Culture - Preliminary No growth in Anaerobic bottle after 24 hours. 04/03/25 18:54 Urine Culture - Preliminary Urine,Clean Catch No growth - Less than 1,000 colonies/mL, Final report to follow. I & O Totals 24 Hours 04/04/25 04/05/25 04/06/25 06:59 06:59 06:59 Intake Total 3551 / 3551 6902.917 / 6902.917 Output Total 3675 / 3675 Balance 3551 / 3551 3227.917 / 3227.917 Cumulative 04/03/25 18:10 thru 04/05/25 06:42 Intake Total 10842.917 Output Total 3675 Balance 6778.917 RT Ventilator Mngmt (Last Documented) Ventilator Ordered Settings Respiratory Rate 20 04/05/25 06:00 Ventilator - PT Measurements Respiratory Rate 20 Coding Level of Care Code 59975 SUB INP/OBS CARE 2/35MIN Diagnoses Septic shock A41.9; R65.21
[2025-04-05] MEDS: POTASSIUM CHLORIDE CRTAB 20 MEQ TABCR PO STA (08:15)
--- NOTE | 2025-04-05 09:58 | Hospitalist Progress Note ---
Date of Service April 05, 2025 Assessment & Plan (1) Septic shock: Plan: With hypovolemic shock resolved (2) CKD (chronic kidney disease), stage III: (3) Postoperative infection: Plan: Pelvic floor (4) History of abdominoperineal resection: (5) High output ileostomy: (6) History of splenectomy: (7) Thrombocytosis after splenectomy: Plan Patient has been adequately fluid resuscitated for her septic and hypovolemic shock transfer out of ICU Continue Zosyn discontinue daptomycin Continue to monitor laboratory studies Activity as tolerated Continue current fluid rate, suspect patient will need high flow fluids to compensate for her high output ileostomy. Attempt to have input and output match Admission and Anticipated Discharge Date Admission Date: April 03, 2025 Subjective Patient feeling significantly improved over yesterday. Never needed pressors. Responded to more fluid resuscitation. Lower abdominal pain slightly improved and overall feeling a bit better Physical Exam Physical Exam: Constitutional: Alert, mildly ill but not toxic HEENT: Mucous membranes moist. Lungs: Clear to auscultation, decreased, no wheezes rales or rhonchi CV: S1-S2, regular Abdomen: Soft, nondistended, ileostomy right mid abdomen, mild to moderate tenderness to palpation lower abdomen and suprapubic area, no rigidity Extremities: No significant edema Neuro: No focal deficits Psych: Cooperative, normal mood Results & Data Results & Data Vital Signs (Past 12 Hours) Vital Signs Temp Pulse Pulse Resp BP BP Pulse Ox 04/05/25 08:00 88 22 127/75 04/05/25 06:01 156/94 H 04/05/25 06:01 156/94 H 04/05/25 06:01 156/94 H 04/05/25 06:01 156/94 H 04/05/25 06:01 156/94 H 04/05/25 06:00 79 20 04/05/25 05:00 123/79 04/05/25 05:00 123/79 04/05/25 05:00 123/79 04/05/25 05:00 123/79 04/05/25 05:00 123/79 04/05/25 05:00 123/79 04/05/25 05:00 123/79 04/05/25 05:00 76 19 04/05/25 04:00 79 20 04/05/25 04:00 131/68 04/05/25 04:00 131/68 04/05/25 04:00 131/68 04/05/25 04:00 131/68 04/05/25 04:00 131/68 04/05/25 03:59 36.6 C 17 94 04/05/25 03:57 83 19 04/05/25 03:55 136/65 04/05/25 03:55 136/65 04/05/25 03:55 136/65 04/05/25 03:55 136/65 04/05/25 03:55 136/65 04/05/25 03:45 99 H 17 04/05/25 03:02 76 15 04/05/25 03:00 108/61 04/05/25 03:00 108/61 04/05/25 03:00 108/61 04/05/25 03:00 108/61 04/05/25 02:59 78 15 04/05/25 02:02 80 18 04/05/25 02:00 121/71 04/05/25 02:00 121/71 04/05/25 02:00 121/71 04/05/25 02:00 121/71 04/05/25 02:00 121/71 04/05/25 01:59 80 17 04/05/25 01:02 72 17 89 L 04/05/25 01:00 122/70 04/05/25 01:00 122/70 04/05/25 01:00 122/70 04/05/25 01:00 122/70 04/05/25 01:00 122/70 04/05/25 00:56 73 15 88 L 04/05/25 00:00 125/67 04/05/25 00:00 125/67 04/05/25 00:00 125/67 04/05/25 00:00 125/67 04/05/25 00:00 125/67 04/05/25 00:00 78 17 88 L 04/05/25 00:00 36.9 C 15 93 04/04/25 23:35 36.9 C 04/04/25 23:18 04/04/25 23:03 88 14 04/04/25 23:01 122/80 04/04/25 23:01 122/80 04/04/25 23:01 122/80 04/04/25 23:01 122/80 04/04/25 23:01 122/80 04/04/25 23:00 87 28 H 04/04/25 22:17 04/04/25 22:00 70 13 94 04/04/25 22:00 115/68 04/04/25 22:00 115/68 04/04/25 22:00 115/68 04/04/25 22:00 115/68 04/04/25 22:00 115/68 Pulse Ox O2 Del Method O2 Del Method O2 Flow Rate 04/05/25 08:00 Room Air 04/05/25 06:01 04/05/25 06:01 04/05/25 06:01 04/05/25 06:01 04/05/25 06:01 04/05/25 06:00 04/05/25 05:00 04/05/25 05:00 04/05/25 05:00 04/05/25 05:00 04/05/25 05:00 04/05/25 05:00 04/05/25 05:00 04/05/25 05:00 04/05/25 04:00 04/05/25 04:00 04/05/25 04:00 04/05/25 04:00 04/05/25 04:00 04/05/25 04:00 04/05/25 03:59 Nasal Cannula 2 04/05/25 03:57 04/05/25 03:55 04/05/25 03:55 04/05/25 03:55 04/05/25 03:55 04/05/25 03:55 04/05/25 03:45 04/05/25 03:02 04/05/25 03:00 04/05/25 03:00 04/05/25 03:00 04/05/25 03:00 04/05/25 02:59 04/05/25 02:02 04/05/25 02:00 04/05/25 02:00 04/05/25 02:00 04/05/25 02:00 04/05/25 02:00 04/05/25 01:59 04/05/25 01:02 04/05/25 01:00 04/05/25 01:00 04/05/25 01:00 04/05/25 01:00 04/05/25 01:00 04/05/25 00:56 04/05/25 00:00 04/05/25 00:00 04/05/25 00:00 04/05/25 00:00 04/05/25 00:00 04/05/25 00:00 04/05/25 00:00 Nasal Cannula 2 04/04/25 23:35 04/04/25 23:18 91 Room Air 04/04/25 23:03 04/04/25 23:01 04/04/25 23:01 04/04/25 23:01 04/04/25 23:01 04/04/25 23:01 04/04/25 23:00 04/04/25 22:17 Room Air 04/04/25 22:00 04/04/25 22:00 04/04/25 22:00 04/04/25 22:00 04/04/25 22:00 04/04/25 22:00 Diagnostic Findings Reviewed imaging, laboratory and diagnostic studies. Pertinent findings as below. WBC 16.6, improved Hemoglobin 8.7 stable Electrolytes stable Creatinine 1.76 Procalcitonin 1.0, slightly improved (3) Postoperative infection Encounter type: initial encounter Postoperative infection type: organ or organ space surgical site Qualified Code(s): T81.43XA - Infection following a procedure, organ and space surgical site, initial encounter
[2025-04-05] MEDS: PROMETHAZINE 12.5 MG/50.5 ML BAG IV PRN (11:06)
--- NOTE | 2025-04-05 17:40 | Surgery Progress Note ---
<Statement entered by Julieta Anton DO - 04/05/25 18:06> I have seen and examined this patient with the surgical PA this am and I agree with this plan. Date of Service April 05, 2025 Assessment & Plan (1) Diversion colitis: (2) Diverticulitis: Plan Patient clinically appears to be recovering well from her sepsis and possible colitis. Her white blood cell count is trending down, she has remained afebrile, and her abdominal pain has resolved. We feel it be reasonable to continue with regular diet, continue IV antibiotics, continue to trend white blood cell count, temps, and serial abdominal exams. Patient will need follow- up with her surgeon from [facility] at discharge, but for now the remainder of her care per the hospitalist team and the general surgery team will continue to follow. Admission and Anticipated Discharge Date Admission Date: April 03, 2025 Subjective Patient currently states that she feels well, denies any abdominal pain, does mention some pain in her perianal area at the site of her surgery, but well- tolerated with current pain medication regimen. She denies any nausea or vomiting, tolerating a regular diet, and has ostomy output. She has remained afebrile, white blood cell count still elevated at 16.6, but down from yesterday at 22.5. Renal function improving with creatinine down to 1.76 from 1.88 yesterday. Electrolytes stable. Physical Exam Physical Exam: Gen: Awake and alert, resting comfortably in bed in NAD CV: RRR PULM: non-labored breathing Abd: Abd soft, non-distended, nontender to palpation, ostomy to left side abdomen with stool in bag. Unable to visualize stoma. ext: no edema to bilateral lower ext, SCDs in place, non-tender, feet warm and well perfused Results & Data Vital Signs (Past 12 Hours) Vital Signs Temp Pulse Pulse Resp BP BP Pulse Ox 04/05/25 17:34 37.0 C 04/05/25 15:25 36.7 C 95 H 18 136/82 95 04/05/25 10:28 04/05/25 08:00 88 22 127/75 04/05/25 06:01 156/94 H 04/05/25 06:01 156/94 H 04/05/25 06:01 156/94 H 04/05/25 06:01 156/94 H 04/05/25 06:01 156/94 H 04/05/25 06:00 79 20 O2 Del Method 04/05/25 17:34 04/05/25 15:25 Room Air 04/05/25 10:28 Room Air 04/05/25 08:00 Room Air 04/05/25 06:01 04/05/25 06:01 04/05/25 06:01 04/05/25 06:01 04/05/25 06:01 04/05/25 06:00 PG Care Time/CCT Total # of Minutes Spent Total Time Spent with Patient: Total time spent is greater than 50% in coordination of care (as documented) at patient's floor/unit and/or counseling patient: C[place] [address] SUB INP/OBS CARE 05/31MIN Patient Type Established History Problem Focused Exam Problem Focused Medical Decision Making Straight Forward Diagnoses Diversion colitis K52.89 Diverticulitis K57.92
[2025-04-05] MEDS: SODIUM CHLORIDE 0.9% 1,000 ML IV SCH (18:40)
[2025-04-06 07:36] LABS: Hematocrit (blood only) 28.7 % (37.0-47.0); Hemoglobin 9.0 g/dL (12.0-16.0); Immature Granulocytes # (auto) 0.06 K/uL (0.01-0.20); Immature Granulocytes % (auto) 0.4 %; Mean Corpuscular Hemoglobin 27.0 pg (25.0-34.0); Mean Corpuscular Volume 86.2 fL (80.0-100.0); Platelet Count 601 K/uL (130-400); RDW Standard Deviation 42.1 fL (36.4-46.3); Red Blood Count 3.33 M/uL (4.20-5.40); White Blood Count 15.09 K/ul (4.8-10.8)
[2025-04-06 07:50] LABS: Anion Gap 7.0 (3-11); Blood Urea Nitrogen 7.0 mg/dl (6-23); Calcium 8.1 mg/dl (8.6-10.3); Carbon Dioxide 28.0 mmol/L (21-32); Chloride 107.0 mmol/L (98-107); Creatinine Clr Calc Pharmacy 43.9 ml/min; Glucose 115.0 mg/dl (70-99(Fasting)); Potassium 3.8 mmol/L (3.5-5.1); Sodium 142.0 mmol/L (136-145)
--- NOTE | 2025-04-06 10:29 | Surgery Progress Note ---
Date of Service April 06, 2025 Assessment & Plan (1) High output ileostomy: (2) Postoperative infection: (3) Septic shock: Plan Leukocytosis continues to decrease. She has no documented fever o/n. She remains HD stable. Pt wants to stay on solid food for now Continue IV abx Continue IVF, pt on outpatient IVF therapy due to high ileostomy output Ambulate Continue DV ppx, on Heparin Surgery will follow Admission and Anticipated Discharge Date Admission Date: April 03, 2025 Subjective Pt seen and examined. She admits to some nausea this am after breakfast. No vomiting. States she had a fever overnight treated with Tylenol although not documented. Admits to some abdominal pain. Physical Exam Constitutional: average body habitus; not ill appearing, not disheveled, not in distress and not diaphoretic Respiratory: normal respiratory effort; no respiratory distress, no labored breathing and does not use accessory muscles Cardiovascular: Rate/Rhythm: regular rate; not tachycardic Gastrointestinal (Abdomen): Inspection/Auscultation: abdomen normal to inspection; abdomen not distended Percussion/Palpation: + abdomen tender (mild TTP low midline ) and abdomen soft; no guarding and abdomen not rigid ileostomy continues to function Results & Data Vital Signs (Past 12 Hours) Vital Signs Temp Pulse Resp BP Pulse Ox Pulse Ox O2 Del Method 04/06/25 07:51 147/85 H 04/06/25 07:32 36.4 C L 72 16 171/98 H 97 Room Air 04/06/25 00:05 36.6 C 90 18 143/87 H 97 Room Air 04/05/25 23:00 96 O2 Del Method 04/06/25 07:51 04/06/25 07:32 04/06/25 00:05 04/05/25 23:00 Room Air PG Care Time/CCT Total # of Minutes Spent Total Time Spent with Patient: Total time spent is greater than 50% in coordination of care (as documented) at patient's floor/unit and/or counseling patient: Coding Level of Care Code 81981 SUB INP/OBS CARE 05/31MIN Diagnoses High output ileostomy R19.8; Z93.2 Infection of organ or organ space after surgery, initial encounter T81.43XA Encounter type: initial encounter Postoperative infection type: organ or organ space surgical site Septic shock A41.9; R65.21 (2) Postoperative infection Encounter type: initial encounter Postoperative infection type: organ or organ space surgical site Qualified Code(s): T81.43XA - Infection following a procedure, organ and space surgical site, initial encounter
--- NOTE | 2025-04-06 12:33 | Hospitalist Progress Note ---
Date of Service April 06, 2025 Assessment & Plan (1) Septic shock: Plan: With hypovolemic shock resolved (2) CKD (chronic kidney disease), stage III: (3) Postoperative infection: Plan: Pelvic floor (4) History of abdominoperineal resection: (5) High output ileostomy: (6) History of splenectomy: (7) Thrombocytosis after splenectomy: Plan Patient 59-year-old female status post pelvic and rectal surgery at outside facility presented with evidence of septic and hypovolemic shock. Patient has been adequately fluid resuscitated, decrease IV fluid rate to match intake with output Continue broad-spectrum antibiotics Cultures to date are sterile Encourage oral intake Discussed with patient may need to increase her IV fluids that she takes at home, will determine when she is closer to discharge Case management updated Dietitian consult for diet with high output ileus Reassured patient that she is improving. She has been admitted/in the hospital essentially entire month in March. It will take her quite some time to recover her stamina Attempted to update via phone, no answer, no identity on message to leave voicemail Admission and Anticipated Discharge Date Admission Date: April 03, 2025 Subjective Patient does states she is feeling better but still quite weak and deconditioned. Not much appetite yet. Abdominal discomfort is about at her baseline. Not a lot of output from her ostomy due to the fact that she is not eating a whole lot. Nurse and patient reported low-grade fever yesterday, however do not see it documented. Physical Exam Physical Exam: Constitutional: Alert, no nontoxic but fatigued in appearance HEENT: Mucous membranes moist. Lungs: Clear to auscultation, decreased, no wheezes rales or rhonchi CV: S1-S2, regular Abdomen: Soft, diffuse lower quadrant tenderness, ileostomy functioning Extremities: No significant edema Neuro: No focal deficits Psych: Cooperative, normal mood Results & Data Results & Data Vital Signs (Past 12 Hours) Vital Signs Temp Pulse Resp BP Pulse Ox O2 Del Method 04/06/25 07:51 147/85 H 04/06/25 07:32 36.4 C L 72 16 171/98 H 97 Room Air Diagnostic Findings Reviewed imaging, laboratory and diagnostic studies. Pertinent findings as below. WBCs 15.0, improved Hemoglobin 9.0 Electrolytes stable Creatinine 1.69, improved (3) Postoperative infection Encounter type: initial encounter Postoperative infection type: organ or organ space surgical site Qualified Code(s): T81.43XA - Infection following a procedure, organ and space surgical site, initial encounter
[2025-04-07 08:05] LABS: Hematocrit (blood only) 29.0 % (37.0-47.0); Hemoglobin 9.1 g/dL (12.0-16.0); Immature Granulocytes # (auto) 0.09 K/uL (0.01-0.20); Immature Granulocytes % (auto) 0.5 %; Mean Corpuscular Hemoglobin 27.2 pg (25.0-34.0); Mean Corpuscular Volume 86.6 fL (80.0-100.0); Platelet Count 655 K/uL (130-400); RDW Standard Deviation 42.7 fL (36.4-46.3); Red Blood Count 3.35 M/uL (4.20-5.40); White Blood Count 19.70 K/ul (4.8-10.8)
[2025-04-07 08:20] LABS: Anion Gap 8.0 (3-11); Blood Urea Nitrogen 7.0 mg/dl (6-23); Calcium 8.3 mg/dl (8.6-10.3); Carbon Dioxide 24.0 mmol/L (21-32); Chloride 108.0 mmol/L (98-107); Creatinine Clr Calc Pharmacy 46.0 ml/min; Glucose 105.0 mg/dl (70-99(Fasting)); Potassium 4.2 mmol/L (3.5-5.1); Sodium 140.0 mmol/L (136-145)
--- NOTE | 2025-04-07 11:11 | Hospitalist Progress Note ---
Date of Service April 07, 2025 Assessment & Plan (1) Septic shock: Plan: With hypovolemic shock resolved (2) CKD (chronic kidney disease), stage III: (3) Postoperative infection: Plan: Pelvic floor (4) History of abdominoperineal resection: (5) High output ileostomy: (6) History of splenectomy: (7) Thrombocytosis after splenectomy: Plan Patient symptomatically is slowly improving. Renal function is stabilized. Concern WBCs and platelets have increased today. Had de-escalated antibiotics2 days ago discontinuing the daptomycin and continuing on Zosyn. If WBCs continue to trend upward may need to reassess antibiotics Continue to encourage oral intake Patient is still significantly positive with her fluid balance. Ileostomy has not putting out as much because her oral intake has been down. Will observe off of IV fluids today Encouraged activity Updated patient's via phone Admission and Anticipated Discharge Date Admission Date: April 03, 2025 Subjective Patient feeling better but not quite back to her usual self. Not much appetite but trying to eat. Still with some low abdominal pain but not any worse Physical Exam Physical Exam: Constitutional: Alert, nontoxic, fully dressed HEENT: Mucous membranes moist. Lungs: Clear to auscultation, decreased, no wheezes rales or rhonchi CV: S1-S2, regular Abdomen: Soft, mild low abdominal suprapubic tenderness, no guarding, no rigidity, no rebound Extremities: No significant edema Neuro: No focal deficits Psych: Cooperative, depressed mood Results & Data Results & Data Vital Signs (Past 12 Hours) Vital Signs Temp Pulse Resp BP Pulse Ox O2 Del Method 04/07/25 08:23 36.5 C 60 18 138/84 94 Room Air 04/07/25 00:00 36.5 C 66 18 121/78 92 Room Air Diagnostic Findings Reviewed imaging, laboratory and diagnostic studies. Pertinent findings as below. WBCs 19.7, increased Platelets 655, increasing Creatinine 1.61 Intake and output reviewed, +2 L (3) Postoperative infection Encounter type: initial encounter Postoperative infection type: organ or organ space surgical site Qualified Code(s): T81.43XA - Infection following a procedure, organ and space surgical site, initial encounter
--- NOTE | 2025-04-07 15:55 | Surgery Progress Note ---
<Statement entered by Bienvenido Arriaza MD - 04/07/25 16:18> I saw and examined the patient, and I agree with the assessment and plan of care. Date of Service April 07, 2025 Assessment & Plan (1) Postoperative infection: Plan: Pt with history of AUG 1503/2025 at outside hospital here w/ inflammation in pelvis and possible fluid collection WBC 19 (15). She still feels overly unwell She has been in touch w/ her surgeon who would be okay with transfer if necessary for possible procedures Continue IV abx, if WBC increases tomorrow and not improving we recommend collin, pt agreeable Discussed with hospitalists as well Admission and Anticipated Discharge Date Admission Date: April 03, 2025 Subjective Patient reports still feeling a bit unwell, like a flu like state with fatigue. She is on regular diet. Intermittent lower abdominal pain Physical Exam 2 Physical Exam: awake/alert, no distress, appears tired Gastrointestinal (Abdomen): + little bit of liquid stool in bag. rod e lower discomfort Results & Data Vital Signs (Past 12 Hours) Vital Signs Temp Pulse Resp BP Pulse Ox O2 Del Method 04/07/25 08:23 97.7 F 60 18 138/84 94 Room Air 04/07/25 07:30 Room Air PG Care Time/CCT Total # of Minutes Spent Total Time Spent with Patient: Total time spent is greater than 50% in coordination of care (as documented) at patient's floor/unit and/or counseling patient: Coding Level of Care Code 71562 SUB INP/OBS CARE 05/31MIN Diagnoses Infection of organ or organ space after surgery, initial encounter T81.43XA Encounter type: initial encounter Postoperative infection type: organ or organ space surgical site (1) Postoperative infection Encounter type: initial encounter Postoperative infection type: organ or organ space surgical site Qualified Code(s): T81.43XA - Infection following a procedure, organ and space surgical site, initial encounter
[2025-04-07] MEDS ORDERED: Nursing to Pharmacy Communication SCH (21:00)
[2025-04-08 07:34] LABS: Hematocrit (blood only) 28.8 % (37.0-47.0); Hemoglobin 9.1 g/dL (12.0-16.0); Mean Corpuscular Hemoglobin 27.2 pg (25.0-34.0); Mean Corpuscular Volume 86.0 fL (80.0-100.0); Platelet Count 687 K/uL (130-400); RDW Standard Deviation 42.4 fL (36.4-46.3); Red Blood Count 3.35 M/uL (4.20-5.40); White Blood Count 13.38 K/ul (4.8-10.8)
[2025-04-08 07:56] LABS: Anion Gap 7.0 (3-11); Blood Urea Nitrogen 11.0 mg/dl (6-23); Calcium 8.5 mg/dl (8.6-10.3); Carbon Dioxide 24.0 mmol/L (21-32); Chloride 108.0 mmol/L (98-107); Creatinine Clr Calc Pharmacy 40.7 ml/min; Glucose 122.0 mg/dl (70-99(Fasting)); Potassium 4.0 mmol/L (3.5-5.1); Sodium 139.0 mmol/L (136-145)
--- NOTE | 2025-04-08 10:25 | Hospitalist Progress Note ---
Date of Service April 08, 2025 Assessment & Plan (1) Septic shock: Plan: With hypovolemic shock resolved (2) CKD (chronic kidney disease), stage III: (3) Postoperative infection: Plan: Pelvic floor (4) History of abdominoperineal resection: (5) High output ileostomy: (6) History of splenectomy: (7) Thrombocytosis after splenectomy: Plan Patient overall seems to be improving, WBCs improved now today. Will continue IV antibiotics Continue to monitor WBCs, renal function, electrolytes Encourage activity Will saline lock IV fluids. Patient's oral intake is not matching her output, however, this is expected, she was receiving IV fluids at home. May need this 1 L daily versus 2 L every other day as planned at home Anticipate if WBCs normalized transition to oral antibiotics and discharged home in the next 1 to 2 days Admission and Anticipated Discharge Date Admission Date: April 03, 2025 Subjective Patient states she is feeling a little bit better. Lower abdominal pain about the same. Feels as though she is eating a little bit better. Physical Exam Physical Exam: Constitutional: Alert, nontoxic HEENT: Mucous membranes moist. Lungs: Clear to auscultation, decreased, no wheezes rales or rhonchi CV: S1-S2, regular Abdomen: Soft, ostomy right mid abdomen, nondistended, mild tenderness lower carmencita drant suprapubically, no guarding, no rigidity Extremities: No significant edema Neuro: No focal deficits Psych: Cooperative, normal mood Results & Data Results & Data Vital Signs (Past 12 Hours) Vital Signs Temp Pulse Resp BP Pulse Ox O2 Del Method 04/08/25 07:24 36.5 C 56 L 18 135/84 93 Room Air Diagnostic Findings Reviewed imaging, laboratory and diagnostic studies. Pertinent findings as below. WBCs 13.3, improved Hemoglobin 9.1, stable Platelets of 687 Creatinine 1.82, slightly increased but within her baseline range (3) Postoperative infection Encounter type: initial encounter Postoperative infection type: organ or organ space surgical site Qualified Code(s): T81.43XA - Infection following a procedure, organ and space surgical site, initial encounter
--- NOTE | 2025-04-08 12:16 | Surgery Progress Note ---
Date of Service April 08, 2025 Assessment & Plan (1) Postoperative infection: Plan: Pt with history of AUG 1503/2025 at outside hospital here w/ inflammation in pelvis and possible fluid collection WBC 13 (19). Vitals stable, she is afebrile Pt feels similar to yesterday. She is happy with WBC decreasing. prefers to stick it out here if possible If any changes in her status would consider re-imaging and consider transfer. her surgeon is aware of her admission and seems to be willing to accept her back if procedures necessary Continue IV abx and current plan for now and see how she fairs. likely will need to transition to oral abx to complete course upon dispo No plans for any surgical procedures here Please call with any questions/concerns Admission and Anticipated Discharge Date Admission Date: April 03, 2025 Subjective Patient states she feels about the same, just crummy. Intermittent nausea and pain. Denies throwing up. Wants to keep the regular diet going so she can "pick" Reports + ostomy output in terms of stool. Wants to try to stick it out here and see how she feels and how her labs continue to trend. She has been in touch with her surgeon over the phone yesterday. Physical Exam Physical Exam: awake, alert, no distress, tired appearing Gastrointestinal (Abdomen): Inspection/Auscultation: abdomen not distended Percussion/Palpation: + abdomen tender (mild lower abdominal discomfort) and abdomen soft No ostomy output in bag, but pt states she just emptied it Results & Data Vital Signs (Past 12 Hours) Vital Signs Temp Pulse Resp BP Pulse Ox O2 Del Method 04/08/25 07:24 97.7 F 56 L 18 135/84 93 Room Air PG Care Time/CCT Total # of Minutes Spent Total Time Spent with Patient: Total time spent is greater than 50% in coordination of care (as documented) at patient's floor/unit and/or counseling patient: Coding Level of Care Code 01672 SUB INP/OBS CARE 05/31MIN Diagnoses Infection of organ or organ space after surgery, initial encounter T81.43XA Encounter type: initial encounter Postoperative infection type: organ or organ space surgical site (1) Postoperative infection Encounter type: initial encounter Postoperative infection type: organ or organ space surgical site Qualified Code(s): T81.43XA - Infection following a procedure, organ and space surgical site, initial encounter
[2025-04-08 14:37] VITALS: RESP 16
[2025-04-09 07:59] LABS: Hematocrit (blood only) 29.8 % (37.0-47.0); Hemoglobin 9.6 g/dL (12.0-16.0); Mean Corpuscular Hemoglobin 27.4 pg (25.0-34.0); Mean Corpuscular Volume 84.9 fL (80.0-100.0); Platelet Count 728 K/uL (130-400); RDW Standard Deviation 41.9 fL (36.4-46.3); Red Blood Count 3.51 M/uL (4.20-5.40); White Blood Count 12.48 K/ul (4.8-10.8)
[2025-04-09 08:15] LABS: Anion Gap 8.0 (3-11); Blood Urea Nitrogen 13.0 mg/dl (6-23); Calcium 8.7 mg/dl (8.6-10.3); Carbon Dioxide 26.0 mmol/L (21-32); Chloride 105.0 mmol/L (98-107); Creatinine Clr Calc Pharmacy 40.3 ml/min; Glucose 105.0 mg/dl (70-99(Fasting)); Potassium 3.9 mmol/L (3.5-5.1); Sodium 139.0 mmol/L (136-145)
[2025-04-09 08:20] VITALS: BP 121/83; PULSE 53; TEMP 97.5; O2SAT 93
--- NOTE | 2025-04-09 09:44 | Surgery Progress Note ---
<Statement entered by Bienvenido Arriaza MD - 04/09/25 12:55> I independently saw and examined the patient, and I agree with the assessment and plan of care. Date of Service April 09, 2025 Assessment & Plan (1) Postoperative infection: Plan: Pt with history of AUG 1503/2025 at outside hospital here w/ inflammation in pelvis and possible fluid collection -WBC down to 12.4 today, VSS, she is afebrile -Pt feels like she is slowly improving -Tolerating diet this morning without any reported issues -She has been on IV antibiotics, okay to transition to oral for potential discharge -She has been in touch with her surgeon and they are aware of her admission, patient has been clinically improving, recommend patient following up with them in the next week. - No plans for surgical intervention, we will sign off at this time. Please recall with any questions or concerns Admission and Anticipated Discharge Date Admission Date: April 03, 2025 Subjective Patient seen and evaluated this morning Does continue to have some ostomy output, is sitting up eating breakfast this morning during exam without any reported issues. Afebrile and WBC 12.4 today Physical Exam Constitutional: WD/WN, vitals as above Respiratory: normal respiratory effort, lungs clear to auscultation Cardiovascular: Rate/Rhythm: regular rate Gastrointestinal (Abdomen): Abdomen soft, mild lower abdominal discomfort with palpation, nondistended Ostomy output in bag Results & Data Vital Signs (Past 12 Hours) Vital Signs Temp Pulse Resp BP Pulse Ox Pulse Ox O2 Del Method 04/09/25 08:19 36.4 C L 53 L 16 121/83 93 Room Air 04/08/25 23:25 36.5 C 57 L 16 146/91 H 95 Room Air 04/08/25 23:00 95 O2 Del Method 04/09/25 08:19 04/08/25 23:25 04/08/25 23:00 Room Air PG Care Time/CCT Total # of Minutes Spent Total Time Spent with Patient: Total time spent is greater than 50% in coordination of care (as documented) at patient's floor/unit and/or counseling patient: Coding [place] [address] SUB INP/OBS CARE 05/31MIN Patient Type Established History Problem Focused Exam Problem Focused Medical Decision Making Straight Forward Diagnoses Infection of organ or organ space after surgery, initial encounter T81.43XA Encounter type: initial encounter Postoperative infection type: organ or organ space surgical site (1) Postoperative infection Encounter type: initial encounter Postoperative infection type: organ or organ space surgical site Qualified Code(s): T81.43XA - Infection following a procedure, organ and space surgical site, initial encounter
--- NOTE | 2025-04-09 10:14 | Discharge Summary ---
Discharge Summary Date of Service April 09, 2025 Principal Dx & Hospital Course #1 = Principal Diagnosis (1) Septic shock: With hypovolemic shock resolved (2) CKD (chronic kidney disease), stage III: (3) Postoperative infection: Pelvic floor (4) History of abdominoperineal resection: (5) High output ileostomy: (6) History of splenectomy: (7) Thrombocytosis after splenectomy: Plan Patient 59-year-old female who just recently underwent an extensive abdominal peritoneal surgical resection at [facility]. She was at home but continued to feel weekend and not fully returned to her full strength. Presented to the emergency room with increasing fatigue and high-grade fever. Evaluation in the emergency room was concerning for abdominal/pelvic infection in the area of surgery. Case was reviewed with her surgeon who felt that she could be cared for at [facility] with antibiotics and monitoring. Patient was admitted to the hospital. She placed on broad-spectrum IV antibiotics. She was given some fluid resuscitation. Patient also has an ileostomy with known high output for which she gets IV fluids at home. Patient's blood pressure continued to decline despite initial fluid resuscitation. She was given additional fluids but continued to have a low MAP. She was transferred to the ICU for possible pressor therapy. Patient ultimately did respond to IV fluid resuscitation and did not require pressors. She was monitored for 24 hours in the ICU and then transitioned out. Patient had a presenting picture of both hypovolemic and septic shock. Blood and urine cultures and showed no specific growth. Antibiotic regimen was narrowed. Her diet was advanced. And she slowly started to improve. Surgical consultation was obtained and were following her through her hospitalization. Had a low abdominal tenderness and discomfort improved. WBC steadily improved. Her strength is starting to return. On the day of discharge all indicators had significantly improved from the time of admission. She was eating and drinking much better. Her strength is starting to return and she was ambulating within her room. She can be transition to oral antibiotics and outpatient follow-up with her providers. Notes For Next Care Provider Continue close follow-up with Dr. 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 Per chart review admission at [facility] 02/04/2025-02/07/25 for IRA, rectal bleeding, high output ileostomy. S/P flex sig 02/05 with results consistent with diversion colitis. Patient was treated with hydrocortisone and mesalamine suppositories. Colorectal surgery was also involved for high output ostomy for which Imodium and fiber was implemented. Patient required IVF with ostomy output ranging from 1L-2L per day. She was to have continued outpatient IVF to maintain hydration if ostomy output >1500mL/day. During hospitalization nephrology secondary to IRA secondary to high output ostomy and recommended continued IVF. Another [facility] admission 03/09/25-03/14/25 for laparoscopic completion proctectomy with abdominoperineal resection on 03/09/25 Patient reports since last surgery she has not "bounced back". States continued poor appetite and decreased oral intake. States has been having lower abdominal pain and using pain medications daily. She feels abdominal pain is about the same as it has been. She reports gets 2L IVF on Sun, Sun, Fridays secondary to high output ostomy. She doesn't measure output but feels it is similar output to what it has been. States in mornings starts off as "mushy" and turns to liquid throughout the day. Denies any noted blood or black color. Today started with fever, rigors, chills. Home temperature reported at 104F. C/O left sided MILLER today. Took Tylenol at home with decreased fever. States she feels "really sick and wiped out" today. Denies neck pain, dizziness, vision changes, N/V, A, dizziness, syncope, CP, SOB, palpitations, cough, sore throat, otalgia, rhinorrhea, paresthesias, extremity edema, rashes, urinary symptoms. Per chart review has had ongoing leukocytosis with WBC: 12.9 on 02/06/2025 that up trended to 24 on 02/10/2025 and downtrended to 18.5 and 02/24/2025. WBC was 26.9 on 03/09/2025, 20 on 03/14/2025 Hgb: 9.5 on 03/09/2025 and 10.2 on 03/30/2025 Creatinine had peaked at 3.8 on 02/03/2025 and has improved to 1.7-1.8 during February and beginning of March 2025. Uptrending again end of March with Creatinine 2.2 on 03/26/2025 03/27/2025 CT abdomen pelvis: 1. Decreased fluid collection within splenic fossa likely postoperative seroma. 2. New presacral pelvic fluid collections with questionable rim enhancement, nonspecific in the setting of recent surgery. Differential consideration include resolving seroma, hematoma versus abscess. Seen by [facility] general surgery Dr. Murray on 03/31/2025 with concerns for postsurgical pain and concerns about her sore area on abdomen at site of prior drain. Surgeon felt wounds with expected healing at that time. Admission Exam Per Admitting Provider See H&P Discharge Exam Constitutional: Alert, nontoxic, overall improved in appearance from admission HEENT: Mucous membranes moist. Lungs: Clear to auscultation, decreased, no wheezes rales or rhonchi CV: S1-S2, regular Abdomen: Soft, minimal lower abdominal tenderness, no guarding, no rigidity, ileostomy right abdomen, functional Extremities: No significant edema Neuro: No focal deficits Psych: Cooperative, normal mood Updated Medication List Medication Instructions Recorded Confirmed Type hyoscyamine sulfate 0.125 mg tablet 0.125 mg PO BID PRN cramping 10/31/19 04/03/25 History multivitamin 1 tab PO QAM 10/31/19 04/03/25 History pantoprazole 40 mg tablet,delayed 40 mg PO AMHS 10/31/19 04/03/25 History release cyanocobalamin (vitamin B-12) 1,000 mcg PO QAM 07/18/21 04/03/25 History 1,000 mcg tablet (Vitamin B-12) estradiol 0.1 mg/24 hr semiweekly 0.1 mg transdermal 2XWK 07/18/21 04/03/25 History transdermal patch famotidine 20 mg tablet 20 mg PO BID PRN Heartburn 07/18/21 04/03/25 History magnesium 100 mg tablet 100 mg PO QAM 07/18/21 04/03/25 History amitriptyline 100 mg tablet 100 mg PO HS 09/26/22 04/03/25 History diazepam 10 mg tablet 10 mg PO Q12 PRN Anxiety 04/03/25 04/03/25 History diphenoxylate-atropine 2.5 1 tab PO UD 04/03/25 04/03/25 History mg-0.025 mg tablet electrolyte-S (pH 7.4) (Isolyte S 1 ea IV 3XWK 04/03/25 04/03/25 History pH 7.4 intravenous solution) ferrous sulfate 325 mg (65 mg 325 mg PO Q OTHER DAY 04/03/25 04/03/25 History iron) tablet fluticasone 113 mcg-salmeterol 14 2 inh inhalation AMHS 04/03/25 04/03/25 History mcg/actuation breath activated powdr hydroxyzine HCl 50 mg tablet 50 mg PO QID PRN Itching 04/03/25 04/03/25 History levofloxacin 500 mg tablet 500 mg PO QAM PRN if temp >100.4 04/03/25 04/03/25 History lidocaine-prilocaine 2.5 %-2.5 % See Rx Instructions .Route .COMPLEX 04/03/25 04/03/25 History topical cream loperamide 2 mg capsule 2 mg PO UD 04/03/25 04/03/25 History methocarbamol 500 mg tablet 500 mg PO TID 04/03/25 04/03/25 History montelukast 10 mg tablet 10 mg PO QAM 04/03/25 04/03/25 History omalizumab 150 mg/mL subcutaneous 300 mg subcut .EVERY 4 WEEKS 04/03/25 04/03/25 History syringe (Xolair) oxycodone 5 mg tablet 5 - 10 mg PO Q4 PRN pain,severe 04/03/25 04/03/25 History perfluorohexyloctane (PF) 100 % 1 drp OPB AMHS 04/03/25 04/03/25 History eye drops (Miebo (PF)) pregabalin 100 mg capsule See Rx Instructions .Route .COMPLEX 04/03/25 04/03/25 History prochlorperazine maleate 5 mg 5 mg PO Q6 PRN Nausea 04/03/25 04/03/25 History tablet promethazine 12.5 mg tablet 12.5 mg PO Q6 PRN Nausea 04/03/25 04/03/25 History rizatriptan 10 mg tablet 10 mg PO UD PRN Migraine Headache 04/03/25 04/03/25 History tizanidine 4 mg tablet 4 mg PO Q6 PRN muscle spasms 04/03/25 04/03/25 History amoxicillin 875 mg-potassium 1 tab PO BID 10 days #20 tabs 04/09/25 Rx clavulanate 125 mg tablet pregabalin 100 mg capsule (Lyrica) 100 mg PO TID #90 caps 04/09/25 Rx Hospital Stay Data Consultations 04/04/25 09:27 Consult Subgrade Tester Routine Diagnostic Imagining Performed 04/03/25 19:05 CT abd pelvis wo con Stat Reviewed imaging, laboratory and diagnostic studies. Pertinent findings as below. Blood and urine culture no growth to date WBCs 12.4 Hemoglobin 9.6 Platelets of 728 Electrolytes within normal range Creatinine 1.84 Glucose 105 Procalcitonin 1.0, improved Pending Results Patient Have Any Pending Studies at Discharge: No Discharge Instructions Given to Patient (Per Discharging Provider) Increase your home IV fluids to 2 L every other day Blood work on Sunday per usual process Home Health Attestation I certify that this patient is under my care and that I, or a physicians ass istant working with me, had a face to-face encounter that meets the home health [id number] encounter requirements with this patient. The encounter with the patient was in whole, or in part, for the following medical condition, which is the primary reason for home health care (list medical condition): I certify that, based on my findings, the following services are medically necessary home health services: My clinical findings support the need for the above services because: Further, I certify that my clinical findings support that this patient is homebound (i.e. absences from home require considerable and taxing effort and are for medical reasons or [employer] services or infrequently or of short duration when for other reasons) because: Certification for Home Health Services: Based on the above findings, I certify that this patient is confined to the home and needs intermittent [facility] care, physical therapy and/or speech therapy or continues to need occupational therapy. The patient is under my care, and I have initiated the establishment of the plan of care. This patient will be followed by a physician who will periodically review the plan of care. Total Time Total Time Spent Total Time Spent (In Minutes): 34
== END 2025-04-09 12:12 | disposition home health service (06) | DRG 862 ==
LOC: ED 18:10 → 2N 21:44 → 1E 04-04 10:20 → 3W 04-05 10:13
DX: T81.19XA Other postprocedural shock, initial encounter; Z90.81 Acquired absence of spleen; N18.30 Chronic kidney disease, stage 3 unspecified; K52.89 Other specified noninfective gastroenteritis and colitis; Z90.711 Acquired absence of uterus with remaining cervical stump; M79.7 Fibromyalgia; M54.9 Dorsalgia, unspecified; Z90.49 Acquired absence of other specified parts of digestive tract; Z86.79 Personal history of other diseases of the circulatory system; N39.0 Urinary tract infection, site not specified; Z95.5 Presence of coronary angioplasty implant and graft; D64.9 Anemia, unspecified; G89.29 Other chronic pain; Z79.899 Other long term (current) drug therapy; Z93.2 Ileostomy status; N17.9 Acute kidney failure, unspecified; Z87.891 Personal history of nicotine dependence; T81.44XA Sepsis following a procedure, initial encounter; D75.838 Other thrombocytosis; R65.21 Severe sepsis with septic shock; Z88.1 Allergy status to other antibiotic agents; J44.9 Chronic obstructive pulmonary disease, unspecified; K21.9 Gastro-esophageal reflux disease without esophagitis